=== PATIENT | female | born 1940 | race Caucasian/White ===

== ENCOUNTER 2021-02-09 07:15 | Inpatient (IN) | payer MEDICARE, OTHER, SELFPAY ==
--- NOTE | ~2021-02-09 | CT_ITS ---
EXAMINATION: CT abdomen pelvis w con INDICATION: Intermittent abdominal pain and diarrhea TECHNIQUE: Computed tomographic images of the abdomen and pelvis were obtained after the administrati on of 100 cc of Omnipaque 350 intravenous contrast. The dose-length product (DLP) was 1295.76 mGy-cm. Automated exposure control and iterative reconstruction technique were employed. COMPARISON: None available FINDINGS: Minimal dependent atelectasis is present in the lung bases. The heart size is normal. Calci fied pulmonary nodules and calcified left hilar lymph nodes are consistent with old granulomatous dis ease. Punctate calcifications in otherwise normal appearing liver and spleen likely represent healed granulomatous disease. The pancreas and adrenal glands are normal. There is cholelithiasis and gallbl adder distention. The dilated common bile duct measures up to 8 mm. Hypoattenuating lesions in the ki dneys, measuring up to 7 mm on the left, are too small to characterize but likely represent cysts. Th ere is calcified atherosclerosis of the aorta and many of the other arteries. No pathologically enlar ged abdominal or pelvic lymph nodes are identified. There is no free intraperitoneal gas or evidence of bowel obstruction. Colonic diverticulosis is noted. There is subtle edematous stranding of the per isigmoid fat near the proximal sigmoid colon. There is severe lumbar spondylosis. Fat-containing umbi lical hernia is noted. A neurostimulator device is in the subcutaneous tissues of the flank. Its lead s enter the central spinal canal at the level of T12-L1 and course beyond the superior margin of the CT. IMPRESSION: 1. Cholelithiasis and gallbladder distention without definite pericholecystic fluid or wall thickenin g identified. Findings could reflect acute cholecystitis. Recommend correlation for right upper quadr ant tenderness and consider right upper quadrant ultrasound if present. 2. Mild enlargement of the common bile duct of unclear significance or etiology given the normal live r function tests. 3. Subtle fat stranding near the sigmoid colon which could reflect mild uncomplicated diverticulitis. Reviewed, dictated and finalized at location A. IOLOGY MANAGER IMPRESSION: 1. Cholelithiasis and gallbladder distention without definite pericholecystic f luid or wall thickening identified. Findings could reflect acute cholecystitis. Recommend correlation for right upper quadrant tenderness and consider right u pper quadrant ultrasound if present. 2. Mild enlargement of the common bile duct of unclear significance or etiology given the normal liver function tests. 3. Subtle fat stranding near the sigmoid colon which could reflect mild uncompl icated diverticulitis.
--- NOTE | ~2021-02-09 | US_ITS ---
EXAMINATION: US abdomen limited DATE: 02/09/2021 10:56 INDICATION: Right upper quadrant pain TECHNIQUE: Multiple grayscale and Doppler ultrasound images of the abdomen were obtained. COMPARISON: 10/11/[address] from today FINDINGS: The head, body, and tail of the pancreas are normal. The liver is normal with normal echoge nicity and echotexture. No surface nodularity. Normal hepatopetal flow in the main portal vein. The g allbladder is distended and contains stones. There is no gallbladder wall thickening or pericholecyst ic fluid. The dilated common bile duct measures 11 mm. There was no sonographic Mcgill sign however, pain medication can reduce sensitivity. IMPRESSION: 1. Cholelithiasis and gallbladder distention without gallbladder wall thickening or pericholecystic f luid. Findings are equivocal for acute cholecystitis. 2. Dilated common bile duct of unclear etiology. Reviewed, dictated and finalized at location A. TOWER CLIMBER IMPRESSION: 1. Cholelithiasis and gallbladder distention without gallbladder wall thickenin g or pericholecystic fluid. Findings are equivocal for acute cholecystitis. 2. Dilated common bile duct of unclear etiology.
[2021-02-09 07:19] VITALS: BP 188/98; PULSE 116; RESP 14; TEMP 36.6; O2SAT 98
[2021-02-09 07:36] LABS: Basophils Percent Auto 0.3 % (0.2-1.2); Eosinophils Percent Auto 0.2 % (0-4.4); Hematocrit 39.3 % (37.0-47.0); Hemoglobin 13.2 g/dL (12.0-15.0); Immature Granulocyte Absolute 0.06 K/mm3 (0.00-0.031); Immature Granulocyte Percent A 0.4 % (0-0.5); Lymphocytes Absolute Auto 2.38 K/mm3 (0.9-3.2); Lymphocytes Percent Auto 16.6 % (18.3-44.2); Mean Corpuscular HGB Conc 33.6 g/dl (32-36); Mean Corpuscular Hemoglobin 32.8 pg (26-34); Mean Corpuscular Volume 97.8 fl (80-100); Mean Platelet Volume 10.9 fl (7.4-10.4); Monocytes Absolute Auto 1.3 K/mm3 (0.1-0.6); Monocytes Percent Auto 9.1 % (2.6-8.5); Neutrophils Absolute Auto 10.5 K/mm3 (1.3-6.7); Neutrophils Percent Auto 73.4 % (45.5-73.1); Platelet Count Result 270 k/mm3 (150-375); Red Blood Count 4.02 M/mm3 (4.2-5.4); Red Cell Distribution Width 13.2 % (11.5-14.5); White Blood Count 14.3 K/mm3 (4.5-10.0)
[2021-02-09 07:49] LABS: Alanine Aminotransferase 15 U/L (4-35); Albumin Level 4.4 g/dL (3.5-5.1); Alkaline Phosphatase 54 U/L (38-126); Anion Gap 16 mmol/L (8-16); Aspartate Amino Transferase 30 U/L (14-36); Bilirubin,Total 1.1 mg/dL (0.2-1.3); Blood Urea Nitrogen 44 mg/dL (7-17); Calcium 10.4 mg/dL (8.4-10.2); Carbon Dioxide 21 mmol/L (22-30); Chloride 101 mmol/L (98-107); Estimated CRCL calculation 39 ml/min; Estimated Glomerular Filt Rate 40; Glucose 174 mg/dL (65-110); Lipase 30 U/L (23-300); Potassium 3.9 mmol/L (3.4-5.0); Sodium 138 mmol/L (137-145)
--- NOTE | 2021-02-09 08:04 | PC.NURSE ---
Patient reports she is not currently having pain requiring her to need the ordered pain medication. Will hold admin of this for now.
[2021-02-09] MEDS: SODIUM CHLORIDE 0.9% IV 1,000 ML 999 ML IV CONT (08:36)
[2021-02-09 09:05] LABS: Add Urine Microscopic? YES; Appearance Urine Cloudy (Clear); Bilirubin Urine Negative (Negative); Blood Urine Negative (Negative); Color Urine Amber (Yellow); Glucose Urine UA Negative (Negative); Ketones Urine Trace mg/dL (Negative); Leukocyte Esterase Ur Negative LEU/UL (Negative); Mucus Urine Rare /lpf; Nitrate Urine Negative (Negative); Protein Urine 1+ mg/dL (Negative); Specific Grav Ur 1.021 (1.001-1.035); Squamous Epithelial Cell Urine Moderate /hpf (Few); WBC Urine 0-3 /hpf
[2021-02-09 09:12] LABS: Lactic Acid Reflex 2.3 mmol/L (0.7-2.1)
--- NOTE | 2021-02-09 09:57 | ED.GENADULT ---
HPI - General Adult General Chief complaint: Nausea/Vomiting/Diarrhea Stated complaint: diarrhea, weakness Time Seen by Provider: 02/09/21 07:49 Source: patient Mode of arrival: ambulatory Limitations: no limitations History of Present Illness HPI narrative: Patient presents with diffuse upper abdominal pain, and diarrhea 3-4 times a day for the last 5 days. Patient denies any fever, chills, nausea, vomiting, recent antibiotic intake. History of appendectomy. Related Data Home Medications Medication Instructions Recorded Confirmed hydrocodone 10 mg-acetaminophen 1 tablet PO QID PRN tablet 04/25/19 12/24/20 325 mg tablet cholecalciferol (vitamin D3) 10 10 mcg PO DAILY 09/14/19 12/24/20 mcg (400 unit) capsule omeprazole 20 mg capsule,delayed 20 mg PO DAILY 09/20/20 12/24/20 release Allergies Allergy/AdvReac Type Severity Reaction Status Date / Time glyburide Allergy Unknown pt states Verified 12/24/20 11:11 cannot tolerate d/t blood sugar falling. Review of Systems Review of Systems: CONSTITUTIONAL: Denies fever, chills, or sweats. EYES: Denies visual changes, redness, or discharge. ENT: Denies rhinorrhea, congestion, sore throat, or otalgia. CARDIOVASCULAR: Denies chest pain, palpitations, or edema. RESPIRATORY: Denies cough or dyspnea. GASTROINTESTINAL: abdominal pain, diarrhea. GENITOURINARY: Denies dysuria or hematuria. SKIN: Denies rash or itching. MUSCULOSKELETAL: Denies back pain, joint pain, or myalgia. NEUROLOGIC: Denies headache, numbness, or weakness. PSYCHIATRIC: Denies anxiety or depression. [facility] Past Medical History Medical History Spinal cord stimulator status Surgical History Surgical History H/O thumb surgery (10/2019) Family History Family History Father Diabetes mellitus Family history of glaucoma Hypertension Family history of cardiovascular disease Mother Family history of lupus erythematosus Other Family history of arthritis Family history of congenital heart disease Social History Social History Alcohol intake: never Gender identity (if verbalized by the patient): Female Exam Narrative: General appearance: Well-developed, well-nourished Skin: Normal color Head: Normocephalic, nontraumatic Eyes: Clear conjunctiva ENT: Oropharynx normal, ears normal, nose normal Neck: Supple, nontender Chest and respiratory: Airway patent, no respiratory distress, no accessory muscle use Heart: Regular rate/rhythm Abdomen: Soft, no localized tenderness, large abdomen, no organomegaly, quiet bowel sounds Vascular: Normal peripheral pulses, normal capillary refill. Musculoskeletal: Normal range of motion, nontender back Neurologic: Alert and oriented ?3, SERVICER is normal as tested, no gross motor deficit Course Course Emergency Course: Stable Consultations Consultation #1: Dr. Mckeon Date: 02/09/21 Time: 12:50 Vital Signs Vital signs: Vital Signs Temperature 36.6 C 02/09/21 07:19 Pulse Rate 116 H 02/09/21 07:19 Respiratory Rate 14 02/09/21 07:19 Blood Pressure 188/98 H 02/09/21 07:19 Pulse Oximetry 98 02/09/21 07:19 Temperature 36.6 C 02/09/21 07:19 Pulse Rate 110 H 02/09/21 11:57 Respiratory Rate 18 02/09/21 11:57 Blood Pressure 152/84 H 02/09/21 11:57 Pulse Oximetry 97 02/09/21 11:57 Medical Decision Making Vital Signs Vital Signs: Vital Signs Temperature 36.6 C 02/09/21 07:19 Pulse Rate 116 H 02/09/21
[2021-02-09 11:56] LABS: Reflex Lactic Acid Yes or No Add Lactic
[2021-02-09 11:57] VITALS: BP 152/84; PULSE 110; RESP 18; O2SAT 97
--- NOTE | 2021-02-09 13:45 | PM.IMHP ---
H&P: HPI History of Present Illness Date/Time: 02/09/21 13:45 Chief Complaint: Abdominal pain and diarrhea. Narrative: This is a very pleasant 80-year-old female with history of insulin-dependent diabetes, hypertension, hypothyroidism, and chronic kidney disease who presented to the emergency department from home for evaluation of abdominal pain and diarrhea. On Thursday afternoon she ate canned vegetable beef stew which she thought tasted a bit funny with the 1st couple of bites however she was able to finish the soup as it tasted fine thereafter. The following morning she developed cramping discomfort in her lower abdomen followed by diarrhea and she has had upwards of 10 to 12 loose stools a day since that time. She has not had anything solid to eat since as ?whenever I put in my mouth comes right out? despite taking Imodium. She endorses some mucus in the stool as well however she has not noticed any blood. Due to ongoing symptoms she came in today for evaluation and while in the ER she developed a relatively sharp discomfort in the right upper quadrant that lasted for a couple of minutes before resolving without intervention. She remains tender to palpation in this area. A CT of the abdomen and pelvis today showed cholelithiasis and gallbladder distension as well as mild enlargement of the common bile duct as well as subtle fat stranding near the sigmoid colon which could reflect mild uncomplicated diverticulitis. A subsequent right upper quadrant ultrasound showed findings equivocal for acute cholecystitis. She has no specific complaints at the time my evaluation and she denies sick contacts, recent travel, recent antibiotic use, and history of colitis and C diff. She also denies fever, chills, sweats, chest pain, and vomiting. Review of Systems Review of Systems: Twelve systems were reviewed with pertinent positives and negatives as per HPI. No recent cold or flu symptoms. She denies headache. No chest pain, cough, or shortness of breath. She denies vomiting. No melena or hematochezia. Except as documented, all other systems were reviewed and are negative. [facility] Past Medical History Medical History (Updated 02/09/21 @ 13:50 by Antonia Jerome PA-C) Benign hypertension Chronic kidney disease, stage 3 (moderate) Chronic pain syndrome Gastro-esophageal reflux disease without esophagitis Hypothyroidism (acquired) Mixed hyperlipidemia Obstructive sleep apnea Primary localized osteoarthritis of both knees Spinal stenosis of lumbar region at multiple levels Type 2 diabetes mellitus Hemoglobin A1c was 6.8% in July 2020. Venous stasis dermatitis Surgical History Surgical History (Updated 02/09/21 @ 13:47 by Antonia Jerome PA-C) History of thumb surgery (10/2019) Status post insertion of spinal cord stimulator Family History Family History Father Diabetes mellitus Family history of glaucoma Hypertension Family history of cardiovascular disease Mother Family history of lupus erythematosus Other Family history of arthritis Family history of congenital heart disease Social History Social History (Updated 02/09/21 @ 17:53 by Antonia Jerome PA-C) Social History: Surrogate decision maker: Mónica Cain (niece). Code status: Full code. Smoking packs per day: 1 Smoking cigarettes per day: 20.0 Smoking status: Former smoker Alcohol intake: never Substance use: never Additional living arrangements comments: The patient lives in [place]. Additional occupation/education comments: Retired. Meds Home Medications and Allergies Home Medications Medication Instructions Recorded Confirmed Type hydrocodone 10 mg-acetaminophen 1 tablet PO QID PRN tablet 04/25/19 02/09/21 History 325 mg tablet cholecalciferol (vitamin D3) 10 10 mcg PO DAILY 09/14/19 02/09/21 History mcg (400 unit) capsule omeprazole 20 mg capsule,del
[2021-02-09 14:33] VITALS: BP 149/86; PULSE 84; RESP 18; O2SAT 97
[2021-02-09 14:44] VITALS: BMI 42.5
[2021-02-09 15:53] VITALS: BP 154/65; PULSE 107; RESP 18; TEMP 36.3; O2SAT 100
--- NOTE | 2021-02-09 16:18 | ADMGEN ---
This patient, Payton Burroughs, was admitted to Medical Room 249-01. Patient/family oriented to hospital policies and general routines including ID bracelet, bed and alarms, visiting hours, pain management, procedures, bathroom and other care routines, personal items, smoking policy, room service/diet, and visiting hours. Information on how to activate the Rapid Response Team has been discussed. Patient/Family are encouraged to report perceived risks to care and to ask questions if they do not understand what they are told or what they should do.
[2021-02-09] MEDS: SODIUM CHLORIDE 0.9% IV 1,000 ML 150 ML IV CONT (17:50)
--- NOTE | 2021-02-09 19:13 | PM.CNGS ---
Assessment and Plan Assessment and plan (1) Cholelithiasis: Qualifiers: Biliary obstruction: without biliary obstruction Cholecystitis presence: without cholecystitis Cholelithiasis location: gallbladder Qualified Code(s): K80.20 - Calculus of gallbladder without cholecystitis without obstruction Code(s): K80.20 - Calculus of gallbladder without cholecystitis without obstruction Status: Acute Assessment and Plan: Current CT and ultrasound do not specifically indicate infection of the gallbladder. Also patient does not have any clinical signs of gallbladder problems or history right upper quadrant pain after fatty foods. She does have some mild discomfort with deeper palpation in the right upper quadrant. Antibiotics been started mainly for the possibility diverticulitis and for the diarrhea. This however will probably control any mild infectious that may be associated with the gallstones. (2) Common bile duct dilation: Code(s): K83.8 - Other specified diseases of biliary tract Status: Acute Assessment and Plan: Unknown etiology. May be just somewhat dilated with age as there is no sign of clear obstruction by liver functions. (3) Abdominal pain: Code(s): R10.9 - Unspecified abdominal pain Status: Acute Assessment and Plan: Abdominal pain has resolved but she states she does have sometimes left lower quadrant abdominal pain just before her episodes of loose stools. Will get stool Hemoccult be sure there is not blood microscopically in the stool. (4) Type 2 diabetes mellitus: Code(s): E11.9 - Type 2 diabetes mellitus without complications Status: Acute Assessment and Plan: as per primary service. (5) Obstructive sleep apnea: Code(s): G47.33 - Obstructive sleep apnea (adult) (pediatric) Status: Acute Assessment and Plan: Would recommend patient use CPAP at night on the hospital to maintain good oxygenation while she fights infection. (6) Spinal stenosis of lumbar region at multiple levels: Code(s): M48.061 - Spinal stenosis, lumbar region without neurogenic claudication Status: Acute Assessment and Plan: this is turned off at this point core into the patient. She has some type of a magnetic device that she can turned on off. She has had off for 3 days and is not having much low back pain. There was no sign of irritation erythema or other problem the area of the generator on her right low back I checked it. (7) Gastro-esophageal reflux disease without esophagitis: Code(s): K21.9 - Gastro-esophageal reflux disease without esophagitis Status: Acute Assessment and Plan: Continue on PPI or H2 sara this. ( was on Prilosec at home). (8) Chronic kidney disease, stage 3 (moderate): Qualifiers: Chronic kidney disease stage 3 subtype: stage 3a (GFR 45-59) Qualified Code(s): N18.31 - Chronic kidney disease, stage 3a Code(s): N18.3 - Chronic kidney disease, stage 3 (moderate) Status: Acute Assessment and Plan: renal function may have be at baseline or may reflect some and element of dehydration. Will await further studies as IV hydration takes place. (9) Diarrhea: Qualifiers: Diarrhea type: unspecified type Qualified Code(s): R19.7 - Diarrhea, unspecified Code(s): R19.7 - Diarrhea, unspecified Status: Acute Assessment and Plan: May be secondary to inflammation related to the suspected sigmoid diverticulitis versus some type of food poisoning from the canned soup that she ate on Thursday versus community-acquired C diff without antibiotics exposure. (10) Morbid (severe) obesity due to excess calories: Code(s): E66.01 - Morbid (severe) obesity due to excess calories Status: Acute Assessment and Plan: Present the patient with brochure regarding laparoscopic cholecystectomy in case she needs at some p
[2021-02-09 19:29] LABS: Hemoglobin A1C 6.3 % (<5.7)
[2021-02-09 20:02] VITALS: BP 163/62; PULSE 92; RESP 18; TEMP 36.6; O2SAT 98
[2021-02-09 21:32] VITALS: PULSE 92
[2021-02-09] MEDS: METOPROLOL SUCCINATE EXT REL 50 MG TABCR 150 MG PO (21:32)
[2021-02-09] MEDS: FENOFIBRATE 160 MG TABLET PO (21:32)
[2021-02-09] MEDS: ROSUVASTATIN 5 MG TABLET PO (21:34)
[2021-02-09] MEDS: traZODone HCL 50 MG TABLET PO (21:34)
[2021-02-09 21:47] LABS: Glucose Point of Care 121 mg/dl (65-105)
[2021-02-10] VITALS (7 sets, daily range): BP systolic 101–149; BP diastolic 44–69; PULSE 61–70; RESP 16–17; TEMP 35.9–36.4; O2SAT 97–99
[2021-02-10] MEDS: SODIUM CHLORIDE 0.9% IV 1,000 ML 75 ML IV CONT ×2 (03:50→23:20)
[2021-02-10 06:08] LABS: Basophils Percent Auto 0.3 % (0.2-1.2); Eosinophils Absolute Auto 0.1 K/mm3 (0-0.3); Eosinophils Percent Auto 0.8 % (0-4.4); Hematocrit 34.6 % (37.0-47.0); Hemoglobin 11.3 g/dL (12.0-15.0); Immature Granulocyte Absolute 0.05 K/mm3 (0.00-0.031); Immature Granulocyte Percent A 0.5 % (0-0.5); Lymphocytes Absolute Auto 1.67 K/mm3 (0.9-3.2); Lymphocytes Percent Auto 16.9 % (18.3-44.2); Mean Corpuscular HGB Conc 32.7 g/dl (32-36); Mean Corpuscular Hemoglobin 32.9 pg (26-34); Mean Corpuscular Volume 100.9 fl (80-100); Mean Platelet Volume 11.3 fl (7.4-10.4); Monocytes Absolute Auto 1.4 K/mm3 (0.1-0.6); Neutrophils Absolute Auto 6.7 K/mm3 (1.3-6.7); Neutrophils Percent Auto 67.5 % (45.5-73.1); Platelet Count Result 216 k/mm3 (150-375); Red Blood Count 3.43 M/mm3 (4.2-5.4); Red Cell Distribution Width 13.7 % (11.5-14.5); White Blood Count 9.9 K/mm3 (4.5-10.0)
[2021-02-10 06:20] LABS: Alanine Aminotransferase 12 U/L (4-35); Albumin Level 3.4 g/dL (3.5-5.1); Alkaline Phosphatase 43 U/L (38-126); Anion Gap 7 mmol/L (8-16); Aspartate Amino Transferase 31 U/L (14-36); Bilirubin,Total 0.8 mg/dL (0.2-1.3); Blood Urea Nitrogen 35 mg/dL (7-17); Calcium 9.3 mg/dL (8.4-10.2); Carbon Dioxide 26 mmol/L (22-30); Chloride 105 mmol/L (98-107); Estimated CRCL calculation 38 ml/min; Estimated Glomerular Filt Rate 40; Glucose 136 mg/dL (65-110); Magnesium 1.4 mg/dL (1.6-2.3); Potassium 3.6 mmol/L (3.4-5.0); Sodium 138 mmol/L (137-145)
[2021-02-10] MEDS: LEVOTHYROXINE SODIUM 100 MCG TABLET 200 MCG PO (06:33)
[2021-02-10] MEDS: lisinopriL 20 MG TABLET 40 MG PO (09:05)
[2021-02-10] MEDS: amLODIPine BESYLATE 5 MG TABLET 10 MG PO (09:05)
[2021-02-10] MEDS: CHOLECALCIFEROL 400 UNITS TABLET (VIT D) PO (09:05)
[2021-02-10] MEDS: FUROSEMIDE 20 MG TABLET PO (09:05)
[2021-02-10] MEDS: PANTOPRAZOLE 40 MG TABLET PO (09:06)
[2021-02-10] MEDS: INDAPAMIDE 2.5 MG TABLET PO (09:06)
--- NOTE | 2021-02-10 09:24 | PM.IMPN ---
Progress Note: A&P Assessment and Plan (1) Sigmoid diverticulitis: Code(s): K57.32 - Diverticulitis of large intestine without perforation or abscess without bleeding Status: Acute Assessment and Plan: Improving but she still has diarrhea -abd pain likely due to diverticulitis -advance diet as tolerated -RUQ pain improved, acute palak not suspected at this time. (only hurts mildly with deep palpation). Liver function and bilirubin normal. -Last colonoscopy she think was within the last [address] Guillen but nothing in our EMR for such. She says it was normal. -stool cx pending -continue zosyn (2) Diarrhea: Code(s): R19.7 - Diarrhea, unspecified Status: Acute Assessment and Plan: Improving but not resolved -stool cx pending (3) Cholelithiasis: Qualifiers: Biliary obstruction: without biliary obstruction Cholecystitis presence: without cholecystitis Cholelithiasis location: gallbladder Qualified Code(s): K80.20 - Calculus of gallbladder without cholecystitis without obstruction Code(s): K80.20 - Calculus of gallbladder without cholecystitis without obstruction Status: Acute Assessment and Plan: Noted on imaging but no obvious choledocholithiasis, elevated liver enzymes are elevated bilirubin -unable to do MRCP due to implanted device - surgery has seen the patient and recommended low-fat diet. If she continues to have problems they may need to do an elective cholecystectomy. (4) Common bile duct dilation: Code(s): K83.8 - Other specified diseases of biliary tract Status: Acute Assessment and Plan: LFTs are within normal limits as above (5) Type 2 diabetes mellitus: Code(s): E11.9 - Type 2 diabetes mellitus without complications Status: Acute Assessment and Plan: last glucose 136 - A1c 6.3 - continue sliding scale insulin - on Lantus at home which we will hold since she has an inconsistent diet and is currently NPO (6) Hypothyroidism (acquired): Code(s): E03.9 - Hypothyroidism, unspecified Status: Acute Assessment and Plan: Continue levothyroxine - TSH within normal limits (7) Benign hypertension: Code(s): I10 - Essential (primary) hypertension Status: Acute Assessment and Plan: last blood pressure 101/69 without any lightheadedness or dizziness - continue Lasix, indapamide, lisinopril, amlodipine and metoprolol -will put parameters on these medications (8) Chronic kidney disease, stage 3 (moderate): Qualifiers: Chronic kidney disease stage 3 subtype: stage 3a (GFR 45-59) Qualified Code(s): N18.31 - Chronic kidney disease, stage 3a Code(s): N18.3 - Chronic kidney disease, stage 3 (moderate) Status: Acute Assessment and Plan: Chronic and stable -monitor with daily labs Time Spent With Patient Time with patient: 25 - 35 minutes Subjective Date/time seen: 02/10/21 09:24 Interval history: Pt is a 80-year-old female here for diverticulitis. Patient states she is feeling much better than when she was admitted. She has had 1 episode of significant diarrhea but overall doing better. she has no abdominal pain with this in the lower quadrants or the upper quadrants. She denies blood in the stool. No chest pain, shortness of breath, fevers, chills, nausea or vomiting. She does not feel weak but she feels a little stiff. She says that her legs commonly swell and she has always had a murmur Review of Systems Review of Systems: All systems reviewed & are unremarkable except as noted in HPI and below Exam Narrative: General: Well developed well nourished patient in NAD HEENT: normocephalic Neck: supple Neuro: Alert and oriented x4 CV:RRR with systoic murmur in the 2nd right ICS Resp:CTA Abd: Soft, non distended. No pain to palpation anywhere to the abdomen. Positive bowel sounds
[2021-02-10] MEDS: MAGNESIUM SULF 2 GM/WATER 50ML 2 GM/50 ML BAG IVPB (12:10)
[2021-02-10 12:35] LABS: Glucose Point of Care 135 mg/dl (65-105)
[2021-02-10 19:13] LABS: Glucose Point of Care 147 mg/dl (65-105)
[2021-02-10 19:55] LABS: IFOB Positive Control Positive; Immunochemical Fecal Occult Bl Positive (N)
[2021-02-10] MEDS: traZODone HCL 50 MG TABLET PO (21:06)
[2021-02-10] MEDS: METOPROLOL SUCCINATE EXT REL 50 MG TABCR 150 MG PO (21:06)
[2021-02-10] MEDS: FENOFIBRATE 160 MG TABLET PO (21:06)
[2021-02-10] MEDS: ROSUVASTATIN 5 MG TABLET PO (21:06)
[2021-02-10 21:30] LABS: Glucose Point of Care 119 mg/dl (65-105)
[2021-02-10] MEDS: DICLOFENAC SODIUM 1% 100 GM GEL (*BKC) 1 APPLIC TOPICAL (22:02)
--- NOTE | 2021-02-10 22:53 | PM.PNGS ---
Progress Note: A&P Assessment and Plan (1) Sigmoid diverticulitis: Onset Date: ~01/2021 Code(s): K57.32 - Diverticulitis of large intestine without perforation or abscess without bleeding Status: Acute Assessment and Plan: Review of patient's CT scan today in [facility] reveals that there are stones but not much signs of inflammation around the gallbladder. There is very subtle thickening and some fat stranding around the curve of the sigmoid colon possibly could indicate diverticulitis. Perhaps this is the cause of her loose stools. She is feeling better after 24 hours of antibiotics. She is tolerating clears very well so will move her to full liquids for breakfast. (2) Diarrhea: Onset Date: ~02/04/21 Code(s): R19.7 - Diarrhea, unspecified Status: Acute Assessment and Plan: this may be getting a little bit better as is less frequent. (3) Type 2 diabetes mellitus: Code(s): E11.9 - Type 2 diabetes mellitus without complications Status: Acute (4) Obstructive sleep apnea: Code(s): G47.33 - Obstructive sleep apnea (adult) (pediatric) Status: Acute (5) Spinal stenosis of lumbar region at multiple levels: Code(s): M48.061 - Spinal stenosis, lumbar region without neurogenic claudication Status: Acute (6) Gastro-esophageal reflux disease without esophagitis: Code(s): K21.9 - Gastro-esophageal reflux disease without esophagitis Status: Acute (7) Benign hypertension: Code(s): I10 - Essential (primary) hypertension Status: Acute (8) Cholelithiasis: Onset Date: Unknown Qualifiers: Biliary obstruction: without biliary obstruction Cholecystitis presence: without cholecystitis Cholelithiasis location: gallbladder Qualified Code(s): K80.20 - Calculus of gallbladder without cholecystitis without obstruction Code(s): K80.20 - Calculus of gallbladder without cholecystitis without obstruction Status: Acute Assessment and Plan: patient still does not have any epigastric or right upper quadrant pain so I doubt that these are symptomatic. Time Spent With Patient Time with patient: 15 - 25 minutes Subjective Subjective Date/Time Seen: 02/10/21 19:53 Patient is sitting up in the chair when I entered the room. She states her abdominal pain is gone. She still has had 3 loose stools so far today since 7:00 a.m.. Apparently in other stool sample was sent down. She is tolerating liquids. Review of Systems Review of Systems: All systems reviewed & are unremarkable except as noted in HPI and below Constitutional: Constitutional: Reports as per HPI, Denies chills and Denies fever(s) Cardiovascular: Cardiovascular: Denies chest pain and Denies dyspnea Respiratory: Respiratory: Reports no additional respiratory complaints and Denies dyspnea Gastrointestinal: Gastrointestinal: Reports as per HPI, Denies bloating and Reports diarrhea ( Loose stools x3 no blood) Musculoskeletal: Musculoskeletal: Reports no additional musculoskeletal complaints Neurologic: Denies memory loss Psychiatric: Psychiatric: Denies anxiety and Denies memory loss Exam Const: General: cooperative, comfortable, alert and awake Nutritional Appearance: obese Orientation/consciousness: patient oriented x3 HENMT: Head: normal to inspection Mouth: Yes moist mucous membranes Eyes: Sclera: sclerae normal Pupils: Equal, round and reactive pupils present Neck: Neck: normal visual inspection and no JVD Chest: Chest palpation & inspection: normal inspection of the chest Resp: Effort & Inspection: normal respiratory effort Auscultation: clear to auscultation bilaterally Cardio: Jugular venous distension: no JVD Rate: regular rate GI: Inspection: normal to inspection and obesity GI Palp: Yes Soft to palpation and No Tenderness to palpation present (GI) Auscultation: normal bowel sounds Rectal Exam: deferred
[2021-02-11] VITALS (7 sets, daily range): BP systolic 138–168; BP diastolic 42–50; PULSE 54–70; RESP 16–20; TEMP 36–36.6; O2SAT 95–98
[2021-02-11 06:12] LABS: Basophils Percent Auto 0.4 % (0.2-1.2); Eosinophils Absolute Auto 0.1 K/mm3 (0-0.3); Eosinophils Percent Auto 1.9 % (0-4.4); Hematocrit 32.6 % (37.0-47.0); Hemoglobin 10.8 g/dL (12.0-15.0); Immature Granulocyte Absolute 0.04 K/mm3 (0.00-0.031); Immature Granulocyte Percent A 0.5 % (0-0.5); Lymphocytes Percent Auto 22.8 % (18.3-44.2); Mean Corpuscular HGB Conc 33.1 g/dl (32-36); Mean Corpuscular Hemoglobin 32.3 pg (26-34); Mean Corpuscular Volume 97.6 fl (80-100); Monocytes Absolute Auto 1.3 K/mm3 (0.1-0.6); Neutrophils Absolute Auto 4.3 K/mm3 (1.3-6.7); Neutrophils Percent Auto 57.4 % (45.5-73.1); Platelet Count Result 209 k/mm3 (150-375); Red Blood Count 3.34 M/mm3 (4.2-5.4); Red Cell Distribution Width 13.4 % (11.5-14.5); White Blood Count 7.5 K/mm3 (4.5-10.0)
[2021-02-11 06:23] LABS: Alanine Aminotransferase 15 U/L (4-35); Albumin Level 3.3 g/dL (3.5-5.1); Alkaline Phosphatase 43 U/L (38-126); Anion Gap 9 mmol/L (8-16); Aspartate Amino Transferase 35 U/L (14-36); Bilirubin,Total 0.5 mg/dL (0.2-1.3); Blood Urea Nitrogen 32 mg/dL (7-17); Carbon Dioxide 24 mmol/L (22-30); Chloride 103 mmol/L (98-107); Estimated CRCL calculation 36 ml/min; Estimated Glomerular Filt Rate 36; Glucose 157 mg/dL (65-110); Magnesium 1.7 mg/dL (1.6-2.3); Potassium 3.4 mmol/L (3.4-5.0); Sodium 136 mmol/L (137-145)
[2021-02-11] MEDS: LEVOTHYROXINE SODIUM 100 MCG TABLET 200 MCG PO (06:23)
[2021-02-11 07:42] LABS: Glucose Point of Care 142 mg/dl (65-105)
--- NOTE | 2021-02-11 08:06 | ECG_ITS ---
Measurements Intervals [place] Rate: 62 P: 80 CT: 211 QRS: -11 QRSD: 106 T: 18 QT: 433 QTc: 443 Interpretive Statements SINUS RHYTHM WITH MARKED SINUS ARRHYTHMIA WITH FIRST DEGREE AV BLOCK ATRIAL PREMATURE COMPLEX INCOMPLETE RIGHT BUNDLE BRANCH BLOCK CONSIDER INFERIOR INFARCT, AGE INDETERMINATE ABNORMAL ECG Electronically Signed On 02-11-2021 9:59:46 TALENT DEVELOPMENT SPECIALIST by Nathan Monge D.O.
--- NOTE | 2021-02-11 08:09 | PM.IMPN ---
Progress Note: A&P Assessment and Plan (1) Sigmoid diverticulitis: Onset Date: ~01/2021 Code(s): K57.32 - Diverticulitis of large intestine without perforation or abscess without bleeding Status: Acute Assessment and Plan: Improving -abd pain likely due to diverticulitis -advance diet as tolerated--will go to low fiber for lunch -RUQ pain improved, acute palak not suspected at this time. Liver function and bilirubin normal. -Last colonoscopy she think was within the last [address] Guillen but nothing in our EMR for such. She says it was normal. -stool cx pending -continue zosyn -manager library consult -plan for d/c tomorrow if she improves -ekg to assess for qtc for abx planning (2) Diarrhea: Onset Date: ~02/04/21 Code(s): R19.7 - Diarrhea, unspecified Status: Acute Assessment and Plan: resolved -stool cx pending (3) Cholelithiasis: Onset Date: Unknown Qualifiers: Biliary obstruction: without biliary obstruction Cholecystitis presence: without cholecystitis Cholelithiasis location: gallbladder Qualified Code(s): K80.20 - Calculus of gallbladder without cholecystitis without obstruction Code(s): K80.20 - Calculus of gallbladder without cholecystitis without obstruction Status: Acute Assessment and Plan: Noted on imaging but no obvious choledocholithiasis, elevated liver enzymes are elevated bilirubin -unable to do MRCP due to implanted device - surgery has seen the patient and recommended low-fat diet. If she continues to have problems they may need to do an elective cholecystectomy in the future. (4) Common bile duct dilation: Code(s): K83.8 - Other specified diseases of biliary tract Status: Acute Assessment and Plan: LFTs are within normal limits as above (5) Type 2 diabetes mellitus: Code(s): E11.9 - Type 2 diabetes mellitus without complications Status: Acute Assessment and Plan: last glucose 142 - A1c 6.3 - continue sliding scale insulin - on Lantus at home which we will hold since she has an inconsistent diet (6) Hypothyroidism (acquired): Code(s): E03.9 - Hypothyroidism, unspecified Status: Acute Assessment and Plan: Continue levothyroxine - TSH within normal limits (7) Benign hypertension: Code(s): I10 - Essential (primary) hypertension Status: Acute Assessment and Plan: last blood pressure 145/46 - continue Lasix, indapamide, lisinopril, amlodipine and metoprolol (8) Chronic kidney disease, stage 3 (moderate): Qualifiers: Chronic kidney disease stage 3 subtype: stage 3a (GFR 45-59) Qualified Code(s): N18.31 - Chronic kidney disease, stage 3a Code(s): N18.3 - Chronic kidney disease, stage 3 (moderate) Status: Acute Assessment and Plan: Chronic and stable -monitor with daily labs (9) Positive occult stool blood test: Code(s): R19.5 - Other fecal abnormalities Status: Acute Assessment and Plan: Noted on labs -could be due to diverticulitis -she thinks her last colonoscopy was in the last 10 years but she isn't sure. It was normal then. -f/u with pcp, may consider cologuard test due to patient's age. If positive she will need another colonoscopy. Subjective Date/time seen: 02/11/21 08:09 Interval history: Pt is a 80-year-old female here for diverticulitis. Patient states she is feeling much better than when she was admitted with no diarrhea or abdominal pain. She has tolerated her full liquid diet so far. She denies seeingmblood in the stool. No chest pain, shortness of breath, fevers, chills, nausea or vomiting. She was able to walk in the sy yesterday. She says that her legs commonly swell and she has always had a murmur Exam Narrative: General: Well developed well nourished patient in NAD HEENT: normocephalic N
[2021-02-11] MEDS: amLODIPine BESYLATE 5 MG TABLET 10 MG PO (08:50)
[2021-02-11] MEDS: CHOLECALCIFEROL 400 UNITS TABLET (VIT D) PO (08:51)
[2021-02-11] MEDS: POTASSIUM CHLORIDE 20 MEQ TABLET PO (08:51)
[2021-02-11] MEDS: lisinopriL 20 MG TABLET 40 MG PO (08:51)
[2021-02-11] MEDS: PANTOPRAZOLE 40 MG TABLET PO (08:51)
[2021-02-11] MEDS: INDAPAMIDE 2.5 MG TABLET PO (08:51)
[2021-02-11] MEDS: FUROSEMIDE 20 MG TABLET PO (08:51)
--- NOTE | 2021-02-11 11:38 | PCDIET ---
Dietitian consult for low fiber for 1 week, high fiber/low fat diet education. See Nutritional Teaching intervention. Thank you for the consult.
[2021-02-11 11:54] LABS: Glucose Point of Care 156 mg/dl (65-105)
[2021-02-11] MEDS: DICLOFENAC SODIUM 1% 100 GM GEL (*BKC) 1 APPLIC TOPICAL (14:12)
[2021-02-11 16:51] LABS: Glucose Point of Care 157 mg/dl (65-105)
--- NOTE | 2021-02-11 18:08 | PM.PNGS ---
Progress Note: A&P Assessment and Plan (1) Sigmoid diverticulitis: Onset Date: ~01/2021 Code(s): K57.32 - Diverticulitis of large intestine without perforation or abscess without bleeding Status: Acute Assessment and Plan: I suspect this is the main reason for the patient's pain and diarrhea. She has improved with antibiotic therapy. Will advance her diet today. At the dietitian talked to her about both low-fiber and high-fiber diet on the low-fat side since we know without that she has gallstones. The 1st week after going home she will stay on a low-fiber diet that she could advance to a high-fiber diet low fat. Since she has new nearly due for a 10 year repeat colonoscopy will refer her doctor to doctor Owens for this as he did her last one. (2) Positive occult stool blood test: Onset Date: ~02/11/21 Code(s): R19.5 - Other fecal abnormalities Status: Acute Assessment and Plan: Stool test reveals some microscopic blood. If patient willing and it can be done sometime in about a month will go ahead with colonoscopy as the ideal examination. We should wait until she has cleared the current inflammation /infection. If she is unwilling to proceed with colonoscopy could consider next step doing a colic are tensed home and only if it is positive proceeding to colonoscopy. (3) Cholelithiasis: Onset Date: Unknown Qualifiers: Biliary obstruction: without biliary obstruction Cholecystitis presence: without cholecystitis Cholelithiasis location: gallbladder Qualified Code(s): K80.20 - Calculus of gallbladder without cholecystitis without obstruction Code(s): K80.20 - Calculus of gallbladder without cholecystitis without obstruction Status: Acute Assessment and Plan: This showed up on her CT scan. However there is no significant flow may shunt and the patient has never had epigastric right upper quadrant pain through this episode or previously. Therefore, provider with a low-fat diet suggested that she follow that. She knows that she can call come to our office if she begins having epigastric pain what upper quadrant pain or pain after fatty meals. For now since this appears to be asymptomatic no need to proceed for surgery. (4) Common bile duct dilation: Onset Date: ~02/09/21 Code(s): K83.8 - Other specified diseases of biliary tract Status: Acute Assessment and Plan: unknown etiology. May just be relaxed moves muscle in elderly patient. There is no sign liver function test abnormalities to make this significantly concerning at this time. (5) Type 2 diabetes mellitus: Code(s): E11.9 - Type 2 diabetes mellitus without complications Status: Acute (6) Obstructive sleep apnea: Code(s): G47.33 - Obstructive sleep apnea (adult) (pediatric) Status: Acute (7) Gastro-esophageal reflux disease without esophagitis: Code(s): K21.9 - Gastro-esophageal reflux disease without esophagitis Status: Acute Additional Plan Consider switching patient to oral Augmentin plus Flagyl or Levaquin plus Flagyl for home going with probably about a 7 day completion course of antibiotics. Patient could then be referred by her PCP to Dr. Guillen so that she could have a colonoscopy in about 4-6 weeks. Time Spent With Patient Time with patient: less than 15 minutes Subjective Subjective Date/Time Seen: 02/11/21 08:08 Pt. stays she feels well. She has had a few more BM's and says they are becoming more solid. Denies N & V. Review of Systems Review of Systems: All systems reviewed & are unremarkable except as noted in HPI and below Constitutional: Constitutional: Reports as per HPI, Denies chills and Denies fever(s) Cardiovascular: Cardiovascular: Denies chest pain and Denies dyspnea Respiratory: Respiratory: Reports no additional respiratory complaints and Denies dyspnea Gastrointestinal: Gastrointestinal: R
[2021-02-11] MEDS: traZODone HCL 50 MG TABLET PO (20:19)
[2021-02-11] MEDS: METOPROLOL SUCCINATE EXT REL 50 MG TABCR 150 MG PO (20:19)
[2021-02-11] MEDS: ROSUVASTATIN 5 MG TABLET PO (20:19)
[2021-02-11] MEDS: FENOFIBRATE 160 MG TABLET PO (20:19)
[2021-02-11 20:54] LABS: Glucose Point of Care 172 mg/dl (65-105)
[2021-02-12] VITALS: BP 142/49; PULSE 58; RESP 20; TEMP 36.1; O2SAT 94
[2021-02-12 02:55] VITALS: BP 145/48; PULSE 63; RESP 20; TEMP 36.1; O2SAT 96
[2021-02-12 05:28] LABS: Hematocrit 34.4 % (37.0-47.0); Hemoglobin 11.5 g/dL (12.0-15.0); Mean Corpuscular HGB Conc 33.4 g/dl (32-36); Mean Corpuscular Volume 98.6 fl (80-100); Mean Platelet Volume 10.9 fl (7.4-10.4); Platelet Count Result 208 k/mm3 (150-375); Red Blood Count 3.49 M/mm3 (4.2-5.4); Red Cell Distribution Width 13.2 % (11.5-14.5); White Blood Count 7.9 K/mm3 (4.5-10.0)
[2021-02-12 05:52] LABS: Anion Gap 9 mmol/L (8-16); Blood Urea Nitrogen 27 mg/dL (7-17); Calcium 9.2 mg/dL (8.4-10.2); Carbon Dioxide 25 mmol/L (22-30); Chloride 105 mmol/L (98-107); Estimated CRCL calculation 36 ml/min; Estimated Glomerular Filt Rate 36; Glucose 149 mg/dL (65-110); Potassium 3.7 mmol/L (3.4-5.0); Sodium 139 mmol/L (137-145)
[2021-02-12] MEDS: LEVOTHYROXINE SODIUM 100 MCG TABLET 200 MCG PO (06:28)
[2021-02-12 07:56] LABS: Glucose Point of Care 130 mg/dl (65-105)
[2021-02-12] MEDS: amLODIPine BESYLATE 5 MG TABLET 10 MG PO (09:15)
[2021-02-12] MEDS: PANTOPRAZOLE 40 MG TABLET PO (09:15)
[2021-02-12] MEDS: CHOLECALCIFEROL 400 UNITS TABLET (VIT D) PO (09:16)
[2021-02-12] MEDS: FUROSEMIDE 20 MG TABLET PO (09:16)
[2021-02-12] MEDS: INDAPAMIDE 2.5 MG TABLET PO (09:16)
[2021-02-12] MEDS: TRIAMCINOLONE ACET 0.1% CREAM 15 GM TUBE 1 APPLIC TOPICAL (09:16)
[2021-02-12] MEDS: lisinopriL 20 MG TABLET 40 MG PO (09:16)
--- NOTE | 2021-02-12 10:43 | PM.DS ---
DS: Admitting Diagnosis Discharge Date 02/12/21 Admitting Diagnosis diverticulitis DS: Discharge Diagnosis Discharge Diagnosis (1) Sigmoid diverticulitis: Onset Date: ~01/2021 Code(s): K57.32 - Diverticulitis of large intestine without perforation or abscess without bleeding Status: Acute Assessment and Plan: Improving day of discharge -abd pain likely due to diverticulitis -tolerating a low-fiber diet at discharge -RUQ pain improved, acute palak not suspected at this time. Liver function and bilirubin normal. -Last colonoscopy 2011 -stool cx negative -patient was on Zosyn and transition to Flagyl and Augmentin at discharge -she spoke with the dietitian at discharge and will adhere to a low-fiber diet for the next week and then changed to a high-fiber diet (2) Diarrhea: Onset Date: ~02/04/21 Code(s): R19.7 - Diarrhea, unspecified Status: Acute Assessment and Plan: resolved Stool culture negative (3) Cholelithiasis: Onset Date: Unknown Qualifiers: Biliary obstruction: without biliary obstruction Cholecystitis presence: without cholecystitis Cholelithiasis location: gallbladder Qualified Code(s): K80.20 - Calculus of gallbladder without cholecystitis without obstruction Code(s): K80.20 - Calculus of gallbladder without cholecystitis without obstruction Status: Acute Assessment and Plan: Noted on imaging but no obvious choledocholithiasis, elevated liver enzymes are elevated bilirubin -unable to do MRCP due to implanted device - surgery has seen the patient and recommended low-fat diet. If she continues to have problems they may need to do an elective cholecystectomy in the future. (4) Common bile duct dilation: Onset Date: ~02/09/21 Code(s): K83.8 - Other specified diseases of biliary tract Status: Acute Assessment and Plan: LFTs are within normal limits as above (5) Type 2 diabetes mellitus: Code(s): E11.9 - Type 2 diabetes mellitus without complications Status: Acute Assessment and Plan: last glucose 173 - A1c 6.3 - continue home regimen and monitor for hypoglycemia symptoms (6) Hypothyroidism (acquired): Code(s): E03.9 - Hypothyroidism, unspecified Status: Acute Assessment and Plan: Continue levothyroxine - TSH within normal limits (7) Benign hypertension: Code(s): I10 - Essential (primary) hypertension Status: Acute Assessment and Plan: last blood pressure 145/48 - continue Lasix, indapamide, lisinopril, amlodipine and metoprolol (8) Chronic kidney disease, stage 3 (moderate): Qualifiers: Chronic kidney disease stage 3 subtype: stage 3a (GFR 45-59) Qualified Code(s): N18.31 - Chronic kidney disease, stage 3a Code(s): N18.3 - Chronic kidney disease, stage 3 (moderate) Status: Acute Assessment and Plan: Chronic and stable -monitor with daily labs (9) Positive occult stool blood test: Onset Date: ~02/11/21 Code(s): R19.5 - Other fecal abnormalities Status: Acute Assessment and Plan: Noted on labs -could be due to diverticulitis -she thinks her last colonoscopy was in the last 10 years but she isn't sure. It was normal then. -f/u with pcp, may consider cologuard test due to patient's age. If positive she will need another colonoscopy. DS: Summary Hospital Course Hospital Course: DOS 02/12/21 Patient is a 80-year-old female who presented the emergency room on 02/09/2021 for abdominal pain. Vitals in the ER were temperature 36.6? C, pulse 116, respiratory rate 14, blood pressure 188/98, pulse ox 98 on room air. Initial white blood cell count 14.3, hemoglobin 13.2, hematocrit 39.3, platelets 270. BMP shows chronic kidney disease creatinine 1.3. Abdominal pelvis CT shows: Cholelithiasis and gallbladder distention without
[2021-02-12 11:11] LABS: Glucose Point of Care 173 mg/dl (65-105)
[2021-02-12] MEDS: DICLOFENAC SODIUM 1% 100 GM GEL (*BKC) 1 APPLIC TOPICAL (12:30)
--- NOTE | 2021-02-12 14:14 | PM.PNGS ---
Progress Note: A&P Assessment and Plan (1) Sigmoid diverticulitis: Onset Date: ~01/2021 Code(s): K57.32 - Diverticulitis of large intestine without perforation or abscess without bleeding Status: Acute Assessment and Plan: Suspect this is the reason for her symptoms, which have completely resolved. WBC normal and she is afebrile. Tolerating a low fiber/low fat diet. Okay from a surgical standpoint to discharge the patient today. Would recommend a total of 7-10 days of antibiotics. Could switch her to Augmentin/Flagyl or Levaquin/Flagyl. Continue low fiber diet for 1 more week and then may switch to high fiber, low fat diet. Follow-up only as needed. Recommend to see PCP and referral to GI for possible colonoscopy in 4-6 weeks. (2) Positive occult stool blood test: Onset Date: ~02/11/21 Code(s): R19.5 - Other fecal abnormalities Status: Acute Assessment and Plan: +occult blood stool test. Recommend referral to GI for a colonoscopy possibly in 4-6 weeks or starting with a Cologuard test (if positive would recommend colonoscopy). (3) Cholelithiasis: Onset Date: Unknown Qualifiers: Biliary obstruction: without biliary obstruction Cholecystitis presence: without cholecystitis Cholelithiasis location: gallbladder Qualified Code(s): K80.20 - Calculus of gallbladder without cholecystitis without obstruction Code(s): K80.20 - Calculus of gallbladder without cholecystitis without obstruction Status: Acute Assessment and Plan: Incidentally noted on CT scan and ultrasound. Asymptomatic and no indication for surgery at this time. Recommend following a low fat diet and she was educated on signs of gallbladder disease. Call the office if they arise. (4) Common bile duct dilation: Onset Date: ~02/09/21 Code(s): K83.8 - Other specified diseases of biliary tract Status: Acute Assessment and Plan: Incidentally noted on imaging. Unknown etiology. There is no sign liver function test abnormalities to make this significantly concerning at this time. (5) Type 2 diabetes mellitus: Code(s): E11.9 - Type 2 diabetes mellitus without complications Status: Acute (6) Obstructive sleep apnea: Code(s): G47.33 - Obstructive sleep apnea (adult) (pediatric) Status: Acute (7) Gastro-esophageal reflux disease without esophagitis: Code(s): K21.9 - Gastro-esophageal reflux disease without esophagitis Status: Acute Additional Plan I have discussed the patient's case and plan of care with Dr. Mckeon. Subjective Subjective Date/Time Seen: 02/12/21 14:14 Patient reports: no new complaints, feels better, tolerating a regular diet (Low-fiber, low-fat), flatus, bowel movement and afebrile Interval history: This is a 80-year-old F who presented with abdominal pain and was found to have mild sigmoid diverticulitis on CT. Chart reviewed. Patient is seen and examined this afternoon with her niece at the bedside. She denies any complaints at this time. She denies abdominal pain, nausea, vomiting, or bloating. She has had multiple bowel movements today that are small and formed. She is tolerating her diet. No other complaints at this time. Review of Systems Review of Systems: All systems reviewed & are unremarkable except as noted in HPI and below Exam Const: General: comfortable, no acute distress and awake Orientation/consciousness: patient oriented x3 GI: Inspection: normal to inspection, non-distended and obesity GI Palp: Yes Soft to palpation, No Tenderness to palpation present (GI), No Guarding due to palpation present (GI), No Rigid due to palpation and No Rebound tenderness present Auscultation: normal bowel sounds Skin: General skin exam: normal color Neuro: General: moves all extremities and no focal motor deficits Extrem: General: no pedal edema and no calf tenderness bilaterally Psych: Insight: G
== END 2021-02-12 15:15 | disposition home or self-care (01) | DRG 392 ==
LOC: ANHED 12:50 → ANH3MEDSUR 13:14 → ANH2MED 15:18
PROVIDERS: Physician Assistant; Surgery; Admitting Provider Family Medicine; Emergency Provider Emergency Medicine; PCP Family Medicine; Visit Provider Physician Assistant
DX: K57.32 Diverticulitis of large intestine without perforation or abscess without bleeding (principal); Z68.41 Body mass index [BMI] 40.0-44.9, adult; Z23 Encounter for immunization; K80.20 Calculus of gallbladder without cholecystitis without obstruction; E66.01 Morbid (severe) obesity due to excess calories; R19.5 Other fecal abnormalities; K83.8 Other specified diseases of biliary tract; E03.9 Hypothyroidism, unspecified; E11.22 Type 2 diabetes mellitus with diabetic chronic kidney disease; I12.9 Hypertensive chronic kidney disease with stage 1 through stage 4 chronic kidney disease, or unspecified chronic kidney disease; N18.31 Chronic kidney disease, stage 3a; K21.9 Gastro-esophageal reflux disease without esophagitis; G89.4 Chronic pain syndrome; E78.2 Mixed hyperlipidemia; G47.33 Obstructive sleep apnea (adult) (pediatric); M17.0 Bilateral primary osteoarthritis of knee; M48.061 Spinal stenosis, lumbar region without neurogenic claudication; I87.2 Venous insufficiency (chronic) (peripheral); Z90.49 Acquired absence of other specified parts of digestive tract; Z87.891 Personal history of nicotine dependence
CPT/HCPCS: 36415; 74177; 76705; 80048; 80053; 80076; 81001; 82274; 82948; 83036; 83605; 83690; 83735; 84443; 85025; 85027; 87015; 87045; 87269; 87272; 87324; 87427; 90471; 90653; 93005; 96360; 96361; 97110; 97162; 97165; 99285; A9270; G0008; J2543; J3475; J7030; Q9967

== ENCOUNTER 2021-05-13 12:59 | Outpatient (CLI) | payer MEDICARE, OTHER, SELFPAY ==
--- NOTE | ~2021-05-13 | US_ITS ---
EXAMINATION: US venous doppler [facility] DATE: 05/13/2021 14:44 INDICATION: Lower limb pain and swelling. Other specified soft tissue disorders. TECHNIQUE: Grayscale ultrasound images without and with compression and Doppler ultrasound images of the bilateral lower extremity veins were obtained. COMPARISON: Ultrasound 04/29/2005 FINDINGS: The visualized portions of right common femoral vein, profunda (deep) femoral vein, femoral vein, pop liteal vein, peroneal veins, posterior tibial veins, and greater saphenous vein outflow are patent. The visualized portions of left common femoral vein, profunda femoral vein, femoral vein, popliteal v ein, peroneal veins, posterior tibial veins, and greater saphenous vein outflow are patent. IMPRESSION: 1. No deep venous thrombosis. Reviewed, dictated and finalized at location A.
== END 2021-05-13 13:00 | disposition home or self-care (01) ==
LOC: ANHIMG 13:26
PROVIDERS: PCP Family Medicine; Visit Provider Physician Assistant
DX: M79.89 Other specified soft tissue disorders (principal); I10 Essential (primary) hypertension; R06.01 Orthopnea
CPT/HCPCS: 93970

== ENCOUNTER 2021-05-22 12:44 | Outpatient (CLI) | payer MEDICARE, OTHER, SELFPAY ==
--- NOTE | 2021-05-22 13:00 | ECHO_ITS ---
Patient Info Name: Payton Burroughs Age: 80 years : 1940 Gender: Female Ht: 64 in Wt: 245 lbs BSA: 2.30 m2 HR: 66 bpm BP: 187 / 96 mmHg Technical Quality: Fair Exam Date: 05/22/2021 1:18 PM Exam Location: [facility]monary Patient Status: Outpatient Admit Date: 05/22/2021 Staff Ordering Physician: Tom Gordon PA-C [employer]: Marcus Mcgill RDCS, RT Attending Provider: Tom Gordon PA-C Referring Physician: Heidi JOHNSON; Exam Type: CA echo doppler color flow Study Info Indications R06.02 - Shortness of breath Complete two-dimensional, color flow and Doppler transthoracic echocardiogram is performed. Strain analysis performed. Summary 1. Complete two-dimensional, color flow and Doppler transthoracic echocardiogram is performed. 2. Left ventricular chamber dimension is normal. 3. Left ventricular systolic function is normal, estimated at 60-65%. 4. There is mildly increased left ventricular wall thickness. 5. The left ventricular diastolic function is abnormal. 6. E/e' 29 is elevated. 7. Global longitudinal strain is mildly abnormal at -16.5%. 8. Left atrial chamber dimension is mildly enlarged. 9. The mitral valve has not well visualized and severe calcified annulus. 10. There is mild mitral valve stenosis based on mean gradient 6 mmHg. 11. There is mild mitral valve regurgitation. 12. There is trace tricuspid valve regurgitation. 13. Moderate pulmonary hypertension, estimated pulmonary arterial systolic pressure is 54 mmHg. Left Ventricle E/e' 29 is elevated. Global longitudinal strain is mildly abnormal at -16.5%. Left ventricular chamber dimension is normal. Left ventricular systolic function is normal, estimated at 60-65%. There is mildly increased left ventricular wall thickness. The left ventricular diastolic function is abnormal. Right Ventricle Right ventricular systolic function is normal and with normal TAPSE 2.5 cm.. Right ventricular chamber dimension is normal. Left Atria Left atrial chamber dimension is mildly enlarged. Right Atria Right atrial chamber dimension is normal. Aortic Valve The aortic valve is not well visualized. Cannot determine number of aortic valve leaflets. There is no aortic valve stenosis. There is no aortic valve regurgitation. Pulmonic Valve There is no pulmonic regurgitation. Mitral Valve The mitral valve has not well visualized and severe calcified annulus. There is mild mitral valve stenosis based on mean gradient 6 mmHg. There is mild mitral valve regurgitation. Tricuspid Valve There is trace tricuspid valve regurgitation. Moderate pulmonary hypertension, estimated pulmonary arterial systolic pressure is 54 mmHg. Pericardium/Pleural There is no pericardial effusion. Inferior Vena Cava Normal inferior vena cava with >50% collapse upon inspiration consistent with normal right atrial pressure, 5 mmHg. Aorta The aortic root size at the sinus of Valsalva is not well visualized. Left Ventricular Outflow Tract Name Value Normal LVOT 2D LVOT Diameter 1.9 cm LVOT Doppler LVOT Peak Gradient 9 mmHg
== END 2021-05-22 12:45 | disposition home or self-care (01) ==
LOC: ANHCARD 12:49
PROVIDERS: PCP Family Medicine; Visit Provider Physician Assistant
DX: R06.02 Shortness of breath (principal); I34.0 Nonrheumatic mitral (valve) insufficiency; I36.1 Nonrheumatic tricuspid (valve) insufficiency; I27.20 Pulmonary hypertension, unspecified
CPT/HCPCS: 93306

== ENCOUNTER → 2022-01-27 13:57 | Outpatient (CLI) | payer MEDICARE, OTHER, SELFPAY ==
--- NOTE | ~2022-01-27 | XR_ITS ---
XR chest 2V DATE: 01/27/2022 14:12 INDICATION: Mass of right clavicle near neck TECHNIQUE: PA and lateral views COMPARISON: 01/29/2019 CT chest 09/24/2005 PA and lateral chest FINDINGS: Posterior thoracic spinal canal electrodes are new since 09/24/2005. Heart size is borderline. Aortic arch calcification. No hilar or mediastinal enlargement. No pulmonary infiltrate or consolidation, pleural effusion or pulmonary vascular congestion or pneumo thorax is detected. There is mild dextroscoliosis of prominent degenerative spurring of the thoracic spine. Otherwise the re is osteopenia. IMPRESSION: No active pulmonary disease Aortic atherosclerosis Osteopenia Dextro scoliosis and degenerative spurring of thoracic spine Thoracic spinal canal electrodes Reviewed, dictated and finalized at location B. [employer]
== END ==
PROVIDERS: PCP Emergency Medicine; Visit Provider Emergency Medicine
DX: R22.1 Localized swelling, mass and lump, neck (principal); I70.0 Atherosclerosis of aorta; M85.80 Other specified disorders of bone density and structure, unspecified site; M41.9 Scoliosis, unspecified
CPT/HCPCS: 36415; 71046

== ENCOUNTER 2022-01-27 14:26 | Outpatient (CLI) | payer MEDICARE, OTHER, SELFPAY ==
[2022-01-28 05:11] LABS: Kit Draw Collected
== END 2022-01-27 14:27 | disposition home or self-care (01) ==
LOC: ANHGOSHLAB 14:29
PROVIDERS: PCP Emergency Medicine; Visit Provider Emergency Medicine
DX: N18.9 Chronic kidney disease, unspecified (principal)
CPT/HCPCS: 36415

== ENCOUNTER 2022-04-04 08:49 | Outpatient (CLI) | payer MEDICARE, OTHER, SELFPAY ==
[2022-04-04 19:21] LABS: Basophils Absolute Auto 0.1 K/mm3 (0.0-0.1); Basophils Percent Auto 0.6 % (0.2-1.2); Eosinophils Absolute Auto 0.1 K/mm3 (0-0.3); Eosinophils Percent Auto 0.8 % (0-4.4); Hematocrit 38.9 % (37.0-47.0); Hemoglobin 12.5 g/dL (12.0-15.0); Immature Granulocyte Absolute 0.03 K/mm3 (0.00-0.031); Immature Granulocyte Percent A 0.3 % (0-0.5); Lymphocytes Absolute Auto 1.93 K/mm3 (0.9-3.2); Lymphocytes Percent Auto 22.2 % (18.3-44.2); Mean Corpuscular HGB Conc 32.1 g/dl (32-36); Mean Corpuscular Hemoglobin 31.9 pg (26-34); Mean Corpuscular Volume 99.2 fl (80-100); Mean Platelet Volume 12.3 fl (7.4-10.4); Monocytes Percent Auto 11.3 % (2.6-8.5); Neutrophils Absolute Auto 5.6 K/mm3 (1.3-6.7); Neutrophils Percent Auto 64.8 % (45.5-73.1); Platelet Count Result 195 k/mm3 (150-375); Red Blood Count 3.92 M/mm3 (4.2-5.4); Red Cell Distribution Width 12.1 % (11.5-14.5); White Blood Count 8.7 K/mm3 (4.5-10.0)
[2022-04-04 19:51] LABS: Hemoglobin A1C 6.4 % (<5.7)
[2022-04-04 20:02] LABS: Albumin Level 4.1 g/dL (3.5-5.1); Anion Gap 8 mmol/L (8-16); Blood Urea Nitrogen 79 mg/dL (7-17); Calcium 9.1 mg/dL (8.4-10.2); Carbon Dioxide 34 mmol/L (22-30); Chloride 96 mmol/L (98-107); Estimated Glomerular Filt Rate 31; Glucose 87 mg/dL (65-110); Potassium 3.9 mmol/L (3.4-5.0); Sodium 138 mmol/L (137-145)
[2022-04-04 20:15] LABS: Free T4 Free Thyroxine 1.96 ng/mL (0.78-2.19)
== END 2022-04-04 08:50 | disposition home or self-care (01) ==
LOC: ANHGOSHLAB 08:51
PROVIDERS: PCP Emergency Medicine; Visit Provider Emergency Medicine
DX: Z79.4 Long term (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 insulin (principal); E11.22 Type 2 diabetes mellitus with diabetic chronic kidney disease; N18.32 Chronic kidney disease, stage 3b; E03.9 Hypothyroidism, unspecified; N95.1 Menopausal and female climacteric states; I10 Essential (primary) hypertension
CPT/HCPCS: 36415; 80069; 83036; 84439; 84443; 85025

== ENCOUNTER 2022-07-10 00:11 | Day surgery (SDC) | payer MEDICARE, OTHER, SELFPAY ==
[2022-07-01 10:52] VITALS: BMI 31.8
[2022-07-10 08:53] VITALS: BP 142/52; PULSE 65; RESP 18; TEMP 36.3; O2SAT 99; BMI 40.1
[2022-07-10 09:22] LABS: Glucose Point of Care 122 mg/dl (65-105)
--- NOTE | 2022-07-10 09:28 | WPDANESEPPF ---
Anes - Initial Pre Proc Eval Procedure: Operation Date: 07/10/22 10:15 Proposed Procedures p Esophagogastroduodenoscopy - Hernesto Guillen MD Date/Time: 07/10/22 09:28 Surgeon: Hernesto Guillen MD Pre Op Diagnosis: dysphagia Patient Data Age: 81 Gender: F Height: 1.63 m Weight: 106 kg Last Vital Signs Temp 97.3 F L 07/10/22 08:53 Pulse 65 07/10/22 08:53 Resp 18 07/10/22 08:53 BP 142/52 H 07/10/22 08:53 Pulse Ox 99 07/10/22 08:53 O2 Del Method Room Air 07/10/22 08:53 Allergies Allergy/AdvReac Type Severity Reaction Status Date / Time bumetanide [From Bumex] Allergy Vomiting Verified 07/01/22 10:53 terbinafine Allergy skin Verified 07/01/22 10:53 blistering duloxetine [From Cymbalta] AdvReac Severe seratonin Verified 07/01/22 10:53 syndrome 2-19 sertraline AdvReac Severe Dizziness Verified 07/01/22 10:53 Home Medications Medication Instructions Recorded Confirmed Type cholecalciferol (vitamin D3) 10 2,000 unit PO DAILY 09/14/19 07/02/22 History mcg (400 unit) capsule insulin needles (disposable) 30 X 04/22/21 07/02/22 History 3/4 diclofenac sodium 1 % topical gel See Rx Instructions .Route 05/01/21 07/02/22 Rx .COMPLEX #100 grams lisinopril 40 mg tablet See Rx Instructions .Route 07/08/21 07/02/22 Rx .COMPLEX #90 tabs fenofibrate 160 mg tablet See Rx Instructions .Route 08/05/21 07/02/22 Rx .COMPLEX #90 tabs rosuvastatin 5 mg tablet 5 mg PO HS #90 tabs 11/05/21 07/02/22 Rx triamcinolone acetonide 0.025 % 1 applic topical BID #15 grams 12/17/21 07/02/22 Rx topical cream levothyroxine 200 mcg tablet 200 mcg PO DAILY #90 tabs 05/02/22 07/02/22 Rx omeprazole 40 mg capsule,delayed 40 mg PO DAILY #90 caps 05/23/22 07/02/22 Rx release metoprolol succinate 100 mg 150 mg PO HS #135 tabs 06/16/22 07/02/22 Rx tablet,extended release 24 hr furosemide 40 mg tablet 80 mg PO QAM #90 tabs 06/25/22 07/02/22 Rx insulin glargine 100 unit/mL (3 30 unit subcut QAM 07/01/22 07/02/22 History mL) subcutaneous pen (Lantus Solostar U-100 Insulin) trazodone 50 mg tablet See Rx Instructions .Route 07/02/22 07/10/22 Rx .COMPLEX #90 tabs blood sugar diagnostic (OneTouch #100 strips 07/03/22 Rx Ultra Test strips) Laboratory Tests 07/10/22 09:19 POC Capillary Glucose 122 H mg/dl (65-105) Patient hx anesthesia problems: none Family hx anesthesia problems: none Results Review: All pre-operative results and documents have been reviewed as part of the pre-operative evaluation. [facility] Past Medical History Medical History Chronic kidney disease, stage 3 (moderate) Chronic pain syndrome Gastro-esophageal reflux disease without esophagitis Hypothyroidism (acquired) Mixed hyperlipidemia Obstructive sleep apnea Primary localized osteoarthritis of both knees Spinal stenosis of lumbar region at multiple levels Type 2 diabetes mellitus Hemoglobin A1c was 6.8% in July 2020. Venous stasis dermatitis Surgical History Surgical History History of thumb surgery (10/2019) Status post insertion of spinal cord stimulator Family History Family History Father Diabetes mellitus Family history of glaucoma Hypertension Family history of cardiovascular disease Mother Family history of lupus erythematosus Other Family history of arthritis Family history of congenital heart disease Social History Social History Social History: Surrogate decision maker: Mónica Cain (niece). Code status: Full code. Smoking packs per day: 1 Smoking cigarettes per day: 20.0 Years smoked: 15 Smoking pack-years: 15.00 Smoking status: Former smoker Tobacco type: cigarettes Additional smoking assessment comm
--- NOTE | 2022-07-10 09:35 | PM.HPGS ---
History of Present Illness History of Present Illness Consent: Risks, benefits, and alternatives have been discussed and questions answered. Patient agrees to proceed with procedure. Chief complaint: dysphagia Narrative: Payton Burroughs is a 81 year old female Presents for EGD. Patient reports difficulty swallowing. Over recent weeks she has had difficulty with food catching in the throat. 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 Additionally patient recently has had hoarseness and a cough. Patient denies any heartburn. She has had no weight loss. No bleeding. Patient presents for EGD to assess swallowing difficulties. Review of Systems Review of Systems: Review of systems noncontributory. [facility] Past Medical History Medical History Chronic kidney disease, stage 3 (moderate) Chronic pain syndrome Gastro-esophageal reflux disease without esophagitis Hypothyroidism (acquired) Mixed hyperlipidemia Obstructive sleep apnea Primary localized osteoarthritis of both knees Spinal stenosis of lumbar region at multiple levels Type 2 diabetes mellitus Hemoglobin A1c was 6.8% in July 2020. Venous stasis dermatitis Surgical History Surgical History History of thumb surgery (10/2019) Status post insertion of spinal cord stimulator Family History Family History Father Diabetes mellitus Family history of glaucoma Hypertension Family history of cardiovascular disease Mother Family history of lupus erythematosus Other Family history of arthritis Family history of congenital heart disease Social History Social History Social History: Surrogate decision maker: Mónica Cain (niece). Code status: Full code. Smoking packs per day: 1 Smoking cigarettes per day: 20.0 Years smoked: 15 Smoking pack-years: 15.00 Smoking status: Former smoker Tobacco type: cigarettes Additional smoking assessment comments: quit 50 years ago Alcohol intake: current Alcohol use details: rare Substance use: never Substance use type: does not use Current Housing: Decline to Answer Concerned About Future Housing: Decline to Answer Difficulty Paying Gas/Electric Bills: Decline to Answer Difficulty Paying for Meds: Decline to Answer Currently Unemployed: Decline to Answer Education: Decline to Answer Difficulty w/ Childcare or Family Care: Decline to Answer Living arrangements: with family Additional living arrangements comments: The patient lives in [place]. Additional occupation/education comments: Retired. Gender identity (if verbalized by the patient): Female Spiritual care concerns: No Meds Home Medications and Allergies Home Medications Medication Instructions Recorded Confirmed Type cholecalciferol (vitamin D3) 10 2,000 unit PO DAILY 09/14/19 07/02/22 History mcg (400 unit) capsule insulin needles (disposable) 30 X 04/22/21 07/02/22 History 3/4 diclofenac sodium 1 % topical gel See Rx Instructions .Route 05/01/21 07/02/22 Rx .COMPLEX #100 grams lisinopril 40 mg tablet See Rx Instructions .Route 07/08/21 07/02/22 Rx .COMPLEX #90 tabs fenofibrate 160 mg tablet See Rx Instructions .Route 08/05/21 07/02/22 Rx .COMPLEX #90 tabs rosuvastatin 5 mg tablet 5 mg PO HS #90 tabs 11/05/21 07/02/22 Rx triamcinolone acetonide 0.025 % 1 applic topical BID #15 grams 12/17/21 07/02/22 Rx topical cream levothyroxine 200 mcg tablet 200 mcg PO DAILY #90 tabs 05/02/22 07/02/22 Rx omeprazole 40 mg capsule,delayed 40 mg PO DAILY #90 caps 05/23/22 07/02/22 Rx release metoprolol succinate 100 mg 150 mg PO HS #135 tabs 06/16/22 07/02/22 Rx tablet,extended release 24 hr furosemi
[2022-07-10] MEDS: LACTATED RINGERS 1,000 ML 150 ML IV CONT (09:36)
[2022-07-10 10:45] VITALS: BP 124/77; PULSE 57; RESP 20; O2SAT 99
[2022-07-10 10:55] VITALS: BP 104/46; PULSE 59; RESP 19; O2SAT 99
[2022-07-10 11:05] VITALS: BP 106/54; PULSE 66; RESP 19; O2SAT 99
[2022-07-10 11:08] LABS: Glucose Point of Care 118 mg/dl (65-105)
== END 2022-07-10 11:15 | disposition home or self-care (01) ==
PROVIDERS: PCP Emergency Medicine; Visit Provider Internal Medicine Gastroenterology
PROC: 0DJ08ZZ Inspection of Upper Intestinal Tract, Via Natural or Artificial Opening Endoscopic (ICD-10-PCS; CPT 43235; principal; 2022-07-10 10:15)
DX: R13.10 Dysphagia, unspecified (principal); K31.7 Polyp of stomach and duodenum; E11.22 Type 2 diabetes mellitus with diabetic chronic kidney disease; N18.30 Chronic kidney disease, stage 3 unspecified; K21.9 Gastro-esophageal reflux disease without esophagitis; E03.9 Hypothyroidism, unspecified; E78.2 Mixed hyperlipidemia; G47.33 Obstructive sleep apnea (adult) (pediatric); I87.8 Other specified disorders of veins; Z87.891 Personal history of nicotine dependence; E66.01 Morbid (severe) obesity due to excess calories; Z68.41 Body mass index [BMI] 40.0-44.9, adult; Z79.4 Long term (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 insulin
CPT/HCPCS: 45385; 43450; 82948; 88305; J2704; J7120

== ENCOUNTER 2022-07-15 08:12 | Outpatient (CLI) | payer MEDICARE, OTHER, SELFPAY ==
[2022-07-15 18:59] LABS: Alanine Aminotransferase 20 U/L (6-35); Albumin Level 3.5 g/dL (3.5-5.1); Alkaline Phosphatase 48 U/L (38-126); Anion Gap 6 mmol/L (8-16); Aspartate Amino Transferase 36 U/L (14-36); Bilirubin,Total 0.6 mg/dL (0.2-1.3); Blood Urea Nitrogen 86 mg/dL (7-17); Calcium 8.5 mg/dL (8.4-10.2); Carbon Dioxide 34 mmol/L (22-30); Chloride 104 mmol/L (98-107); Cholesterol 140 mg/dL (0-200); Estimated Glomerular Filt Rate 31; Glucose 127 mg/dL (65-110); HDL Direct 27 mg/dL; Potassium 3.7 mmol/L (3.4-5.0); Sodium 144 mmol/L (137-145); Triglycerides 228 mg/dL (<150)
[2022-07-15 19:10] LABS: Complement C3 165 mg/dL (88-165)
[2022-07-15 19:11] LABS: LDL Cholesterol Direct 68 mg/dL
[2022-07-15 19:21] LABS: Free T4 Free Thyroxine 2.31 ng/mL (0.78-2.19)
[2022-07-15 19:30] LABS: Thyroid Stimulating Hormone 0.215 uIU/mL (0.465-4.680)
[2022-07-15 19:33] LABS: Basophils Percent Auto 0.3 % (0.2-1.2); Eosinophils Absolute Auto 0.1 K/mm3 (0-0.3); Eosinophils Percent Auto 1.2 % (0-4.4); Hemoglobin 11.5 g/dL (12.0-15.0); Immature Granulocyte Absolute 0.07 K/mm3 (0.00-0.031); Immature Granulocyte Percent A 0.8 % (0-0.5); Lymphocytes Absolute Auto 1.84 K/mm3 (0.9-3.2); Lymphocytes Percent Auto 20.3 % (18.3-44.2); Mean Corpuscular HGB Conc 31.9 g/dl (32-36); Mean Corpuscular Hemoglobin 32.8 pg (26-34); Mean Corpuscular Volume 102.6 fl (80-100); Mean Platelet Volume 12.1 fl (7.4-10.4); Monocytes Absolute Auto 1.1 K/mm3 (0.1-0.6); Monocytes Percent Auto 11.6 % (2.6-8.5); Neutrophils Percent Auto 65.8 % (45.5-73.1); Platelet Count Result 243 k/mm3 (150-375); Red Blood Count 3.51 M/mm3 (4.2-5.4); Red Cell Distribution Width 13.2 % (11.5-14.5); White Blood Count 9.1 K/mm3 (4.5-10.0)
[2022-07-21 01:57] LABS: Creatinine, Random Urine 74 mg/dL (20-275); Total Protein/Creatinine Ratio 95 mg/g creat (24-184)
[2022-07-22 20:53] LABS: ANCA Screen Negative (Negative)
== END 2022-07-15 08:13 | disposition home or self-care (01) ==
LOC: ANHGOSHLAB 08:17
PROVIDERS: Internal Medicine Nephrology; Physician Assistant; PCP Emergency Medicine; Visit Provider Emergency Medicine
DX: I12.9 Hypertensive chronic kidney disease with stage 1 through stage 4 chronic kidney disease, or unspecified chronic kidney disease (principal); N18.32 Chronic kidney disease, stage 3b; E11.22 Type 2 diabetes mellitus with diabetic chronic kidney disease; E03.9 Hypothyroidism, unspecified; E78.2 Mixed hyperlipidemia; N18.31 Chronic kidney disease, stage 3a; Z79.4 Long term (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 insulin
CPT/HCPCS: 36415; 80053; 80061; 82570; 84156; 84166; 84439; 84443; 85025; 86036; 86038; 86039; 86160; 86225

== ENCOUNTER 2022-07-30 08:25 | Outpatient (CLI) | payer MEDICARE, OTHER, SELFPAY ==
[2022-07-30 15:08] LABS: Basophils Percent Auto 0.5 % (0.2-1.2); Eosinophils Absolute Auto 0.1 K/mm3 (0-0.3); Hematocrit 37.9 % (37.0-47.0); Hemoglobin 12.2 g/dL (12.0-15.0); Immature Granulocyte Absolute 0.05 K/mm3 (0.00-0.031); Immature Granulocyte Percent A 0.8 % (0-0.5); Lymphocytes Absolute Auto 1.88 K/mm3 (0.9-3.2); Lymphocytes Percent Auto 28.6 % (18.3-44.2); Mean Corpuscular HGB Conc 32.2 g/dl (32-36); Mean Corpuscular Hemoglobin 33.1 pg (26-34); Mean Corpuscular Volume 102.7 fl (80-100); Mean Platelet Volume 12.1 fl (7.4-10.4); Monocytes Absolute Auto 0.9 K/mm3 (0.1-0.6); Monocytes Percent Auto 14.3 % (2.6-8.5); Neutrophils Absolute Auto 3.6 K/mm3 (1.3-6.7); Neutrophils Percent Auto 53.8 % (45.5-73.1); Platelet Count Result 252 k/mm3 (150-375); Red Blood Count 3.69 M/mm3 (4.2-5.4); Red Cell Distribution Width 12.9 % (11.5-14.5); White Blood Count 6.6 K/mm3 (4.5-10.0)
[2022-07-30 15:27] LABS: Creatinine Urine 97.7 mg/dL
[2022-07-30 15:46] LABS: Hemoglobin A1C 6.2 % (<5.7)
[2022-07-30 15:58] LABS: Total Protein Urine Random < 5 mg/dL; Ur Ttl Prot Creatinine Ratio < 0.05 mg/mg (0-0.20)
[2022-07-30 16:20] LABS: Albumin Level 3.6 g/dL (3.5-5.1); Anion Gap 6 mmol/L (8-16); Blood Urea Nitrogen 88 mg/dL (7-17); Calcium 8.8 mg/dL (8.4-10.2); Carbon Dioxide 36 mmol/L (22-30); Chloride 98 mmol/L (98-107); Estimated Glomerular Filt Rate 24; Glucose 88 mg/dL (65-110); Phosphorus 4.4 mg/dL (2.5-4.5); Potassium 4.8 mmol/L (3.4-5.0); Sodium 140 mmol/L (137-145)
[2022-07-30 16:53] LABS: Free T4 Free Thyroxine 3.56 ng/mL (0.78-2.19)
[2022-07-30 17:22] LABS: Alanine Aminotransferase 19 U/L (6-35); Albumin Level 3.7 g/dL (3.5-5.1); Alkaline Phosphatase 53 U/L (38-126); Anion Gap 7 mmol/L (8-16); Aspartate Amino Transferase 36 U/L (14-36); Bilirubin,Total 0.4 mg/dL (0.2-1.3); Blood Urea Nitrogen 86 mg/dL (7-17); Carbon Dioxide 35 mmol/L (22-30); Chloride 98 mmol/L (98-107); Estimated Glomerular Filt Rate 24; Glucose 86 mg/dL (65-110); Potassium 4.9 mmol/L (3.4-5.0); Sodium 140 mmol/L (137-145)
[2022-08-02 16:17] LABS: Albumin 3.1 g/dL (3.8-4.8); Alpha 1 Globulin 0.4 g/dL (0.2-0.3); Alpha 2 Globulin 1.1 g/dL (0.5-0.9); Beta 1 Globulin 0.5 g/dL (0.4-0.6); Gamma Globulin 0.7 g/dL (0.8-1.7); Protein, Total 6.2 g/dL (6.1-8.1)
[2022-08-04 09:54] LABS: Anti Glomerular Basement Memb <1.0 AI (<1.0)
== END 2022-07-30 08:26 | disposition home or self-care (01) ==
LOC: ANHGOSHLAB 08:29
PROVIDERS: Internal Medicine Nephrology; Physician Assistant; PCP Emergency Medicine; Visit Provider Emergency Medicine
DX: E11.22 Type 2 diabetes mellitus with diabetic chronic kidney disease (principal); I12.9 Hypertensive chronic kidney disease with stage 1 through stage 4 chronic kidney disease, or unspecified chronic kidney disease; E03.9 Hypothyroidism, unspecified; I10 Essential (primary) hypertension; I87.8 Other specified disorders of veins; N18.31 Chronic kidney disease, stage 3a; Z79.4 Long term (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 insulin; N18.32 Chronic kidney disease, stage 3b
CPT/HCPCS: 36415; 80053; 80069; 82570; 83036; 83520; 84155; 84156; 84165; 84439; 84443; 85025

== ENCOUNTER 2022-08-06 07:21 | Outpatient (RCR) | payer MEDICARE, OTHER, SELFPAY ==
[2022-07-23 14:00] VITALS: BMI 40.1
== END 2022-10-07 09:56 | disposition home or self-care (01) ==
LOC: ANHWOC 07:21
PROVIDERS: PCP Emergency Medicine; Visit Provider Family Medicine
DX: M79.604 Pain in right leg (principal); M79.605 Pain in left leg; I87.8 Other specified disorders of veins
CPT/HCPCS: 29581; 99213; A9270; G0463

== ENCOUNTER 2022-08-07 08:09 | Outpatient (CLI) | payer MEDICARE, OTHER, SELFPAY ==
[2022-08-07 12:55] LABS: Anion Gap 6 mmol/L (8-16); Blood Urea Nitrogen 94 mg/dL (7-17); Calcium 9.4 mg/dL (8.4-10.2); Carbon Dioxide 36 mmol/L (22-30); Chloride 100 mmol/L (98-107); Estimated Glomerular Filt Rate 20; Glucose 68 mg/dL (65-110); Potassium 4.6 mmol/L (3.4-5.0); Sodium 142 mmol/L (137-145)
[2022-08-07 13:16] LABS: Thyroid Stimulating Hormone 0.363 uIU/mL (0.465-4.680)
== END 2022-08-07 08:10 | disposition home or self-care (01) ==
LOC: ANHGOSHLAB 08:10
PROVIDERS: PCP Emergency Medicine; Visit Provider Physician Assistant
DX: I12.9 Hypertensive chronic kidney disease with stage 1 through stage 4 chronic kidney disease, or unspecified chronic kidney disease (principal); N18.9 Chronic kidney disease, unspecified; E03.9 Hypothyroidism, unspecified; I87.8 Other specified disorders of veins
CPT/HCPCS: 36415; 80048; 84439; 84443

== ENCOUNTER 2022-08-13 15:50 | Outpatient (CLI) | payer MEDICARE, OTHER, SELFPAY ==
--- NOTE | ~2022-08-13 | US_ITS ---
US renal BI 08/13/2022 Procedure: Realtime transabdominal ultrasound of the kidneys and bladder. Indication: Chronic kidney disease stage III B Comparison: No prior studies for comparison. Findings: Renal echotexture is normal bilaterally without hydronephrosis, contour deforming mass or r enal calculus. There is a right renal cyst measuring 11 mm. The right kidney measures 9 cm and left k idney measures 9.3 cm. Bladder is not adequately distended for evaluation. Impression: 1: Right renal cyst measuring 11 mm. Reviewed, dictated and finalized at location L. Impression: 1: Right renal cyst measuring 11 mm.
== END 2022-08-13 15:51 | disposition home or self-care (01) ==
LOC: ANHIMG 15:52
PROVIDERS: PCP Emergency Medicine; Visit Provider Internal Medicine Nephrology
DX: N28.1 Cyst of kidney, acquired (principal); I12.9 Hypertensive chronic kidney disease with stage 1 through stage 4 chronic kidney disease, or unspecified chronic kidney disease; N18.32 Chronic kidney disease, stage 3b; E11.22 Type 2 diabetes mellitus with diabetic chronic kidney disease
CPT/HCPCS: 76775

== ENCOUNTER 2022-08-15 08:11 | Outpatient (CLI) | payer MEDICARE, OTHER, SELFPAY ==
[2022-08-15 16:52] LABS: Anion Gap 7 mmol/L (8-16); Blood Urea Nitrogen 73 mg/dL (7-17); Calcium 8.9 mg/dL (8.4-10.2); Carbon Dioxide 32 mmol/L (22-30); Chloride 102 mmol/L (98-107); Estimated Glomerular Filt Rate 29; Glucose 85 mg/dL (65-110); Potassium 4.3 mmol/L (3.4-5.0); Sodium 141 mmol/L (137-145)
== END 2022-08-15 08:12 | disposition home or self-care (01) ==
LOC: ANHGOSHLAB 08:13
PROVIDERS: PCP Emergency Medicine; Visit Provider Physician Assistant
DX: I12.9 Hypertensive chronic kidney disease with stage 1 through stage 4 chronic kidney disease, or unspecified chronic kidney disease (principal); N18.9 Chronic kidney disease, unspecified
CPT/HCPCS: 36415; 80048

== ENCOUNTER 2022-09-26 08:17 | Outpatient (CLI) | payer MEDICARE, OTHER, SELFPAY ==
[2022-09-26 18:19] LABS: Albumin Level 3.8 g/dL (3.5-5.1); Anion Gap 4 mmol/L (8-16); Blood Urea Nitrogen 61 mg/dL (7-17); Carbon Dioxide 36 mmol/L (22-30); Chloride 101 mmol/L (98-107); Estimated Glomerular Filt Rate 48; Glucose 117 mg/dL (65-110); Phosphorus 4.3 mg/dL (2.5-4.5); Potassium 3.8 mmol/L (3.4-5.0); Sodium 141 mmol/L (137-145)
[2022-09-26 18:25] LABS: Parathyroid Intact 135.1 pg/mL (7.5-53.5)
[2022-09-26 18:42] LABS: Vitamin D 25 Hydroxy 53.9 ng/mL
== END 2022-09-26 08:18 | disposition home or self-care (01) ==
LOC: ANHGOSHLAB 08:19
PROVIDERS: PCP Emergency Medicine; Visit Provider Internal Medicine Nephrology
DX: M79.89 Other specified soft tissue disorders (principal); N18.4 Chronic kidney disease, stage 4 (severe); E11.22 Type 2 diabetes mellitus with diabetic chronic kidney disease; I12.9 Hypertensive chronic kidney disease with stage 1 through stage 4 chronic kidney disease, or unspecified chronic kidney disease; N18.32 Chronic kidney disease, stage 3b
CPT/HCPCS: 36415; 80069; 82306; 83970

== ENCOUNTER 2022-10-03 14:36 | Outpatient (CLI) | payer MEDICARE, OTHER, SELFPAY ==
--- NOTE | ~2022-10-03 | US_ITS ---
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 COMPARISON: 10/25/2014 FINDINGS: Right and left brachial artery pressures of 158 mm Hg and 151 mm Hg, respectively, are concordant (no rmal difference <= 30 mmHg). The right ankle-brachial index (JAIR) is 0.88 (normal >= 0.9-1.0). The right great toe-brachial index (TBI) is 0.37 (normal >= 0.65). Arterial Doppler waveforms are biphasic with brisk systolic upstrokes at both right posterior tibial and dorsalis pedis arteries. The left JAIR is 0.92. The left TBI is 0.34. Arterial Doppler waveforms are biphasic with brisk systol ic upstrokes at both left posterior tibial and dorsalis pedis arteries. IMPRESSION: 1. Slight progression in arterial occlusive disease to bilateral lower limbs with unchanged mildly de creased bilateral ABIs and previously mildly decreased and now moderately decreased bilateral TBIs. Reviewed, dictated and finalized at location A. IMPRESSION: 1. Slight progression in arterial occlusive disease to bilateral lower limbs wi th unchanged mildly decreased bilateral ABIs and previously mildly decreased an d now moderately decreased bilateral TBIs.
== END 2022-10-03 14:37 | disposition home or self-care (01) ==
LOC: ANHIMG 14:37
PROVIDERS: PCP Emergency Medicine; Visit Provider Emergency Medicine
DX: M79.89 Other specified soft tissue disorders (principal); I73.9 Peripheral vascular disease, unspecified
CPT/HCPCS: 93922

== ENCOUNTER 2022-11-24 10:01 | Outpatient (RCR) | payer MEDICARE, OTHER, SELFPAY ==
[2022-11-24 10:10] VITALS: BMI 42.5
[2022-11-24 10:43] VITALS: BMI 42.5
== END 2023-02-09 10:05 | disposition home or self-care (01) ==
LOC: ANHWOC 10:01
PROVIDERS: PCP Emergency Medicine; Visit Provider Emergency Medicine
DX: M79.89 Other specified soft tissue disorders (principal); I87.2 Venous insufficiency (chronic) (peripheral); I83.009 Varicose veins of unspecified lower extremity with ulcer of unspecified site; L97.909 Non-pressure chronic ulcer of unspecified part of unspecified lower leg with unspecified severity
CPT/HCPCS: 99212; G0463

== ENCOUNTER 2022-12-26 08:24 | Outpatient (CLI) | payer MEDICARE, OTHER, SELFPAY ==
[2022-12-26 12:02] LABS: Anion Gap 7 mmol/L (8-16); Blood Urea Nitrogen 56 mg/dL (7-17); Calcium 9.5 mg/dL (8.4-10.2); Carbon Dioxide 31 mmol/L (22-30); Chloride 102 mmol/L (98-107); Estimated Glomerular Filt Rate 39; Glucose 125 mg/dL (65-110); Phosphorus 4.5 mg/dL (2.5-4.5); Sodium 140 mmol/L (137-145)
[2022-12-26 12:17] LABS: Creatinine Urine 115.7 mg/dL
[2022-12-26 12:20] LABS: Total Protein Urine Random < 5 mg/dL; Ur Ttl Prot Creatinine Ratio < 0.04 mg/mg (0-0.20)
[2022-12-26 12:32] LABS: Free T4 Free Thyroxine 1.89 ng/mL (0.78-2.19)
== END 2022-12-26 08:25 | disposition home or self-care (01) ==
PROVIDERS: PCP Emergency Medicine; Visit Provider Internal Medicine Nephrology
DX: F32.A Depression, unspecified (principal); E03.9 Hypothyroidism, unspecified; E11.22 Type 2 diabetes mellitus with diabetic chronic kidney disease; I12.9 Hypertensive chronic kidney disease with stage 1 through stage 4 chronic kidney disease, or unspecified chronic kidney disease; N18.32 Chronic kidney disease, stage 3b; N18.4 Chronic kidney disease, stage 4 (severe); Z79.4 Long term (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 insulin
CPT/HCPCS: 36415; 80069; 82570; 84156; 84439; 84443; 84480

== ENCOUNTER → 2023-01-14 12:20 | Outpatient (CLI) | payer MEDICARE, OTHER, SELFPAY ==
--- NOTE | ~2023-01-14 | XR_ITS ---
XR foot RT min 3V DATE: 01/14/2023 12:35 INDICATION: Right foot pain TECHNIQUE: 4 views COMPARISON: None FINDINGS: There is soft tissue swelling of the ankle and foot. There are extensive arterial calcifications including particularly the posterior tibial artery and mu ltiple metatarsal and digital arteries, suggesting diabetes. Diffuse osteopenia. No recent fracture or dislocation, periosteal reaction or bone destruction is detected. There is mild plantar calcaneal enthesopathy. There are degenerative changes at some tarsal and tarsometatarsal joints and mild osteoarthritic arth ritis at the first metatarsophalangeal joint. Osteoarthritic change is also noted at some of the inte rphalangeal joints. IMPRESSION: Extensive arterial calcifications including metatarsal and digital arteries, suggesting d iabetes Soft tissue swelling of the ankle and foot Mild plantar calcaneal enthesopathy Polyarticular mild to moderate osteoarthritis Osteopenia Reviewed, dictated and finalized at location B. THCARE TECHNICIAN IMPRESSION: Extensive arterial calcifications including metatarsal and digital arteries, suggesting diabetes Soft tissue swelling of the ankle and foot Mild plantar calcaneal enthesopathy Polyarticular mild to moderate osteoarthritis Osteopenia
== END ==
PROVIDERS: PCP Emergency Medicine; Visit Provider Emergency Medicine
DX: M85.80 Other specified disorders of bone density and structure, unspecified site (principal); M77.51 Other enthesopathy of right foot and ankle; M19.071 Primary osteoarthritis, right ankle and foot; M70.971 Unspecified soft tissue disorder related to use, overuse and pressure, right ankle and foot; I70.201 Unspecified atherosclerosis of native arteries of extremities, right leg
CPT/HCPCS: 73630

== ENCOUNTER 2023-05-19 08:48 | Outpatient (CLI) | payer MEDICARE, SELFPAY ==
[2023-05-19 13:34] LABS: Basophils Percent Auto 0.3 % (0.2-1.2); Eosinophils Absolute Auto 0.2 K/mm3 (0-0.3); Eosinophils Percent Auto 1.5 % (0-4.4); Hematocrit 43.6 % (37.0-47.0); Hemoglobin 13.4 g/dL (12.0-15.0); Immature Granulocyte Absolute 0.04 K/mm3 (0.00-0.031); Immature Granulocyte Percent A 0.4 % (0-0.5); Lymphocytes Absolute Auto 1.86 K/mm3 (0.9-3.2); Lymphocytes Percent Auto 18.8 % (18.3-44.2); Mean Corpuscular HGB Conc 30.7 g/dl (32-36); Mean Corpuscular Hemoglobin 31.8 pg (26-34); Mean Corpuscular Volume 103.3 fl (80-100); Mean Platelet Volume 12.1 fl (7.4-10.4); Monocytes Absolute Auto 1.1 K/mm3 (0.1-0.6); Monocytes Percent Auto 10.7 % (2.6-8.5); Neutrophils Absolute Auto 6.8 K/mm3 (1.3-6.7); Neutrophils Percent Auto 68.3 % (45.5-73.1); Platelet Count Result 163 k/mm3 (150-375); Red Blood Count 4.22 M/mm3 (4.2-5.4); Red Cell Distribution Width 12.6 % (11.5-14.5); White Blood Count 9.9 K/mm3 (4.5-10.0)
[2023-05-19 13:44] LABS: CRP < 0.5 mg/dL (<1.0); Uric Acid 9.9 mg/dL (2.5-7.5)
[2023-05-19 13:44] LABS: Creatinine Urine 110.2 mg/dL
[2023-05-19 13:46] LABS: Parathyroid Intact 154.3 pg/mL (7.5-53.5)
[2023-05-19 13:47] LABS: Anion Gap 7 mmol/L (8-16); Calcium 9.7 mg/dL (8.4-10.2); Carbon Dioxide 30 mmol/L (22-30); Chloride 103 mmol/L (98-107); Estimated Glomerular Filt Rate 23; Glucose 107 mg/dL (65-110); Phosphorus 5.1 mg/dL (2.5-4.5); Potassium 5.2 mmol/L (3.4-5.0); Sodium 140 mmol/L (137-145)
[2023-05-19 13:47] LABS: Total Protein Urine Random < 5 mg/dL; Ur Ttl Prot Creatinine Ratio < 0.05 mg/mg (0-0.20)
[2023-05-19 14:06] LABS: Blood Urea Nitrogen 128 mg/dL (7-17)
[2023-05-19 14:07] LABS: Vitamin D 25 Hydroxy 96.4 ng/mL
[2023-05-19 14:47] LABS: Erythrocyte Sedimentation Rate 47 mm/hr (0-20)
[2023-05-19 16:19] LABS: Hemoglobin A1C 7.9 % (<5.7)
== END 2023-05-19 08:49 | disposition home or self-care (01) ==
LOC: ANHGOSHLAB 08:50
PROVIDERS: Emergency Medicine; Visit Provider Internal Medicine Nephrology
DX: M79.671 Pain in right foot (principal); R60.0 Localized edema; E11.22 Type 2 diabetes mellitus with diabetic chronic kidney disease; I12.9 Hypertensive chronic kidney disease with stage 1 through stage 4 chronic kidney disease, or unspecified chronic kidney disease; N18.4 Chronic kidney disease, stage 4 (severe); E55.9 Vitamin D deficiency, unspecified; N25.81 Secondary hyperparathyroidism of renal origin; E79.0 Hyperuricemia without signs of inflammatory arthritis and tophaceous disease; Z79.4 Long term (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 insulin
CPT/HCPCS: 36415; 80069; 82306; 82570; 83036; 83970; 84156; 84550; 85025; 85652; 86140

== ENCOUNTER 2023-07-07 12:13 | Outpatient (CLI) | payer MEDICARE, SELFPAY ==
--- NOTE | ~2023-07-07 | XR_ITS ---
EXAMINATION: XR knee RT min 4V, XR knee LT min 4V DATE: 07/07/2023 14:20 INDICATION: Primary osteoarthritis of the bilateral knees TECHNIQUE: 1. Weight bearing anteroposterior and Holloway, sunrise, and flexed lateral views of the left knee w ere obtained. 2. Weight bearing anteroposterior and Holloway, sunrise, and flexed lateral views of the left knee w ere obtained. COMPARISON: None. FINDINGS: Mild right genu valgus. Normal alignment at the left kidney. No fracture. Tricompartmental osteoarthr itis at both knees, severe at the medial compartment of the left knee and lateral compartments right knee, moderate severity at the bilateral patellofemoral compartments and mild at the medial compartme nt of the right knee and lateral compartment of the left kidney. No erosions to suggest inflammatory arthritis. No joint effusion at either knee. IMPRESSION: 1. Tricompartmental osteoarthritis at the bilateral knees, severe at the medial compartment of the le ft knee and lateral compartment of the right knee. Reviewed, dictated and finalized at location A. IMPRESSION: 1. Tricompartmental osteoarthritis at the bilateral knees, severe at the medial compartment of the left knee and lateral compartment of the right knee.
== END 2023-07-07 12:14 | disposition home or self-care (01) ==
PROVIDERS: Visit Provider Physician Assistant Surgical
DX: M17.0 Bilateral primary osteoarthritis of knee (principal)
CPT/HCPCS: 73564

== ENCOUNTER 2023-12-23 08:47 | Outpatient (CLI) | payer MEDICARE, SELFPAY ==
[2023-12-23 13:04] LABS: Basophils Percent Auto 0.5 % (0.2-1.2); Eosinophils Absolute Auto 0.1 K/mm3 (0-0.3); Eosinophils Percent Auto 1.7 % (0-4.4); Hemoglobin 12.3 g/dL (12.0-15.0); Immature Granulocyte Absolute 0.04 K/mm3 (0.00-0.031); Immature Granulocyte Percent A 0.5 % (0-0.5); Lymphocytes Absolute Auto 1.87 K/mm3 (0.9-3.2); Lymphocytes Percent Auto 22.7 % (18.3-44.2); Mean Corpuscular HGB Conc 31.5 g/dl (32-36); Mean Corpuscular Hemoglobin 32.6 pg (26-34); Mean Corpuscular Volume 103.4 fl (80-100); Monocytes Percent Auto 12.5 % (2.6-8.5); Neutrophils Absolute Auto 5.1 K/mm3 (1.3-6.7); Neutrophils Percent Auto 62.1 % (45.5-73.1); Platelet Count Result 195 k/mm3 (150-375); Red Blood Count 3.77 M/mm3 (4.2-5.4); Red Cell Distribution Width 12.3 % (11.5-14.5); White Blood Count 8.3 K/mm3 (4.5-10.0)
[2023-12-23 13:22] LABS: Alanine Aminotransferase 12 U/L (6-35); Albumin Level 4.1 g/dL (3.5-5.1); Alkaline Phosphatase 66 U/L (38-126); Anion Gap 7 mmol/L (4-12); Aspartate Amino Transferase 84 U/L (14-36); Bilirubin,Total 0.5 mg/dL (0.2-1.3); Blood Urea Nitrogen 98 mg/dL (7-17); Calcium 9.4 mg/dL (8.4-10.2); Carbon Dioxide 29 mmol/L (22-30); Chloride 104 mmol/L (98-107); Estimated Glomerular Filt Rate 36; Glucose 80 mg/dL (65-110); Potassium 4.2 mmol/L (3.4-5.0); Sodium 140 mmol/L (137-145)
[2023-12-23 13:27] LABS: Parathyroid Intact 67.9 pg/mL (14.5-75.2)
[2023-12-23 13:59] LABS: Free T4 Free Thyroxine 2.08 ng/mL (0.78-2.19)
[2023-12-23 14:08] LABS: Total Triiodothyronine (T3) 0.86 NG/ML (0.97-1.69)
[2023-12-23 14:51] LABS: Hemoglobin A1C 6.8 % (<5.7)
[2023-12-25 04:18] LABS: Triiodothyronine T3 Free 2.7 pg/mL (2.3-4.2)
== END 2023-12-23 08:48 | disposition home or self-care (01) ==
PROVIDERS: Emergency Medicine; PCP Family Medicine; Visit Provider Nurse Practitioner Family
DX: K21.9 Gastro-esophageal reflux disease without esophagitis (principal); I12.9 Hypertensive chronic kidney disease with stage 1 through stage 4 chronic kidney disease, or unspecified chronic kidney disease; E11.22 Type 2 diabetes mellitus with diabetic chronic kidney disease; N18.4 Chronic kidney disease, stage 4 (severe); Z79.4 Long term (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 insulin; E03.9 Hypothyroidism, unspecified
CPT/HCPCS: 36415; 80053; 83036; 83970; 84439; 84443; 84480; 84481; 85025

== ENCOUNTER 2024-06-24 10:00 | Outpatient (CLI) | payer MEDICARE, SELFPAY ==
--- OUTSIDE RECORDS SUMMARY | 2024-06-24 10:17 | XMS_ITS | Continuity of Care Document ---
Author Organization [facility] Address [address] [place] [address] [place] [address] Phone Care Team Providers Care Supervisor Industrial Garment Name Role Phone Daron Smith Unavailable Unavailable [...] Diagnoses Date Provider Providers Copied on [facility]counter [facility] [address], [place], [place], [id number], tel:[phone] [place] [address] No Information 2 5-201 0 Krishnasmargo Daron. [address], [place], [facility], [place]. tel:[phone] Referring Provider: Daron Smith, [address], [place], [place], [facility]. tel:[phone] [facility], [address] [place] [address] [address], [place], [place], [id number], [place] tel:[phone] [place] [address] No Information 6-201 0 Krishnasmargo Daron. [facility] [address], [place], [facility], [place]. tel:[phone] Referring Provider: Daron Smith, [facility] [address] [facility] [address], [place], [facility]. tel:[phone] [facility], [address] [place] [address] [address], [place], [place], [id number], [place] tel:[phone] [facility] No Information 1-200 9 Krishnasmargo Daron. On license of [facility] [address] [facility] [address], [place], [facility], [place]. tel:[phone] Referring Provider: Daron Smith, [facility] [address], [place], [facility]. tel:[phone] [facility], [address] [place] [address] [address], [place], [place], [id number], [place] tel:[phone] [place] [address] No Information 0 4-200 9 Krishnasamrgo Daron. On license of [facility] [address] [facility] [address], [place], [facility], [place]. tel:[phone] Referring Provider: Daron Smith, [address], [place], [facility]. tel:[phone] [facility], [address] [place] [address] [address], [place], [place], [id number], [place] tel:[phone] [facility] No Information Apr-0 3-200 9 Krishnasamy Daron. [address], [address], [place]. tel:[phone] Referring Provider: Daron Smith, [address] [place] [address], [facility]. tel:[phone] [facility], [address] [place] [address] [address], [place], [place], [id number], [place] tel:[phone] [facility] No Information 8-200 8 [facility]. [address] [facility], [address], [place], [place], [id number], [place]. tel:[phone] Consulting Provider: Dee Shaffer, [address] [place], [place], [facility]. tel:[phone] [facility], [address] [place] [address] [address], [place], [place], [address], [place] tel:[phone] [facility] No Information 8-200 8 Krishnasamy Daron. On license of [facility] [address], [address], [place]. tel:[phone] Office/outpa tient Visit, [facility], [address] [place] [address] [address], [place], [place], [id number], [place] tel:[phone] [facility] No Information 2-200 8 Krishnasamy Daron. On license of [facility] [address], [address], [place]. tel:[phone] [facility], [address] [place] [address] [address], [place], [place], [id number], [place] tel:[phone] [facility] No Information Apr-2 7-200 8 Krishnasamy Daron. [address], [place], [address], [place]. tel:[phone] [facility], [address], [place], [place], [id number], [place] tel:[phone] [facility] No Information Feb-2 7-200 8 [employer]. [address] [facility], [facility] [address], [place], [place], [id number], [place]. tel:[phone] Consulting Provider: Dee Shaffer, [address] [place] [address], [address]. tel:[phone] [facility], [address], [place], [place], [id number], [place] tel:[phone] [facility] No Information Jan-1 4-200 7 [employer]. [address] [facility], [address], [place], [place], [id number], [place]. tel:[phone] Consulting Provider: Dee Shaffer, [address] [place] [address], [address]. tel:[phone] [facility], [address] [facility] [address], [place], [place], [id number], [place] tel:[phone] [facility] No Information Adin-2 0-200 7 [employer]. [address] [facility], [address], [place], [place], [id number], [place]. tel:[phone] Referring Provider: Genna Thomason, [address], [place], [address]. tel:[phone] g Provider: Dee Shaffer, [address] [place] [address], [address]. tel:[phone] [facility], [address] [facility] [address], [place], [place], [id number], [place] tel:[phone] [facility] No Information 200 7 Arcelia [place]. [address], [place], [address], [place]. tel:[phone] Family History Family Member Type Diagnosis Age At Onset No Information Payers Payer name Insurance type Covered libertarian ID Authoriza tion(s) [place] [id number] [facility] Custom Care [id number] Social History Type Description Quantity Date Captured [...]
--- OUTSIDE RECORDS SUMMARY | 2024-06-24 10:17 | XMS_ITS | Referral Summary ---
[facility] Address [address] [place] [address] Care Team Providers Care Senior Android Software Engineer Name Role Phone Alivia Esposito MD Unavailable [phone] Kamaljit Stiles MD Primary Care Provider [phone] Allergies Active Allergy Reactions Criticality Noted Date Comments Duloxetine Palpitations,Nausea only Low 05/06/2018 Medications levothyroxine (SYNTHROID) 150 mcg tablet Take 175 mcg by mouth hot dog vendor before breakfast Active metoprolol XL (TOPROL-XL) 100 mg 24 hr tablet Take 1.5 tablets (150 mg total) by mouth nightly Active traZODone (DESYREL) 50 mg tablet Take 1 tablet (50 mg total) by mouth nightly Active rosuvastatin (CRESTOR) 5 mg tablet Take 1 tablet (5 mg total) by mouth daily Active indapamide (LOZOL) 2.5 mg tablet Take 2.5 mg by mouth every morning . Active amLODIPine (NORVASC) 10 mg tablet Take 10 mg by mouth daily . Active lisinopril (PRINIVIL,ZESTR IL) 40 mg tablet Take 1 tablet (40 mg total) by mouth daily Active cholecalciferol , vitamin D3, (VITAMIN D3 ORAL) Take by mouth daily . Active insulin glargine (LANTUS) 100 unit/mL injection Inject 31 Units under the skin daily Active ONETOUCH ULTRA BLUE TEST STRIP strip USE 1 STRIP TO CHECK GLUCOSE TWICE DAILY 3 9 Active famotidine (PEPCID) 20 mg tablet Take 20 mg by mouth daily Active HYDROcodone-uma taminophen (NORCO) 5-325 mg per tabletIndicatio ns:Pain Take 1 tablet by mouth every 6 (six) hours as needed Active HYDROcodone-uma taminophen (NORCO) 5-325 mg per tabletIndicatio ns:Pain Take 1 tablet by mouth every 4 (four) hours as needed for pain 20 tablet 0 Active Additional Information Patient not taking.Reported on 11/13/2022 furosemide (LASIX) 40 mg tablet Take 1 tablet (40 mg total) by mouth 2 (two) times a day Active omeprazole (PriLOSEC) 40 mg capsule Take 1 capsule (40 mg total) by mouth daily Active Active Problems Problem Noted Date Diagnosed Date 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 Follow up PRN. Assessment & Plan (11/13/2022 2:21 PM CDT): Impression: Patient has significant chronic edema, hyperpigmentation, and swelling from the toes to the groin, has been utilizing compression therapy 20-30 mm of mercury for greater than 4 weeks, leg elevation, and exercise without improvement of symptoms. She has been utilizing Juxta light wraps to both her legs without improvement. Measurements of bilateral lower extremities were taken in the office. Left foot measuring 26.5 cm left calf measuring 46 cm; right foot measuring 25 cm right calf measuring 44 cm. Plan: Recommend patient to continue utilizing Juxta lite wraps and leg elevation for edema control. -recommend further evaluation by bio tab for compression pumps. 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 No concern for infection. Plan: Recommend daily dressing changes with Xeroform to open ulceration. 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 No concern for infection. Plan: Recommend daily dressing changes with Xeroform. PVD (peripheral vascular disease) 11/13/2022 Assessment & Plan (12/15/2022 2:30 PM CDT): Arterial studies are normal. Patient has no clinically significant arterial occlusive disease. No further workup needed follow up PRN. Assessment & Plan (11/13/2022 2:20 PM CDT): Impression: Patient is minimally ambulatory and wheelchair dependent. She denies any ischemic rest pain. Patient has 2+ pitting edema to bilateral lower extremities with superficial ulceration to medial calves bilaterally. Bilateral lower extremities are warm with diminished distal pulses. Plan: We will have patient follow up in 4 weeks for re-evaluation with lower extremity arterial Doppler. Primary osteoarthritis of left hand 02/10/2019 Lumbar radiculopathy 11/30/2018 Overview (11/30/2018): Added automatically from request for surgery [id number] Hip pain 05/06/2018 Assessment & Plan (05/06/2018 5:11 PM GRANITE FABRICATOR): Ms. Burroughs has bilateral hip issues left greater than right with weakness in her iliopsoas muscle and markedly positive SATINDER signs. I think that this is her primary problem. She will follow-up with Dr. Browning who she has seen before for her knee. She reports that she had a very good rapport with him. Lumbar stenosis 05/06/2018 Assessment & Plan (05/06/2018 5:12 PM GRANITE FABRICATOR): Ms. Burroughs also has lumbar stenosis at the L4-5 and L5-S1 levels. These were read as L3-4 and L4-5 by Radiology. This is an lateral recess as noted above. I do not think that this is her primary problem. I think that she should get her hips taking care of. If she has persistent symptoms afterwards, then we will re-evaluate her lumbar spine. She is aware that with her advanced age, BMI and diabetes she is at high risk for complications with this or any surgical procedure. Immunizations Immunization Administration Dates Next Due Influenza, Quadrivalent, Rec ombinant, Egg Free, Preservative Free, Intramuscular 11/24/2018,12/30/2017 Influenza, Trivalent, IM (MDV) 04/03/2017 Social History Tobacco Use Types Packs/Day Years Used Date Smoking Tobacco: Former Smokeless Tobacco: Former Alcohol Use Standard Drinks/Week Comments Yes 0 (1 standard drink = 0.6 oz pur e alcohol) very occasionally PHQ-2 Answer Date Recorded PHQ-2 Score 4 10/22/2018 Comments Unknown Sex and Gender Information Value Date Recorded Sex Assigned at Not on file Legal Sex Female 5:18 PM GRANITE FABRICATOR Gender Identity Not on file Sexual Orientation Not on file Occupation Industry Job Start Date Job End Date Retired Not on file Not on file Not on file Last Filed Vital Signs Vital Sign Reading Time Taken Comments Blood Pressure 134/68 11/26/2022 2:08 PM CDT Pulse 84 11/26/2022 2:08 PM CDT Temperature 36.1 C (97 F) 10/20/2019 11:16 AM CDT Respiratory Rate 16 04/01/2019 12:59 PM GRANITE FABRICATOR Oxygen Saturation 97% 10/12/2019 10:02 AM CDT Inhaled Oxygen Concentration - - Weight 119.7 kg (264 lb) 11/26/2022 2:08 PM CDT Height 162.6 cm (5' 4 ) 11/26/2022 2:08 PM CDT Body Mass Index 45.32 11/26/2022 2:08 PM CDT Plan of Treatment Not on file Medical Devices Implanted Type Area Hammerer Helper Device Identifier Shelf Expiration Date Model / Serial / Lot [employer] [id number] Octrode 60cm 8 Electrode Lead Percutaneous Kit Neurostimulator - [id number] - [id number] Implanted:Qty: 1 on 04/01/2019 by Alivia Esposito MD at [facility] N/A: Spine Thoracic [employer] 12/02/2020 [id number] / [id number] / [employer] [id number] Octrode 60cm 8 Electrode Lead Percutaneous Kit Neurostimulator - [id number] - [id number] Implanted:Qty: 1 on 04/01/2019 by Alivia Esposito MD at [facility] N/A: Spine Thoracic [employer] 11/04/2020 [id number] / [id number] / [employer] [address] [place] Lead - [id number] Implanted:Qty: 1 on 04/01/2019 by Alivia Esposito MD at [facility] N/A: Spine Thoracic [employer] 10/07/2020 1192 / / [id number] [employer] [address] [place] Lead - [id number] Implanted:Qty: 1 on 04/01/2019 by Alivia Esposito MD at [facility] N/A: Spine Thoracic [employer] 03/25/2020 1192 / / [id number] [employer] 3660 Contrlsys Proclaim Elite 4.95cmx5.55cm 5 Implantable Pulse Tonic - [id number] - [id number] Implanted:Qty: 1 on 04/01/2019 by Alivia Esposito MD at [facility] N/A: Spine Thoracic [employer] 12/02/2020 3660 CONTRLSYS / [id number] / [place] [address] MEDICARE [facility] MEDICARE [facility] Care Teams Senior Android Software Engineer Relationship Specialty Start Date End Date Kamaljit Stiles MD [address] [place] [address] PCP - General Family Medicine 09/08/22 Alivia Esposito MD [address] [place] [address] Surgeon Anesthesiology 04/01/19
--- OUTSIDE RECORDS SUMMARY | 2024-06-24 10:17 | XMS_ITS | Clinical Summary ---
Author Organization [facility] C Address [address] [place] [address] Care Team Providers Care Canine Enforcement Officer Name Role Phone Alivia Esposito MD Unavailable [phone] Kamaljit Stiles MD Primary Care Provider [phone] Allergies Active Allergy Reactions Criticality Noted Date Comments Duloxetine Palpitations,Nausea only Low 05/06/2018 Medications levothyroxine (SYNTHROID) 150 mcg tablet Take 175 mcg by mouth integration software developer before breakfast Active metoprolol XL (TOPROL-XL) 100 [...] (11/30/2018): Added automatically from request for surgery [id number] Hip pain 05/06/2018 Assessment & Plan (05/06/2018 5:11 PM PROTOTYPE SEWER): Ms. Burroughs has bilateral hip issues left greater than right with weakness in her iliopsoas muscle and markedly positive SATINDER signs. I think that this is her primary problem. She will follow-up with Dr. Browning who she has seen before for her knee. She reports that she had a very good rapport with him. Lumbar stenosis 05/06/2018 Assessment & Plan (05/06/2018 5:12 PM PROTOTYPE SEWER): Ms. Burroughs also has lumbar stenosis at [...] Intramuscular 11/24/2018,12/30/2017 Influenza, Trivalent, IM (MDV) 04/03/2017 Surgical History Surgery Date Site/Laterality Comments TONSILLECTOMY as child APPENDECTOMY as child LIPOMA RESECTION HAND SURGERY Medical History Medical History Date Comments Diabetes (HCC) Hypothyroidism High cholesterol Hypertension Arthritis Acid reflux Anemia PONV (postoperative nausea and vomiting) Type 2 diabetes mellitus (HCC) Sleep apnea No machine, I t ried the machine and didn't like it . Family History Medical History Relation Name Comments Diabetes Father Heart disease Father Hypertension Father Relation Name Status Comments Father Social History Tobacco Use Types Packs/Day Years Used Date Smoking Tobacco: Former Smokeless Tobacco: Former Alcohol Use Standard Drinks/Week Comments Yes 0 (1 standard drink = 0.6 oz pur e alcohol) very occasionally PHQ-2 Answer Date Recorded PHQ-2 Score 4 10/22/2018 Comments Unknown Sex and Gender Information Value Date Recorded Sex Assigned at Not on file Legal Sex Female 5:18 PM PROTOTYPE SEWER Gender Identity Not on file Sexual Orientation Not on file Occupation Industry Job Start Date Job End Date Retired Not on file Not on file Not on file Obstetrics History Last Filed Vital Signs Vital Sign Reading Time Taken Comments Blood Pressure 134/68 11/26/2022 2:08 PM CDT Pulse 84 11/26/2022 2:08 PM CDT Temperature 36.1 C (97 F) 10/20/2019 11:16 AM CDT Respiratory Rate 16 04/01/2019 12:59 PM PROTOTYPE SEWER Oxygen Saturation 97% 10/12/2019 10:02 AM CDT Inhaled Oxygen Concentration - - Weight 119.7 kg (264 lb) 11/26/2022 2:08 PM CDT Height 162.6 cm (5' 4 ) 11/26/2022 2:08 PM CDT Body Mass Index 45.32 11/26/2022 2:08 PM CDT Plan of Treatment Health Maintenance Due Date Last Done Comments Fall Risk Assessment 1941 Osteoporosis Screening-Bone Density Scan 1940 DTaP/Tdap/Td Vaccine (1 - Tdap) 1952 Hepatitis B Screening 10/01/1959 Pneumococcal vaccine 65+ (1 of 1 - PCV) 10/01/1991 Zoster Vaccine (1 of 2) 10/01/1991 Well Visit 65+ 2006 Depression Screening 05/07/2019 05/06/2018, 05/07/19 19 Influenza Vaccine (#1) 2023 9, 12/30/2017, 04/03/2017 Medical Devices Implanted Type Area Customer Operations Specialist Device Identifier Shelf Expiration Date Model / Serial / Lot [employer] 3186ans Octrode 60cm 8 Electrode Lead Percutaneous Kit Neurostimulator - [id number] - [id number] Implanted:Qty: 1 on 04/01/2019 by Alivia Esposito MD at [facility] N/A: Spine Thoracic [employer] 12/02/2020 [id number] / [id number] / [employer] 3186ans Octrode 60cm 8 Electrode Lead Percutaneous Kit Neurostimulator - [id number] - [id number] Implanted:Qty: 1 on 04/01/2019 by Alivia Esposito MD at [facility] N/A: Spine Thoracic [employer] 11/04/2020 [id number] / [id number] / [employer] [address] [place] Lead - [id number] Implanted:Qty: 1 on 04/01/2019 by Alivia Esposito MD at [facility] N/A: Spine Thoracic [employer] 10/07/2020 1192 / / [id number] [employer] [address] [place] Lead - [id number] Implanted:Qty: 1 on 04/01/2019 by Alivia Esposito MD at [facility] N/A: Spine Thoracic [employer] 03/25/2020 1192 / / [id number] [employer] 3660 Contrlsys Proclaim Elite 4.95cmx5.55cm 5 Implantable Pulse Tonic - [id number] - [id number] Implanted:Qty: 1 on 04/01/2019 by Alivia Esposito MD at [facility] N/A: Spine Thoracic [facility] 12/02/2020 3660 CONTRLSYS / [id number] / Insurance MEDICARE [facility]ICARE [facility] Care Teams Canine Enforcement Officer Relationship Specialty Start Date End Date Kamaljit Stiles MD [address] [place] [address] PCP - General Family Medicine 09/08/22 Alivia Esposito MD [address] [place] [address] Surgeon Anesthesiology 04/01/19
[2024-06-24 18:47] LABS: Alanine Aminotransferase 13 U/L (6-35); Alkaline Phosphatase 100 U/L (38-126); Anion Gap 10 mmol/L (4-12); Aspartate Amino Transferase 41 U/L (14-36); Bilirubin,Total 0.6 mg/dL (0.2-1.3); Blood Urea Nitrogen 50 mg/dL (7-17); Calcium 9.5 mg/dL (8.4-10.2); Carbon Dioxide 26 mmol/L (22-30); Chloride 106 mmol/L (98-107); Cholesterol 152 mg/dL (0-200); Estimated Glomerular Filt Rate 43; Glucose 104 mg/dL (65-110); HDL Direct 33 mg/dL; Potassium 4.7 mmol/L (3.4-5.0); Sodium 142 mmol/L (137-145); Triglycerides 199 mg/dL (<150)
[2024-06-24 18:57] LABS: LDL Cholesterol Direct 58 mg/dL
[2024-06-24 19:04] LABS: Hemoglobin A1C 6.6 % (<5.7)
== END 2024-06-24 10:01 | disposition home or self-care (01) ==
LOC: ANHGOSHLAB 10:01
PROVIDERS: PCP Family Medicine; Visit Provider Family Medicine
DX: E11.9 Type 2 diabetes mellitus without complications (principal)
CPT/HCPCS: 36415; 80053; 80061; 83036

== ENCOUNTER 2024-07-21 08:39 | Inpatient (IN) | payer MEDICARE, SELFPAY ==
[2024-07-21] VITALS (8 sets, daily range): BP systolic 152–191; BP diastolic 88–96; PULSE 69–107; RESP 16–20; TEMP 36.4–36.9; O2SAT 96–100; BMI 44.8
--- NOTE | ~2024-07-21 | CT_ITS ---
CT pelvis wo con Ordering provider: Areli Escoto PA-C History: . fall, pain, R hip . Comparison: None. Technique: CT pelvis without oral and IV contrast. . Automated exposure control and iterative recons truction technique were employed. The dose-length product was 849.63 mGy-cm. Findings: BONES: No pelvic fracture or hip dislocation. Age appropriate degenerative changes of the visualized lower lumbar spine. The hip and sacroiliac joint spaces are well maintained. SUPERFICIAL SOFT TISSUES: A fat-containing umbilical hernia. Edema in the subcutaneous tissues. Device is seen in the right buttock area. PELVIC ORGANS: The bladder is normal. VISUALIZED BOWEL AND MESENTERY: Normal. No free air or free fluid. No lymphadenopathy. RETROPERITONEUM: Mild atheromatous disease. IMPRESSION: No fracture or dislocation. Reviewed, dictated and finalized at location A. IMPRESSION: No fracture or dislocation.
--- NOTE | ~2024-07-21 | CT_ITS ---
CT head without contrast Indication: Head injury Technique: Serial scans were obtained through the brain without the administration of contrast. Dose reduction technique was used on this scan by utilizing automated exposure control and iterative recon struction technique. The dose-length product (DLP) was 605.33 mGy-cm. Findings: There is no evidence of intracranial hemorrhage, mass lesion, or acute infarct. The ventri cles and subarachnoid spaces are dilated, consistent with mild atrophy. Low attenuation regions are seen within the periventricular white matter bilaterally, likely representing changes from chronic mi crovascular ischemic disease. There is no evidence of edema, mass effect or midline shift. The visu alized paranasal sinuses and mastoid air cells are clear. Impression: No intracranial hemorrhage, mass, or acute infarct. Atrophy and chronic white matter changes, as above. Reviewed, dictated and finalized at location . Impression: No intracranial hemorrhage, mass, or acute infarct. Atrophy and chronic white matter changes, as above.
--- NOTE | ~2024-07-21 | XR_ITS ---
XR chest 1V portable Ordering provider: Areli Escoto PA-C History: 83 years Female with . chf w/u . Comparison: January 27, 2022 FINDINGS: MEDIASTINUM: The cardiac silhouette is moderately enlarged. LUNGS: No infiltrates, effusions or pneumothorax. OTHER: No free air under the diaphragm. Degenerative spine. Spinal stimulator is noted. IMPRESSION: No acute cardiopulmonary pathology. Reviewed, dictated and finalized at location A.
--- NOTE | ~2024-07-21 | CT_ITS ---
Noncontrast CT scan of the lumbar spine CLINICAL HISTORY: Back pain, status post fall TECHNIQUE: Axial noncontrast imaging of the lumbar spine was performed. Sagittal and coronal reformat armand images were constructed. Dose reduction technique was used on this scan by utilizing automated ex posure control and iterative reconstruction technique. The dose-length product (DLP) was 1177.81 mGy- cm. FINDINGS: No acute fracture seen. There is 3 mm anterolisthesis of L3 over L4. At L1-L2, there is minimal disc bulge with minimal facet arthropathy. No central canal stenosis or de finite neural foraminal narrowing. At L2-L3, there are Schmorl's nodes about this disc space with moderate degenerative disc narrowing. Disc bulge and facet arthropathy result in moderate to severe spinal canal stenosis/thecal sac compre ssion. Suspected mild to moderate left neural foraminal narrowing. Right neural foramen probably pres erved. At L3-L4, there is advanced degenerative disc narrowing. Disc bulge and facet arthropathy result in s evere spinal canal stenosis/thecal sac compression. There is probable moderate to advanced left neura l foraminal narrowing and minimal right neural foraminal narrowing. At L4-L5, there is severe degenerative disc narrowing. Disc bulge is present with facet arthropathy. No emiliana central canal stenosis. There is probable moderate to severe right neural foraminal narrowin g, and moderate left neural foraminal narrowing. At L5-S1, no definite disc bulge or herniation seen. No spinal canal stenosis or definite neural fora dilip narrowing. Paravertebral soft tissues are unremarkable. Impression: No acute fracture. 3 mm anterolisthesis of L3 over L4. Severe degenerative spondylosis at L2-L3, L3-L4, and L4-L5. Reviewed, dictated and finalized at location . Impression: No acute fracture. 3 mm anterolisthesis of L3 over L4. Severe degenerative spondylosis at L2-L3, L3-L4, and L4-L5.
--- NOTE | ~2024-07-21 | XR_ITS ---
3 VIEWS LUMBAR SPINE Ordering provider: Ger Christianson MD History: . r/o Spinal cord stimulator dislodgement FALL W/PAIN OBESE . Comparison: None. FINDINGS: VERTEBRAL BODIES:Minimal anterolisthesis at the level of L5-S1. No visible fracture or subluxation. Spinal stimulator is noted. Degenerative changes of the spine with mild dextroscoliosis. Severe bilateral hip osteoarthritic changes. Right sacroiliitis. DISK SPACES: Narrowing of the disc L3-L4, L4-L5 and L5-S1. Multilevel facet joint disease. Facet join t disease at the level of L4-L5 and L5-S1 is seen. SOFT TISSUES: Atherosclerotic changes of the aorta. IMPRESSION: No acute osseous abnormality lumbar spine. Multilevel degenerative disc disease. Reviewed, dictated and finalized at location A.
--- NOTE | ~2024-07-21 | CT_ITS ---
Noncontrast CT scan of the cervical spine Technique: Multiple contiguous axial [address] images of the cervical spine were obtained and rec onstructed in 2D sagittal and coronal planes on the acquisition scanner. Dose reduction technique was used on this scan by utilizing automated exposure control, adjustment of the mA and/or kV according to patient size. The dose-length product (DLP) was 443.22 mGy-cm. Clinical History: Pain Findings: No fractures or dislocations. There is multilevel mild to moderate degenerative disc narro wing, worst at C5-C6 and C6-C7. Scattered facet joint degenerative changes are present in the cervica l spine. No definite canal stenosis or neural foraminal narrowing. No prevertebral soft tissue swell ing. Impression: No fracture or subluxation of the cervical spine. Mild degenerative change overall, as detailed above. Reviewed, dictated and finalized at [facility]. Impression: No fracture or subluxation of the cervical spine. Mild degenerative change overall, as detailed above.
--- NOTE | ~2024-07-21 | US_ITS ---
BILATERAL LOWER EXTREMITY VENOUS ULTRASOUND Ordering provider: Areli Escoto PA-C History: . pain/swelling in legs . Comparison: None. FINDINGS: RIGHT LOWER EXTREMITY VEINS: --COMMON FEMORAL: Patent and free of thrombus. Normal compressibility, phasic flow and augmentation. --PROXIMAL SUPERFICIAL FEMORAL: Patent and free of thrombus. Normal compressibility, phasic flow and augmentation. --DISTAL SUPERFICIAL FEMORAL: Patent and free of thrombus. Normal compressibility, phasic flow and au gmentation. --POPLITEAL: Patent and free of thrombus. Normal compressibility, phasic flow and augmentation. --POSTERIOR TIBIAL: Patent and free of thrombus. Normal compressibility, phasic flow and augmentation . LEFT LOWER EXTREMITY VEINS: --COMMON FEMORAL: Patent and free of thrombus. Normal compressibility, phasic flow and augmentation. --PROXIMAL SUPERFICIAL FEMORAL: Patent and free of thrombus. Normal compressibility, phasic flow and augmentation. --DISTAL SUPERFICIAL FEMORAL: Patent and free of thrombus. Normal compressibility, phasic flow and au gmentation. --POPLITEAL: Patent and free of thrombus. Normal compressibility, phasic flow and augmentation. --POSTERIOR TIBIAL: Patent and free of thrombus. Normal compressibility, phasic flow and augmentation . IMPRESSION: Negative bilateral lower extremity venous US. No deep vein thrombosis. Reviewed, dictated and finalized at location A.
--- OUTSIDE RECORDS SUMMARY | 2024-07-21 09:15 | XMS_ITS | Clinical Summary ---
Author Organization [facility] C Address [address] [place] [address] Care Team Providers Care Oracle Manufacturing Consultant Name Role Phone Alivia Esposito MD Unavailable [phone] Kamaljit Stiles MD Primary Care Provider [phone] Allergies Active Allergy Reactions Criticality Noted Date Comments Duloxetine Palpitations,Nausea only Low 05/06/2018 Medications levothyroxine (SYNTHROID) 150 mcg tablet Take 175 mcg by mouth freelance digital project manager before breakfast Active metoprolol XL (TOPROL-XL) 100 [...] (11/30/2018): Added automatically from request for surgery [id number] Hip pain 05/06/2018 Assessment & Plan (05/06/2018 5:11 PM PLASTICS ENGINEER): Ms. Burroughs has bilateral hip issues left greater than right with weakness in her iliopsoas muscle and markedly positive SATINDER signs. I think that this is her primary problem. She will follow-up with Dr. Browning who she has seen before for her knee. She reports that she had a very good rapport with him. Lumbar stenosis 05/06/2018 Assessment & Plan (05/06/2018 5:12 PM PLASTICS ENGINEER): Ms. Burroughs also has lumbar stenosis at [...] t ried the machine and didn't like it. Family History Medical History Relation Name Comments [...] on file Legal Sex Female 5:18 PM PLASTICS ENGINEER Gender Identity Not on file Sexual Orientation [...] CDT Respiratory Rate 16 04/01/2019 12:59 PM PLASTICS ENGINEER Oxygen Saturation 97% 10/12/2019 10:02 AM CDT Inhaled Oxygen Concentration - - Weight 119.7 kg (264 lb) 11/26/2022 2:08 PM CDT Height 162.6 cm (5' 4) 11/26/2022 2:08 PM CDT Body Mass Index [...] Screening 05/07/2019 05/06/2018, 05/07/19 19 Influenza Vaccine (Season Ended) 2024 11/24/2018, 12/30/2017, 04/03/2017 Medical Devices Implanted Type Area Brown Stock Washer Device Identifier Shelf Expiration Date Model / Serial / Lot [employer] 3186ans Octrode 60cm 8 Electrode Lead Percutaneous Kit Neurostimulator - [id number] - [id number] Implanted:Qty: 1 on 04/01/2019 by Alivia Esposito MD at [facility] N/A: Spine Thoracic [employer] 12/02/2020 [id number] / [id number] / [employer] 3186ans Octrode 60cm 8 Electrode Lead Percutaneous Kit Neurostimulator - [id number] - [id number] Implanted:Qty: 1 on 04/01/2019 by Alivia Esposito MD at [facility] N/A: Spine Thoracic [employer] 11/04/2020 [id number] / [id number] / [employer] [address] [place] Lead - [id number] Implanted:Qty: 1 on 04/01/2019 by Alivia Esposito MD at [facility] N/A: Spine Thoracic [employer] 10/07/2020 1192 / / [id number] [employer] [address] [place] [place] Lead - [id number] Implanted:Qty: 1 on 04/01/2019 by Alivia Esposito MD at [facility] N/A: Spine Thoracic [employer] 03/25/2020 1192 / / [id number] [employer] 3660 Contrlsys Proclaim Elite 4.95cmx5.55cm 5 Implantable Pulse Tonic - Htvz440.1 - [id number] Implanted:Qty: 1 on 04/01/2019 by Alivia Esposito MD at [facility] N/A: Spine Thoracic [facility] 12/02/2020 3660 [facility] [id number] / Insurance MEDICARE [facility]ICARE [facility] Care Teams Oracle Manufacturing Consultant Relationship Specialty Start Date End Date Kamaljit Stiles MD [address] [place] [address] PCP - General Family Medicine 09/08/22 Alivia Esposito MD [address] [place] [address] Surgeon Anesthesiology 04/01/19
--- OUTSIDE RECORDS SUMMARY | 2024-07-21 09:15 | XMS_ITS | Referral Summary ---
Author Organization [facility] C Address [address] [place] [address] Care Team Providers Care Teletypewriter Operator Name Role Phone Alivia Esposito MD Unavailable [phone] Kamaljit Stiles MD Primary Care Provider [phone] Allergies Active Allergy Reactions Criticality Noted Date Comments Duloxetine Palpitations,Nausea only Low 05/06/2018 Medications levothyroxine (SYNTHROID) 150 mcg tablet Take 175 mcg by mouth automation consultant before breakfast Active metoprolol XL (TOPROL-XL) 100 [...] (11/30/2018): Added automatically from request for surgery [id number] Hip pain 05/06/2018 Assessment & Plan (05/06/2018 5:11 PM HVAC SPECIALIST): Ms. Burroughs has bilateral hip issues left greater than right with weakness in her iliopsoas muscle and markedly positive SATINDER signs. I think that this is her primary problem. She will follow-up with Dr. Browning who she has seen before for her knee. She reports that she had a very good rapport with him. Lumbar stenosis 05/06/2018 Assessment & Plan (05/06/2018 5:12 PM HVAC SPECIALIST): Ms. Burroughs also has lumbar stenosis at [...] on file Legal Sex Female 5:18 PM HVAC SPECIALIST Gender Identity Not on file Sexual Orientation [...] CDT Respiratory Rate 16 04/01/2019 12:59 PM HVAC SPECIALIST Oxygen Saturation 97% 10/12/2019 10:02 AM CDT Inhaled Oxygen Concentration - - Weight 119.7 kg (264 lb) 11/26/2022 2:08 PM CDT Height 162.6 cm (5' 4) 11/26/2022 2:08 PM CDT Body Mass Index 45.32 11/26/2022 2:08 PM CDT Plan of Treatment Not on file Medical Devices Implanted Type Area Cube Cutter Device Identifier Shelf Expiration Date Model / Serial / Lot [employer] 3186ans Octrode 60cm 8 Electrode Lead Percutaneous Kit Neurostimulator - [id number] - [id number] Implanted:Qty: 1 on 04/01/2019 by Alivia Esposito MD at [facility] N/A: Spine Thoracic [employer] 12/02/2020 [id number] / [id number] / [employer] 3186ans Octrode 60cm 8 Electrode Lead Percutaneous Kit Neurostimulator - [id number] - [id number] Implanted:Qty: 1 on 04/01/2019 by Alivia Esposito MD at [facility] N/A: Spine Thoracic [employer] 11/04/2020 [id number] / [id number] / [employer] [address] [place] Lead - [id number] Implanted:Qty: 1 on 04/01/2019 by Alivia Esposito MD at [facility] N/A: Spine Thoracic [employer] 10/07/2020 1192 / / [id number] [employer] [address] [place] Lead - [id number] Implanted:Qty: 1 on 04/01/2019 by Alivia Esposito MD at [facility] N/A: Spine Thoracic [employer] 03/25/2020 1192 / / [id number] [employer] 3660 Contrlsys Proclaim Elite 4.95cmx5.55cm 5 Implantable Pulse Tonic - Zngz402.1 - [id number] Implanted:Qty: 1 on 04/01/2019 by Alivia Esposito MD at [facility] N/A: Spine Thoracic [employer] 12/02/2020 3660 CONTRLSYS / [id number] / [place] [address] [facility] MEDICARE [facility] Care Teams Teletypewriter Operator Relationship Specialty Start Date End Date Kamaljit Stiles MD [address] [place] [address] PCP - General Family Medicine 09/08/22 Alivia Esposito MD [address] [place] [address] Surgeon Anesthesiology 04/01/19
--- OUTSIDE RECORDS SUMMARY | 2024-07-21 09:15 | XMS_ITS | Continuity of Care Document ---
Author Organization [facility] Address [address] [place] [address] [place] [address] Phone Care Team Providers Care Radio Station Operator Name Role Phone Daron Smith Unavailable Unavailable [...] Diagnoses Date Provider Providers Copied on Encounter [employer] [facility], located [facility], [address], [place], [place], [id number], tel:[phone] [place] [address] No Information 2 5-201 0 Krishnasmargo Daron. [address], [place], [facility], [place]. tel:[phone] Referring Provider: Daron Smith, [address], [place], [place], [facility]. tel:[phone] [facility], [address] [place] [address] [address], [place], [place], [id number], [place] tel:[phone] [place] [address] No Information 6-201 0 Krishnasmargo Daron. [facility] [address], [place], [facility], [place]. tel:[phone] Referring Provider: Daron Smith, [facility] [address] [facility] [address], [place], [facility]. tel:[phone] [facility], [address] [place] [address] [address], [place], [place], [address], [place] tel:[phone] [facility] No Information 1-200 9 Krishnasmargo Daron. [facility] [facility] [address], [place], [facility], [place]. tel:[phone] Referring Provider: Daron Smith, [facility] [address], [place], [facility]. tel:[phone] [facility], [address] [place] [address] [address], [place], [place], [address], [place] tel:[phone] [place] [address] No Information 0 4-200 9 Krishnasmargo Daron. [facility] [address] [facility] [address], [place], [facility], [place]. tel:[phone] Referring Provider: Daron Smith, [address], [place], [facility]. tel:[phone] [facility], [address] [place] [address] [address], [place], [place], [address], [place] tel:[phone] [facility] No Information Apr-0 3-200 9 Krishnasamy Daron. [address], [address], [place]. tel:[phone] Referring Provider: Daron Smith, [address] [place] [address], [facility]. tel:[phone] [facility], [address] [place] [address] [address], [place], [place], [address], [place] tel:[phone] [facility] No Information 8-200 8 [facility]. [address] [facility], [address], [place], [place], [address], [place]. tel:[phone] Consulting Provider: Dee Shaffer, [address] [place], [place], [place]. tel:[phone] [facility], [address] [place] [address] [address], [place], [place], [id number], [place] tel:[phone] [facility] No Information 8-200 8 Krishnasamy Daron. [facility] [address], [address], [place]. tel:[phone] Office/outpa tient Visit, [facility], [address] [place] [address] [address], [place], [place], [address], [place] tel:[phone] [facility] No Information 2-200 8 Krishnasamy Daron. [facility] [address], [address], [place]. tel:[phone] [facility], [address] [place] [address] [address], [place], [place], [address], [place] tel:[phone] [facility] No Information Apr-2 7-200 8 Krishnasamy Daron. [address], [place], [address], [place]. tel:[phone] [facility], [address], [place], [place], [address], [place] tel:[phone] [facility] No Information Feb-2 7-200 8 [employer]. [address] [facility], [facility] [address], [place], [place], [address], [place]. tel:[phone] Consulting Provider: Dee Shaffer, [address] [place] [address], [address]. tel:[phone] [facility], [address], [place], [place], [address], [place] tel:[phone] [facility] No Information Jan-1 4-200 7 [employer]. [address] [facility], [address], [place], [place], [address], [place]. tel:[phone] Consulting Provider: Dee Shaffer, [address] [place] [address], [address]. tel:[phone] [facility], [address] [facility] [address], [place], [place], [address], [place] tel:[phone] [facility] No Information Adin-2 0-200 7 [employer]. [address] [facility], [address], [place], [place], [address], [place]. tel:[phone] Referring Provider: Genna Thomason, [address], [place], [address]. tel:[phone] g Provider: Dee Shaffer, [address] [place] [address], [address]. tel:[phone] [facility], [address] [facility] [address], [place], [place], [address], [place] tel:[phone] [facility] No Information 200 7 Ar[place]ia [place]. [address], [place], [address], [place]. tel:[phone] Family History Family Member Type Diagnosis Age At Onset No Information Payers Payer name Insurance type Covered democrat ID Authoriza tion(s) [place] [id number] [facility] Custom Care [id number] Social History Type Description Quantity Date Captured [...]
--- NOTE | 2024-07-21 09:29 | ECG_ITS ---
Test Date: 2024-07-21 10:24:12 Measurements Intervals Clubb Rate: 88 P: 0 [place]: 0 QRS: -2 QRSD: 94 T: 26 QT: 349 QTc: 422 Interpretive Statements ATRIAL FIBRILLATION POSSIBLE RIGHT VENTRICULAR CONDUCTION DELAY [RSR (QR) IN V1/V2] ANTEROSEPTAL MYOCARDIAL INFARCTION , OF INDETERMINATE AGE [40+ ms Q WAVE IN V1-V4] No previous ECG available for comparison Electronically Signed On 07-21-2024 14:10:49 CDT by Niko Schmidt M.D.
--- NOTE | 2024-07-21 09:51 | ED_ITS ---
HPI - Fall General Chief Complaint: Fall Stated Complaint: fall Time Seen by Provider: 07/21/24 08:55 Source: patient Mode of arrival: EMS Limitations: no limitations History of Present Illness HPI Narrative: Patient is an 83-year-old female who presents the ED via EMS with report of a fall. Patient reports she has had issues with increasing water weight in her legs, increasing up to her abdomen over the past couple of weeks. She states she has difficulty ambulating due to the amount of water weight/retention. She does have history of diastolic dysfunction per ECHO 2021, pulmonary hypertension. Patient denies known hx of CHF. She is supposed to be on 80 mg of furosemide daily, but states she often does not take this. She will often only take 40 mg per day, but will skip days as well due to frequent urination. She states she was attempting to ambulate with her walker this morning when she turned and fell. She did hit her head against a table. Denied LOC. She hit her right lower back against a chair and complains of significant pain to her right lower back. She has history of spinal stenosis with spinal cord stimulator and states the chair hit directly over this area. Pain radiates down her legs. Denies numbness in her legs, saddle anesthesia. Denies dizziness, lightheadedness. Patient does admit to feeling somewhat short of breath over the past couple of days. Denies chest pain. Related Data Home Medications ?Medication ?Instructions ?Recorded ?Confirmed ?Last Taken ?Type cholecalciferol (vitamin D3) 10 2,000 unit PO DAILY 09/14/19 07/21/24 02/07/21 History mcg (400 unit) capsule acetaminophen 325 mg capsule 650 mg PO Q12H PRN pain 03/23/24 07/21/24 Unknown History (Tylenol) pen needle, diabetic 32 gauge x #1,200 ea 07/01/24 Unknown History hydrocortisone 1 % topical cream 1 applic topical HS PRN itching 07/21/24 07/21/24 Unknown History (Cortizone-10) Allergies Allergy/AdvReac Type Severity Reaction Status Date / Time bumetanide (From Bumex) Allergy Vomiting Verified 07/21/24 13:43 terbinafine Allergy skin Verified 07/21/24 13:43 blistering duloxetine (From Cymbalta) AdvReac Severe seratonin Verified 07/21/24 13:43 syndrome 2-19 sertraline AdvReac Severe Dizziness Verified 07/21/24 13:43 celecoxib AdvReac Unknown Dizziness Verified 07/21/24 13:43 cimbalta AdvReac Unknown Dizziness Uncoded 07/21/24 08:48 Review of Systems 2 Review of Systems: All systems reviewed & are unremarkable except as noted in HPI. All systems reviewed & are unremarkable except as noted in HPI and below PMFSH Past Medical History Medical History (Updated 07/21/24 @ 12:45 by Shruthi Randhawa APRN) Diastolic congestive heart failure Heart murmur Anxiety Diabetes mellitus with chronic kidney disease Essential (primary) hypertension Obstructive sleep apnea Not on CPAP Venous stasis dermatitis Primary localized osteoarthritis of both knees Chronic kidney disease, stage 3 (moderate) Chronic pain syndrome Gastro-esophageal reflux disease without esophagitis Hypothyroidism (acquired) Mixed hyperlipidemia Spinal stenosis of lumbar region at multiple levels Surgical History Surgical History History of hysterectomy History of tonsillectomy History of bilateral cataract extraction History of appendectomy Status post insertion of spinal cord stimulator History of thumb surgery (10/2019) Family History Family History Father Diabetes mellitus Family history of glaucoma Hypertension Family history of cardiovascular disease Mother Family history of lupus erythematosus Other Family history of arthritis Family history of congenital heart disease Social History Social History Social History: Surrogate decision maker: Mónica Cain (niece). Code status: Full code. Caffeine- coffee Smoking packs per day: 1 Smoking cigarettes per day: 20.0 Years smoked: 15 Smoking pack-years: 15.00 Smoking status: Former smoker Tobacco type: cigarettes Second hand tobacco smoke exposure: No Additional smoking assessment comments: quit 50 years ago Alcohol intake: never Substance use: never Substance use type: does not use Do You Feel Safe in your Home?: Yes Lack of Transportation: No Lack of Food: Never True Current Housing: I Have Housing Concerned About Future Housing: No Difficulty Paying Gas/Electric Bills: No Difficulty Paying for Meds: No Currently Unemployed: No Education: High School Diploma/GED Difficulty w/ Childcare or Family Care: No Living arrangements: with family Additional living arrangements comments: The patient lives in [place]. Additional occupation/education comments: Retired. Gender identity (if verbalized by the patient): Female Spiritual care concerns: No Exam 2 Narrative: GENERAL: Elderly, morbidly obese with BMI of 45.1, non-toxic, in no acute distress. HEAD: Normocephalic, atraumatic. RESPIRATORY: Airway patent, respirations nonlabored. Clear to auscultation bilaterally, no rales, rhonchi, wheezing. No appreciable focal lung sounds. Lungs are diminished bilaterally. CARDIOVASCULAR: Regular rate and rhythm without murmurs, rubs, or gallops. Pedal pulses are intact and easily palpable. MUSCULOSKELETAL: No gross deformities. Limited range of motion due to discomfort in right lower back. Tenderness to palpation over right posterior hip/lumbosacral region. No appreciable midline spinal tenderness. Difficult to examine due to body habitus. Sensation is intact. Diffuse pitting edema in bilateral lower extremities and feet, up to thighs. Scattered areas of tenderness throughout legs. SKIN: Warm, dry, normal color. NEURO: A&O X3. Speech clear. No ataxic movements. No focal deficits. PSYCHIATRIC: Appropriate mood and affect. Normal interaction. Course Vital Signs Vital signs: Vital Signs Temperature 97.6 F 07/21/24 08:42 Pulse Rate 69 07/21/24 08:42 Respiratory Rate 20 07/21/24 08:42 Blood Pressure 156/96 H 07/21/24 08:42 Pulse Oximetry 96 07/21/24 08:42 Oxygen Delivery Room Air 07/21/24 08:42 Temperature 97.8 F 07/21/24 14:46 Pulse Rate 107 H 07/21/24 16:00 Respiratory Rate 18 07/21/24 14:46 Blood Pressure 152/88 H 07/21/24 14:46 Pulse Oximetry 98 07/21/24 14:46 Oxygen Delivery Room Air 07/21/24 15:00 MDM - Fall MDM Narrative Medical decision making narrative: Patient presented to ED status post mechanical fall this morning with head injury, pain to her right lower back. History of spinal stenosis with spinal cord stimulator. Reports the reason she fell was related to the water retention that she has been experiencing over the past few weeks. She was scheduled to see her primary care doctor today but ultimately it did make it there d/t the fall. Supposed to be on Lasix, but does not typically take full dose d/t issues with urination. Vital signs are stable upon arrival. Patient neurovascularly intact. No evidence of cord compression or cauda equina at this time. CT brain and cervical spine negative for traumatic finding CT lumbar spine also w/o acute findings. Shows known degenerative changes, no acute fracture. CT pelvis also without acute fracture. Venous Doppler ultrasound negative for DVT. Laboratory studies notable for BNP of almost 4000. EKG showing atrial fibrillation. No concerning ST changes. Patient denies history of this. Troponin is undetectable. Denying chest pain. Basic laboratory studies otherwise unremarkable. Patient is unable to ambulate due to pain and swelling. She does report some improvement of pain with [place] given in the ED. She will require admission for further evaluation, pain control, diuresis, likely rehab versus penitentiary placement. Discussed case with Shruthi Randhawa NP hospitalist, accepted patient for admission. Patient family in agreement plan. Care coordination consult placed. Patient given 40 mg of IV Lasix in the ED. Currently with pure wick on. ECHO order placed. Medical Records Attestation: I reviewed the patient's medical records. Lab Data Attestation: I reviewed the patient's lab results. 07/21/24 10:34 07/21/24 10:34 Labs: Lab Results 07/21/24 Range/Units 10:34 WBC 11.5 H (4.5-10.0) K/mm3 RBC 3.93 L (4.2-5.4) M/mm3 Hgb 12.3 (12.0-15.0) g/dL Hct 38.3 (37.0-47.0) % MCV 97.5 (80-100) fl MCH 31.3 (26-34) pg MCHC 32.1 (32-36) g/dl RDW 13.9 (11.5-14.5) % Plt Count 169 (150-375) k/mm3 MPV 10.1 (7.4-10.4) fl Immature Gran % (Auto) 0.4 (0-0.5) % Neut % (Auto) 76.5 H (45.5-73.1) % Lymph % (Auto) 12.0 L (18.3-44.2) % [place] % (Auto) 9.8 H (2.6-8.5) % Eos % (Auto) 1.0 (0-4.4) % Baso % (Auto) 0.3 (0.2-1.2) % Lymph # (Auto) 1.38 (0.9-3.2) K/mm3 [place] # (Auto) 1.1 H (0.1-0.6) K/mm3 Eos # (Auto) 0.1 (0-0.3) K/mm3 Baso # (Auto) 0.0 (0.0-0.1) K/mm3 Abs Immat Gran (auto) 0.05 H (0.00-0.031) K/mm3 Absolute Neuts (auto) 8.8 H (1.3-6.7) K/mm3 Absolute Nucleated RBC 0.000 (0.0-0.012) K/mm3 Nucleated RBC % 0.0 (0.0-0.2) % PT 15.3 H (11.1-14.7) Seconds INR 1.2 APTT 25.3 (22.3-36.8) Seconds Sodium 145 (137-145) mmol/L Potassium 4.6 (3.4-5.0) mmol/L Chloride 113 H (98-107) mmol/L Carbon Dioxide 21 L (22-30) mmol/L Anion Gap 11 (4-12) mmol/L BUN 51 H (7-17) mg/dL Creatinine 1.23 H (0.7-1.0) mg/dL Estim Creat Clear Calc 40 ml/min Estimated GFR 42 L (59 - ) Glucose 107 (65-110) mg/dL Calcium 9.3 (8.4-10.2) mg/dL Total Bilirubin 0.7 (0.2-1.3) mg/dL AST 24 (14-36) U/L ALT 19 (6-35) U/L Alkaline Phosphatase 98 (38-126) U/L Troponin I < 0.012 (0.000-0.034) ng/mL NT-Pro-B Natriuret Pep 3770 H (19.9-100) pg/mL Total Protein 7.0 (6.3-8.2) g/dL Albumin 3.9 (3.5-5.1) g/dL Imaging Data Attestation: I personally reviewed and interpreted this imaging study as follows: Radiologist's impression: ITS Impressions Head CT 07/21/24 09:59 Impression: No intracranial hemorrhage, mass, or acute infarct. Atrophy and chronic white matter changes, as above. Cervical Spine CT 07/21/24 10:00 Impression: No fracture or subluxation of the cervical spine. Mild degenerative change overall, as detailed above. Lumbar Spine CT 07/21/24 10:01 Impression: No acute fracture. 3 mm anterolisthesis of L3 over L4. Severe degenerative spondylosis at L2-L3, L3-L4, and L4-L5. Venous Doppler Study 07/21/24 10:20 IMPRESSION: Negative bilateral lower extremity venous US. No deep vein thrombosis. Pelvis CT 07/21/24 10:27 IMPRESSION: No fracture or dislocation. ECG Data EKG #1: Attestation: I personally reviewed and interpreted this ECG as follows: ECG completion date: 07/21/24 ECG completion time: 10:24 EKG Interpretation: normal rate (88), atrial fibrillation and non-specific ST changes Discharge Plan Discharge Clinical Impression: Localized swelling of both lower legs, Strain of lumbar region, Fall from ground level, New onset a-fib, Elevated brain natriuretic peptide (BNP) level, Unable to ambulate Patient Disposition: Still a Patient Condition: Stable
[2024-07-21] MEDS: HYDROcodone/acetaminophen (*CRX) 5-325 MG TABLET 1 TAB PO (10:32)
[2024-07-21 10:40] LABS: Basophils Percent Auto 0.3 % (0.2-1.2); Eosinophils Absolute Auto 0.1 K/mm3 (0-0.3); Hematocrit 38.3 % (37.0-47.0); Hemoglobin 12.3 g/dL (12.0-15.0); Immature Granulocyte Absolute 0.05 K/mm3 (0.00-0.031); Immature Granulocyte Percent A 0.4 % (0-0.5); Lymphocytes Absolute Auto 1.38 K/mm3 (0.9-3.2); Mean Corpuscular HGB Conc 32.1 g/dl (32-36); Mean Corpuscular Hemoglobin 31.3 pg (26-34); Mean Corpuscular Volume 97.5 fl (80-100); Mean Platelet Volume 10.1 fl (7.4-10.4); Monocytes Absolute Auto 1.1 K/mm3 (0.1-0.6); Monocytes Percent Auto 9.8 % (2.6-8.5); Neutrophils Absolute Auto 8.8 K/mm3 (1.3-6.7); Neutrophils Percent Auto 76.5 % (45.5-73.1); Platelet Count Result 169 k/mm3 (150-375); Red Blood Count 3.93 M/mm3 (4.2-5.4); Red Cell Distribution Width 13.9 % (11.5-14.5); White Blood Count 11.5 K/mm3 (4.5-10.0)
[2024-07-21 10:56] LABS: Alanine Aminotransferase 19 U/L (6-35); Albumin Level 3.9 g/dL (3.5-5.1); Alkaline Phosphatase 98 U/L (38-126); Anion Gap 11 mmol/L (4-12); Aspartate Amino Transferase 24 U/L (14-36); Bilirubin,Total 0.7 mg/dL (0.2-1.3); Blood Urea Nitrogen 51 mg/dL (7-17); Calcium 9.3 mg/dL (8.4-10.2); Carbon Dioxide 21 mmol/L (22-30); Chloride 113 mmol/L (98-107); Estimated CRCL calculation 40 ml/min; Estimated Glomerular Filt Rate 42; Glucose 107 mg/dL (65-110); Potassium 4.6 mmol/L (3.4-5.0); Sodium 145 mmol/L (137-145)
[2024-07-21 11:07] LABS: INR 1.2; Partial Thromboplastin Time 25.3 Seconds (22.3-36.8); Prothrombin Time 15.3 Seconds (11.1-14.7)
[2024-07-21 11:08] LABS: NT Pro B Type Natriuretic Pept 3770 pg/mL (19.9-100); Troponin I < 0.012 ng/mL (0.000-0.034)
[2024-07-21] MEDS: FUROSEMIDE INJ 40 MG/4 ML VIAL IV PUSH ×2 (11:34→20:05)
--- NOTE | 2024-07-21 12:24 | PM.IMHP ---
H&P: HPI History of Present Illness Date/Time: 07/21/24 12:24 Chief Complaint: Fall, Leg Swelling Narrative: 83 y/o F with PMH of chronic pain syndrome, hypothyroidism, diastolic heart failure with preserved EF, hyperlipidemia, spinal stenosis of the lumbar region, CKD, venous stasis dermatitis, and JAQUELINE presents here with fall and lower extremity swelling. The patient presents here from home via EMS on 07/21 for further evaluation post ground level fall and for lower extremity swelling. She reports this morning she was turning around while using her walker when she lost her balance. She fell into the arm of a chair striking her right lower back. She reports positive head strike to the left side of her head without loss of consciousness. She has chronic back pain and currently has an implanted stimulator. She reports increased pain to her right lower back with pain. She denies neck pain. She is not currently on anticoagulation. She is also reporting some difficulty with mobility secondary to lower extremity swelling and subsequent pain in her BLE. She denies history of CHF, however her echo in 2021 showed grade 1 diastolic dysfunction with preserved EF and pulmonary hypertension. She is prescribed a mg of Lasix daily, however she frequently takes a half dose (40 mg) or skips the medication altogether, more so in the last month. She reports her lower extremity edema has been worsening over the last few weeks and is now affecting her abdomen. Reports 9 lbs of weight gain in the last few weeks, prior to the worsening edema in her LE. 6 lbs of weight gain this month. Also reporting mild shortness of breath over the last few days but has only been when she gets out of her chair and believes it is more so due to the exertion of getting up as her legs have been more difficult, very brief. She denies accompanying chest pain, dizziness, lightheadedness, numbness in her lower extremities, saddle anesthesia, nausea, vomiting, or diarrhea. History of AFib or dysrhythmia. Denies palpitations. Reports only 1 fall in the last 3 months, prior to today the last fall was in Sep. Initial VS at presentation: 97.6? F, HR 69, R 20, 156/96, and 96% on RA. ED workup showed: WBC 11.5, no anemia, INR 1.2, creatinine 1.23 and GFR 42 (at baseline), initial troponin negative, BNP 3770. Head CT, C-spine CT, lumbar CT, and pelvic CT showed no acute traumatic injuries. US of the BLE negative for DVT. EKG shows AFib, rate 88, possible right ventricular conduction delay, anteroseptal AK of indeterminate age. Review of Systems Review of Systems: All systems reviewed & are unremarkable except as noted in HPI and below PMFSH Past Medical History Medical History (Updated 07/21/24 @ 12:45 by Shruthi Randhawa APRN) Diastolic congestive heart failure Heart murmur Anxiety Diabetes mellitus with chronic kidney disease Essential (primary) hypertension Obstructive sleep apnea Not on CPAP Venous stasis dermatitis Primary localized osteoarthritis of both knees Chronic kidney disease, stage 3 (moderate) Chronic pain syndrome Gastro-esophageal reflux disease without esophagitis Hypothyroidism (acquired) Mixed hyperlipidemia Spinal stenosis of lumbar region at multiple levels Surgical History Surgical History History of hysterectomy History of tonsillectomy History of bilateral cataract extraction History of appendectomy Status post insertion of spinal cord stimulator History of thumb surgery (10/2019) Family History Family History Father Diabetes mellitus Family history of glaucoma Hypertension Family history of cardiovascular disease Mother Family history of lupus erythematosus Other Family history of arthritis Family history of congenital heart disease Social History Social History Social History: Surrogate decision maker: Mónica Cain (niece). Code status: Full code. Caffeine- coffee Smoking packs per day: 1 Smoking cigarettes per day: 20.0 Years smoked: 15 Smoking pack-years: 15.00 Smoking status: Former smoker Tobacco type: cigarettes Second hand tobacco smoke exposure: No Additional smoking assessment comments: quit 50 years ago Alcohol intake: never Substance use: never Substance use type: does not use Do You Feel Safe in your Home?: Yes Lack of Transportation: No Lack of Food: Never True Current Housing: I Have Housing Concerned About Future Housing: No Difficulty Paying Gas/Electric Bills: No Difficulty Paying for Meds: No Currently Unemployed: No Education: High School Diploma/GED Difficulty w/ Childcare or Family Care: No Living arrangements: with family Additional living arrangements comments: The patient lives in [place]. Additional occupation/education comments: Retired. Gender identity (if verbalized by the patient): Female Spiritual care concerns: No Meds Home Medications and Allergies Home Medications ?Medication ?Instructions ?Recorded ?Confirmed ?Type cholecalciferol (vitamin D3) 10 2,000 unit PO DAILY 09/14/19 07/21/24 History mcg (400 unit) capsule diclofenac sodium 1 % topical gel See Rx Instructions .Route 05/01/21 07/21/24 Rx .COMPLEX #100 grams lancets 33 gauge (OneTouch Delica #100 ea 07/14/22 03/23/24 Rx Lancets) pen needle, diabetic 31 gauge x #100 ea 07/31/23 03/23/24 Rx 3/16 (BD Ultra-Fine Mini Pen Needle) furosemide 40 mg tablet 80 mg (2 x 40 mg) PO QAM #180 tabs 11/03/23 07/21/24 Rx tramadol 50 mg tablet 50 mg PO Q6H PRN pain #60 tabs 12/21/23 07/21/24 Rx acetaminophen 325 mg capsule 650 mg PO Q12H PRN pain 03/23/24 07/21/24 History (Tylenol) blood sugar diagnostic (Blood #50 ea 04/04/24 Rx Glucose Test strips) lisinopril 40 mg tablet See Rx Instructions .Route 04/22/24 07/21/24 Rx .COMPLEX #90 tabs metoprolol succinate 100 mg 150 mg (1.5 x 100 mg) PO HS #135 04/22/24 07/21/24 Rx tablet,extended release 24 hr tabs omeprazole 40 mg capsule,delayed 40 mg PO DAILY #90 caps 04/22/24 07/21/24 Rx release rosuvastatin 5 mg tablet 5 mg PO HS #90 tabs 04/22/24 07/21/24 Rx insulin glargine 100 unit/mL (3 36 unit (0.36 mL) subcut QAM #30 mL 06/03/24 07/21/24 Rx mL) subcutaneous pen (Lantus Solostar U-100 Insulin) levothyroxine 150 mcg tablet 150 mcg PO DAILY #90 tabs 06/13/24 07/21/24 Rx (Synthroid) pen needle, diabetic 32 gauge x #1,200 ea 07/01/24 History hydrocortisone 1 % topical cream 1 applic topical HS PRN itching 07/21/24 07/21/24 History (Cortizone-10) Allergies Allergy/AdvReac Type Severity Reaction Status Date / Time bumetanide (From Bumex) Allergy Vomiting Verified 07/21/24 13:43 terbinafine Allergy skin Verified 07/21/24 13:43 blistering duloxetine (From Cymbalta) AdvReac Severe seratonin Verified 07/21/24 13:43 syndrome 2-19 sertraline AdvReac Severe Dizziness Verified 07/21/24 13:43 celecoxib AdvReac Unknown Dizziness Verified 07/21/24 13:43 cimbalta AdvReac Unknown Dizziness Uncoded 07/21/24 08:48 Vital Signs Vital Signs - 24 hr 07/21/24 08:42 07/21/24 11:17 Temperature 97.6 F 98.0 F Pulse Rate 69 84 Respiratory Rate 20 19 Blood Pressure 156/96 H 191/93 H Pulse Oximetry 96 99 Oxygen Delivery Room Air Exam Const: General: comfortable and no acute distress Other: , female, nontoxic appearance HENMT: Face/Nose/Sinus: Normal nares present Mouth: Yes moist mucous membranes Eyes: General: appearance normal, both eyes and all related structures Sclera: sclerae normal Pupils: Equal, round and reactive pupils present EOM: EOMs intact bilaterally Resp: Effort & Inspection: normal respiratory effort Auscultation: clear to auscultation bilaterally Cardio: Rate: regular rate Rhythm: regular rhythm Other: S1-S2 present without murmur, rub, ectopy GI: Other: Abdomen soft, nondistended, nontender. Normoactive bowel sounds in all quadrants. Urinary Catheter: Urinary Catheter: patent and draining Skin: General skin exam: normal color Wounds: no wounds Other: Rash to her bilateral lower extremities. No signs of infection. Small open wound to right garcía, no signs of infection, less than 1 cm. Neuro: Speech: normal speech Motor exam (neuro): 5/5 motor strength present throughout Sensory Exam: normal sensation Other: A&O x4 Extrem: Other: 2+ pitting edema to bilateral lower extremities, symmetric extending to the proximal knees. Edema continues up the thighs to the lower abdomen, nonpitting. Psych: Mental Status: mental status grossly normal Affect: normal affect Other: Good insight and judgment, pleasant H&P: Results Labs Labs: Short CBC 07/21/24 Range/Units 10:34 WBC 11.5 H (4.5-10.0) K/mm3 Hgb 12.3 (12.0-15.0) g/dL Hct 38.3 (37.0-47.0) % Plt Count 169 (150-375) k/mm3 BMP 07/21/24 10:34 Sodium 145 Potassium 4.6 Chloride 113 H Carbon Dioxide 21 L BUN 51 H Creatinine 1.23 H Glucose 107 Calcium 9.3 Cardiac Enzymes 07/21/24 Range/Units 10:34 Troponin I < 0.012 (0.000-0.034) ng/mL Liver Function 07/21/24 Range/Units 10:34 Total Bilirubin 0.7 (0.2-1.3) mg/dL AST 24 (14-36) U/L ALT 19 (6-35) U/L Alkaline Phosphatase 98 (38-126) U/L Albumin 3.9 (3.5-5.1) g/dL Assessment and Plan Assessment and plan (1) Ground-level fall: Code(s): W18.30XA - Fall on same level, unspecified, initial encounter Status: Acute Assessment and Plan: - trauma workup negative. Imaging included a head CT, C-spine CT, lumbar CT, pelvic CT - fall precautions - analgesics p.r.n. - PT/OT evaluation and treatment and care coordination consulted for acute rehab services (2) Diastolic congestive heart failure: Qualifiers: Heart failure chronicity: acute on chronic Qualified Code(s): I50.33 - Acute on chronic diastolic (congestive) heart failure Code(s): I50.30 - Unspecified diastolic (congestive) heart failure Status: Acute Assessment and Plan: - BNP 3770 - most recent echo (2021): For sirs systolic function, estimated EF 60 65%. Abnormal diastolic dysfunction. Moderate pulmonary hypertension. Mild valvular disease, see report for details. Update echo - currently on: Lasix 80 mg daily, however has poor compliance. Continue as 40 of Lasix IV b.i.d. while inpatient. - wrap lower extremities - monitor I&Os and daily weights - trend renal function (3) Atrial fibrillation: Qualifiers: Atrial fibrillation type: unspecified Qualified Code(s): I48.91 - Unspecified atrial fibrillation Code(s): I48.91 - Unspecified atrial fibrillation Status: Acute Assessment and Plan: - no previous hx - EKG showing rate controlled AFib, on metoprolol ER 150 mg daily -continue. - [id number]: 6 -> initiate Eliquis 5 mg b.i.d. for prophylaxis - will hold on Cardiology consultation at this time as the patient does not need rate control medication. If echo grossly abnormal, consider placing consult. 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 Code(s): E11.22 - Type 2 diabetes mellitus with diabetic chronic kidney disease Status: Chronic Assessment and Plan: - hypoglycemia protocol - POC blood glucose ACHS - home medication: lantus 36 units as Q - correct regimen ordered - high dose TIDWM, based off BMI - A1C 6.6% on 06/24/2024 (5) Chronic kidney disease, stage 3 (moderate): Qualifiers: Chronic kidney disease stage 3 subtype: stage 3b (GFR 30-44) Qualified Code(s): N18.32 - Chronic kidney disease, stage 3b Code(s): N18.3 - Chronic kidney disease, stage 3 (moderate) Status: Acute Assessment and Plan: - creatinine 1.23 and GFR 42, previously 1.21 and GFR 43 on 06/24/2024 - trend renal function - trend electrolytes, correct as needed (6) Essential (primary) hypertension: Code(s): I10 - Essential (primary) hypertension Status: Chronic Assessment and Plan: - chronic, currently 191/93 (did not take an meds, given in ED) - continue home medications: Lisinopril, metoprolol ER 150 mg daily - monitor Plan Diet: Diabetic GI Prophylaxis: Not currently indicated DVT Prophylaxis: IV fluids: None Lines/Tubes: Peripheral IV Code Status: Full code Quality VTE Prophylaxis VTE prophylaxis: pharmacologic ordered Hospitalist MIPS Advance Care Plan I have confirmed that the patient's Advanced Care Plan is present, code status is documented, or surrogate decision maker is listed in patient medical record.: Yes Medication Reconciliation I have utilized all available resources to obtain, update and review the patients current medications (includes all prescriptions, OTC, herbals, cannabis, and nutritional supplements).: Yes
[2024-07-21] MEDS: lisinopriL 20 MG TABLET 40 MG PO (12:35)
--- NOTE | 2024-07-21 13:30 | ADMGEN ---
This patient, Payton Burroughs, was admitted to 2 Medical Room 256-01. Patient/family oriented to hospital policies and general routines including ID bracelet, bed and alarms, visiting hours, pain management, procedures, bathroom and other care routines, personal items, smoking policy, room service/diet, and visiting hours. Information on how to activate the Rapid Response Team has been discussed. Patient/Family are encouraged to report perceived risks to care and to ask questions if they do not understand what they are told or what they should do.
[2024-07-21 16:59] LABS: Glucose Point of Care 158 mg/dl (65-105)
[2024-07-21] MEDS: HYDROcodone/acetaminophen (*CRX) 10-325 MG TABLET 1 TAB PO ×2 (17:38→23:35)
[2024-07-21] MEDS: ROSUVASTATIN 5 MG TABLET PO (20:04)
[2024-07-21] MEDS: METOPROLOL SUCCINATE EXT REL 50 MG TABCR 150 MG PO (20:04)
[2024-07-21] MEDS: APIXABAN 5 MG TABLET PO (20:04)
[2024-07-21] MEDS: ACETAMINOPHEN 325 MG TABLET 650 MG PO (20:10)
[2024-07-21 21:06] LABS: Glucose Point of Care 189 mg/dl (65-105)
[2024-07-22] VITALS (11 sets, daily range): BP systolic 149–160; BP diastolic 56–80; PULSE 70–104; RESP 18–20; TEMP 36.4–36.7; O2SAT 96–99
[2024-07-22 05:13] LABS: Basophils Percent Auto 0.3 % (0.2-1.2); Eosinophils Absolute Auto 0.1 K/mm3 (0-0.3); Eosinophils Percent Auto 1.2 % (0-4.4); Hematocrit 35.8 % (37.0-47.0); Hemoglobin 11.4 g/dL (12.0-15.0); Immature Granulocyte Absolute 0.05 K/mm3 (0.00-0.031); Immature Granulocyte Percent A 0.6 % (0-0.5); Lymphocytes Percent Auto 20.1 % (18.3-44.2); Mean Corpuscular HGB Conc 31.8 g/dl (32-36); Mean Corpuscular Hemoglobin 31.1 pg (26-34); Mean Corpuscular Volume 97.8 fl (80-100); Mean Platelet Volume 10.4 fl (7.4-10.4); Monocytes Absolute Auto 1.2 K/mm3 (0.1-0.6); Monocytes Percent Auto 13.9 % (2.6-8.5); Neutrophils Absolute Auto 5.7 K/mm3 (1.3-6.7); Neutrophils Percent Auto 63.9 % (45.5-73.1); Platelet Count Result 164 k/mm3 (150-375); Red Blood Count 3.66 M/mm3 (4.2-5.4); Red Cell Distribution Width 13.8 % (11.5-14.5)
[2024-07-22 05:30] LABS: Alanine Aminotransferase 17 U/L (6-35); Albumin Level 3.5 g/dL (3.5-5.1); Alkaline Phosphatase 86 U/L (38-126); Anion Gap 8 mmol/L (4-12); Aspartate Amino Transferase 22 U/L (14-36); Bilirubin,Total 0.6 mg/dL (0.2-1.3); Blood Urea Nitrogen 51 mg/dL (7-17); Calcium 8.8 mg/dL (8.4-10.2); Carbon Dioxide 26 mmol/L (22-30); Chloride 110 mmol/L (98-107); Estimated CRCL calculation 34 ml/min; Estimated Glomerular Filt Rate 35; Glucose 169 mg/dL (65-110); Magnesium 1.3 mg/dL (1.6-2.3); Potassium 4.4 mmol/L (3.4-5.0); Sodium 144 mmol/L (137-145)
[2024-07-22] MEDS: LEVOTHYROXINE SODIUM 150 MCG TABLET PO (05:59)
[2024-07-22] MEDS: HYDROcodone/acetaminophen (*CRX) 10-325 MG TABLET 1 TAB PO ×3 (06:00→20:26)
--- NOTE | 2024-07-22 06:00 | ECHO_ITS ---
Patient Info Name: Payton Burroughs Age: 83 years : 1940 Gender: Female Ht: 64 in Wt: 264 lbs BSA: 2.39 m2 HR: 85 bpm BP: 160 / 56 mmHg Heart Rhythm: Atrial Fibrillation Technical Quality: Fair Exam Date: 07/22/2024 10:14 AM Patient Status: I Admit Date: 07/21/2024 Exam Type: CA echo doppler color flow Complete two-dimensional, color flow and Doppler transthoracic echocardiogram is performed. Staff Referring Physician: Areli Escoto Stunt Performer: Ana Pina Attending Provider: Ger Christianson Summary 1. Complete two-dimensional, color flow and Doppler transthoracic echocardiogram is performed. 2. Left ventricular chamber dimension is normal. 3. Left ventricular systolic function is normal, estimated at 65-70. 4. The left ventricular diastolic function is indeterminate as tissue doppler E/e' was not performed. 5. Atrial fibrillation. 6. Left atrial chamber dimension is moderately enlarged. 7. Right atrial chamber dimension is mildly enlarged. 8. There is trace aortic valve regurgitation. 9. The mitral valve has a severe calcified posterior annulus. 10. There is mild mitral valve regurgitation. 11. There is mild tricuspid valve regurgitation. 12. Mild pulmonary hypertension, estimated pulmonary arterial systolic pressure is 40 mmHg. Left Ventricle Atrial fibrillation. Left ventricular chamber dimension is normal. Left ventricular systolic function is normal, estimated at 65-70. The left ventricular diastolic function is indeterminate as tissue doppler E/e' was not performed. Right Ventricle Right ventricular chamber dimension is normal. Right ventricular systolic function is normal. Left Atria Left atrial chamber dimension is moderately enlarged. Right Atria Right atrial chamber dimension is mildly enlarged. Aortic Valve The aortic valve is trileaflet. There is no aortic valve stenosis. There is trace aortic valve regurgitation. Pulmonic Valve There is no pulmonic regurgitation. Mitral Valve The mitral valve has a severe calcified posterior annulus. There is no mitral valve stenosis. There is mild mitral valve regurgitation. Tricuspid Valve There is mild tricuspid valve regurgitation. Mild pulmonary hypertension, estimated pulmonary arterial systolic pressure is 40 mmHg. Pericardium/Pleural There is no pericardial effusion. Inferior Vena Cava Normal inferior vena cava with >50% collapse upon inspiration consistent with normal right atrial pressure, 5 mmHg. Aorta The aortic root size at the sinus of Valsalva is normal. Left Ventricular Outflow Tract Name Value Normal LVOT 2D LVOT Diameter 1.7 cm LVOT Doppler LVOT Peak Velocity 83 cm/s LVOT Peak Gradient 3 mmHg LVOT Mean Gradient 2 mmHg LVOT VTI 21 cm LVOT VTI/AV VTI Ratio 0.6 LVOT Stroke Volume 48 ml LVOT CO 8.7 l/min LVOT CI 3.6 l/min/m2 Pulmonic Valve Name Value Normal PV Doppler PV Peak Velocity 101 cm/s PV Peak Gradient 4 mmHg Mitral Valve Name Value Normal MV Doppler MV Peak Gradient 17 mmHg MV Mean Gradient 5 mmHg MV Area (Cont Eq VTI) 1.0 cm2 Tricuspid Valve Name Value Normal TV Regurgitation Doppler TR Peak Velocity 296 cm/s TR Peak Gradient 35 mmHg Estimated PAP/RSVP RA Pressure 5 mmHg <=5 PA Systolic Pressure 40 mmHg <36 RV Systolic Pressure 40 mmHg <36 TV Annular TDI TV Lateral Cassie s' Velocity 11.6 cm/s >=9.5 Aorta Name Value Normal Ascending Aorta Ao Root Diameter (MM) 2.9 cm Ao Root Diam Index (MM) 1.2 cm/m2 Aortic Valve Name Value Normal AV Doppler AV Peak Velocity 151 cm/s AV Peak Gradient 9 mmHg AV Mean Gradient 6 mmHg AV VTI 35 cm AV Area (Cont Eq VTI) 1.4 cm2 >=3.0 AV Area (Cont Eq Jake) 1.2 cm2 AV DI (Jake) 0.55 AV Regurgitation 2D LVOT Area 2.3 cm2 Ventricles Name Value Normal LV Dimensions 2D/MM IVS Diastolic Thickness (2D) 1.7 cm 0.6-1.0 LVID Diastole (2D) 3.1 cm 3.8-5.2 LVIW Diastolic Thickness (2D) 1.4 cm 0.6-0.9 LVID Systole (2D) 2.2 cm 2.2-3.5 LVOT Diameter 1.7 cm LV Mass (2D Cubed) 175.09 g 67.00-162.00 LV Mass Index (2D Cubed) 73 g/m2 43-95 Relative Wall Thickness (2D) 0.90 <=0.42 LV Fractional Shortening/Ejection Fraction 2D/MM LV Fractional Shortening (2D) 29 % 27-45 LV EF (2D Teichholz) 56 % LV Diastolic Volume (4C MOD) 61 ml LV EF (4C MOD) 79 % LV Diastolic Volume (2C MOD) 65 ml LV EF (2C MOD) 72 % LV Diastolic Volume (BP MOD) 65 ml 46-106 LV Diastolic Volume Index (BP MOD) 27 ml/m2 29-61 LV Systolic Volume (BP MOD) 16 ml 14-42 LV Systolic Volume Index (BP MOD) 7 ml/m2 8-24 LV EF (BP MOD) 76 % 54-74 LV Diastolic Length (4C) 6.5 cm LV Systolic Length (4C) 5.4 cm LV Stroke Volume (4C MOD) 48 ml RV Dimensions 2D/MM RVID Diastole (2D) 4.6 cm 2.1-3.5 Atria Name Value Normal LA Dimensions LA Dimension (MM) 4.6 cm 2.7-3.8 LA Volume (4C A-L) 86 ml LA Volume (BP A-L) 75 ml RA Dimensions RA Systolic Major Calvin Length (4C) 4.9 cm 2.2-2.8 RA Area (4C) 19.1 cm2 <=18.0 Report Signatures
[2024-07-22 08:07] LABS: Glucose Point of Care 159 mg/dl (65-105)
[2024-07-22] MEDS: PANTOPRAZOLE 40 MG TABLET PO ×2 (09:04→20:25)
[2024-07-22] MEDS: APIXABAN 5 MG TABLET PO ×2 (09:04→20:25)
[2024-07-22] MEDS: FUROSEMIDE INJ 40 MG/4 ML VIAL IV PUSH ×2 (09:05→20:26)
[2024-07-22] MEDS: lisinopriL 20 MG TABLET 40 MG PO (09:05)
[2024-07-22] MEDS: CHOLECALCIFEROL 1,000 UNITS TABLET 2000 UNITS PO (09:05)
[2024-07-22] MEDS: INSULIN GLARGINE (*BKC) 100 UNITS/ML 36 UNITS SUB-Q (09:05)
--- NOTE | 2024-07-22 10:06 | PM.IMPN ---
Progress Note: A&P Assessment and Plan (1) Ground-level fall: Code(s): W18.30XA - Fall on same level, unspecified, initial encounter Status: Acute Assessment and Plan: - trauma workup negative. Imaging included a head CT, C-spine CT, lumbar CT, pelvic CT - fall precautions - analgesics p.r.n. - PT/OT evaluation and treatment and care coordination consulted for acute rehab services (2) Diastolic congestive heart failure: Qualifiers: Heart failure chronicity: acute on chronic Qualified Code(s): I50.33 - Acute on chronic diastolic (congestive) heart failure Code(s): I50.30 - Unspecified diastolic (congestive) heart failure Status: Acute Assessment and Plan: - BNP 3770 - most recent echo (2021): For sirs systolic function, estimated EF 60 65%. Abnormal diastolic dysfunction. Moderate pulmonary hypertension. Mild valvular disease, see report for details. Update echo - currently on: Lasix 80 mg daily, however has poor compliance. Continue as 40 of Lasix IV b.i.d. while inpatient. - wrap lower extremities - monitor I&Os and daily weights - trend renal function (3) Atrial fibrillation: Qualifiers: Atrial fibrillation type: unspecified Qualified Code(s): I48.91 - Unspecified atrial fibrillation Code(s): I48.91 - Unspecified atrial fibrillation Status: Acute Assessment and Plan: - no previous hx - EKG showing rate controlled AFib, on metoprolol ER 150 mg daily -continue. - [id number]: 6 -> initiate Eliquis 5 mg b.i.d. for prophylaxis - will hold on Cardiology consultation at this time as the patient does not need rate control medication. If echo grossly abnormal, consider placing consult. 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 Code(s): E11.22 - Type 2 diabetes mellitus with diabetic chronic kidney disease Status: Chronic Assessment and Plan: - hypoglycemia protocol - POC blood glucose ACHS - home medication: lantus 36 units as Q - correct regimen ordered - high dose TIDWM, based off BMI - A1C 6.6% on 06/24/2024 (5) Chronic kidney disease, stage 3 (moderate): Qualifiers: Chronic kidney disease stage 3 subtype: stage 3b (GFR 30-44) Qualified Code(s): N18.32 - Chronic kidney disease, stage 3b Code(s): N18.3 - Chronic kidney disease, stage 3 (moderate) Status: Acute Assessment and Plan: - creatinine 1.23 and GFR 42, previously 1.21 and GFR 43 on 06/24/2024 - trend renal function - trend electrolytes, correct as needed (6) Essential (primary) hypertension: Code(s): I10 - Essential (primary) hypertension Status: Chronic Assessment and Plan: - chronic, currently 191/93 (did not take an meds, given in ED) - continue home medications: Lisinopril, metoprolol ER 150 mg daily - monitor Plan Diet: Diabetic GI Prophylaxis: Not currently indicated DVT Prophylaxis: IV fluids: None Lines/Tubes: Peripheral IV Code Status: Full code Subjective Date/time seen: 07/22/24 10:06 Interval history: Patient complains of pain. Able to sit in chair. Review of Systems Review of Systems: All systems reviewed & are unremarkable except as noted in HPI and below Exam Narrative: 2+ pitting edema. Erythematous rash, chornic with small open wound with no sings of infection to the LLE. edema extends to her distal abdomen but is non-pitting Const: General: comfortable and no acute distress Other: , female, nontoxic appearance HENMT: Face/Nose/Sinus: Normal nares present Mouth: Yes moist mucous membranes Eyes: General: appearance normal, both eyes and all related structures Sclera: sclerae normal Pupils: Equal, round and reactive pupils present EOM: EOMs intact bilaterally Resp: Effort & Inspection: normal respiratory effort Auscultation: clear to auscultation bilaterally Cardio: Rate: regular rate Rhythm: regular rhythm Other: S1-S2 present without murmur, rub, ectopy GI: Other: Abdomen soft, nondistended, nontender. Normoactive bowel sounds in all quadrants. Urinary Catheter: Urinary Catheter: patent and draining Skin: General skin exam: normal color Wounds: no wounds Other: Rash to her bilateral lower extremities. No signs of infection. Small open wound to right garcía, no signs of infection, less than 1 cm. Neuro: Cranial nerves: Yes Equal, round and reactive pupils present Speech: normal speech Motor exam (neuro): 5/5 motor strength present throughout Sensory Exam: normal sensation Other: A&O x4 Extrem: Other: 2+ pitting edema to bilateral lower extremities, symmetric extending to the proximal knees. Edema continues up the thighs to the lower abdomen, nonpitting. Psych: Mental Status: mental status grossly normal Affect: normal affect Other: Good insight and judgment, pleasant Objective Data Vital Signs Vital Signs: Vital Signs - 24 hr 07/21/24 11:17 07/21/24 13:02 07/21/24 14:46 Temperature 98.0 F 97.8 F Pulse Rate 84 88 82 Respiratory Rate 19 16 18 Blood Pressure 191/93 H 191/93 H 152/88 H Pulse Oximetry 99 100 98 Oxygen Delivery 07/21/24 15:00 07/21/24 16:00 07/21/24 20:00 Temperature Pulse Rate 107 H Respiratory Rate Blood Pressure Pulse Oximetry Oxygen Delivery Room Air Room Air 07/21/24 20:00 07/21/24 20:04 07/21/24 22:00 Temperature 98.4 F Pulse Rate 85 90 86 Respiratory Rate 18 Blood Pressure 163/92 H Pulse Oximetry 100 Oxygen Delivery 07/22/24 00:00 07/22/24 04:00 07/22/24 06:00 Temperature 98.0 F Pulse Rate 104 H 83 77 Respiratory Rate 18 Blood Pressure 160/56 H Pulse Oximetry 96 Oxygen Delivery 07/22/24 09:01 Temperature Pulse Rate 70 Respiratory Rate Blood Pressure 151/69 H Pulse Oximetry 98 Oxygen Delivery Intake/Output Intake/Output: Intake & Output 07/19/24 07/20/24 07/21/24 07/22/24 23:59 23:59 23:59 23:59 Intake Total 480 240 Output Total 2500 600 Balance -2019 -360 Meds/Results Medications: Active Medications Generic Name Dose Route Start Last Admin Trade Name Freq PRN Reason Stop Dose Admin Acetaminophen 650 mg 07/21/24 12:23 07/21/24 20:10 Acetaminophen 325 Mg Tablet PO 650 mg Q4H PRN Administration Mild Pain (1-3) or Fever Hydrocodone Bitart/Acetaminophen 1 tab 07/21/24 14:31 07/22/24 06:00 Hydrocodone/Acetaminophen (*Crx) 10-325 Mg Tablet PO 1 tab Q6H PRN Administration Pain Rated 4-6 Apixaban 5 mg 07/21/24 21:00 07/22/24 09:04 Apixaban 5 Mg Tablet PO 5 mg Q12HR MARIELLA Administration Dextrose 12.5 gm 07/21/24 12:23 Dextrose 50% 25 Gm/50 Ml Syringe IV PUSH PRN PRN Hypoglycemia Protocol Diclofenac Sodium 1 applic 07/21/24 17:00 07/22/24 09:00 Diclofenac Sodium 1% 100 Gm Gel (*Bkc) TOPICAL Not Given QID MARIELLA Furosemide 40 mg 07/21/24 21:00 07/22/24 09:05 Furosemide Inj 40 Mg/4 Ml Vial IV PUSH 40 mg Q12HR MARIELLA Administration Glucagon 1 mg 07/21/24 12:23 Glucagon For Inj 1 Mg Vial IM PRN PRN Hypoglycemia Protocol Glucose 15 gm 07/21/24 12:23 Glucose Oral Gel 15 Gm Of Glucse In 37.5 Gm Tube PO PRN PRN Hypoglycemia Protocol Hydrocortisone 1 applic 07/21/24 15:59 Hydrocortisone 1% 30 Gm Cream TOPICAL HS PRN itching Dextrose 1,000 mls @ 100 mls/hr 07/21/24 12:23 Dextrose 5% 1,000 Ml IVPB PRN PRN Hypoglycemia Protocol Insulin Aspart 4 - 8 units 07/21/24 17:00 07/22/24 08:55 Insulin Aspart (*Bkc) 100 Units/Ml SUB-Q Not Given TIDWM [facility] Protocol Insulin Glargine 36 units 07/22/24 09:00 07/22/24 09:05 Insulin Glargine (*Bkc) 100 Units/Ml SUB-Q 36 units QAM MARIELLA Administration Levothyroxine Sodium 150 mcg 07/22/24 06:30 07/22/24 05:59 Levothyroxine Sodium 150 Mcg Tablet PO 150 mcg DAILY@0630 MARIELLA Administration Lisinopril 40 mg 07/22/24 09:00 07/22/24 09:05 Lisinopril 20 Mg Tablet PO 40 mg DAILY MARIELLA Administration Metoprolol Succinate 150 mg 07/21/24 21:00 07/21/24 20:04 Metoprolol Succinate Ext Rel 50 Mg Tabcr PO 150 mg HS MARIELLA Administration Morphine Sulfate 4 mg 07/21/24 12:23 Morphine Sulfate (*Crx) 4 Mg/Ml Inj IV PUSH Q2H PRN Pain Rated 7-10 Pantoprazole Sodium 40 mg 07/22/24 09:00 07/22/24 09:04 Pantoprazole 40 Mg Tablet PO 40 mg Q12HR MARIELLA Administration Perflutren Lipid Microsphere 0 ml 07/21/24 12:23 Perflutren Lipid Microspheres 1.5 Ml Vial Diluted To 10 Ml Total Volume IV PUSH 07/24/24 12:23 ONCE PRN adequate visualization Protocol Rosuvastatin Calcium 5 mg 07/21/24 21:00 07/21/24 20:04 Rosuvastatin 5 Mg Tablet PO 5 mg HS MARIELLA Administration Vitamin D 2,000 units 07/22/24 09:00 07/22/24 09:05 Cholecalciferol 1,000 Units Tablet PO 2,000 units DAILY MARIELLA Administration Radiology Results: ITS Impressions Head CT 07/21/24 09:59 Impression: No intracranial hemorrhage, mass, or acute infarct. Atrophy and chronic white matter changes, as above. Cervical Spine CT 07/21/24 10:00 Impression: No fracture or subluxation of the cervical spine. Mild degenerative change overall, as detailed above. Lumbar Spine CT 07/21/24 10:01 Impression: No acute fracture. 3 mm anterolisthesis of L3 over L4. Severe degenerative spondylosis at L2-L3, L3-L4, and L4-L5. Venous Doppler Study 07/21/24 10:20 IMPRESSION: Negative bilateral lower extremity venous US. No deep vein thrombosis. Pelvis CT 07/21/24 10:27 IMPRESSION: No fracture or dislocation. Chest X-Ray 07/21/24 13:07 IMPRESSION: No acute cardiopulmonary pathology. Labs Labs: Laboratory Results - last 24 hr 07/21/24 07/21/24 07/21/24 10:34 16:56 21:03 WBC 11.5 H RBC 3.93 L Hgb 12.3 Hct 38.3 MCV 97.5 MCH 31.3 MCHC 32.1 RDW 13.9 Plt Count 169 MPV 10.1 Immature Gran % (Auto) 0.4 Neut % (Auto) 76.5 H Lymph % (Auto) 12.0 L [place] % (Auto) 9.8 H Eos % (Auto) 1.0 Baso % (Auto) 0.3 Lymph # (Auto) 1.38 [place] # (Auto) 1.1 H Eos # (Auto) 0.1 Baso # (Auto) 0.0 Abs Immat Gran (auto) 0.05 H Absolute Neuts (auto) 8.8 H Absolute Nucleated RBC 0.000 Nucleated RBC % 0.0 PT 15.3 H INR 1.2 APTT 25.3 Sodium 145 Potassium 4.6 Chloride 113 H Carbon Dioxide 21 L Anion Gap 11 BUN 51 H Creatinine 1.23 H Estim Creat Clear Calc 40 Estimated GFR 42 L Glucose 107 POC Capillary Glucose 158 H 189 H Calcium 9.3 Magnesium Total Bilirubin 0.7 AST 24 ALT 19 Alkaline Phosphatase 98 Troponin I < 0.012 NT-Pro-B Natriuret Pep 3770 H Total Protein 7.0 Albumin 3.9 TSH (Reflex) 07/22/24 07/22/24 04:54 08:00 WBC 9.0 RBC 3.66 L Hgb 11.4 L Hct 35.8 L MCV 97.8 MCH 31.1 MCHC 31.8 L RDW 13.8 Plt Count 164 MPV 10.4 Immature Gran % (Auto) 0.6 H Neut % (Auto) 63.9 Lymph % (Auto) 20.1 [place] % (Auto) 13.9 H Eos % (Auto) 1.2 Baso % (Auto) 0.3 Lymph # (Auto) 1.80 [place] # (Auto) 1.2 H Eos # (Auto) 0.1 Baso # (Auto) 0.0 Abs Immat Gran (auto) 0.05 H Absolute Neuts (auto) 5.7 Absolute Nucleated RBC 0.000 Nucleated RBC % 0.0 PT INR APTT Sodium 144 Potassium 4.4 Chloride 110 H Carbon Dioxide 26 Anion Gap 8 BUN 51 H Creatinine 1.44 H Estim Creat Clear Calc 34 Estimated GFR 35 L Glucose 169 H POC Capillary Glucose 159 H Calcium 8.8 Magnesium 1.3 L Total Bilirubin 0.6 AST 22 ALT 17 Alkaline Phosphatase 86 Troponin I NT-Pro-B Natriuret Pep Total Protein 6.0 L Albumin 3.5 TSH (Reflex) 1.420 Quality VTE Prophylaxis VTE prophylaxis: pharmacologic ordered Hospitalist MIPS Advance Care Plan I have confirmed that the patient's Advanced Care Plan is present, code status is documented, or surrogate decision maker is listed in patient medical record.: Yes Medication Reconciliation I have utilized all available resources to obtain, update and review the patients current medications (includes all prescriptions, OTC, herbals, cannabis, and nutritional supplements).: Yes
[2024-07-22 12:37] LABS: Glucose Point of Care 141 mg/dl (65-105)
[2024-07-22 17:11] LABS: Glucose Point of Care 172 mg/dl (65-105)
[2024-07-22] MEDS: METOPROLOL SUCCINATE EXT REL 50 MG TABCR 150 MG PO (20:25)
[2024-07-22] MEDS: ROSUVASTATIN 5 MG TABLET PO (20:26)
[2024-07-22 20:55] LABS: Glucose Point of Care 194 mg/dl (65-105)
[2024-07-23] VITALS (10 sets, daily range): BP systolic 148–176; BP diastolic 73–98; PULSE 81–105; RESP 12–20; TEMP 36.3–36.4; O2SAT 97–98
[2024-07-23 04:59] LABS: Hematocrit 36.1 % (37.0-47.0); Hemoglobin 11.5 g/dL (12.0-15.0); Mean Corpuscular HGB Conc 31.9 g/dl (32-36); Mean Corpuscular Hemoglobin 31.3 pg (26-34); Mean Corpuscular Volume 98.4 fl (80-100); Mean Platelet Volume 10.5 fl (7.4-10.4); Platelet Count Result 162 k/mm3 (150-375); Red Blood Count 3.67 M/mm3 (4.2-5.4); Red Cell Distribution Width 13.7 % (11.5-14.5); White Blood Count 11.4 K/mm3 (4.5-10.0)
[2024-07-23] MEDS: HYDROcodone/acetaminophen (*CRX) 10-325 MG TABLET 1 TAB PO ×3 (05:18→22:14)
[2024-07-23] MEDS: LEVOTHYROXINE SODIUM 150 MCG TABLET PO (05:18)
[2024-07-23 05:21] LABS: Alanine Aminotransferase 17 U/L (6-35); Albumin Level 3.5 g/dL (3.5-5.1); Alkaline Phosphatase 81 U/L (38-126); Anion Gap 8 mmol/L (4-12); Aspartate Amino Transferase 24 U/L (14-36); Bilirubin,Total 0.7 mg/dL (0.2-1.3); Blood Urea Nitrogen 49 mg/dL (7-17); Calcium 8.8 mg/dL (8.4-10.2); Carbon Dioxide 28 mmol/L (22-30); Chloride 106 mmol/L (98-107); Estimated CRCL calculation 42 ml/min; Estimated Glomerular Filt Rate 46; Glucose 155 mg/dL (65-110); Potassium 3.9 mmol/L (3.4-5.0); Sodium 142 mmol/L (137-145)
--- NOTE | 2024-07-23 07:43 | PM.IMPN ---
Progress Note: A&P Assessment and Plan (1) Ground-level fall: Code(s): W18.30XA - Fall on same level, unspecified, initial encounter Status: Acute Assessment and Plan: - trauma workup negative. Imaging included a head CT, C-spine CT, lumbar CT, pelvic CT - fall precautions - analgesics p.r.n. - PT/OT evaluation and treatment and care coordination consulted for acute rehab services (2) Diastolic congestive heart failure: Qualifiers: Heart failure chronicity: acute on chronic Qualified Code(s): I50.33 - Acute on chronic diastolic (congestive) heart failure Code(s): I50.30 - Unspecified diastolic (congestive) heart failure Status: Acute Assessment and Plan: - BNP 3770 - most recent echo (2021): For sirs systolic function, estimated EF 60 65%. Abnormal diastolic dysfunction. Moderate pulmonary hypertension. Mild valvular disease, see report for details. Update echo - currently on: Lasix 80 mg daily, however has poor compliance. Continue as 40 of Lasix IV b.i.d. while inpatient. - wrap lower extremities - monitor I&Os and daily weights - trend renal function (3) Atrial fibrillation: Qualifiers: Atrial fibrillation type: unspecified Qualified Code(s): I48.91 - Unspecified atrial fibrillation Code(s): I48.91 - Unspecified atrial fibrillation Status: Acute Assessment and Plan: - no previous hx - EKG showing rate controlled AFib, on metoprolol ER 150 mg daily -continue. - [id number]: 6 -> initiate Eliquis 5 mg b.i.d. for prophylaxis - will hold on Cardiology consultation at this time as the patient does not need rate control medication. If echo grossly abnormal, consider placing consult. 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 Code(s): E11.22 - Type 2 diabetes mellitus with diabetic chronic kidney disease Status: Chronic Assessment and Plan: - hypoglycemia protocol - POC blood glucose ACHS - home medication: lantus 36 units as Q - correct regimen ordered - high dose TIDWM, based off BMI - A1C 6.6% on 06/24/2024 (5) Chronic kidney disease, stage 3 (moderate): Qualifiers: Chronic kidney disease stage 3 subtype: stage 3b (GFR 30-44) Qualified Code(s): N18.32 - Chronic kidney disease, stage 3b Code(s): N18.3 - Chronic kidney disease, stage 3 (moderate) Status: Acute Assessment and Plan: - creatinine 1.23 and GFR 42, previously 1.21 and GFR 43 on 06/24/2024 - trend renal function - trend electrolytes, correct as needed (6) Essential (primary) hypertension: Code(s): I10 - Essential (primary) hypertension Status: Chronic Assessment and Plan: - chronic, currently 191/93 (did not take an meds, given in ED) - continue home medications: Lisinopril, metoprolol ER 150 mg daily - monitor Plan Diet: Diabetic GI Prophylaxis: Not currently indicated DVT Prophylaxis: IV fluids: None Lines/Tubes: Peripheral IV Code Status: Full code Subjective Date/time seen: 07/23/24 07:43 Interval history: Pending placement. Patient reports her pain is little better than yesterday. Review of Systems Review of Systems: All systems reviewed & are unremarkable except as noted in HPI and below Exam Narrative: 2+ pitting edema. Erythematous rash, chornic with small open wound with no sings of infection to the LLE. edema extends to her distal abdomen but is non-pitting Const: General: comfortable and no acute distress Other: , female, nontoxic appearance HENMT: Face/Nose/Sinus: Normal nares present Mouth: Yes moist mucous membranes Eyes: General: appearance normal, both eyes and all related structures Sclera: sclerae normal Pupils: Equal, round and reactive pupils present EOM: EOMs intact bilaterally Resp: Effort & Inspection: normal respiratory effort Auscultation: clear to auscultation bilaterally Cardio: Rate: regular rate Rhythm: regular rhythm Other: S1-S2 present without murmur, rub, ectopy GI: Other: Abdomen soft, nondistended, nontender. Normoactive bowel sounds in all quadrants. Urinary Catheter: Urinary Catheter: patent and draining Skin: General skin exam: normal color Wounds: no wounds Other: Rash to her bilateral lower extremities. No signs of infection. Small open wound to right garcía, no signs of infection, less than 1 cm. Neuro: Cranial nerves: Yes Equal, round and reactive pupils present Speech: normal speech Motor exam (neuro): 5/5 motor strength present throughout Sensory Exam: normal sensation Other: A&O x4 Extrem: Other: 2+ pitting edema to bilateral lower extremities, symmetric extending to the proximal knees. Edema continues up the thighs to the lower abdomen, nonpitting. Psych: Mental Status: mental status grossly normal Affect: normal affect Other: Good insight and judgment, pleasant Objective Data Vital Signs Vital Signs: Vital Signs - 24 hr 07/22/24 08:00 07/22/24 08:00 07/22/24 09:01 Temperature Pulse Rate 81 70 Respiratory Rate Blood Pressure 151/69 H Pulse Oximetry 98 Oxygen Delivery Room Air 07/22/24 12:00 07/22/24 13:49 07/22/24 14:00 Temperature 97.7 F Pulse Rate 89 72 Respiratory Rate 18 Blood Pressure 158/58 H Pulse Oximetry 96 Oxygen Delivery Room Air 07/22/24 16:00 07/22/24 20:00 07/22/24 20:00 Temperature Pulse Rate 88 94 Respiratory Rate Blood Pressure Pulse Oximetry Oxygen Delivery Room Air 07/22/24 20:15 07/22/24 20:25 07/23/24 00:00 Temperature 97.6 F Pulse Rate 99 90 102 H Respiratory Rate 20 Blood Pressure 149/80 H Pulse Oximetry 99 Oxygen Delivery 07/23/24 04:00 07/23/24 05:01 Temperature 97.3 F L Pulse Rate 89 81 Respiratory Rate 20 Blood Pressure 148/73 H Pulse Oximetry 97 Oxygen Delivery Intake/Output Intake/Output: Intake & Output 07/20/24 07/21/24 07/22/24 07/23/24 23:59 23:59 23:59 23:59 Intake Total 480 600 300 Output Total 2500 2800 900 Balance -2019 -600 Meds/Results Medications: Active Medications Generic Name Dose Route Start Last Admin Trade Name Freq PRN Reason Stop Dose Admin Acetaminophen 650 mg 07/21/24 12:23 07/21/24 20:10 Acetaminophen 325 Mg Tablet PO 650 mg Q4H PRN Administration Mild Pain (1-3) or Fever Hydrocodone Bitart/Acetaminophen 1 tab 07/21/24 14:31 07/23/24 05:18 Hydrocodone/Acetaminophen (*Crx) 10-325 Mg Tablet PO 1 tab Q6H PRN Administration Pain Rated 4-6 Apixaban 5 mg 07/21/24 21:00 07/22/24 20:25 Apixaban 5 Mg Tablet PO 5 mg Q12HR MARIELLA Administration Dextrose 12.5 gm 07/21/24 12:23 Dextrose 50% 25 Gm/50 Ml Syringe IV PUSH PRN PRN Hypoglycemia Protocol Diclofenac Sodium 1 applic 07/21/24 17:00 07/22/24 20:26 Diclofenac Sodium 1% 100 Gm Gel (*Bkc) TOPICAL Not Given QID MARIELLA Furosemide 40 mg 07/21/24 21:00 07/22/24 20:26 Furosemide Inj 40 Mg/4 Ml Vial IV PUSH 40 mg Q12HR MARIELLA Administration Glucagon 1 mg 07/21/24 12:23 Glucagon For Inj 1 Mg Vial IM PRN PRN Hypoglycemia Protocol Glucose 15 gm 07/21/24 12:23 Glucose Oral Gel 15 Gm Of Glucse In 37.5 Gm Tube PO PRN PRN Hypoglycemia Protocol Hydrocortisone 1 applic 07/21/24 15:59 Hydrocortisone 1% 30 Gm Cream TOPICAL HS PRN itching Dextrose 1,000 mls @ 100 mls/hr 07/21/24 12:23 Dextrose 5% 1,000 Ml IVPB PRN PRN Hypoglycemia Protocol Insulin Aspart 4 - 8 units 07/21/24 17:00 07/22/24 17:23 Insulin Aspart (*Bkc) 100 Units/Ml SUB-Q Not Given TIDWM [facility] Protocol Insulin Glargine 36 units 07/22/24 09:00 07/22/24 09:05 Insulin Glargine (*Bkc) 100 Units/Ml SUB-Q 36 units QAM MARIELLA Administration Levothyroxine Sodium 150 mcg 07/22/24 06:30 07/23/24 05:18 Levothyroxine Sodium 150 Mcg Tablet PO 150 mcg DAILY@0630 MARIELLA Administration Lisinopril 40 mg 07/22/24 09:00 07/22/24 09:05 Lisinopril 20 Mg Tablet PO 40 mg DAILY MARIELLA Administration Metoprolol Succinate 150 mg 07/21/24 21:00 07/22/24 20:25 Metoprolol Succinate Ext Rel 50 Mg Tabcr PO 150 mg HS MARIELLA Administration Morphine Sulfate 4 mg 07/21/24 12:23 Morphine Sulfate (*Crx) 4 Mg/Ml Inj IV PUSH Q2H PRN Pain Rated 7-10 Pantoprazole Sodium 40 mg 07/22/24 09:00 07/22/24 20:25 Pantoprazole 40 Mg Tablet PO 40 mg Q12HR MARIELLA Administration Perflutren Lipid Microsphere 0 ml 07/21/24 12:23 Perflutren Lipid Microspheres 1.5 Ml Vial Diluted To 10 Ml Total Volume IV PUSH 07/24/24 12:23 ONCE PRN adequate visualization Protocol Rosuvastatin Calcium 5 mg 07/21/24 21:00 07/22/24 20:26 Rosuvastatin 5 Mg Tablet PO 5 mg HS MARIELLA Administration Vitamin D 2,000 units 07/22/24 09:00 07/22/24 09:05 Cholecalciferol 1,000 Units Tablet PO 2,000 units DAILY MARIELLA Administration Radiology Results: ITS Impressions Head CT 07/21/24 09:59 Impression: No intracranial hemorrhage, mass, or acute infarct. Atrophy and chronic white matter changes, as above. Cervical Spine CT 07/21/24 10:00 Impression: No fracture or subluxation of the cervical spine. Mild degenerative change overall, as detailed above. Lumbar Spine CT 07/21/24 10:01 Impression: No acute fracture. 3 mm anterolisthesis of L3 over L4. Severe degenerative spondylosis at L2-L3, L3-L4, and L4-L5. Venous Doppler Study 07/21/24 10:20 IMPRESSION: Negative bilateral lower extremity venous US. No deep vein thrombosis. Pelvis CT 07/21/24 10:27 IMPRESSION: No fracture or dislocation. Chest X-Ray 07/21/24 13:07 IMPRESSION: No acute cardiopulmonary pathology. Labs Labs: Laboratory Results - last 24 hr 07/22/24 07/22/24 07/22/24 08:00 12:15 17:06 WBC RBC Hgb Hct MCV MCH MCHC RDW Plt Count MPV Sodium Potassium Chloride Carbon Dioxide Anion Gap BUN Creatinine Estim Creat Clear Calc Estimated GFR Glucose POC Capillary Glucose 159 H 141 H 172 H Calcium Total Bilirubin AST ALT Alkaline Phosphatase Total Protein Albumin 07/22/24 07/23/24 20:14 04:26 WBC 11.4 H RBC 3.67 L Hgb 11.5 L Hct 36.1 L MCV 98.4 MCH 31.3 MCHC 31.9 L RDW 13.7 Plt Count 162 MPV 10.5 H Sodium 142 Potassium 3.9 Chloride 106 Carbon Dioxide 28 Anion Gap 8 BUN 49 H Creatinine 1.14 H Estim Creat Clear Calc 42 Estimated GFR 46 L Glucose 155 H POC Capillary Glucose 194 H Calcium 8.8 Total Bilirubin 0.7 AST 24 ALT 17 Alkaline Phosphatase 81 Total Protein 7.0 Albumin 3.5 Quality VTE Prophylaxis VTE prophylaxis: pharmacologic ordered Hospitalist MIPS Advance Care Plan I have confirmed that the patient's Advanced Care Plan is present, code status is documented, or surrogate decision maker is listed in patient medical record.: Yes Medication Reconciliation I have utilized all available resources to obtain, update and review the patients current medications (includes all prescriptions, OTC, herbals, cannabis, and nutritional supplements).: Yes
[2024-07-23 08:27] LABS: Glucose Point of Care 140 mg/dl (65-105)
[2024-07-23] MEDS: INSULIN GLARGINE (*BKC) 100 UNITS/ML 36 UNITS SUB-Q (09:40)
[2024-07-23] MEDS: lisinopriL 20 MG TABLET 40 MG PO (09:43)
[2024-07-23] MEDS: CHOLECALCIFEROL 1,000 UNITS TABLET 2000 UNITS PO (09:43)
[2024-07-23] MEDS: APIXABAN 5 MG TABLET PO ×2 (09:43→20:03)
[2024-07-23] MEDS: PANTOPRAZOLE 40 MG TABLET PO ×2 (09:43→20:03)
[2024-07-23] MEDS: FUROSEMIDE INJ 40 MG/4 ML VIAL IV PUSH ×2 (09:44→20:03)
[2024-07-23] MEDS: DICLOFENAC SODIUM 1% 100 GM GEL (*BKC) 1 APPLIC TOPICAL (09:44)
[2024-07-23 12:05] LABS: Glucose Point of Care 169 mg/dl (65-105)
[2024-07-23 17:02] LABS: Glucose Point of Care 171 mg/dl (65-105)
[2024-07-23] MEDS: ROSUVASTATIN 5 MG TABLET PO (20:03)
[2024-07-23] MEDS: METOPROLOL SUCCINATE EXT REL 50 MG TABCR 150 MG PO (20:03)
[2024-07-23 21:36] LABS: Glucose Point of Care 166 mg/dl (65-105)
[2024-07-24] VITALS (10 sets, daily range): BP systolic 137–171; BP diastolic 73–88; PULSE 83–125; RESP 12–20; TEMP 36.4–36.6; O2SAT 94–98
[2024-07-24] MEDS: ACETAMINOPHEN 325 MG TABLET 650 MG PO ×2 (01:15→15:09)
[2024-07-24] MEDS: HYDROcodone/acetaminophen (*CRX) 10-325 MG TABLET 1 TAB PO ×3 (04:39→16:55)
[2024-07-24] MEDS: LEVOTHYROXINE SODIUM 150 MCG TABLET PO (04:39)
[2024-07-24 05:28] LABS: Hematocrit 38.9 % (37.0-47.0); Hemoglobin 12.2 g/dL (12.0-15.0); Mean Corpuscular HGB Conc 31.4 g/dl (32-36); Mean Corpuscular Hemoglobin 31.3 pg (26-34); Mean Corpuscular Volume 99.7 fl (80-100); Mean Platelet Volume 10.7 fl (7.4-10.4); Platelet Count Result 151 k/mm3 (150-375); Red Cell Distribution Width 13.4 % (11.5-14.5); White Blood Count 12.2 K/mm3 (4.5-10.0)
[2024-07-24 05:40] LABS: Alanine Aminotransferase 16 U/L (6-35); Albumin Level 3.5 g/dL (3.5-5.1); Alkaline Phosphatase 77 U/L (38-126); Anion Gap 9 mmol/L (4-12); Aspartate Amino Transferase 23 U/L (14-36); Bilirubin,Total 0.9 mg/dL (0.2-1.3); Blood Urea Nitrogen 48 mg/dL (7-17); Calcium 8.6 mg/dL (8.4-10.2); Carbon Dioxide 29 mmol/L (22-30); Chloride 104 mmol/L (98-107); Estimated CRCL calculation 38 ml/min; Estimated Glomerular Filt Rate 41; Glucose 164 mg/dL (65-110); Potassium 3.7 mmol/L (3.4-5.0); Sodium 142 mmol/L (137-145)
[2024-07-24 08:04] LABS: Glucose Point of Care 134 mg/dl (65-105)
--- NOTE | 2024-07-24 08:39 | PM.IMPN ---
Progress Note: A&P Assessment and Plan (1) Ground-level fall: Code(s): W18.30XA - Fall on same level, unspecified, initial encounter Status: Acute Assessment and Plan: - trauma workup negative. Imaging included a head CT, C-spine CT, lumbar CT, pelvic CT - fall precautions - analgesics p.r.n. - PT/OT evaluation and treatment and care coordination consulted for acute rehab services (2) Diastolic congestive heart failure: Qualifiers: Heart failure chronicity: acute on chronic Qualified Code(s): I50.33 - Acute on chronic diastolic (congestive) heart failure Code(s): I50.30 - Unspecified diastolic (congestive) heart failure Status: Acute Assessment and Plan: - BNP 3770 - most recent echo (2021): For sirs systolic function, estimated EF 60 65%. Abnormal diastolic dysfunction. Moderate pulmonary hypertension. Mild valvular disease, see report for details. Update echo - currently on: Lasix 80 mg daily, however has poor compliance. Continue as 40 of Lasix IV b.i.d. while inpatient. - wrap lower extremities - monitor I&Os and daily weights - trend renal function (3) Atrial fibrillation: Qualifiers: Atrial fibrillation type: unspecified Qualified Code(s): I48.91 - Unspecified atrial fibrillation Code(s): I48.91 - Unspecified atrial fibrillation Status: Acute Assessment and Plan: - no previous hx - EKG showing rate controlled AFib, on metoprolol ER 150 mg daily -continue. - [id number]: 6 -> initiate Eliquis 5 mg b.i.d. for prophylaxis - will hold on Cardiology consultation at this time as the patient does not need rate control medication. If echo grossly abnormal, consider placing consult. 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 Code(s): E11.22 - Type 2 diabetes mellitus with diabetic chronic kidney disease Status: Chronic Assessment and Plan: - hypoglycemia protocol - POC blood glucose ACHS - home medication: lantus 36 units as Q - correct regimen ordered - high dose TIDWM, based off BMI - A1C 6.6% on 06/24/2024 (5) Chronic kidney disease, stage 3 (moderate): Qualifiers: Chronic kidney disease stage 3 subtype: stage 3b (GFR 30-44) Qualified Code(s): N18.32 - Chronic kidney disease, stage 3b Code(s): N18.3 - Chronic kidney disease, stage 3 (moderate) Status: Acute Assessment and Plan: - creatinine 1.23 and GFR 42, previously 1.21 and GFR 43 on 06/24/2024 - trend renal function - trend electrolytes, correct as needed (6) Essential (primary) hypertension: Code(s): I10 - Essential (primary) hypertension Status: Chronic Assessment and Plan: - chronic, currently 191/93 (did not take an meds, given in ED) - continue home medications: Lisinopril, metoprolol ER 150 mg daily - monitor Plan Diet: Diabetic GI Prophylaxis: Not currently indicated DVT Prophylaxis: IV fluids: None Lines/Tubes: Peripheral IV Code Status: Full code Subjective Date/time seen: 07/24/24 08:39 Interval history: Added amlodipine for high BP and will treated as needed. Evaluated the patient at bedside along with her POA. POA was concerned about spinal cord lead dislodgement due to recent fall. Advised to follow up as an outpatient with pain management to make sure the spinal cord stimulator is working properly. Order lumbar x-ray to rule out spinal cord dislodgement Review of Systems Review of Systems: All systems reviewed & are unremarkable except as noted in HPI and below Exam Narrative: 2+ pitting edema. Erythematous rash, chornic with small open wound with no sings of infection to the LLE. edema extends to her distal abdomen but is non-pitting Const: General: comfortable and no acute distress Other: , female, nontoxic appearance HENMT: Face/Nose/Sinus: Normal nares present Mouth: Yes moist mucous membranes Eyes: General: appearance normal, both eyes and all related structures Sclera: sclerae normal Pupils: Equal, round and reactive pupils present EOM: EOMs intact bilaterally Resp: Effort & Inspection: normal respiratory effort Auscultation: clear to auscultation bilaterally Cardio: Rate: regular rate Rhythm: regular rhythm Other: S1-S2 present without murmur, rub, ectopy GI: Other: Abdomen soft, nondistended, nontender. Normoactive bowel sounds in all quadrants. Urinary Catheter: Urinary Catheter: patent and draining Skin: General skin exam: normal color Wounds: no wounds Other: Rash to her bilateral lower extremities. No signs of infection. Small open wound to right garcía, no signs of infection, less than 1 cm. Neuro: Cranial nerves: Yes Equal, round and reactive pupils present Speech: normal speech Motor exam (neuro): 5/5 motor strength present throughout Sensory Exam: normal sensation Other: A&O x4 Extrem: Other: 2+ pitting edema to bilateral lower extremities, symmetric extending to the proximal knees. Edema continues up the thighs to the lower abdomen, nonpitting. Psych: Mental Status: mental status grossly normal Affect: normal affect Other: Good insight and judgment, pleasant Objective Data Vital Signs Vital Signs: Vital Signs - 24 hr 07/23/24 09:44 07/23/24 09:44 07/23/24 12:00 Temperature Pulse Rate 82 88 Respiratory Rate Blood Pressure Pulse Oximetry Oxygen Delivery Room Air 07/23/24 14:00 07/23/24 16:00 07/23/24 16:00 Temperature Pulse Rate 95 105 H Respiratory Rate 18 Blood Pressure 176/84 H 158/98 H Pulse Oximetry 98 Oxygen Delivery 07/23/24 19:51 07/23/24 20:00 07/23/24 20:00 Temperature 97.6 F Pulse Rate 100 91 Respiratory Rate 12 Blood Pressure 169/87 H Pulse Oximetry 97 Oxygen Delivery Room Air 07/23/24 20:03 07/24/24 00:00 07/24/24 04:00 Temperature Pulse Rate 85 108 H 84 Respiratory Rate Blood Pressure Pulse Oximetry Oxygen Delivery 07/24/24 04:23 Temperature 97.9 F Pulse Rate 84 Respiratory Rate 12 Blood Pressure 171/86 H Pulse Oximetry 98 Oxygen Delivery Intake/Output Intake/Output: Intake & Output 07/21/24 07/22/24 07/23/24 07/24/24 23:59 23:59 23:59 23:59 Intake Total 805 029 1599 610 Output Total 2500 2800 2850 500 Balance -2019 -5 -2870 110 Meds/Results Medications: Active Medications Generic Name Dose Route Start Last Admin Trade Name Freq PRN Reason Stop Dose Admin Acetaminophen 650 mg 07/21/24 12:23 07/24/24 01:15 Acetaminophen 325 Mg Tablet PO 650 mg Q4H PRN Administration Mild Pain (1-3) or Fever Hydrocodone Bitart/Acetaminophen 1 tab 07/21/24 14:31 07/24/24 04:39 Hydrocodone/Acetaminophen (*Crx) 10-325 Mg Tablet PO 1 tab Q6H PRN Administration Pain Rated 4-6 Apixaban 5 mg 07/21/24 21:00 07/23/24 20:03 Apixaban 5 Mg Tablet PO 5 mg Q12HR MARIELLA Administration Dextrose 12.5 gm 07/21/24 12:23 Dextrose 50% 25 Gm/50 Ml Syringe IV PUSH PRN PRN Hypoglycemia Protocol Diclofenac Sodium 1 applic 07/21/24 17:00 07/23/24 20:03 Diclofenac Sodium 1% 100 Gm Gel (*Bkc) TOPICAL Not Given QID MARIELLA Furosemide 40 mg 07/21/24 21:00 07/23/24 20:03 Furosemide Inj 40 Mg/4 Ml Vial IV PUSH 40 mg Q12HR MARIELLA Administration Glucagon 1 mg 07/21/24 12:23 Glucagon For Inj 1 Mg Vial IM PRN PRN Hypoglycemia Protocol Glucose 15 gm 07/21/24 12:23 Glucose Oral Gel 15 Gm Of Glucse In 37.5 Gm Tube PO PRN PRN Hypoglycemia Protocol Hydrocortisone 1 applic 07/21/24 15:59 Hydrocortisone 1% 30 Gm Cream TOPICAL HS PRN itching Dextrose 1,000 mls @ 100 mls/hr 07/21/24 12:23 Dextrose 5% 1,000 Ml IVPB PRN PRN Hypoglycemia Protocol Insulin Aspart 4 - 8 units 07/21/24 17:00 07/24/24 08:24 Insulin Aspart (*Bkc) 100 Units/Ml SUB-Q Not Given TIDWM [facility] Protocol Insulin Glargine 36 units 07/22/24 09:00 07/23/24 09:40 Insulin Glargine (*Bkc) 100 Units/Ml SUB-Q 36 units QAM [facility] Administration Levothyroxine Sodium 150 mcg 07/22/24 06:30 07/24/24 04:39 Levothyroxine Sodium 150 Mcg Tablet PO 150 mcg DAILY@0630 [facility] Administration Lisinopril 40 mg 07/22/24 09:00 07/23/24 09:43 Lisinopril 20 Mg Tablet PO 40 mg DAILY MARIELLA Administration Metoprolol Succinate 150 mg 07/21/24 21:00 07/23/24 20:03 Metoprolol Succinate Ext Rel 50 Mg Tabcr PO 150 mg HS MARIELLA Administration Morphine Sulfate 4 mg 07/21/24 12:23 Morphine Sulfate (*Crx) 4 Mg/Ml Inj IV PUSH Q2H PRN Pain Rated 7-10 Pantoprazole Sodium 40 mg 07/22/24 09:00 07/23/24 20:03 Pantoprazole 40 Mg Tablet PO 40 mg Q12HR MARIELLA Administration Perflutren Lipid Microsphere 0 ml 07/21/24 12:23 Perflutren Lipid Microspheres 1.5 Ml Vial Diluted To 10 Ml Total Volume IV PUSH 07/24/24 12:23 ONCE PRN adequate visualization Protocol Rosuvastatin Calcium 5 mg 07/21/24 21:00 07/23/24 20:03 Rosuvastatin 5 Mg Tablet PO 5 mg HS MARIELLA Administration Vitamin D 2,000 units 07/22/24 09:00 07/23/24 09:43 Cholecalciferol 1,000 Units Tablet PO 2,000 units DAILY MARIELLA Administration Radiology Results: ITS Impressions Head CT 07/21/24 09:59 Impression: No intracranial hemorrhage, mass, or acute infarct. Atrophy and chronic white matter changes, as above. Cervical Spine CT 07/21/24 10:00 Impression: No fracture or subluxation of the cervical spine. Mild degenerative change overall, as detailed above. Lumbar Spine CT 07/21/24 10:01 Impression: No acute fracture. 3 mm anterolisthesis of L3 over L4. Severe degenerative spondylosis at L2-L3, L3-L4, and L4-L5. Venous Doppler Study 07/21/24 10:20 IMPRESSION: Negative bilateral lower extremity venous US. No deep vein thrombosis. Pelvis CT 07/21/24 10:27 IMPRESSION: No fracture or dislocation. Chest X-Ray 07/21/24 13:07 IMPRESSION: No acute cardiopulmonary pathology. Labs Labs: Laboratory Results - last 24 hr 07/23/24 07/23/24 07/23/24 11:56 16:48 19:45 WBC RBC Hgb Hct MCV MCH MCHC RDW Plt Count MPV Sodium Potassium Chloride Carbon Dioxide Anion Gap BUN Creatinine Estim Creat Clear Calc Estimated GFR Glucose POC Capillary Glucose 169 H 171 H 166 H Calcium Total Bilirubin AST ALT Alkaline Phosphatase Total Protein Albumin 07/24/24 07/24/24 04:47 07:55 WBC 12.2 H RBC 3.90 L Hgb 12.2 Hct 38.9 MCV 99.7 MCH 31.3 MCHC 31.4 L RDW 13.4 Plt Count 151 MPV 10.7 H Sodium 142 Potassium 3.7 Chloride 104 Carbon Dioxide 29 Anion Gap 9 BUN 48 H Creatinine 1.24 H Estim Creat Clear Calc 38 Estimated GFR 41 L Glucose 164 H POC Capillary Glucose 134 H Calcium 8.6 Total Bilirubin 0.9 AST 23 ALT 16 Alkaline Phosphatase 77 Total Protein 7.0 Albumin 3.5 Quality VTE Prophylaxis VTE prophylaxis: pharmacologic ordered Hospitalist [facility] Advance Care Plan I have confirmed that the patient's Advanced Care Plan is present, code status is documented, or surrogate decision maker is listed in patient medical record.: Yes Medication Reconciliation I have utilized all available resources to obtain, update and review the patients current medications (includes all prescriptions, OTC, herbals, cannabis, and nutritional supplements).: Yes
[2024-07-24] MEDS: CHOLECALCIFEROL 1,000 UNITS TABLET 2000 UNITS PO (09:14)
[2024-07-24] MEDS: APIXABAN 5 MG TABLET PO ×2 (09:14→20:39)
[2024-07-24] MEDS: amLODIPine BESYLATE 5 MG TABLET PO (09:15)
[2024-07-24] MEDS: PANTOPRAZOLE 40 MG TABLET PO ×2 (09:15→20:39)
[2024-07-24] MEDS: FUROSEMIDE INJ 40 MG/4 ML VIAL IV PUSH ×2 (09:15→20:39)
[2024-07-24] MEDS: lisinopriL 20 MG TABLET 40 MG PO (09:15)
[2024-07-24] MEDS: INSULIN GLARGINE (*BKC) 100 UNITS/ML 36 UNITS SUB-Q (09:20)
[2024-07-24 11:57] LABS: Glucose Point of Care 169 mg/dl (65-105)
[2024-07-24 16:45] LABS: Glucose Point of Care 146 mg/dl (65-105)
[2024-07-24] MEDS: MORPHINE SULFATE (*CRX) 4 MG/ML INJ IV PUSH (20:37)
[2024-07-24] MEDS: METOPROLOL SUCCINATE EXT REL 50 MG TABCR 150 MG PO (20:38)
[2024-07-24] MEDS: ROSUVASTATIN 5 MG TABLET PO (20:38)
[2024-07-24 21:10] LABS: Glucose Point of Care 183 mg/dl (65-105)
[2024-07-25] VITALS (11 sets, daily range): BP systolic 137–151; BP diastolic 62–86; PULSE 50–112; RESP 20; TEMP 36.4–36.5; O2SAT 96–98
[2024-07-25] MEDS: HYDROcodone/acetaminophen (*CRX) 10-325 MG TABLET 1 TAB PO ×3 (00:04→15:53)
[2024-07-25 05:07] LABS: Hematocrit 34.9 % (37.0-47.0); Hemoglobin 11.3 g/dL (12.0-15.0); Mean Corpuscular HGB Conc 32.4 g/dl (32-36); Mean Corpuscular Volume 95.9 fl (80-100); Mean Platelet Volume 10.1 fl (7.4-10.4); Platelet Count Result 152 k/mm3 (150-375); Red Blood Count 3.64 M/mm3 (4.2-5.4); Red Cell Distribution Width 13.3 % (11.5-14.5); White Blood Count 12.1 K/mm3 (4.5-10.0)
[2024-07-25 05:20] LABS: Alanine Aminotransferase 13 U/L (6-35); Albumin Level 3.2 g/dL (3.5-5.1); Alkaline Phosphatase 69 U/L (38-126); Anion Gap 7 mmol/L (4-12); Aspartate Amino Transferase 23 U/L (14-36); Bilirubin,Total 0.7 mg/dL (0.2-1.3); Blood Urea Nitrogen 54 mg/dL (7-17); Calcium 7.7 mg/dL (8.4-10.2); Carbon Dioxide 30 mmol/L (22-30); Chloride 104 mmol/L (98-107); Estimated CRCL calculation 34 ml/min; Estimated Glomerular Filt Rate 37; Glucose 160 mg/dL (65-110); Potassium 3.5 mmol/L (3.4-5.0); Sodium 141 mmol/L (137-145)
[2024-07-25] MEDS: LEVOTHYROXINE SODIUM 150 MCG TABLET PO (06:27)
[2024-07-25 07:51] LABS: Glucose Point of Care 134 mg/dl (65-105)
[2024-07-25] MEDS: amLODIPine BESYLATE 5 MG TABLET PO (08:43)
[2024-07-25] MEDS: lisinopriL 20 MG TABLET 40 MG PO (08:43)
[2024-07-25] MEDS: APIXABAN 5 MG TABLET PO ×2 (08:44→20:10)
[2024-07-25] MEDS: PANTOPRAZOLE 40 MG TABLET PO ×2 (08:44→20:10)
[2024-07-25] MEDS: FUROSEMIDE INJ 40 MG/4 ML VIAL IV PUSH (08:44)
[2024-07-25] MEDS: CHOLECALCIFEROL 1,000 UNITS TABLET 2000 UNITS PO (08:44)
[2024-07-25] MEDS: INSULIN GLARGINE (*BKC) 100 UNITS/ML 36 UNITS SUB-Q (08:47)
[2024-07-25 11:46] LABS: Glucose Point of Care 175 mg/dl (65-105)
--- NOTE | 2024-07-25 15:16 | P.PNIM_ITS ---
Progress Note: A&P Assessment and Plan (1) Ground-level fall: Code(s): W18.30XA - Fall on same level, unspecified, initial encounter Status: Acute Assessment and Plan: - trauma workup negative. Imaging included a head CT, C-spine CT, lumbar CT, pelvic CT - fall precautions - analgesics p.r.n. - PT/OT evaluation and treatment and care coordination consulted for acute rehab services (2) Diastolic congestive heart failure: Qualifiers: Heart failure chronicity: acute on chronic Qualified Code(s): I50.33 - Acute on chronic diastolic (congestive) heart failure Code(s): I50.30 - Unspecified diastolic (congestive) heart failure Status: Acute Assessment and Plan: - BNP 3770 - most recent echo (2021): For sirs systolic function, estimated EF 60 65%. Abnormal diastolic dysfunction. Moderate pulmonary hypertension. Mild valvular disease, see report for details. Update echo - currently on: Lasix 80 mg daily, however has poor compliance. Continue as 40 of Lasix IV b.i.d. while inpatient. - wrap lower extremities - monitor I&Os and daily weights - trend renal function (3) Atrial fibrillation: Qualifiers: Atrial fibrillation type: unspecified Qualified Code(s): I48.91 - Unspecified atrial fibrillation Code(s): I48.91 - Unspecified atrial fibrillation Status: Acute Assessment and Plan: - no previous hx - EKG showing rate controlled AFib, on metoprolol ER 150 mg daily -continue. - [id number]: 6 -> initiate Eliquis 5 mg b.i.d. for prophylaxis - will hold on Cardiology consultation at this time as the patient does not need rate control medication. If echo grossly abnormal, consider placing consult. 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 Code(s): E11.22 - Type 2 diabetes mellitus with diabetic chronic kidney disease Status: Chronic Assessment and Plan: - hypoglycemia protocol - POC blood glucose ACHS - home medication: lantus 36 units as Q - correct regimen ordered - high dose TIDWM, based off BMI - A1C 6.6% on 06/24/2024 (5) Chronic kidney disease, stage 3 (moderate): Qualifiers: Chronic kidney disease stage 3 subtype: stage 3b (GFR 30-44) Qualified Code(s): N18.32 - Chronic kidney disease, stage 3b Code(s): N18.3 - Chronic kidney disease, stage 3 (moderate) Status: Acute Assessment and Plan: - creatinine 1.23 and GFR 42, previously 1.21 and GFR 43 on 06/24/2024 - trend renal function - trend electrolytes, correct as needed (6) Essential (primary) hypertension: Code(s): I10 - Essential (primary) hypertension Status: Chronic Assessment and Plan: - chronic, currently 191/93 (did not take an meds, given in ED) - continue home medications: Lisinopril, metoprolol ER 150 mg daily - monitor Plan Diet: Diabetic GI Prophylaxis: Not currently indicated DVT Prophylaxis: IV fluids: None Lines/Tubes: Peripheral IV Code Status: Full code Subjective Date/time seen: 07/25/24 15:16 Interval history: As mentioned previously patient needs to follow-up with pain management in regards to spinal cord stimulator revision. Possible discharge tomorrow. Review of Systems Review of Systems: All systems reviewed & are unremarkable except as noted in HPI and below Exam Narrative: 2+ pitting edema. Erythematous rash, cho rnic with small open wound with no sings of infection to the LLE. edema extends to her distal abdomen but is non-pitting Const: General: comfortable and no acute distress Other: , female, nontoxic appearance HENMT: Face/Nose/Sinus: Normal nares present Mouth: Yes moist mucous membranes Eyes: General: appearance normal, both eyes and all related structures Sclera: sclerae normal Pupils: Equal, round and reactive pupils present EOM: EOMs intact bilaterally Resp: Effort & Inspection: normal respiratory effort Auscultation: clear to auscultation bilaterally Cardio: Rate: regular rate Rhythm: regular rhythm Other: S1-S2 present without murmur, rub, ectopy GI: Other: Abdomen soft, nondistended, nontender. Normoactive bowel sounds in all quadrants. Urinary Catheter: Urinary Catheter: patent and draining Skin: General skin exam: normal color Wounds: no wounds Other: Rash to her bilateral lower extremities. No signs of infection. Small open wound to right garcía, no signs of infection, less than 1 cm. Neuro: Cranial nerves: Yes Equal, round and reactive pupils present Speech: normal speech Motor exam (neuro): 5/5 motor strength present throughout Sensory Exam: normal sensation Other: A&O x4 Extrem: Other: 2+ pitting edema to bilateral lower extr emities, symmetric extending to the proximal knees. Edema continues up the thighs to the lower abdomen, nonpitting. Psych: Mental Status: mental status grossly normal Affect: normal affect Other: Good insight and judgment, pleasant Objective Data Vital Signs Vital Signs: Vital Signs - 24 hr 07/24/24 16:00 07/24/24 20:00 07/24/24 20:00 Temperature Pulse Rate 125 H 106 H Respiratory Rate Blood Pressure Pulse Oximetry Oxygen Delivery Room Air 07/24/24 20:11 07/24/24 20:38 07/25/24 00:00 Temperature 97.6 F Pulse Rate 102 H 87 89 Respiratory Rate 20 Blood Pressure 161/73 H Pulse Oximetry 94 Oxygen Delivery 07/25/24 04:00 07/25/24 04:09 07/25/24 08:00 Temperature 97.7 F Pulse Rate 78 86 89 Respiratory Rate 20 Blood Pressure 149/86 H Pulse Oximetry 96 Oxygen Delivery 07/25/24 08:44 07/25/24 12:00 07/25/24 14:00 Temperature 97.6 F Pulse Rate 112 H 90 Respiratory Rate 20 Blood Pressure 150/77 H Pulse Oximetry 98 Oxygen Delivery Room Air Intake/Output Intake/Output: Intake & Output 07/22/24 07/23/24 07/24/24 07/25/24 23:59 23:59 23:59 23:59 Intake Total 600 1320 1590 840 Output Total 2800 2850 975 400 Balance -2200 -1530 615 440 Meds/Results Medications: Active Medications Generic Name Dose Route Start Last Admin Trade Name Freq PRN Reason Stop Dose Admin Acetaminophen 650 mg 07/21/24 12:23 07/24/24 15:09 Acetaminophen 325 Mg Tablet PO 650 mg Q4H PRN Administration Mild Pain (1-3) or Fever Hydrocodone Bitart/Acetaminophen 1 tab 07/21/24 14:31 07/25/24 08:43 Hydrocodone/Acetaminophen (*Crx) 10-325 Mg Tablet PO 1 tab Q6H PRN Administration Pain Rated 4-6 Amlodipine Besylate 5 mg 07/24/24 09:00 07/25/24 08:43 Amlodipine Besylate 5 Mg Tablet PO 5 mg DAILY MARIELLA Administration Apixaban 5 mg 07/21/24 21:00 07/25/24 08:44 Apixaban 5 Mg Tablet PO 5 mg Q12HR MARIELLA Administration Dextrose 12.5 gm 07/21/24 12:23 Dextrose 50% 25 Gm/50 Ml Syringe IV PUSH PRN PRN Hypoglycemia Protocol Diclofenac Sodium 1 applic 07/21/24 17:00 07/25/24 11:53 Diclofenac Sodium 1% 100 Gm Gel (*Bkc) TOPICAL Not Given QID MARIELLA Furosemide 40 mg 07/21/24 21:00 07/25/24 08:44 Furosemide Inj 40 Mg/4 Ml Vial IV PUSH 40 mg Q12HR MARIELLA Administration Glucagon 1 mg 07/21/24 12:23 Glucagon For Inj 1 Mg Vial IM PRN PRN Hypoglycemia Protocol Glucose 15 gm 07/21/24 12:23 Glucose Oral Gel 15 Gm Of Glucse In 37.5 Gm Tube PO PRN PRN Hypoglycemia Protocol Hydrocortisone 1 applic 07/21/24 15:59 Hydrocortisone 1% 30 Gm Cream TOPICAL HS PRN itching Dextrose 1,000 mls @ 100 mls/hr 07/21/24 12:23 Dextrose 5% 1,000 Ml IVPB PRN PRN Hypoglycemia Protocol Insulin Aspart 4 - 8 units 07/21/24 17:00 07/25/24 11:53 Insulin Aspart (*Bkc) 100 Units/Ml SUB-Q Not Given TIDWM [facility] Protocol Insulin Glargine 36 units 07/22/24 09:00 07/25/24 08:47 Insulin Glargine (*Bkc) 100 Units/Ml SUB-Q 36 units QAM [facility] Administration Levothyroxine Sodium 150 mcg 07/22/24 06:30 07/25/24 06:27 Levothyroxine Sodium 150 Mcg Tablet PO 150 mcg DAILY@0630 MARIELLA Administration Lisinopril 40 mg 07/22/24 09:00 07/25/24 08:43 Lisinopril 20 Mg Tablet PO 40 mg DAILY MARIELLA Administration Metoprolol Succinate 150 mg 07/21/24 21:00 07/24/24 20:38 Metoprolol Succinate Ext Rel 50 Mg Tabcr PO 150 mg HS MARIELLA Administration Morphine Sulfate 4 mg 07/21/24 12:23 07/24/24 20:37 Morphine Sulfate (*Crx) 4 Mg/Ml Inj IV PUSH 4 mg Q2H PRN Administration Pain Rated 7-10 Pantoprazole Sodium 40 mg 07/22/24 09:00 07/25/24 08:44 Pantoprazole 40 Mg Tablet PO 40 mg Q12HR MARIELLA Administration Rosuvastatin Calcium 5 mg 07/21/24 21:00 07/24/24 20:38 Rosuvastatin 5 Mg Tablet PO 5 mg HS MARIELLA Administration Vitamin D 2,000 units 07/22/24 09:00 07/25/24 08:44 Cholecalciferol 1,000 Units Tablet PO 2,000 units DAILY MARIELLA Administration Radiology Results: ITS Impressions Head CT 07/21/24 09:59 Impression: No intracranial hemorrhage, mass, or acute infarct. Atrophy and chronic white matter changes, as above. Cervical Spine CT 07/21/24 10:00 Impression: No fracture or subluxation of the cervical spine. Mild degenerative change overall, as detailed above. Lumbar Spine CT 07/21/24 10:01 Impression: No acute fracture. 3 mm anterolisthesis of L3 over L4. Severe degenerative spondylosis at L2-L3, L3-L4, and L4-L5. Venous Doppler Study 07/21/24 10:20 IMPRESSION: Negative bilateral lower extremity venous US. No deep vein thrombosis. Pelvis CT 07/21/24 10:27 IMPRESSION: No fracture or dislocation. Chest X-Ray 07/21/24 13:07 IMPRESSION: No acute cardiopulmonary pathology. Lumbar Spine X-Ray 07/24/24 19:10 IMPRESSION: No acute osseous abnormality lumbar spine. Multilevel degenerative disc disease. Labs Labs: Laboratory Results - last 24 hr 07/24/24 07/24/24 07/25/24 16:40 20:16 05:02 WBC 12.1 H RBC 3.64 L Hgb 11.3 L Hct 34.9 L MCV 95.9 MCH 31.0 MCHC 32.4 RDW 13.3 Plt Count 152 MPV 10.1 Sodium 141 Potassium 3.5 Chloride 104 Carbon Dioxide 30 Anion Gap 7 BUN 54 H Creatinine 1.38 H Estim Creat Clear Calc 34 Estimated GFR 37 L Glucose 160 H POC Capillary Glucose 146 H 183 H Calcium 7.7 L Total Bilirubin 0.7 AST 23 ALT 13 Alkaline Phosphatase 69 Total Protein 6.0 L Albumin 3.2 L 07/25/24 07/25/24 07:44 11:39 WBC RBC Hgb Hct MCV MCH MCHC RDW Plt Count MPV Sodium Potassium Chloride Carbon Dioxide Anion Gap BUN Creatinine Estim Creat Clear Calc Estimated GFR Glucose POC Capillary Glucose 134 H 175 H Calcium Total Bilirubin AST ALT Alkaline Phosphatase Total Protein Albumin Quality VTE Prophylaxis VTE prophylaxis: pharmacologic ordered Hospitalist [facility] Advance Care Plan I have confirmed that the patient's Advanced Care Plan is present, code status is documented, or surrogate decision maker is listed in patient medical record.: Yes Medication Reconciliation I have utilized all available resources to obtain, update and review the patients current medications (includes all prescriptions, OTC, herbals, cannabis, and nutritional supplements).: Yes
[2024-07-25 16:50] LABS: Glucose Point of Care 146 mg/dl (65-105)
[2024-07-25] MEDS: FUROSEMIDE 40 MG TABLET PO (17:13)
[2024-07-25] MEDS: ROSUVASTATIN 5 MG TABLET PO (20:10)
[2024-07-25] MEDS: METOPROLOL SUCCINATE EXT REL 50 MG TABCR 150 MG PO (20:10)
[2024-07-25 20:34] LABS: Glucose Point of Care 157 mg/dl (65-105)
[2024-07-26] VITALS (11 sets, daily range): BP systolic 112–144; BP diastolic 72–91; PULSE 73–98; RESP 18–20; TEMP 36.5–36.7; O2SAT 95–98
[2024-07-26] MEDS: HYDROcodone/acetaminophen (*CRX) 10-325 MG TABLET 1 TAB PO ×3 (00:07→20:44)
[2024-07-26 05:37] LABS: Hemoglobin 11.1 g/dL (12.0-15.0); Mean Corpuscular HGB Conc 31.7 g/dl (32-36); Mean Corpuscular Hemoglobin 31.2 pg (26-34); Mean Corpuscular Volume 98.3 fl (80-100); Mean Platelet Volume 10.5 fl (7.4-10.4); Platelet Count Result 164 k/mm3 (150-375); Red Blood Count 3.56 M/mm3 (4.2-5.4); Red Cell Distribution Width 13.4 % (11.5-14.5); White Blood Count 11.5 K/mm3 (4.5-10.0)
[2024-07-26] MEDS: LEVOTHYROXINE SODIUM 150 MCG TABLET PO (06:07)
[2024-07-26 06:42] LABS: Alanine Aminotransferase 15 U/L (6-35); Albumin Level 3.2 g/dL (3.5-5.1); Alkaline Phosphatase 72 U/L (38-126); Anion Gap 9 mmol/L (4-12); Aspartate Amino Transferase 27 U/L (14-36); Bilirubin,Total 0.6 mg/dL (0.2-1.3); Blood Urea Nitrogen 67 mg/dL (7-17); Calcium 7.9 mg/dL (8.4-10.2); Carbon Dioxide 27 mmol/L (22-30); Chloride 103 mmol/L (98-107); Estimated CRCL calculation 31 ml/min; Estimated Glomerular Filt Rate 32; Glucose 143 mg/dL (65-110); Potassium 3.6 mmol/L (3.4-5.0); Sodium 139 mmol/L (137-145)
[2024-07-26 07:49] LABS: Glucose Point of Care 152 mg/dl (65-105)
--- NOTE | 2024-07-26 07:55 | P.CDI_ITS ---
CDI Query Clarification Request Patient with a BMI of 42.4 please provide a diagnosis to accompany this finding: * Overweight * Obesity * Morbid Obesity * Other/Unknown <Hermelinda Rodriguez RN - Last Filed: 07/26/24 07:55> Clarified Diagnosis Clarified Diagnosis: * Morbid Obesity <Andrew Wilkerson MD - Last Filed: 07/26/24 09:02>
--- NOTE | 2024-07-26 07:55 | WPDCDIQUERY2 ---
CDI Query Clarification Request Patient with a BMI of 42.4 please provide a diagnosis to accompany this finding: Overweight Obesity Morbid Obesity Other/Unknown <Hermelinda Rodriguez RN - Last Filed: 07/26/24 07:55> Clarified Diagnosis Clarified Diagnosis: Morbid Obesity <Andrew Wilkerson MD - Last Filed: 07/26/24 09:02>
[2024-07-26] MEDS: PANTOPRAZOLE 40 MG TABLET PO ×2 (08:56→20:45)
[2024-07-26] MEDS: lisinopriL 20 MG TABLET 40 MG PO (08:56)
[2024-07-26] MEDS: APIXABAN 5 MG TABLET PO ×2 (08:56→20:46)
[2024-07-26] MEDS: amLODIPine BESYLATE 5 MG TABLET PO (08:56)
[2024-07-26] MEDS: CHOLECALCIFEROL 1,000 UNITS TABLET 2000 UNITS PO (08:56)
[2024-07-26] MEDS: FUROSEMIDE 40 MG TABLET PO ×2 (08:56→16:26)
[2024-07-26] MEDS: INSULIN GLARGINE (*BKC) 100 UNITS/ML 36 UNITS SUB-Q (08:58)
[2024-07-26] MEDS: DICLOFENAC SODIUM 1% 100 GM GEL (*BKC) 1 APPLIC TOPICAL (08:59)
[2024-07-26 11:44] LABS: Glucose Point of Care 200 mg/dl (65-105)
--- NOTE | 2024-07-26 13:18 | PM.IMPN ---
Progress Note: A&P Assessment and Plan (1) Ground-level fall: Code(s): W18.30XA - Fall on same level, unspecified, initial encounter Status: Acute Assessment and Plan: - trauma workup negative. Imaging included a head CT, C-spine CT, lumbar CT, pelvic CT - fall precautions - analgesics p.r.n. - PT/OT evaluation and treatment and care coordination consulted for acute rehab services (2) Diastolic congestive heart failure: Qualifiers: Heart failure chronicity: acute on chronic Qualified Code(s): I50.33 - Acute on chronic diastolic (congestive) heart failure Code(s): I50.30 - Unspecified diastolic (congestive) heart failure Status: Acute Assessment and Plan: - BNP 3770 - most recent echo (2021): For sirs systolic function, estimated EF 60 65%. Abnormal diastolic dysfunction. Moderate pulmonary hypertension. Mild valvular disease, see report for details. Update echo - currently on: Lasix 80 mg daily, however has poor compliance. Continue as 40 of Lasix IV b.i.d. while inpatient. - wrap lower extremities - monitor I&Os and daily weights - trend renal function (3) Atrial fibrillation: Qualifiers: Atrial fibrillation type: unspecified Qualified Code(s): I48.91 - Unspecified atrial fibrillation Code(s): I48.91 - Unspecified atrial fibrillation Status: Acute Assessment and Plan: - no previous hx - EKG showing rate controlled AFib, on metoprolol ER 150 mg daily -continue. - [id number]: 6 -> initiate Eliquis 5 mg b.i.d. for prophylaxis - will hold on Cardiology consultation at this time as the patient does not need rate control medication. If echo grossly abnormal, consider placing consult. 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 Code(s): E11.22 - Type 2 diabetes mellitus with diabetic chronic kidney disease Status: Chronic Assessment and Plan: - hypoglycemia protocol - POC blood glucose ACHS - home medication: lantus 36 units as Q - correct regimen ordered - high dose TIDWM, based off BMI - A1C 6.6% on 06/24/2024 (5) Chronic kidney disease, stage 3 (moderate): Qualifiers: Chronic kidney disease stage 3 subtype: stage 3b (GFR 30-44) Qualified Code(s): N18.32 - Chronic kidney disease, stage 3b Code(s): N18.3 - Chronic kidney disease, stage 3 (moderate) Status: Acute Assessment and Plan: - creatinine 1.23 and GFR 42, previously 1.21 and GFR 43 on 06/24/2024 - trend renal function - trend electrolytes, correct as needed (6) Essential (primary) hypertension: Code(s): I10 - Essential (primary) hypertension Status: Chronic Assessment and Plan: - chronic, currently 191/ (did not take an meds, given in ED) - continue home medications: Lisinopril, metoprolol ER 150 mg daily - monitor Plan Back pain from fall CT Pelvis, and Lumbar no acute changes PRN pain control , dialy Tizanidine 1mg PT/OT Diet: Diabetic GI Prophylaxis: Not currently indicated DVT Prophylaxis: IV fluids: None Lines/Tubes: Peripheral IV Code Status: Full code Possible discharge tomorrow Subjective Date/time seen: 07/26/24 13:18 Interval history: still complaining of low back pain Started on Tizanidine Review of Systems Review of Systems: All systems reviewed & are unremarkable except as noted in HPI and below Exam Narrative: 2+ pitting edema. Erythematous rash, chornic with small open wound with no sings of infection to the LLE. edema extends to her distal abdomen but is non-pitting Const: General: comfortable and no acute distress Other: , female, nontoxic appearance HENMT: Face/Nose/Sinus: Normal nares present Mouth: Yes moist mucous membranes Eyes: General: appearance normal, both eyes and all related structures Sclera: sclerae normal Pupils: Equal, round and reactive pupils present EOM: EOMs intact bilaterally Resp: Effort & Inspection: normal respiratory effort Auscultation: clear to auscultation bilaterally Cardio: Rate: regular rate Rhythm: regular rhythm Other: S1-S2 present without murmur, rub, ectopy GI: Other: Abdomen soft, nondistended, nontender. Normoactive bowel sounds in all quadrants. Urinary Catheter: Urinary Catheter: patent and draining Skin: General skin exam: normal color Wounds: no wounds Other: Rash to her bilateral lower extremities. No signs of infection. Small open wound to right garcía, no signs of infection, less than 1 cm. Neuro: Cranial nerves: Yes Equal, round and reactive pupils present Speech: normal speech Motor exam (neuro): 5/5 motor strength present throughout Sensory Exam: normal sensation Other: A&O x4 Extrem: Other: 2+ pitting edema to bilateral lower extremities, symmetric extending to the proximal knees. Edema continues up the thighs to the lower abdomen, nonpitting. Psych: Mental Status: mental status grossly normal Affect: normal affect Other: Good insight and judgment, pleasant Objective Data Vital Signs Vital Signs: Vital Signs - 24 hr 07/25/24 14:00 07/25/24 16:00 07/25/24 17:12 Temperature 97.6 F Pulse Rate 90 85 103 H Respiratory Rate 20 Blood Pressure 150/77 H 151/78 H Pulse Oximetry 98 Oxygen Delivery 07/25/24 19:43 07/25/24 20:00 07/25/24 20:10 Temperature 97.6 F Pulse Rate 50 L 96 68 Respiratory Rate 20 Blood Pressure 137/62 Pulse Oximetry 98 Oxygen Delivery 07/25/24 20:10 07/26/24 00:00 07/26/24 04:00 Temperature Pulse Rate 98 87 Respiratory Rate Blood Pressure Pulse Oximetry Oxygen Delivery Room Air 07/26/24 04:11 07/26/24 08:02 07/26/24 08:59 Temperature 97.7 F Pulse Rate 97 81 Respiratory Rate 20 20 Blood Pressure 144/87 H Pulse Oximetry 95 95 Oxygen Delivery Room Air 07/26/24 12:00 Temperature Pulse Rate 82 Respiratory Rate Blood Pressure Pulse Oximetry Oxygen Delivery Intake/Output Intake/Output: Intake & Output 07/23/24 07/24/24 07/25/24 07/26/24 23:59 23:59 23:59 23:59 Intake Total 1320 1590 1380 360 Output Total 2850 975 1100 200 Balance -1530 615 280 160 Meds/Results Medications: Active Medications Generic Name Dose Route Start Last Admin Trade Name Freq PRN Reason Stop Dose Admin Acetaminophen 650 mg 07/21/24 12:23 07/24/24 15:09 Acetaminophen 325 Mg Tablet PO 650 mg Q4H PRN Administration Mild Pain (1-3) or Fever Hydrocodone Bitart/Acetaminophen 1 tab 07/21/24 14:31 07/26/24 06:07 Hydrocodone/Acetaminophen (*Crx) 10-325 Mg Tablet PO 1 tab Q6H PRN Administration Pain Rated 4-6 Amlodipine Besylate 5 mg 07/24/24 09:00 07/26/24 08:56 Amlodipine Besylate 5 Mg Tablet PO 5 mg DAILY MARIELLA Administration Apixaban 5 mg 07/21/24 21:00 07/26/24 08:56 Apixaban 5 Mg Tablet PO 5 mg Q12HR MARIELLA Administration Dextrose 12.5 gm 07/21/24 12:23 Dextrose 50% 25 Gm/50 Ml Syringe IV PUSH PRN PRN Hypoglycemia Protocol Diclofenac Sodium 1 applic 07/21/24 17:00 07/26/24 12:25 Diclofenac Sodium 1% 100 Gm Gel (*Bkc) TOPICAL Not Given QID MARIELLA Furosemide 40 mg 07/25/24 17:00 07/26/24 08:56 Furosemide 40 Mg Tablet PO 40 mg BID MARIELLA Administration Glucagon 1 mg 07/21/24 12:23 Glucagon For Inj 1 Mg Vial IM PRN PRN Hypoglycemia Protocol Glucose 15 gm 07/21/24 12:23 Glucose Oral Gel 15 Gm Of Glucse In 37.5 Gm Tube PO PRN PRN Hypoglycemia Protocol Hydrocortisone 1 applic 07/21/24 15:59 Hydrocortisone 1% 30 Gm Cream TOPICAL HS PRN itching Dextrose 1,000 mls @ 100 mls/hr 07/21/24 12:23 Dextrose 5% 1,000 Ml IVPB PRN PRN Hypoglycemia Protocol Insulin Aspart 4 - 8 units 07/21/24 17:00 07/26/24 11:56 Insulin Aspart (*Bkc) 100 Units/Ml SUB-Q Not Given TIDWM [facility] Protocol Insulin Glargine 36 units 07/22/24 09:00 07/26/24 08:58 Insulin Glargine (*Bkc) 100 Units/Ml SUB-Q 36 units QAM MARIELLA Administration Levothyroxine Sodium 150 mcg 07/22/24 06:30 07/26/24 06:07 Levothyroxine Sodium 150 Mcg Tablet PO 150 mcg DAILY@0630 [facility] Administration Lisinopril 40 mg 07/22/24 09:00 07/26/24 08:56 Lisinopril 20 Mg Tablet PO 40 mg DAILY MARIELLA Administration Metoprolol Succinate 150 mg 07/21/24 21:00 07/25/24 20:10 Metoprolol Succinate Ext Rel 50 Mg Tabcr PO 150 mg HS MARIELLA Administration Morphine Sulfate 4 mg 07/21/24 12:23 07/24/24 20:37 Morphine Sulfate (*Crx) 4 Mg/Ml Inj IV PUSH 4 mg Q2H PRN Administration Pain Rated 7-10 Pantoprazole Sodium 40 mg 07/22/24 09:00 07/26/24 08:56 Pantoprazole 40 Mg Tablet PO 40 mg Q12HR MARIELLA Administration Rosuvastatin Calcium 5 mg 07/21/24 21:00 07/25/24 20:10 Rosuvastatin 5 Mg Tablet PO 5 mg HS MARIELLA Administration Vitamin D 2,000 units 07/22/24 09:00 07/26/24 08:56 Cholecalciferol 1,000 Units Tablet PO 2,000 units DAILY MARIELLA Administration Radiology Results: ITS Impressions Head CT 07/21/24 09:59 Impression: No intracranial hemorrhage, mass, or acute infarct. Atrophy and chronic white matter changes, as above. Cervical Spine CT 07/21/24 10:00 Impression: No fracture or subluxation of the cervical spine. Mild degenerative change overall, as detailed above. Lumbar Spine CT 07/21/24 10:01 Impression: No acute fracture. 3 mm anterolisthesis of L3 over L4. Severe degenerative spondylosis at L2-L3, L3-L4, and L4-L5. Venous Doppler Study 07/21/24 10:20 IMPRESSION: Negative bilateral lower extremity venous US. No deep vein thrombosis. Pelvis CT 07/21/24 10:27 IMPRESSION: No fracture or dislocation. Chest X-Ray 07/21/24 13:07 IMPRESSION: No acute cardiopulmonary pathology. Lumbar Spine X-Ray 07/24/24 19:10 IMPRESSION: No acute osseous abnormality lumbar spine. Multilevel degenerative disc disease. Labs Labs: Laboratory Results - last 24 hr 07/25/24 07/25/24 07/26/24 16:40 19:50 05:05 WBC 11.5 H RBC 3.56 L Hgb 11.1 L Hct 35.0 L MCV 98.3 MCH 31.2 MCHC 31.7 L RDW 13.4 Plt Count 164 MPV 10.5 H Sodium 139 Potassium 3.6 Chloride 103 Carbon Dioxide 27 Anion Gap 9 BUN 67 H D Creatinine 1.57 H Estim Creat Clear Calc 31 Estimated GFR 32 L Glucose 143 H POC Capillary Glucose 146 H 157 H Calcium 7.9 L Total Bilirubin 0.6 AST 27 ALT 15 Alkaline Phosphatase 72 Total Protein 7.0 Albumin 3.2 L 07/26/24 07/26/24 07:40 11:36 WBC RBC Hgb Hct MCV MCH MCHC RDW Plt Count MPV Sodium Potassium Chloride Carbon Dioxide Anion Gap BUN Creatinine Estim Creat Clear Calc Estimated GFR Glucose POC Capillary Glucose 152 H 200 H Calcium Total Bilirubin AST ALT Alkaline Phosphatase Total Protein Albumin Quality VTE Prophylaxis VTE prophylaxis: pharmacologic ordered
[2024-07-26] MEDS: TIZANIDINE HCL 1 MG TABLET PO (13:48)
[2024-07-26 16:47] LABS: Glucose Point of Care 119 mg/dl (65-105)
[2024-07-26] MEDS: EUCERIN CREAM 120 GM JAR 1 APPLIC TOPICAL (17:22)
[2024-07-26] MEDS: METOPROLOL SUCCINATE EXT REL 50 MG TABCR 150 MG PO (20:45)
[2024-07-26] MEDS: ROSUVASTATIN 5 MG TABLET PO (20:45)
--- NOTE | 2024-07-26 21:00 | PC.NURSE ---
Pt requesting to sleep in chair as it is more comfortable. Pt also reports mild tenderness to coccyx area and reports hx of pressure ulcer r/t immobility and requesting cream on buttocks. Educated pt that we want her to get up and get into bed so that pt remains active and moving and is able to be repositioned off buttocks easier. Pt request a pain pill prior to moving into bed since her pain is mostly only when moving. Instructed pt to call when she was ready to be moved into bed. 2335- Pt remains in chair, asleep at this time with no s/sx of distress noted.
[2024-07-26 22:29] LABS: Glucose Point of Care 131 mg/dl (65-105)
[2024-07-27] VITALS: PULSE 84
[2024-07-27] MEDS: HYDROcodone/acetaminophen (*CRX) 10-325 MG TABLET 1 TAB PO ×3 (02:25→16:34)
[2024-07-27 04:00] VITALS: PULSE 76
[2024-07-27] MEDS: LEVOTHYROXINE SODIUM 150 MCG TABLET PO (05:42)
[2024-07-27 06:00] VITALS: BP 158/89; PULSE 88; RESP 18; TEMP 37.3; O2SAT 100
[2024-07-27 08:00] VITALS: PULSE 81
[2024-07-27 08:22] LABS: Glucose Point of Care 98 mg/dl (65-105)
[2024-07-27] MEDS: APIXABAN 5 MG TABLET PO (08:53)
[2024-07-27] MEDS: amLODIPine BESYLATE 5 MG TABLET PO (08:53)
[2024-07-27] MEDS: CHOLECALCIFEROL 1,000 UNITS TABLET 2000 UNITS PO (08:53)
[2024-07-27] MEDS: TIZANIDINE HCL 1 MG TABLET PO (08:54)
[2024-07-27] MEDS: lisinopriL 20 MG TABLET 40 MG PO (08:54)
[2024-07-27] MEDS: FUROSEMIDE 40 MG TABLET PO (08:54)
[2024-07-27] MEDS: PANTOPRAZOLE 40 MG TABLET PO (08:54)
[2024-07-27] MEDS: INSULIN GLARGINE (*BKC) 100 UNITS/ML 36 UNITS SUB-Q (08:54)
[2024-07-27] MEDS: EUCERIN CREAM 120 GM JAR 1 APPLIC TOPICAL (08:54)
[2024-07-27] MEDS: BISACODYL 10 MG SUPPOSITORY RECTAL (09:40)
--- NOTE | 2024-07-27 11:31 | PM.DS ---
DS: Admitting Diagnosis Discharge Date 07/27/24 Admitting Diagnosis Fall, Leg Swelling DS: Discharge Diagnosis Discharge Diagnosis (1) Back pain: Code(s): M54.9 - Dorsalgia, unspecified Status: Acute DS: Summary Hospital Course Hospital Course: 83 y/o F with PMH of chronic pain syndrome, hypothyroidism, diastolic heart failure with preserved EF, hyperlipidemia, spinal stenosis of the lumbar region, CKD, venous stasis dermatitis, and JAQUELINE presents here with fall and lower extremity swelling. Initial VS at presentation: 97.6? F, HR 69, R 20, 156/96, and 96% on RA. ED workup showed: WBC 11.5, no anemia, INR 1.2, creatinine 1.23 and GFR 42 (at baseline), initial troponin negative, BNP 3770. Head CT, C-spine CT, lumbar CT, and pelvic CT showed no acute traumatic injuries. US of the BLE negative for DVT. EKG shows AFib, rate 88, possible right ventricular conduction delay, anteroseptal PA of indeterminate age. Patient was placed on PRN pain control and PT/OT eval. Also started on IV lasix 40mg bid however it is suspected that patient is non compliant with her home meds, thus she is discharged back on her home Lasix dosing with encouragement to adhere. Also discharged on PRN pain control with Nroco 10/325. F/u wtih PCP in 3-5 days Patient discharged to SNF continue other home meds. Time Spent with Patient Time attestation: Total time spent providing and/or coordinating discharge services: DS: Data Data Completed and Pending Labs on day of discharge: Labs from last 24 hours 07/27/24 07/26/24 07/26/24 08:03 22:26 16:34 POC Capillary Glucose 98 131 H 119 H 07/26/24 11:36 POC Capillary Glucose 200 H Discharge Plan Discharge Attending physician on discharge: Andrew Wilkerson Discharging Clinician: Andrew Wilkerson Anticipated Discharge Date/Time: 07/27/24 11:22 Patient Disposition: SNF Activity: as tolerated Diet: as tolerated and heart healthy Patient Instructions: Apixaban (By mouth) Patient Language: [place] Islander Stand Alone Forms: General Discharge Information Follow-up/Referrals: Cornell Beal MD [Primary Care Provider] - (F/u with PCP in 3-5 days ) Discharge Medications: New hydrocodone-acetaminophen 10-325 mg tablet 1 tablet PO Q6H PRN (Reason: pain) 10 Days Qty: 12 0RF Eliquis 5 mg Tablet 5 mg PO Q12HR 30 Days Qty: 60 1RF amlodipine [Norvasc] 5 mg Tablet 5 mg PO DAILY 30 Days Qty: 30 1RF Continued tramadol 50 mg tablet 50 mg PO Q6H PRN (Reason: pain) Qty: 60 0RF Rx Instructions: may take 1-2 tablets as needed acetaminophen [Tylenol] 325 mg capsule 650 mg PO Q12H PRN (Reason: pain) cholecalciferol (vitamin D3) 10 mcg (400 unit) capsule 2,000 unit PO DAILY (DME) lancets [OneTouch Delica Lancets] 33 gauge misc See Rx Instructions .Route Qty: 100 0RF Rx Instructions: As directed (DME) pen needle, diabetic 32 gauge x 5/32 needle See Rx Instructions .ROUTE .MEDSUPPLY Qty: 1200 Rx Instructions: As directed hydrocortisone [Cortizone-10] 1 % cream 1 applic topical HS PRN (Reason: itching) Rx Instructions: puts in ear for itching diclofenac sodium 1 % gel See Rx Instructions .ROUTE .COMPLEX Qty: 100 12RF Dose Instruction: APPLY 2 GRAMS TOPICALLY FOUR TIMES A DAY TO SINGLE ELBOW, WRIST OR HAND, FOR HAND INCLUDES PALM / FINGERS / BACK OF HAND Rx Instructions: APPLY 2 GRAMS TOPICALLY FOUR TIMES A DAY TO SINGLE ELBOW, WRIST OR HAND, FOR HAND INCLUDES PALM / FINGERS / BACK OF HAND (DME) pen needle, diabetic [BD Ultra-Fine Mini Pen Needle] 31 gauge x 3/16 needle See Rx Instructions .Route Qty: 100 2RF Rx Instructions: Use with Lantus furosemide 40 mg tablet 80 mg PO QAM Qty: 180 1RF Rx Instructions: pt. is to take two tablets daily of the 40mg tablets (80mg daily ) (DME) Blood Glucose Test Strip See Rx Instructions .Route Qty: 50 4RF Rx Instructions: Use to check BS BID lisinopril 40 mg tablet See Rx Instructions .ROUTE .COMPLEX Qty: 90 1RF Dose Instruction: TAKE 1 TABLET DAILY Rx Instructions: TAKE 1 TABLET DAILY metoprolol succinate 100 mg tablet extended release 24 hr 150 mg PO HS Qty: 135 1RF Rx Instructions: TAKE ONE AND ONE-HALF TABLETS DAILY rosuvastatin 5 mg tablet 5 mg PO HS Qty: 90 1RF omeprazole 40 mg capsule,delayed release(DR/EC) 40 mg PO DAILY Qty: 90 1RF insulin glargine [Lantus Solostar U-100 Insulin] 100 unit/mL (3 mL) insulin pen 36 unit subcut QAM Qty: 30 3RF levothyroxine [Synthroid] 150 mcg tablet 150 mcg PO DAILY Qty: 90 1RF Date of admission: 07/22/24 15:33 Primary Care Provider: Cornell Beal Admitting Provider: Ger Christianson Attending physician on admission: Andrew Wilkerson Condition: Stable
[2024-07-27 11:54] LABS: Glucose Point of Care 184 mg/dl (65-105)
[2024-07-27 12:00] VITALS: PULSE 97
[2024-07-27 14:00] VITALS: BP 118/60; PULSE 109; RESP 18; TEMP 36.9; O2SAT 100
== END 2024-07-27 16:57 | DRG 291 ==
LOC: ANHED 12:35 → ANH2MED 12:57
PROVIDERS: Student in an Organized Health Care Education/Training Program; Admitting Provider General Practice; Emergency Provider Physician Assistant; PCP Family Medicine; Visit Provider Internal Medicine
DX: I13.0 Hypertensive heart and chronic kidney disease with heart failure and stage 1 through stage 4 chronic kidney disease, or unspecified chronic kidney disease (principal); I50.33 Acute on chronic diastolic (congestive) heart failure; N18.4 Chronic kidney disease, stage 4 (severe); Z68.41 Body mass index [BMI] 40.0-44.9, adult; W19.XXXA Unspecified fall, initial encounter; E11.22 Type 2 diabetes mellitus with diabetic chronic kidney disease; E03.9 Hypothyroidism, unspecified; E78.5 Hyperlipidemia, unspecified; E78.2 Mixed hyperlipidemia; E66.01 Morbid (severe) obesity due to excess calories; F41.9 Anxiety disorder, unspecified; G89.4 Chronic pain syndrome; G47.33 Obstructive sleep apnea (adult) (pediatric); I48.91 Unspecified atrial fibrillation; I27.20 Pulmonary hypertension, unspecified; I87.2 Venous insufficiency (chronic) (peripheral); K21.9 Gastro-esophageal reflux disease without esophagitis; M48.061 Spinal stenosis, lumbar region without neurogenic claudication; M17.0 Bilateral primary osteoarthritis of knee; Z98.41 Cataract extraction status, right eye; Z98.42 Cataract extraction status, left eye; Z90.49 Acquired absence of other specified parts of digestive tract; Z79.01 Long term (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 anticoagulants; Z79.4 Long term (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 insulin; Z91.148 Patient's other noncompliance with medication regimen for other reason
CPT/HCPCS: 36415; 70450; 71045; 72100; 72125; 72131; 72192; 80053; 82948; 83735; 83880; 84443; 84484; 85025; 85027; 85610; 85730; 93005; 93306; 93970; 96374; 96375; 97110; 97162; 97166; 97530; 97535; 99285; A9270; G0378; J1815; J1938; J2270

== ENCOUNTER 2024-09-30 22:01 | Inpatient (IN) | payer MEDICARE, SELFPAY ==
--- NOTE | ~2024-09-30 | US_ITS ---
EXAMINATION: US venous doppler [facility] DATE: 10/01/2024 17:20 INDICATION: swelling . TECHNIQUE: Grayscale images without and with compression and Doppler images of the bilateral lower ex tremity veins were obtained. COMPARISON: 07/21/2024 FINDINGS: The right common femoral vein, profunda (deep) femoral vein, femoral vein, popliteal vein, peroneal v ein, posterior tibial veins, and greater saphenous vein are patent. The left common femoral vein, profunda (deep) femoral vein, femoral vein, popliteal vein, peroneal v ein, posterior tibial veins, and greater saphenous vein are patent. IMPRESSION: Patent bilateral lower extremity veins. No evidence of deep venous thrombosis. Reviewed, dictated and finalized at location K.
--- NOTE | ~2024-09-30 | XR_ITS ---
CHEST RADIOGRAPH CLINICAL HISTORY: BLEE . Bilateral lower extremity edema. COMPARISON: 07/21/2024 TECHNIQUE: Single portable view of the chest. FINDINGS The cardiomediastinal silhouette is markedly enlarged, unchanged. Dorsal column stimulator device is noted. Blunting of the bilateral costophrenic sulci suggesting small bilateral pleural effusions. Increased interstitial markings are identified bilaterally, findings suggesting mild pulmonary vascul ar congestion. The remainder of the lungs are otherwise clear. IMPRESSION: Mild pulmonary vascular congestion with small bilateral pleural effusions. Reviewed, dictated and finalized at location A.
[2024-09-30 22:03] VITALS: BP 182/77; PULSE 96; RESP 20; TEMP 36.7; O2SAT 100
[2024-09-30 22:32] VITALS: BP 182/77; PULSE 104; RESP 20; O2SAT 100
--- OUTSIDE RECORDS SUMMARY | 2024-09-30 23:15 | XMS_ITS | Clinical Summary ---
Author Organization [facility] C Address [address] [place] [address] Care Team Providers Care Radiologist Name Role Phone Alivia Esposito MD Unavailable [phone] Kamaljit Stiles MD Primary Care Provider [phone] Allergies Active Allergy Reactions Criticality Noted Date Comments Duloxetine Palpitations,Nausea only Low 05/06/2018 Medications levothyroxine (SYNTHROID) 150 mcg tablet Take 175 mcg by mouth wafer substrate tester before breakfast Active metoprolol XL (TOPROL-XL) 100 [...] mg by mouth every morning . Active lisinopril (PRINIVIL,ZEST RIL) 40 mg tablet Take 1 tablet (40 mg total) by mouth daily Active cholecalcifero l, vitamin D3, (VITAMIN D3 ORAL) Take by mouth daily . Active insulin glargine (LANTUS) 100 unit/mL injection Inject 31 Units under the skin daily Active ONETOUCH ULTRA BLUE TEST STRIP strip USE 1 STRIP TO CHECK GLUCOSE TWICE DAILY 3 9 Active famotidine (PEPCID) 20 mg tablet Take 20 mg by mouth daily Active HYDROcodone-ac etaminophen (NORCO) 5-325 mg per tabletIndicati ons:Pain Take 1 tablet by mouth every 6 (six) hours as needed Active HYDROcodone-ac etaminophen (NORCO) 5-325 mg per tabletIndicati ons:Pain Take 1 tablet by mouth every 4 (four) hours as needed for pain 20 tablet 0 Active Additional Information Patient not taking.Reported on 11/13/2022 furosemide (LASIX) 40 mg tablet Take 1 tablet (40 mg total) by mouth 2 (two) times a day Active omeprazole (PriLOSEC) 40 mg capsule Take 1 capsule (40 mg total) by mouth daily Active spironolactone (ALDACTONE) 25 mg tablet Take 0.5 tablets (12.5 mg total) by mouth 2 (two) times a day Active apixaban (ELIQUIS) 2.5 mg tablet Take 1 tablet (2.5 mg total) by mouth 2 (two) times a day 180 tablet 3 5 Active amLODIPine (NORVASC) 10 mg tablet Take 10 mg by mouth daily . 10/01/19 25 Discontin ued(Patie nt Reported) apixaban (ELIQUIS) 5 mg tablet Take 1 tablet (5 mg total) by mouth 2 (two) times a day 10/01/19 25 Discontin ued(Alter ravinder therapy) Active Problems Problem Noted Date Diagnosed Date [...] (11/30/2018): Added automatically from request for surgery [id number] Hip pain 05/06/2018 Assessment & Plan (05/06/2018 5:11 PM DIRECTOR OF SOCIAL WORK): Ms. Burroughs has bilateral hip issues left greater than right with weakness in her iliopsoas muscle and markedly positive SATINDER signs. I think that this is her primary problem. She will follow-up with Dr. Browning who she has seen before for her knee. She reports that she had a very good rapport with him. Lumbar stenosis 05/06/2018 Assessment & Plan (05/06/2018 5:12 PM DIRECTOR OF SOCIAL WORK): Ms. Burroughs also has lumbar stenosis at [...] complications with this or any surgical procedure. Encounters Date Type Department Care Team Description 2024 11:00 AM CDT Office Visit [facility] Cardiology [address] [place] [id number] Jovany Carney MD Atrial fibrillation with controlled ventricular rate (HCC) (Primary Dx); Falls frequently; Hypertension associated with type 2 diabetes mellitus (HCC); Morbid obesity (HCC); Gait instability; CKD (chronic kidney disease) stage 4, GFR 15-29 ml/min (HCC); JAQUELINE (obstructive sleep apnea); Lymphedema from Last 3 Months Immunizations Immunization Administration Dates Next Due Influenza, Quadrivalent, Rec ombinant, Egg Free, Preservative Free, Intramuscular 11/24/2018,12/30/2017 Influenza, Trivalent, IM (MDV) 04/03/2017 Surgical History Surgery Date Site/Laterality Comments TONSILLECTOMY as child APPENDECTOMY as child LIPOMA RESECTION HAND SURGERY Medical History Medical History Date Comments Diabetes (HCC) Hypothyroidism High cholesterol Hypertension Arthritis Acid reflux Anemia PONV (postoperative nausea and vomiting) Type 2 diabetes mellitus Sleep apnea No machine, I t ried [...] on file Legal Sex Female 5:18 PM DIRECTOR OF SOCIAL WORK Gender Identity Not on file Sexual Orientation Not on file Occupation Industry Job Start Date Job End Date Retired Not on file Not on file Not on file Obstetrics History Last Filed Vital Signs Vital Sign Reading Time Taken Comments Blood Pressure 148/56 2024 10:59 AM CDT Pulse 68 2024 10:59 AM CDT Temperature 36.1 C (97 F) 10/20/2019 11:16 AM CDT Respiratory Rate 16 2024 10:59 AM CDT Oxygen Saturation 98% 2024 10:59 AM CDT Inhaled Oxygen Concentration - - Weight 119.7 kg (264 lb) 11/26/2022 2:08 PM CDT Height 162.6 cm (5' 4) 2024 10:59 AM CDT Body Mass Index 45.32 11/26/2022 2:08 PM CDT Plan of Treatment Health Maintenance Due Date Last Done Comments Albumin Creatinine Ratio, Urine 1941 Fall Risk Assessment 1941 Hemoglobin A1C 1941 Osteoporosis Screening-Bone Density Scan 1941 eGFR 1941 Dilated Eye Exam 1941 Foot Exam 1941 DTaP/Tdap/Td Vaccine (1 - Tdap) 1952 Hepatitis B Screening 10/01/1959 Pneumococcal vaccine 65+ (1 of 2 - PCV) 1960 Zoster Vaccine (1 of 2) 10/01/1991 Well Visit 65+ 2006 Depression Screening 05/07/2019 05/06/2018, 05/07/19 19 Influenza Vaccine (#1) 2024 9, 12/30/2017, 04/03/2017 Lipid Panel 2025 2024 Medical Devices Implanted Type Area Economic Development Specialist Device Identifier Shelf Expiration Date Model / Serial / Lot [employer] 3186ans Octrode 60cm 8 Electrode Lead Percutaneous Kit Neurostimulator - [id number] - [id number] Implanted:Qty: 1 on 04/01/2019 by Alivia Esposito MD at [facility] N/A: Spine Thoracic [employer] 12/02/2020 [id number] / [id number] / [employer] 3186ans Octrode 60cm 8 Electrode Lead Percutaneous Kit Neurostimulator - [id number] - [id number] Implanted:Qty: 1 on 04/01/2019 by Alivia Esposito MD at [facility] N/A: Spine Thoracic [employer] 11/04/2020 [id number] / [id number] / [employer] [address] [place] Lead - [id number] Implanted:Qty: 1 on 04/01/2019 by Alivia Esposito MD at [facility] N/A: Spine Thoracic [employer] 10/07/2020 1192 / / [id number] [employer] [address] [place] [place] Lead - [id number] Implanted:Qty: 1 on 04/01/2019 by Alivia Esposito MD at [facility] N/A: Spine Thoracic [employer] 03/25/2020 1192 / / [id number] [employer] 3660 Contrlsys [employer] Elite 4.95cmx5.55cm 5 Implantable Pulse Tonic - [id number] - [id number] Implanted:Qty: 1 on 04/01/2019 by Alivia Esposito MD at [facility] N/A: Spine Thoracic [employer] 12/02/2020 3660 CONTRLSYS / [id number] / Procedures Procedure Name Priority Date/Time Associated Diagnosis Comments POCT LIPID PANEL Routine 2024 10:5 8 AM CDT Morbid obesity (HCC) ELECTROCARDIOGRAM REPORT Routine 2024 Atrial fibrillation with controlled ventricular rate (HCC) from Last 3 Months Results * (ABNORMAL) POCT lipid panel (2024 10:58 AM CDT) Cholesterol, POC 112 <200 MG/DL HDL, POC 32(A) >=40 mg/dL Triglycerides, POC 115 <=149 mg/dL LDL Cholesterol POC 56 <=129 mg/dL Chol/HDL Ratio, POC 3.5 NONE Non-HDL Cholesterol, POC 79 NONE mg/dL Cholesterol Total, POC 112 30 - 199 mg/dL Capillary blood 2024 1 0:58 AM CDT us Jovany Carney MD POINT OF CARE TEST ORDERABLES Ed ited Result - Final * Electrocardiogram Report (2024) 2024 us Jovany Carney MD ECG ORDERABLES Edited Result - Final from Last 3 [place] [id number] MEDICARE [facility] MEDICARE SUPPLEMENT Care Teams Radiologist Relationship Specialty Start Date End Date Kamaljit Stiles MD [address] [place] [address] PCP - General Family Medicine 09/08/22 Alivia Esposito MD [address] [place] [address] Surgeon Anesthesiology 04/01/19
--- OUTSIDE RECORDS SUMMARY | 2024-09-30 23:15 | XMS_ITS | Referral Summary ---
Author Organization [facility] Address [address] [place] [address] Care Team Providers Care Lap Polisher Name Role Phone Alivia Esposito MD Unavailable [phone] Kamaljit Stiles MD Primary Care Provider Encounters Date Type Department Care Team Description 2024 11:00 AM CDT Office Visit [facility] Cardiology [address] [place] [id number] Jovany Carney MD Atrial fibrillation with controlled ventricular rate (HCC) (Primary Dx); Falls frequently; Hypertension associated with type 2 diabetes mellitus (HCC); Morbid obesity (HCC); Gait instability; CKD (chronic kidney disease) stage 4, GFR 15-29 ml/min (HCC); JAQUELINE (obstructive sleep apnea); Lymphedema from Last 3 Months Allergies Active Allergy Reactions Criticality Noted Date Comments Duloxetine Palpitations,Nausea only Low 05/06/2018 Medications levothyroxine (SYNTHROID) 150 mcg tablet Take 175 mcg by mouth environmental services manager before breakfast Active metoprolol XL (TOPROL-XL) [...] (11/30/2018): Added automatically from request for surgery [id number] Hip pain 05/06/2018 Assessment & Plan (05/06/2018 5:11 PM BORDER POLICE): Ms. Burroughs has bilateral hip issues left greater than right with weakness in her iliopsoas muscle and markedly positive SATINDER signs. I think that this is her primary problem. She will follow-up with Dr. Browning who she has seen before for her knee. She reports that she had a very good rapport with him. Lumbar stenosis 05/06/2018 Assessment & Plan (05/06/2018 5:12 PM BORDER POLICE): Ms. Burroughs also has lumbar stenosis at [...] on file Legal Sex Female 5:18 PM BORDER POLICE Gender Identity Not on file Sexual Orientation [...] on file Medical Devices Implanted Type Area Tongue And Groove Machine Operator Device Identifier Shelf Expiration Date Model / Serial / Lot [employer] [id number] Octrode 60cm 8 Electrode Lead Percutaneous Kit Neurostimulator - [id number] - [id number] Implanted:Qty: 1 on 04/01/2019 by Alivia Esposito MD at [facility] N/A: Spine Thoracic [employer] 12/02/2020 [id number] / [id number] / [employer] [id number] Octrode 60cm 8 Electrode Lead Percutaneous Kit Neurostimulator - [id number] - [id number] Implanted:Qty: 1 on 04/01/2019 by Alivia Esposito MD at [facility] N/A: Spine Thoracic [employer] 11/04/2020 [id number] / [id number] / [employer] [address] [place] Lead - [id number] Implanted:Qty: 1 on 04/01/2019 by Alivia Esposito MD at [facility] N/A: Spine Thoracic [employer] 10/07/2020 1192 / / [id number] [employer] [address] [place] Lead - [id number] Implanted:Qty: 1 on 04/01/2019 by Alivia Esposito MD at [facility] N/A: Spine Thoracic [employer] 03/25/2020 1192 / / [id number] [employer] 3660 Contrlsys Proclaim Elite 4.95cmx5.55cm 5 Implantable Pulse Tonic - [id number] - [id number] Implanted:Qty: 1 on 04/01/2019 by Alivia Esposito MD at [facility] N/A: Spine Thoracic [employer] 12/02/2020 3660 CONTRLSYS / [id number] / Procedures Procedure Name Priority Date/Time Associated [...] Capillary blood 2024 1 0:58 AM CDT Jovany Carney MD POINT OF CARE TEST ORDERABLES Ed ited Result - Final * Electrocardiogram Report (2024) 2024 us Jovany Carney MD ECG ORDERABLES Edited Result - Final from Last 3 Months Insurance MEDICARE [facility] [place] [address] [place] [id number] Care Teams Lap Polisher Relationship Specialty Start Date End Date Kamaljit Stiles MD [address] [place] [address] PCP - General Family Medicine 09/08/22 Alivia Esposito MD [address] [place] [address] Surgeon Anesthesiology 04/01/19
--- OUTSIDE RECORDS SUMMARY | 2024-09-30 23:16 | XMS_ITS | Encounter Summary ---
Author Organization [facility] Address [address] [place] [address] Care Team Providers Care Hot Dog Vendor Name Role Phone Alivia Esposito MD Unavailable [phone] Kamaljit Stiles MD Primary Care Provider [phone] Reason for Referral * Cardiology (Routine) - Authorized Specialty Diagnoses / Procedures Referred By Contac t Referred To Contact Diagnoses Atrial fibrillation with controlled ventricular rate (HCC) Hypertension associated with type 2 diabetes mellitus (HCC) Procedures Transthoracic Echo (TTE) Complete W Doppler/CF Jovany Carney MD [address] [facility] [address] [place] [address] Phone: tel: fax: [facility] Cardiology [address] [facility] [address] [place] [address] Phone: tel: fax: Referral ID Status Reason Start Date Expiration Date V isits Requested Visits Authorized [id number] Authorized 2024 10/30/2025 1 1 Reason for Visit * Reason Comments New Patient * Consultation (Routine) - Closed Specialty Diagnoses / Procedures Referred By Contac t Referred To Contact Cardiology Diagnoses Hypertensive heart and chronic kidney disease with heart failure and stage 1 through stage 4 chronic kidney disease, or chronic kidney disease (HCC) Acute on chronic diastolic (congestive) heart failure Atrial fibrillation, unspecified type (HCC) Mixed hyperlipidemia Tran Puga, BRAKE ADJUSTER [address] [place] [address] Phone: tel: fax: [facility] Cardiology [address] [place] [address] Phone: tel: fax: Referral ID Status Reason Start Date Expiration Date V isits Requested Visits Authorized [id number] Closed Specialty Services Required 09/27/2024 10/27/2025 1 1 Encounter Details Date Type Department Care Team (Late st Contact Info) Description 2024 11:00 AM CDT Office Visit [facility] Cardiology [address] [facility] [address] [place] [phone] [place] [address] [place] [address] [facility] [address] [place] [address], [place] [address] [place] [address] Atrial fibrillation with controlled ventricular rate (HCC) (Primary Dx); Falls frequently; Hypertension associated with type 2 diabetes mellitus (HCC); Morbid obesity (HCC); Gait instability; CKD (chronic kidney disease) stage 4, GFR 15-29 ml/min (HCC); JAQUELINE (obstructive sleep apnea); Lymphedema Social History Tobacco Use Types Packs/Day Years Used Date Smoking Tobacco: Former Smokeless Tobacco: Former Alcohol Use Standard Drinks/Week Comments Yes 0 (1 standard drink = 0.6 oz pur e alcohol) very occasionally PHQ-2 Answer Date Recorded PHQ-2 Score 4 10/22/2018 Comments Unknown Sex and Gender Information Value Date Recorded Sex Assigned at Not on file 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 Gender Identity Not on file Sexual Orientation Not on file Occupation Industry Job Start Date Job End Date Retired Not on file Not on file Not on file documented as of this encounter Last Filed Vital Signs Vital Sign Reading Time Taken Comments Blood Pressure 148/56 2024 10:59 AM CDT Pulse 68 2024 10:59 AM CDT Temperature - - Respiratory Rate 16 2024 10:59 AM CDT Oxygen Saturation 98% 2024 10:59 AM CDT Inhaled Oxygen Concentration - - Weight - - Height 162.6 cm (5' 4) 2024 10:59 AM CDT Body Mass Index - - documented in this encounter Ordered Prescriptions Prescription Sig Dispense Quantity Refills Last Filled Start Date End Date apixaban (ELIQUIS) 2.5 mg tablet Take 1 tablet (2.5 mg total) by mouth 2 (two) times a day 180 tablet 3 2024 documented in this encounter Progress Notes * Jovany Carney MD - 2024 11:00 AM CDT [facility] CARDIOLOGY 2024 CHIEF COMPLAINT Chief Complaint Patient presents with New Patient HPI Payton Burroughs is a 84 y.o. female with atrial fibrillation, hypertension, diabetes mellitus on insulin, hypothyroidism on thyroxine replacement, morbid obesity, untreated JAQUELINE, lymphedema. 2024 initial evaluation-patient has been referred for cardiovascular evaluation and management. Patient is accompanied by her niece who is also her power of attorney recruiter. Patient had a fall in June 2024 and was [facility]. As per patient's niece, she was later transferred to rehab facility where she spent about 8 weeks. Patient is back to her home now. As per patient, she was found to be in atrial fibrillation during hospitalization at [facility] and was initiated on anticoagulation with apixaban. Rate control with metoprolol succinate. She denies any known prior history including any known arrhythmias prior to the recent diagnosis of atrial fibrillation. No history of clinical NV, angina, heart failure or any known arrhythmias. Patient has limited mobility due to morbid obesity, and has been using walker for ambulation. She has at least 3 falls in last several months. Her recent fall led to bruising. She denied any fractures. Patient has lymphedema and history of lower extremity ulcers. She has history of untreated JAQUELINE. She reports intolerance to CPAP. MEDICAL HISTORY she has a past medical history of Acid reflux, Anemia, Arthritis, Diabetes (HCC), High cholesterol,Hypertension, Hypothyroidism, PONV (postoperative nausea and vomiting), Sleep apnea, and Type 2 diabetes mellitus (HCC). She has no past medical history of Malignant hyperthermia. she has a past surgical history that includes Tonsillectomy; Appendectomy; Lipoma resection; and Hand surgery. she Allergies Allergen Reactions Cymbalta [Duloxetine] Palpitations and Nausea only Current Outpatient Medications Medication Sig Dispense Refill cholecalciferol, vitamin D3, (VITAMIN D3 ORAL) Take by mouth daily . furosemide (LASIX) 40 mg tablet Take 1 tablet (40 mg total) by mouth 2 (two) times a day (Patient taking differently: Take 2 tablets (80 mg total) by mouth daily) HYDROcodone-acetaminophen (NORCO) 5-325 mg per tablet Take 1 tablet by mouth every 6 (six) hours asneeded insulin glargine (LANTUS) 100 unit/mL injection Inject 31 Units under the skin daily levothyroxine (SYNTHROID) 150 mcg tablet Take 175 mcg by mouth mixer and scaler before breakfast lisinopril (PRINIVIL,ZESTRIL) 40 mg tablet Take 1 tablet (40 mg total) by mouth daily metoprolol XL (TOPROL-XL) 100 mg 24 hr tablet Take 1.5 tablets (150 mg total) by mouth nightly omeprazole (PriLOSEC) 40 mg capsule Take 1 capsule (40 mg total) by mouth daily ONETOUCH ULTRA BLUE TEST STRIP strip USE 1 STRIP TO CHECK GLUCOSE TWICE DAILY 3 rosuvastatin (CRESTOR) 5 mg tablet Take 1 tablet (5 mg total) by mouth daily spironolactone (ALDACTONE) 25 mg tablet Take 0.5 tablets (12.5 mg total) by mouth 2 (two) times a day apixaban (ELIQUIS) 2.5 mg tablet Take 1 tablet (2.5 mg total) by mouth 2 (two) times a day 180 tablet 3 famotidine (PEPCID) 20 mg tablet Take 20 mg by mouth daily (Patient not taking: Reported on 2024) HYDROcodone-acetaminophen (NORCO) 5-325 mg per tablet Take 1 tablet by mouth every 4 (four) hours as needed for pain (Patient not taking: Reported on 11/13/2022) 20 tablet 0 indapamide (LOZOL) 2.5 mg tablet Take 2.5 mg by mouth every morning . (Patient not taking: Reportedon 2024) traZODone (DESYREL) 50 mg tablet Take 1 tablet (50 mg total) by mouth nightly (Patient not taking: Reported on 2024) No current facility-administered medications for this visit. she family history includes Diabetes in her father; Heart disease in her father; Hypertension in her father. she reports that she has quit smoking. She has quit using smokeless tobacco. She reports that she does not use drugs. No alcohol history on file. Ex-smoker, no excessive alcohol or illicit drug use. Currently lives at home. Her niece helps her with her activities of daily living. REVIEW OF SYSTEMS General ROS: Positive for fatigue Psychological ROS: Positive for anxiety Ophthalmic ROS: negative for - loss of vision ENT ROS: negative for - sore throat Allergy and Immunology ROS: negative for - hives, postnasal drip Hematological and Lymphatic ROS: negative for - overt bleeding problems Respiratory ROS: negative for - cough, hemoptysis, wheezing Cardiovascular ROS: negative for - chest pain, positive for lower extremity swelling Gastrointestinal ROS: negative for - abdominal pain Endocrine ROS: negative for - hot flashes, polydipsia/polyuria Musculoskeletal ROS: Positive for lower extremity swelling Neurological ROS: Positive for unstable gait Dermatological ROS: Positive for skin changes due to lower extremity swelling LABS AND OTHER DIAGNOSTIC TESTS REVIEWED No results found for: WBC, HGB, HCT, MCV, PLT No lab exists for component: LABALBU No results found for: WBC, HGB, HCT, MCV, PLT No results found for: CHOL No results found for: HDL No results found for: LDL] No results found for: TRIG Lab Results Component Value Date POCCHOL 112 2024 POCHDL 32 (A) 2024 POCTRIG 115 2024 POCLDL 56 2024 POCNONHDL 79 2024 POCCHLPL 112 2024 Labs-hemoglobin 12.3. 07/29/2024 Labs-TSH 5.31 for. 09/12/2024 Labs-potassium 4, creatinine 1.74, GFR 29, AST 23, ALT 7. 09/22/2024 Lipids-total cholesterol 112, HDL 32, triglycerides 115, LDL 56. 2024 EKG-atrial fibrillation with controlled ventricular response, ventricular rate 91 beats per minute,low voltage. 2024 PHYSICAL EXAM Vitals BP 148/56 (BP Location: Left arm, Patient Position: Sitting) Pulse 68 Resp 16 Ht 162.6 cm (5' 4) SpO2 98% BMI 45.32 kg/m?? General appearance -morbidly obese, alert, no distress, oriented to time, place, person Mental status - anxious Eyes - extraocular eye movements intact, no pallor Ears - external ears appear normal, hearing grossly normal Nose - normal and patent, no discharge Mouth - mucous membranes moist, tongue normal Neck - supple, JVP not appreciable Chest - clear to auscultation Heart - normal rate, irregularly irregular rhythm Abdomen - soft, nontender Neurological - alert, oriented, normal speech, no gross motor deficits Musculoskeletal - no major deformity, no amputations Extremities -nonpitting edema bilaterally, compression stockings in place Skin - no rashes (on the exposed areas), no cyanosis ASSESSMENT Diagnoses and all orders for this visit: Atrial fibrillation with controlled ventricular rate (HCC) (Primary) - Ambulatory referral to Cardiology - Transthoracic Echo (TTE) Complete W Doppler/CF; Future - Electrocardiogram Report Falls frequently Hypertension associated with type 2 diabetes mellitus (HCC) - Ambulatory referral to Cardiology - Transthoracic Echo (TTE) Complete W Doppler/CF; Future Morbid obesity ([facility]) - Ambulatory referral to Cardiology - POCT lipid panel Gait instability CKD (chronic kidney disease) stage 4, GFR 15-29 ml/min ([facility]) JAQUELINE (obstructive sleep apnea) Lymphedema Other orders - apixaban (ELIQUIS) 2.5 mg tablet; Take 1 tablet (2.5 mg total) by mouth 2 (two) times a day PLAN/RECOMMENDATIONS 84 y.o. female with atrial fibrillation, hypertension, diabetes mellitus on insulin, hypothyroidismon thyroxine replacement, morbid obesity, untreated JAQUELINE, lymphedema. -Patient with atrial fibrillation, recently diagnosed, paroxysmal versus persistent. Currently ratecontrolled with metoprolol succinate. In light of patient's age more than 81 and renal insufficiency, decrease apixaban dose to 2.5 mg p.o. b.i.d.. Patient has had recurrent falls and has unsteady gait. She is at risk for bleeding complications from chronic anticoagulation. Spoke with the patient and her niece who is her power of attorney recruiter about option of percutaneous left atrial appendage closure. Educational material was provided to the patient and her POA. They would like to think about that option. -Patient has CHF with unknown LV systolic function. Check echo with Doppler to assess LV/RV function and rule out any major structural heart disease. -Patient has chronic lymphedema in the setting of morbid obesity and untreated JAQUELINE. She has intolerance to CPAP. Continue gentle diuresis, ease wraps. Patient is awaiting PTOT evaluation and management at lymphedema clinic. -Follow up with Nephrology for management of CKD. -Management of other medical problems as per primary care physician. -Personally reviewed patient's extensive records including outside labs and discuss at length with the patient and her power of attorney recruiter. -Follow up in about 3 months or sooner if necessary. My total encounter time on 09/30/24 was 61 minutes which was spent in the activities documented in the note. This includes time spent prior to the visit and after the visit in direct care of the patient. This time does not include time spent in any other separately reportable services. Jovany Carney MD 09/30/24 Voice recognition software was used to complete this document, therefore, local intermodal truck driver variances may occur. documented in this encounter Plan of Treatment Scheduled Orders Name Type Priority Associated Diagnoses Orde r Schedule Transthoracic Echo (TTE) Complete W Doppler/CF Echocardiography Routine Atrial fibrillation with controlled ventricular rate (HCC) Hypertension associated with type 2 diabetes mellitus (HCC) Expected: 10/18/2024, Expires: 2025 documented as of this encounter Procedures Procedure Name Priority Date/Time Associated Diagnosis Comments POCT LIPID PANEL Routine 2024 10:5 8 AM CDT Morbid obesity (HCC) ELECTROCARDIOGRAM REPORT Routine 2024 Atrial fibrillation with controlled ventricular rate (HCC) documented in this encounter Results * (ABNORMAL) POCT lipid panel (2024 [...] MD ECG ORDERABLES Edited Result - Final documented in this encounter Visit Diagnoses Diagnosis Atrial fibrillation with controlled ventricular rate (HCC)- Primary Falls frequently Personal history of fall Hypertension associated with type 2 diabetes mellitus (HCC) Morbid obesity (HCC) Morbid obesity Gait instability Abnormality of gait CKD (chronic kidney disease) stage 4, GFR 15-29 ml/min (HCC) Chronic kidney disease, Stage IV (severe) JAQUELINE (obstructive sleep apnea) Obstructive sleep apnea (adult) (pediatric) Lymphedema Other noninfectious lymphedema documented in this encounter Discontinued Medications Medication Sig Discontinue Reason Start Date End Da te amLODIPine (NORVASC) 10 mg tablet Take 10 mg by mouth daily . Patient Reported 2024 apixaban (ELIQUIS) 5 mg tablet Take 1 tablet (5 mg total) by mouth 2 (two) times a day Alternate therapy 2024 documented as of this encounter Historical Medications * This list may reflect changes made after this encounter. spironolactone (ALDACTONE) 25 mg tablet Take 0.5 tablets (12.5 mg total) by mouth 2 (two) times a day apixaban (ELIQUIS) 5 mg tablet Take 1 tablet (5 mg total) by mouth 2 (two) times a day 2024 added in this encounter Orders Outpatient Referral Count Last Ordered Date Fir st Ordered Date AMB REFERRAL TO CARDIOLOGY 1 2024 documented in this encounter Care Teams Hot Dog Vendor Relationship Specialty Start Date End Date Kamaljit Stiles MD [address] [place] [address] PCP - General Family Medicine 09/08/22 Alivia Esposito MD [address] [place] [address] Surgeon Anesthesiology 04/01/19 documented as of this encounter
--- OUTSIDE RECORDS SUMMARY | 2024-09-30 23:16 | XMS_ITS | Continuity of Care Document ---
Author Organization [facility] Address [address] [place] [address] [place] [address] Phone Care Team Providers Care Drafter Landscape Name Role Phone Daron Smith Unavailable Unavailable [...] Diagnoses Date Provider Providers Copied on [facility]counter [facility] [address], [place], [place], [id number], tel:[phone] [place] [address] No Information 2 5-201 0 Krishnasmargo Daron. [address], [place], [facility] [place], [place]. tel:[phone] Referring Provider: Daron Smith, [address], [place], [place], [facility] [place]. tel:[phone] [facility], [address] [place] [address] [address], [place], [place], [id number], [place] tel:[phone] [place] [address] No Information 6-201 0 Krishnasmargo Daron. [facility] [address], [place], [facility] [place], [place]. tel:[phone] Referring Provider: Daron Smith, [facility] [address] [facility] [address], [place], [facility] [place]. tel:[phone] formerly [facility], [address] [place] [address] [address], [place], [place], [id number], [place] tel:[phone] [facility] No Information 1-200 9 Krishnasmargo Daron. [facility] [address] [facility] [address], [place], [facility] [place], [place]. tel:[phone] Referring Provider: Daron Smith, [facility] [address], [place], [facility] [place]. tel:[phone] [facility], [address] [place] [address] [address], [place], [place], [id number], [place] tel:[phone] [place] [address] No Information 0 4-200 9 Krishnasmargo Daron. [facility] [address] [facility] [address], [place], [facility] [place], [place]. tel:[phone] Referring Provider: Daron Smith, [address], [place], [facility] [place] [place]. tel:[phone] [facility], [address] [place] [address] [address], [place], [place], [id number], [place] tel:[phone] [facility] No Information Apr-0 3-200 9 Krishnasamy Daron. [address], [address], [place]. tel:[phone] Referring Provider: Daron Smith, [address] [place] [address], [facility] [place] [place]. tel:[phone] [facility], [id number] [place] [address] [address], [place], [place], [id number], [place] tel:[phone] [facility] No Information 8-200 8 [facility]. [address] [facility], [address], [place], [place], [id number], [place]. tel:[phone] Consulting Provider: Dee Shaffer, [address] [place], [place], [facility]. tel:[phone] [facility], [id number] [place] [address] [address], [place], [place], [id number], [place] tel:[phone] [facility] No Information 8-200 8 Krishnasamy Daron. [facility] [address], [address], [place]. tel:[phone] Office/outpa tient Visit, [facility], [id number] [place] [address] [address], [place], [place], [id number], [place] tel:[phone] [facility] No Information 2-200 8 Krishnasamy Daron. [facility] [address], [address], [place]. tel:[phone] [facility], [address] [place] [address] [address], [place], [place], [id number], [place] tel:[phone] [facility] No Information Apr-2 7-200 8 Krishnasamy Daron. [address], [place], [address], [place]. tel:[phone] [facility], [address], [place], [place], [id number], [place] tel:[phone] [facility] No Information Feb-2 7-200 8 [facility] [employer]. [address] [facility], [facility] [address], [place], [place], [id number], [place]. tel:[phone] Consulting Provider: Dee Shaffer, [address] [place] [address], [address]. tel:[phone] [facility], [address], [place], [place], [id number], [place] tel:[phone] [facility] No Information Jan-1 4-200 7 [facility] [employer]. [address] [facility], [address], [place], [place], [id number], [place]. tel:[phone] Consulting Provider: Dee Shaffer, [address] [place] [address], [address]. tel:[phone] [facility], [address] [facility] [address], [place], [place], [id number], [place] tel:[phone] [facility] No Information Adin-2 0-200 7 [facility] [employer]. [address] [facility], [address], [place], [place], [id number], [place]. tel:[phone] Referring Provider: Genna Thomason, [address], [place], [address]. tel:[phone] g Provider: Dee Shaffer, [address] [place] [address], [address]. tel:[phone] [facility], [address] [facility] [address], [place], [place], [id number], [place] tel:[phone] [facility] No Information 200 7 Arcelia Vail. [address], [place], [address], [place]. tel:[phone] Family History Family Member Type Diagnosis Age At Onset No Information Payers Payer name Insurance type Covered green party ID Authoriza tion(s) [place] [id number] [facility] Custom Care [id number] Social History Type Description Quantity Date Captured [...]
[2024-10-01] VITALS (12 sets, daily range): BP systolic 139–147; BP diastolic 43–92; PULSE 72–105; RESP 17–20; TEMP 36.1–37.2; O2SAT 98–100; BMI 44.7
--- NOTE | 2024-10-01 | ECHO_ITS ---
Patient Info Name: Payton Burroughs Age: 84 years : 1940 Gender: Female Ht: 64 in Wt: 262 lbs BSA: 2.38 m2 HR: 111 bpm BP: 142 / 43 mmHg Heart Rhythm: Atrial Fibrillation Technical Quality: Good Exam Date: 10/01/2024 12:46 PM Patient Status: I Admit Date: 10/01/2024 Exam Type: CA echo doppler color flow Complete two-dimensional, color flow and Doppler transthoracic echocardiogram is performed. Staff Referring Physician: Nik Campbell Specimen Boss: Divina Bar Attending Provider: Qing Rodriguez Summary 1. Complete two-dimensional, color flow and Doppler transthoracic echocardiogram is performed. 2. Left ventricular chamber dimension is normal. 3. Left ventricular systolic function is normal, estimated at 65-70. 4. There is mildly increased left ventricular wall thickness. 5. Right ventricular chamber dimension is normal. 6. Right ventricular systolic function is normal. 7. Moderate pulmonary hypertension, estimated pulmonary arterial systolic pressure is 52 mmHg. 8. Mild mitral annular calcification. 9. There is mild mitral valve regurgitation. Recommendations * Patient noted to have A fib during TTE. Left Ventricle Left ventricular chamber dimension is normal. Left ventricular systolic function is normal, estimated at 65-70. There is mildly increased left ventricular wall thickness. Left ventricular septal wall motion is normal. Right Ventricle Right ventricular chamber dimension is normal. Right ventricular systolic function is normal. Left Atria Left atrial chamber dimension is mildly enlarged. Right Atria Right atrial chamber dimension is normal. Aortic Valve The aortic valve is trileaflet. There is no aortic valve sclerosis. There is no aortic valve stenosis. There is no aortic valve regurgitation. Pulmonic Valve The pulmonic valve is not well visualized. There is no pulmonic valve stenosis. There is no pulmonic regurgitation. Mitral Valve There is no mitral valve stenosis. There is mild mitral valve regurgitation. Mild mitral annular calcification. Tricuspid Valve The tricuspid valve leaflets are normal. There is no significant tricuspid valve stenosis. There is trace tricuspid valve regurgitation. Moderate pulmonary hypertension, estimated pulmonary arterial systolic pressure is 52 mmHg. Pericardium/Pleural The pericardium appears normal. There is no pericardial effusion. Inferior Vena Cava Dilated inferior vena cava with <50% collapse upon inspiration consistent with elevated right atrial pressure, 15 mmHg. Aorta The aortic root size at the sinus of Valsalva is normal. The prox ascending aorta size is normal. Left Ventricular Outflow Tract Name Value Normal LVOT 2D LVOT Diameter 2.0 cm LVOT Doppler LVOT Peak Velocity 207 cm/s LVOT Peak Gradient 13 mmHg LVOT Mean Gradient 7 mmHg LVOT VTI 41 cm LVOT VTI/AV VTI Ratio 0.9 LVOT Stroke Volume 128 ml LVOT CO 11.8 l/min LVOT CI 5.0 l/min/m2 Pulmonic Valve Name Value Normal RVOT Doppler RVOT Peak Velocity 91 cm/s RVOT Peak Gradient 3 mmHg PV Doppler PV Peak Velocity 150 cm/s PV Peak Gradient 9 mmHg Mitral Valve Name Value Normal MV Diastolic Function MV E Peak Velocity 184 cm/s MV A Peak Velocity 94 cm/s MV E/A 1.9 MV Decel Time (PW) 192 ms MV Annular TDI MV E/e' (Septal) 28.8 MV E/e' (Lateral) 18.3 MV E/e' (Average) 23.6 Tricuspid Valve Name Value Normal TV Regurgitation Doppler TR Peak Velocity 305 cm/s TR Peak Gradient 37 mmHg Estimated PAP/RSVP RA Pressure 15 mmHg <=5 PA Systolic Pressure 52 mmHg <36 RV Systolic Pressure 52 mmHg <36 Aortic Valve Name Value Normal AV Doppler AV Peak Velocity 208 cm/s AV Peak Gradient 15 mmHg AV Mean Gradient 9 mmHg AV VTI 44 cm AV Area (Cont Eq VTI) 2.9 cm2 >=3.0 AV Area (Cont Eq Jake) 3.1 cm2 AV DI (Jake) 0.99 AV Regurgitation 2D LVOT Area 3.1 cm2 Ventricles Name Value Normal LV Dimensions 2D/MM IVS Diastolic Thickness (2D) 1.5 cm 0.6-1.0 LVID Diastole (2D) 3.4 cm 3.8-5.2 LVIW Diastolic Thickness (2D) 1.4 cm 0.6-0.9 LVID Systole (2D) 2.0 cm 2.2-3.5 LVOT Diameter 2.0 cm LV Mass (2D Cubed) 175.15 g 67.00-162.00 LV Mass Index (2D Cubed) 73 g/m2 43-95 Relative Wall Thickness (2D) 0.81 <=0.42 LV Fractional Shortening/Ejection Fraction 2D/MM LV Fractional Shortening (2D) 40 % 27-45 LV EF (2D Teichholz) 72 % LV Diastolic Volume (4C MOD) 72 ml LV EF (4C MOD) 67 % LV Diastolic Volume (2C MOD) 91 ml LV EF (2C MOD) 74 % LV Diastolic Volume (BP MOD) 86 ml 46-106 LV Diastolic Volume Index (BP MOD) 36 ml/m2 29-61 LV Systolic Volume (BP MOD) 24 ml 14-42 LV Systolic Volume Index (BP MOD) 10 ml/m2 8-24 LV EF (BP MOD) 72 % 54-74 LV Diastolic Length (4C) 6.7 cm LV Systolic Length (4C) 5.5 cm LV Stroke Volume (4C MOD) 48 ml Atria Name Value Normal LA Dimensions LA Volume (4C A-L) 82 ml LA Volume (BP A-L) 76 ml RA Dimensions RA Systolic Major Melville Length (4C) 5.8 cm 2.2-2.8 RA Area (4C) 17.9 cm2 <=18.0 Report Signatures
--- NOTE | 2024-10-01 00:33 | PC.NURSE ---
RN was unsuccessful with IV attempt. THis RN asked another RN to attempt at this time.
[2024-10-01] MEDS: FUROSEMIDE INJ 40 MG/4 ML VIAL IV PUSH ×3 (00:53→17:40)
[2024-10-01 00:54] LABS: Hematocrit 34.9 % (37.0-47.0); Hemoglobin 10.9 g/dL (12.0-15.0); Immature Granulocyte Percent A 0.2 % (0-0.5); Lymphocytes Absolute Auto 2.48 K/mm3 (0.9-3.2); Mean Corpuscular HGB Conc 31.2 g/dl (32-36); Mean Corpuscular Hemoglobin 30.6 pg (26-34); Mean Corpuscular Volume 98.0 fl (80-100); Nucleated Red Blood Cells Absolute Auto 0.000 K/mm3 (0.0-0.012); Nucleated Red Blood Cells Perc 0.0 % (0.0-0.2); Platelet Count Result 209 k/mm3 (150-375); Red Blood Count 3.56 M/mm3 (4.2-5.4); White Blood Count 8.7 K/mm3 (4.5-10.0)
[2024-10-01 01:08] LABS: Alanine Aminotransferase 12 U/L (6-35); Albumin Level 3.7 g/dL (3.5-5.1); Alkaline Phosphatase 78 U/L (38-126); Anion Gap 6 mmol/L (4-12); Aspartate Amino Transferase 30 U/L (14-36); Bilirubin,Total 0.6 mg/dL (0.2-1.3); Blood Urea Nitrogen 65 mg/dL (7-17); Calcium 9.5 mg/dL (8.4-10.2); Carbon Dioxide 29 mmol/L (22-30); Chloride 99 mmol/L (98-107); Estimated Glomerular Filt Rate 28; Glucose 113 mg/dL (65-110); Potassium 4.5 mmol/L (3.4-5.0); Sodium 134 mmol/L (137-145); Total Protein 7.3 g/dL (6.3-8.2)
[2024-10-01 01:15] LABS: NT Pro B Type Natriuretic Pept 6830 pg/mL (19.9-100)
--- NOTE | 2024-10-01 01:53 | ED_ITS ---
HPI - Extremity Problem General Chief complaint: Extremity Problem,Nontraumatic Stated complaint: LEG PAIN, WHEEPING AND SWELLING Time Seen by Provider: 09/30/24 22:52 History of Present Illness HPI Narrative: Patient presents here after noticing increased swelling to her legs for last few days, had just been discharged a week ago from rehab. After noticing some weeping primarily from her right leg, she came into the ER. Has no chest pain or shortness of breath. Has been taking all her medications Lasix and anticoagulation Related Data Home Medications ?Medication ?Instructions ?Recorded ?Confirmed ?Last Taken ?Type cholecalciferol (vitamin D3) 10 2,000 unit PO DAILY 09/14/19 09/26/24 02/07/21 History mcg (400 unit) capsule acetaminophen 325 mg capsule 650 mg PO Q12H PRN pain 03/23/24 09/26/24 Unknown History (Tylenol) pen needle, diabetic 32 gauge x #1,200 ea 07/01/24 09/26/24 Unknown History hydrocortisone 1 % topical cream 1 applic topical HS PRN itching 07/21/24 09/26/24 Unknown History (Cortizone-10) Allergies Allergy/AdvReac Type Severity Reaction Status Date / Time bumetanide (From Bumex) Allergy Vomiting Verified 09/26/24 12:52 terbinafine Allergy skin Verified 09/26/24 12:52 blistering duloxetine (From Cymbalta) AdvReac Severe seratonin Verified 09/26/24 12:52 syndrome 2-19 sertraline AdvReac Severe Dizziness Verified 09/26/24 12:52 celecoxib AdvReac Unknown Dizziness Verified 09/26/24 12:52 Review of Systems 2 Review of Systems: All systems reviewed & are unremarkable except as noted in HPI and below PMFSH Past Medical History Medical History Diastolic congestive heart failure Heart murmur Anxiety Diabetes mellitus with chronic kidney disease Essential (primary) hypertension Obstructive sleep apnea Not on CPAP Venous stasis dermatitis Primary localized osteoarthritis of both knees Chronic kidney disease, stage 3 (moderate) Chronic pain syndrome Gastro-esophageal reflux disease without esophagitis Hypothyroidism (acquired) Mixed hyperlipidemia Spinal stenosis of lumbar region at multiple levels Surgical History Surgical History History of hysterectomy History of tonsillectomy History of bilateral cataract extraction History of appendectomy Status post insertion of spinal cord stimulator History of thumb surgery (10/2019) Family History Family History Father Diabetes mellitus Family history of glaucoma Hypertension Family history of cardiovascular disease Mother Family history of lupus erythematosus Other Family history of arthritis Family history of congenital heart disease Social History Social History Social History: Surrogate decision maker: Mónica Cain (niece). Code status: Full code. Caffeine- coffee Smoking packs per day: 1 Smoking cigarettes per day: 20.0 Years smoked: 15 Smoking pack-years: 15.00 Smoking status: Former smoker Tobacco type: cigarettes Second hand tobacco smoke exposure: No Smoking end date: 03/02/1968 Additional smoking assessment comments: quit 50 years ago Alcohol intake: current Drinks per week: 1 Substance use: never Substance use type: does not use Do You Feel Safe in your Home?: Yes Lack of Transportation: No Lack of Food: Never True Current Housing: I Have Housing Concerned About Future Housing: No Difficulty Paying Gas/Electric Bills: No Difficulty Paying for Meds: No Currently Unemployed: No Education: High School Diploma/GED Difficulty w/ Childcare or Family Care: No Living arrangements: with family Additional living arrangements comments: The patient lives in [place]. Additional occupation/education comments: Retired. Gender identity (if verbalized by the patient): Female Spiritual care concerns: No Exam 2 Narrative: EXAMINATION OF ORGAN SYSTEMS/BODY AREAS: Constitutional: Vital signs per nursing GENERAL:[No acute distress, non-toxic appearing.] HEAD: Normal with no signs of head trauma. EYES: EOMI, conjunctiva normal ENT: Hearing grossly intact LUNGS: Nonlabored breathing. HEART: [Regular rate and rhythm] ABD: [Soft], [nontender to palpation] EXT: Lower extremity edema bilaterally SKIN: Chronic venous stasis changes bilateral lower extremities NEURO: [Alert and oriented x 3. No gross focal sensory or strength deficits.] PSYCH: Normal affect Course Vital Signs Vital signs: Vital Signs Temperature 98.0 F 09/30/24 22:03 Pulse Rate 96 09/30/24 22:03 Respiratory Rate 20 09/30/24 22:03 Blood Pressure 182/77 H 09/30/24 22:03 Pulse Oximetry 100 09/30/24 22:03 Temperature 98.0 F 09/30/24 22:03 Pulse Rate 94 10/01/24 04:27 Respiratory Rate 18 10/01/24 04:27 Blood Pressure 147/92 H 10/01/24 01:12 Pulse Oximetry 100 10/01/24 04:27 Oxygen Delivery Room Air 10/01/24 04:27 MDM - Extremity (Nontraumatic) MDM Narrative Medical decision making narrative: 84-year-old female presents here due to bilateral lower extremity edema, she has had this in the past requiring admission for diuresis. She has been taking Lasix and apixaban. BNP 6830 up from last time; CXR with some fluid overload. Given dose of Lasix here, discussed with hospitalist for admission. Patient happy about the plan Lab Data 10/01/24 00:43 10/01/24 00:43 Labs: Lab Results 10/01/24 Range/Units 00:43 WBC 8.7 (4.5-10.0) K/mm3 RBC 3.56 L (4.2-5.4) M/mm3 Hgb 10.9 L (12.0-15.0) g/dL Hct 34.9 L (37.0-47.0) % MCV 98.0 (80-100) fl MCH 30.6 (26-34) pg MCHC 31.2 L (32-36) g/dl RDW 14.3 (11.5-14.5) % Plt Count 209 (150-375) k/mm3 MPV 10.7 H (7.4-10.4) fl Immature Gran % (Auto) 0.2 (0-0.5) % Neut % (Auto) 56.1 (45.5-73.1) % Lymph % (Auto) 28.7 (18.3-44.2) % Pender % (Auto) 13.5 H (2.6-8.5) % Eos % (Auto) 1.0 (0-4.4) % Baso % (Auto) 0.5 (0.2-1.2) % Lymph # (Auto) 2.48 (0.9-3.2) K/mm3 Pender # (Auto) 1.2 H (0.1-0.6) K/mm3 Eos # (Auto) 0.1 (0-0.3) K/mm3 Baso # (Auto) 0.0 (0.0-0.1) K/mm3 Abs Immat Gran (auto) 0.02 (0.00-0.031) K/mm3 Absolute Neuts (auto) 4.9 (1.3-6.7) K/mm3 Absolute Nucleated RBC 0.000 (0.0-0.012) K/mm3 Nucleated RBC % 0.0 (0.0-0.2) % Sodium 134 L (137-145) mmol/L Potassium 4.5 (3.4-5.0) mmol/L Chloride 99 (98-107) mmol/L Carbon Dioxide 29 (22-30) mmol/L Anion Gap 6 (4-12) mmol/L BUN 65 H (7-17) mg/dL Creatinine 1.74 H (0.7-1.0) mg/dL Estim Creat Clear Calc Not Reportable Estimated GFR 28 L (59 - ) Glucose 113 H (65-110) mg/dL Calcium 9.5 (8.4-10.2) mg/dL Total Bilirubin 0.6 (0.2-1.3) mg/dL AST 30 (14-36) U/L ALT 12 (6-35) U/L Alkaline Phosphatase 78 (38-126) U/L NT-Pro-B Natriuret Pep 6830 H (19.9-100) pg/mL Total Protein 7.3 (6.3-8.2) g/dL Albumin 3.7 (3.5-5.1) g/dL Discharge Plan Discharge Clinical Impression: Acute exacerbation of CHF (congestive heart failure) Patient Disposition: Still a Patient Condition: Stable
--- NOTE | 2024-10-01 01:57 | PM.IMHP ---
H&P: HPI History of Present Illness Date/Time: 10/01/24 01:57 Chief Complaint: Weeping legs Narrative: History is taken from the niece at bedside. This is an 84-year-old female with history of chronic pain syndrome, spinal stenosis of lumbar region, hypothyroidism, hyperlipidemia, CKD, venous stasis, JAQUELINE noncompliant with CPAP, diastolic heart failure, paroxysmal atrial fibrillation on Eliquis, insulin-dependent diabetes mellitus, GERD, anxiety who presents to [facility] ER on 09/30/2024 with the complaint of swelling and weeping legs more than her usual for the past few days. The patient was discharged from [facility] on 07/27/2024 to rehab for 8 weeks. She was discharged home about a week ago. She has had more leg swelling than usual. Her upper thighs have been weeping fluid. She was last 269 lb on discharge from rehab but has not been weighed yet. She has been told to drink as much water as possible so that is what she has done. The patient has had fast food and restaurant take out since being home. She does not add additional salt to her food. She has had no shortness of breath, chest pain, fever, cough, nausea or vomiting. In the ER she is slightly tachycardic, blood pressure 182/77, afebrile. Saturating well on room air. Chest x-ray with pulmonary vascular congestion and small bilateral pleural effusions. White count 8.7, sodium 134, BUN 65, serum creatinine 1.74, glucose 113, BNP 6800. She was given Lasix 40 mg IV x1. Review of Systems Review of Systems: All systems reviewed & are unremarkable except as noted in HPI and below (HPI/subjective) [facility] Past Medical History Medical History Diastolic congestive heart failure Heart murmur Anxiety Diabetes mellitus with chronic kidney disease Essential (primary) hypertension Obstructive sleep apnea Not on CPAP Venous stasis dermatitis Primary localized osteoarthritis of both knees Chronic kidney disease, stage 3 (moderate) Chronic pain syndrome Gastro-esophageal reflux disease without esophagitis Hypothyroidism (acquired) Mixed hyperlipidemia Spinal stenosis of lumbar region at multiple levels Surgical History Surgical History History of hysterectomy History of tonsillectomy History of bilateral cataract extraction History of appendectomy Status post insertion of spinal cord stimulator History of thumb surgery (10/2019) Family History Family History Father Diabetes mellitus Family history of glaucoma Hypertension Family history of cardiovascular disease Mother Family history of lupus erythematosus Other Family history of arthritis Family history of congenital heart disease Social History Social History Social History: Surrogate decision maker: Mónica Cain (niece). Code status: Full code. Caffeine- coffee Smoking packs per day: 1 Smoking cigarettes per day: 20.0 Years smoked: 15 Smoking pack-years: 15.00 Smoking status: Former smoker Tobacco type: cigarettes Second hand tobacco smoke exposure: No Additional smoking assessment comments: quit 50 years ago Alcohol intake: never Substance use: never Substance use type: does not use Do You Feel Safe in your Home?: Yes Lack of Transportation: No Lack of Food: Never True Current Housing: I Have Housing Concerned About Future Housing: No Difficulty Paying Gas/Electric Bills: No Difficulty Paying for Meds: No Currently Unemployed: No Education: High School Diploma/GED Difficulty w/ Childcare or Family Care: No Living arrangements: with family Additional living arrangements comments: The patient lives in [place]. Additional occupation/education comments: Retired. Gender identity (if verbalized by the patient): Female Spiritual care concerns: No Meds Home Medications and Allergies Home Medications ?Medication ?Instructions ?Recorded ?Confirmed ?Type cholecalciferol (vitamin D3) 10 2,000 unit PO DAILY 09/14/19 09/26/24 History mcg (400 unit) capsule diclofenac sodium 1 % topical gel See Rx Instructions .Route 05/01/21 09/26/24 Rx .COMPLEX #100 grams lancets 33 gauge (OneTouch Delica #100 ea 07/14/22 09/26/24 Rx Lancets) pen needle, diabetic 31 gauge x #100 ea 07/31/23 09/26/24 Rx 3/16 (BD Ultra-Fine Mini Pen Needle) furosemide 40 mg tablet 80 mg (2 x 40 mg) PO QAM #180 tabs 11/03/23 09/26/24 Rx tramadol 50 mg tablet 50 mg PO Q6H PRN pain #60 tabs 12/21/23 09/26/24 Rx acetaminophen 325 mg capsule 650 mg PO Q12H PRN pain 03/23/24 09/26/24 History (Tylenol) blood sugar diagnostic (Blood #50 ea 04/04/24 09/26/24 Rx Glucose Test strips) lisinopril 40 mg tablet See Rx Instructions .Route 04/22/24 09/26/24 Rx .COMPLEX #90 tabs metoprolol succinate 100 mg 150 mg (1.5 x 100 mg) PO HS #135 04/22/24 09/26/24 Rx tablet,extended release 24 hr tabs omeprazole 40 mg capsule,delayed 40 mg PO DAILY #90 caps 04/22/24 09/26/24 Rx release rosuvastatin 5 mg tablet 5 mg PO HS #90 tabs 04/22/24 09/26/24 Rx insulin glargine 100 unit/mL (3 36 unit (0.36 mL) subcut QAM #30 mL 06/03/24 09/26/24 Rx mL) subcutaneous pen (Lantus Solostar U-100 Insulin) pen needle, diabetic 32 gauge x #1,200 ea 07/01/24 09/26/24 History hydrocortisone 1 % topical cream 1 applic topical HS PRN itching 07/21/24 09/26/24 History (Cortizone-10) apixaban 5 mg tablet (Eliquis) 5 mg PO Q12HR 30 days #60 tabs 07/27/24 09/26/24 Rx hydrocodone 10 mg-acetaminophen 1 tablet PO Q6H PRN pain 10 days 07/27/24 09/26/24 Rx 325 mg tablet #12 tabs Hospital Bed [place] #1 ea 09/26/24 09/26/24 Rx levothyroxine 175 mcg tablet 175 mcg PO DAILY #90 tabs 09/26/24 09/26/24 Rx (Synthroid) Allergies Allergy/AdvReac Type Severity Reaction Status Date / Time bumetanide (From Bumex) Allergy Vomiting Verified 09/26/24 12:52 terbinafine Allergy skin Verified 09/26/24 12:52 blistering duloxetine (From Cymbalta) AdvReac Severe seratonin Verified 09/26/24 12:52 syndrome 2-19 sertraline AdvReac Severe Dizziness Verified 09/26/24 12:52 celecoxib AdvReac Unknown Dizziness Verified 09/26/24 12:52 Vital Signs Vital Signs - 24 hr 09/30/24 22:03 09/30/24 22:32 10/01/24 01:12 Temperature 98.0 F Pulse Rate 96 104 H 90 Respiratory Rate 20 20 18 Blood Pressure 182/77 H 182/77 H 147/92 H Pulse Oximetry 100 100 100 Exam Const: General: comfortable and no acute distress Other: A&O x3 HENMT: Mouth: Yes moist mucous membranes Other: No jugular venous distention Eyes: Pupils: Equal, round and reactive pupils present Neck: Neck: supple Resp: Effort & Inspection: normal respiratory effort Other: Bibasilar crackles Cardio: Rate: regular rate Rhythm: regular rhythm Heart sounds: no gallops GI: Inspection: non-distended GI Palp: Yes Soft to palpation and No Tenderness to palpation present (GI) Other: No abdominal wall edema : General: Yes bladder normal to palpation Neuro: Motor exam (neuro): 5/5 motor strength present throughout Extrem: Other: 3+ pitting edema from the toes up to the knees and posterior and lateral thighs H&P: Results Labs Labs: Short CBC 10/01/24 Range/Units 00:43 WBC 8.7 (4.5-10.0) K/mm3 Hgb 10.9 L (12.0-15.0) g/dL Hct 34.9 L (37.0-47.0) % Plt Count 209 (150-375) k/mm3 BMP 10/01/24 00:43 Sodium 134 L Potassium 4.5 Chloride 99 Carbon Dioxide 29 BUN 65 H Creatinine 1.74 H Glucose 113 H Calcium 9.5 Liver Function 10/01/24 Range/Units 00:43 Total Bilirubin 0.6 (0.2-1.3) mg/dL AST 30 (14-36) U/L ALT 12 (6-35) U/L Alkaline Phosphatase 78 (38-126) U/L Albumin 3.7 (3.5-5.1) g/dL Assessment and Plan Assessment and plan (1) Diastolic congestive heart failure: Qualifiers: Heart failure chronicity: acute on chronic Qualified Code(s): I50.33 - Acute on chronic diastolic (congestive) heart failure Code(s): I50.30 - Unspecified diastolic (congestive) heart failure Status: Acute (2) Venous stasis dermatitis: Code(s): I87.2 - Venous insufficiency (chronic) (peripheral) Status: Acute (3) Diabetes mellitus with chronic kidney disease: Qualifiers: Diabetes mellitus type: type 2 Diabetes mellitus 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 This is an 84-year-old female with history of chronic pain syndrome, spinal stenosis of lumbar region, hypothyroidism, hyperlipidemia, CKD, venous stasis, JAQUELINE noncompliant with CPAP, diastolic heart failure, paroxysmal atrial fibrillation on Eliquis, insulin-dependent diabetes mellitus, GERD, anxiety who presents to [facility] ER on 09/30/2024 with the complaint of swelling and weeping legs more than her usual for the past few days. The patient was discharged from [facility] on 07/27/2024 to rehab for 8 weeks. She was discharged home about a week ago. She has had more leg swelling than usual. Her upper thighs have been weeping fluid. She was last 269 lb on discharge from rehab but has not been weighed yet. She has been told to drink as much water as possible so that is what she has done. The patient has had fast food and restaurant take out since being home. She does not add additional salt to her food. She has had no shortness of breath, chest pain, fever, cough, nausea or vomiting. In the ER she is slightly tachycardic, blood pressure 182/77, afebrile. Saturating well on room air. Chest x-ray with pulmonary vascular congestion and small bilateral pleural effusions. White count 8.7, sodium 134, BUN 65, serum creatinine 1.74, glucose 113, BNP 6800. She was given Lasix 40 mg IV x1. ----- She takes Lasix 80 mg q.day at home. Receive 40 in the ER, give additional 40 now to begin an 80 mg b.i.d. schedule. Daily weights, strict intake/output, heart healthy diet, fluid restriction 1500 cc per 24 hours, CHF teaching. Patient wishes to be DNR, resume QUESTIONED DOCUMENTS EXAMINER Eliquis, fall precautions, Accu-Cheks a.c. HS with moderate dose insulin sliding scale, patient lives at home alone, her niece, Mónica, reports she is her power of claims attorney. Patient uses walker at baseline. Hospitalist MIPS Advance Care Plan I have confirmed that the patient's Advanced Care Plan is present, code status is documented, or surrogate decision maker is listed in patient medical record.: Yes Medication Reconciliation I have utilized all available resources to obtain, update and review the patients current medications (includes all prescriptions, OTC, herbals, cannabis, and nutritional supplements).: Yes
[2024-10-01] MEDS: HYDROcodone/acetaminophen (*CRX) 10-325 MG TABLET 1 TAB PO ×3 (03:52→20:41)
[2024-10-01 06:15] LABS: Hematocrit 32.7 % (37.0-47.0); Hemoglobin 10.2 g/dL (12.0-15.0); Immature Granulocyte Percent A 0.3 % (0-0.5); Lymphocytes Absolute Auto 1.74 K/mm3 (0.9-3.2); Mean Corpuscular HGB Conc 31.2 g/dl (32-36); Mean Corpuscular Hemoglobin 30.9 pg (26-34); Mean Corpuscular Volume 99.1 fl (80-100); Nucleated Red Blood Cells Absolute Auto 0.000 K/mm3 (0.0-0.012); Nucleated Red Blood Cells Perc 0.0 % (0.0-0.2); Platelet Count Result 212 k/mm3 (150-375); Red Blood Count 3.30 M/mm3 (4.2-5.4); White Blood Count 8.9 K/mm3 (4.5-10.0)
[2024-10-01 06:59] LABS: Anion Gap 9 mmol/L (4-12); Blood Urea Nitrogen 62 mg/dL (7-17); Calcium 9.6 mg/dL (8.4-10.2); Carbon Dioxide 28 mmol/L (22-30); Chloride 103 mmol/L (98-107); Estimated CRCL calculation 29 ml/min; Estimated Glomerular Filt Rate 29; Glucose 93 mg/dL (65-110); Magnesium 1.6 mg/dL (1.6-2.3); Potassium 4.3 mmol/L (3.4-5.0); Sodium 140 mmol/L (137-145)
[2024-10-01] MEDS: APIXABAN 2.5 MG TABLET PO ×2 (08:47→20:41)
--- NOTE | 2024-10-01 11:09 | P.PNIM_ITS ---
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 This is an 84-year-old female with history of chronic pain syndrome, spinal stenosis of lumbar region, hypothyroidism, hyperlipidemia, CKD, venous stasis, JAQUELINE noncompliant with CPAP, diastolic heart failure, paroxysmal atrial fibrillation on Eliquis, insulin- dependent diabetes mellitus, GERD, anxiety who presents to [facility] ER on 09/30/2024 with the complaint of swelling and weeping legs more than her usual for the past few days. The patient was discharged from [facility] on 07/27/2024 to rehab for 8 weeks. She was discharged home about a week ago. She has had more leg swelling than usual. Her upper thighs have been weeping fluid. She was last 269 lb on discharge from rehab but has not been weighed yet. She has been told to drink as much water as possible so that is what she has done. The patient has had fast food and restaurant take out since being home. She does not add additional salt to her food. She has had no shortness of breath, chest pain, fever, cough, nausea or vomiting. In the ER she is slightly tachycardic, blood pressure 182/77, afebrile. Saturating well on room air. Chest x-ray with pulmonary vascular congestion and small bilateral pleural effusions. White count 8.7, sodium 134, BUN 65, serum creatinine 1.74, glucose 113, BNP 6800. She was given Lasix 40 mg IV x1. She takes Lasix 80 mg q.day at home. Receive 40 in the ER, give additional 40 now to begin an 80 mg b.i.d. schedule. Daily weights, strict intake/output, heart healthy diet, fluid restriction 1500 cc per 24 hours, CHF teaching. acute on chronic diastolic heart failure iv lasix and . echo 07/24: ef 65-70%, mild tr, mild mr mild Pulm htn, indeterminate diastolic function. bnp 6830. fluid restriction paroxysmal atrial fibrillation on eliquis insulin dependent diabetes mellitus gerd anxiety chronic pain syndrome spinal sstenosis of lumbar region hypothyroidism hyperlipidemia ckd stage 3b venous stasis mild chronic anemia. JAQUELINE non compliant with CPAP DVT proph: on eliquis code status: DNR Subjective Date/time seen: 10/01/24 11:09 Interval history: no overnight events, weakness, leg swelling and weeping. no sob or chest pain. Review of Systems Review of Systems: All systems reviewed & are unremarkable except as noted in HPI and below (HPI/subjective) Exam Narrative: GENERAL:[No acute distress, non-toxic appearing.] HEAD: Normal with no signs of head trauma. EYES: EOMI, conjunctiva normal ENT: Hearing grossly intact LUNGS: Nonlabored breathing. HEART: [Regular rate and rhythm] ABD: [Soft], [nontender to palpation] EXT: Lower extremity edema bilaterally pitting pitting SKIN: Chronic venous stasis changes bilateral lower extremities NEURO: [Alert and oriented x 3. No gross focal sensory or strength deficits.] PSYCH: Normal affect Objective Data Vital Signs Vital Signs: Vital Signs - 24 hr 09/30/24 22:03 09/30/24 22:32 10/01/24 01:12 Temperature 98.0 F Pulse Rate 96 104 H 90 Respiratory Rate 20 20 18 Blood Pressure 182/77 H 182/77 H 147/92 H Pulse Oximetry 100 100 100 Oxygen Delivery 10/01/24 04:00 10/01/24 04:27 10/01/24 05:47 Temperature 97.0 F L Pulse Rate 94 94 95 Respiratory Rate 18 17 Blood Pressure 142/43 H Pulse Oximetry 100 98 Oxygen Delivery Room Air Intake/Output Intake/Output: Intake & Output 09/28/24 09/29/24 09/30/24 10/01/24 23:59 23:59 23:59 23:59 Intake Total 100 Output Total 800 Balance -700 Meds/Results Medications: Active Medications Generic Name Dose Route Start Last Admin Trade Name Freq PRN Reason Stop Dose Admin Hydrocodone Bitart/Acetaminophen 1 tab 10/01/24 03:47 10/01/24 10:18 Hydrocodone/Acetaminophen (*Crx) 10-325 Mg Tablet PO 1 tab Q6H PRN Administration Pain Rated 7-10 Apixaban 2.5 mg 10/01/24 09:00 10/01/24 08:47 Apixaban 2.5 Mg Tablet PO 2.5 mg Q12HR MARIELLA Administration Dextrose 12.5 gm 10/01/24 01:56 Dextrose 50% 25 Gm/50 Ml Syringe IV PUSH PRN PRN Hypoglycemia Protocol Glucose 15 gm 10/01/24 01:56 Glucose Oral Gel 15 Gm Of Glucse In 37.5 Gm Tube PO PRN PRN Hypoglycemia Protocol Dextrose 1,000 mls @ 100 mls/hr 10/01/24 01:56 Dextrose 5% 1,000 Ml IVPB PRN PRN Hypoglycemia Protocol Insulin Aspart 3 - 6 units 10/01/24 08:00 10/01/24 08:43 Insulin Aspart (*Bkc) 100 Units/Ml SUB-Q Not Given [facility] Protocol Insulin Aspart 1 - 3 units 10/01/24 21:00 Insulin Aspart (*Bkc) 100 Units/Ml SUB-Q HS [facility] Protocol Radiology Results: ITS Impressions Chest X-Ray 09/30/24 23:29 IMPRESSION: Mild pulmonary vascular congestion with small bilateral pleural effusions. Labs Labs: Laboratory Results - last 24 hr 10/01/24 10/01/24 10/01/24 00:43 06:05 07:48 WBC 8.7 8.9 RBC 3.56 L 3.30 L Hgb 10.9 L 10.2 L Hct 34.9 L 32.7 L MCV 98.0 99.1 MCH 30.6 30.9 MCHC 31.2 L 31.2 L RDW 14.3 14.2 Plt Count 209 212 MPV 10.7 H 9.5 Immature Gran % (Auto) 0.2 0.3 Neut % (Auto) 56.1 64.4 Lymph % (Auto) 28.7 19.5 [place] % (Auto) 13.5 H 14.1 H Eos % (Auto) 1.0 1.1 Baso % (Auto) 0.5 0.6 Lymph # (Auto) 2.48 1.74 [place] # (Auto) 1.2 H 1.3 H Eos # (Auto) 0.1 0.1 Baso # (Auto) 0.0 0.1 Abs Immat Gran (auto) 0.02 0.03 Absolute Neuts (auto) 4.9 5.7 Absolute Nucleated RBC 0.000 0.000 Nucleated RBC % 0.0 0.0 Sodium 134 L 140 Potassium 4.5 4.3 Chloride 99 103 Carbon Dioxide 29 28 Anion Gap 6 9 BUN 65 H 62 H Creatinine 1.74 H 1.70 H Estim Creat Clear Calc Not Reportable 29 Estimated GFR 28 L 29 L Glucose 113 H 93 POC Capillary Glucose 98 Calcium 9.5 9.6 Magnesium 1.6 Total Bilirubin 0.6 AST 30 ALT 12 Alkaline Phosphatase 78 NT-Pro-B Natriuret Pep 6830 H Total Protein 7.3 Albumin 3.7
[2024-10-01] MEDS: LEVOTHYROXINE SODIUM 100 MCG TABLET PO (13:21)
[2024-10-01] MEDS: PANTOPRAZOLE 40 MG TABLET PO ×2 (13:21→20:41)
[2024-10-01] MEDS: LEVOTHYROXINE SODIUM 75 MCG TABLET PO (13:22)
[2024-10-01] MEDS: INSULIN GLARGINE (*BKC) 100 UNITS/ML 36 UNITS SUB-Q (13:22)
[2024-10-01] MEDS: CHOLECALCIFEROL (VITAMIN D3) 25 MCG (1,000 UNITS) TABLET 2000 MCG PO (13:23)
[2024-10-01] MEDS: ROSUVASTATIN 5 MG TABLET PO (20:41)
[2024-10-01] MEDS: METOPROLOL SUCCINATE EXT REL 50 MG TABCR 150 MG PO (20:42)
[2024-10-02] VITALS (10 sets, daily range): BP systolic 115–135; BP diastolic 49–67; PULSE 71–83; RESP 12–20; TEMP 36.1–36.5; O2SAT 97–98
[2024-10-02] MEDS: LEVOTHYROXINE SODIUM 75 MCG TABLET PO (05:19)
[2024-10-02] MEDS: LEVOTHYROXINE SODIUM 100 MCG TABLET PO (05:19)
[2024-10-02 06:04] LABS: Hematocrit 35.4 % (37.0-47.0); Hemoglobin 11.1 g/dL (12.0-15.0); Immature Granulocyte Percent A 0.3 % (0-0.5); Lymphocytes Absolute Auto 2.36 K/mm3 (0.9-3.2); Mean Corpuscular HGB Conc 31.4 g/dl (32-36); Mean Corpuscular Hemoglobin 31.0 pg (26-34); Mean Corpuscular Volume 98.9 fl (80-100); Nucleated Red Blood Cells Absolute Auto 0.000 K/mm3 (0.0-0.012); Nucleated Red Blood Cells Perc 0.0 % (0.0-0.2); Platelet Count Result 217 k/mm3 (150-375); Red Blood Count 3.58 M/mm3 (4.2-5.4); White Blood Count 7.5 K/mm3 (4.5-10.0)
[2024-10-02 06:22] LABS: Alanine Aminotransferase 11 U/L (6-35); Albumin Level 3.4 g/dL (3.5-5.1); Alkaline Phosphatase 70 U/L (38-126); Anion Gap 5 mmol/L (4-12); Aspartate Amino Transferase 27 U/L (14-36); Bilirubin,Total 0.7 mg/dL (0.2-1.3); Blood Urea Nitrogen 53 mg/dL (7-17); Calcium 9.4 mg/dL (8.4-10.2); Carbon Dioxide 32 mmol/L (22-30); Chloride 96 mmol/L (98-107); Estimated CRCL calculation 31 ml/min; Estimated Glomerular Filt Rate 32; Glucose 71 mg/dL (65-110); Magnesium 1.7 mg/dL (1.6-2.3); Potassium 4.5 mmol/L (3.4-5.0); Sodium 133 mmol/L (137-145); Total Protein 6.8 g/dL (6.3-8.2)
[2024-10-02 06:51] LABS: Thyroid Stimulating Hormone Reflex 9.230 uIU/mL (0.465-4.68)
[2024-10-02] MEDS: APIXABAN 2.5 MG TABLET PO ×2 (09:25→21:02)
[2024-10-02] MEDS: FUROSEMIDE INJ 40 MG/4 ML VIAL IV PUSH ×2 (09:25→17:26)
[2024-10-02] MEDS: HYDROcodone/acetaminophen (*CRX) 10-325 MG TABLET 1 TAB PO ×2 (09:26→21:01)
[2024-10-02] MEDS: PANTOPRAZOLE 40 MG TABLET PO ×2 (09:26→21:02)
[2024-10-02] MEDS: INSULIN GLARGINE (*BKC) 100 UNITS/ML 36 UNITS SUB-Q (09:27)
[2024-10-02 10:02] LABS: Free T4 Free Thyroxine Reflex 1.71 ng/dL (0.78-2.19)
[2024-10-02 10:51] LABS: Total Triiodothyronine (T3) 0.72 NG/ML (0.82-1.58)
--- NOTE | 2024-10-02 11:02 | PM.IMPN ---
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 This is an 84-year-old female with history of chronic pain syndrome, spinal stenosis of lumbar region, hypothyroidism, hyperlipidemia, CKD, venous stasis, JAQUELINE noncompliant with CPAP, diastolic heart failure, paroxysmal atrial fibrillation on Eliquis, insulin-dependent diabetes mellitus, GERD, anxiety who presents to [facility] ER on 09/30/2024 with the complaint of swelling and weeping legs more than her usual for the past few days. The patient was discharged from [facility] on 07/27/2024 to rehab for 8 weeks. She was discharged home about a week ago. She has had more leg swelling than usual. Her upper thighs have been weeping fluid. She was last 269 lb on discharge from rehab but has not been weighed yet. She has been told to drink as much water as possible so that is what she has done. The patient has had fast food and restaurant take out since being home. She does not add additional salt to her food. She has had no shortness of breath, chest pain, fever, cough, nausea or vomiting. In the ER she is slightly tachycardic, blood pressure 182/77, afebrile. Saturating well on room air. Chest x-ray with pulmonary vascular congestion and small bilateral pleural effusions. White count 8.7, sodium 134, BUN 65, serum creatinine 1.74, glucose 113, BNP 6800. She was given Lasix 40 mg IV x1. She takes Lasix 80 mg q.day at home. Receive 40 in the ER, give additional 40 now to begin an 80 mg b.i.d. schedule. Daily weights, strict intake/output, heart healthy diet, fluid restriction 1500 cc per 24 hours, CHF teaching. acute on chronic diastolic heart failure iv lasix and . echo 07/24: ef 65-70%, mild tr, mild mr mild Pulm htn, indeterminate diastolic function. bnp 6830. fluid restriction. Repeat echo with normal EF moderate pulmonary hypertension. Continue IV Lasix. Renal function stable paroxysmal atrial fibrillation on eliquis insulin dependent diabetes mellitus gerd anxiety chronic pain syndrome spinal sstenosis of lumbar region hypothyroidism hyperlipidemia ckd stage 3b venous stasis mild chronic anemia. JAQUELINE non compliant with CPAP DVT proph: on eliquis code status: DNR Disposition: PT OT to see. Recently was discharged from rehab. Subjective Date/time seen: 10/02/24 11:02 Interval history: No overnight events. Leg swelling has improved. Legs are still sore. Denies any shortness of breath or chest pain. Echo and venous duplex reviewed with the patient. Review of Systems Review of Systems: All systems reviewed & are unremarkable except as noted in HPI and below (HPI/subjective) Exam Narrative: GENERAL:[No acute distress, non-toxic appearing.] HEAD: Normal with no signs of head trauma. EYES: EOMI, conjunctiva normal ENT: Hearing grossly intact LUNGS: Nonlabored breathing. HEART: [Regular rate and rhythm] ABD: [Soft], [nontender to palpation] EXT: Lower extremity edema bilaterally pitting pitting SKIN: Chronic venous stasis changes bilateral lower extremities NEURO: [Alert and oriented x 3. No gross focal sensory or strength deficits.] PSYCH: Normal affect Objective Data Vital Signs Vital Signs: Vital Signs - 24 hr 10/01/24 12:00 10/01/24 13:59 10/01/24 16:00 Temperature 97.7 F Pulse Rate 105 H 93 78 Respiratory Rate 18 Blood Pressure 142/48 H Pulse Oximetry 98 Oxygen Delivery 10/01/24 20:00 10/01/24 20:42 10/01/24 20:45 Temperature Pulse Rate 84 72 96 Respiratory Rate 20 Blood Pressure Pulse Oximetry 99 Oxygen Delivery Room Air 10/01/24 21:09 10/02/24 00:00 10/02/24 04:00 Temperature 99.0 F Pulse Rate 96 76 73 Respiratory Rate 20 Blood Pressure 139/50 L Pulse Oximetry 99 Oxygen Delivery 10/02/24 06:00 Temperature 97.0 F L Pulse Rate 79 Respiratory Rate 12 Blood Pressure 128/63 Pulse Oximetry 97 Oxygen Delivery Intake/Output Intake/Output: Intake & Output 09/29/24 09/30/24 10/01/24 10/02/24 23:59 23:59 23:59 23:59 Intake Total 585 240 Output Total 3250 1800 Balance -9795 -4752 Meds/Results Medications: Active Medications Generic Name Dose Route Start Last Admin Trade Name Freq PRN Reason Stop Dose Admin Acetaminophen 650 mg 10/01/24 11:15 Acetaminophen 325 Mg Tablet PO Q12H PRN pain 1-3 Hydrocodone Bitart/Acetaminophen 1 tab 10/01/24 11:15 10/02/24 09:26 Hydrocodone/Acetaminophen (*Crx) 10-325 Mg Tablet PO 1 tab Q6H PRN Administration pain 7-10 Apixaban 2.5 mg 10/01/24 09:00 10/02/24 09:25 Apixaban 2.5 Mg Tablet PO 2.5 mg Q12HR MARIELLA Administration Dextrose 12.5 gm 10/01/24 01:56 Dextrose 50% 25 Gm/50 Ml Syringe IV PUSH PRN PRN Hypoglycemia Protocol Furosemide 40 mg 10/01/24 17:00 10/02/24 09:25 Furosemide Inj 40 Mg/4 Ml Vial IV PUSH 40 mg BID MARIELLA Administration Glucose 15 gm 10/01/24 01:56 Glucose Oral Gel 15 Gm Of Glucse In 37.5 Gm Tube PO PRN PRN Hypoglycemia Protocol Dextrose 1,000 mls @ 100 mls/hr 10/01/24 01:56 Dextrose 5% 1,000 Ml IVPB PRN PRN Hypoglycemia Protocol Insulin Aspart 3 - 6 units 10/01/24 08:00 10/02/24 08:05 Insulin Aspart (*Bkc) 100 Units/Ml SUB-Q Not Given TIDWM MARIELLA Protocol Insulin Aspart 1 - 3 units 10/01/24 21:00 10/01/24 21:00 Insulin Aspart (*Bkc) 100 Units/Ml SUB-Q Not Given HS [facility] Protocol Insulin Glargine 36 units 10/01/24 11:35 10/02/24 09:27 Insulin Glargine (*Bkc) 100 Units/Ml SUB-Q 36 units QAM [facility] Administration Levothyroxine Sodium 100 mcg 10/01/24 11:35 10/02/24 05:19 Levothyroxine Sodium 100 Mcg Tablet PO 100 mcg DAILY@0630 MARIELLA Administration Levothyroxine Sodium 75 mcg 10/01/24 11:35 10/02/24 05:19 Levothyroxine Sodium 75 Mcg Tablet PO 75 mcg DAILY@0630 [facility] Administration Lisinopril 40 mg 10/01/24 11:15 10/02/24 09:25 Lisinopril 20 Mg Tablet BY MOUTH 40 mg QAM [facility] Administration Metoprolol Succinate 150 mg 10/01/24 21:00 10/01/24 20:42 Metoprolol Succinate Ext Rel 50 Mg Tabcr PO 150 mg HS [facility] Administration Pantoprazole Sodium 40 mg 10/01/24 11:40 10/02/24 09:26 Pantoprazole 40 Mg Tablet PO 40 mg Q12HR MARIELLA Administration Perflutren Lipid Microsphere 0 ml 10/01/24 11:17 Perflutren Lipid Microspheres 1.5 Ml Vial Diluted To 10 Ml Total Volume IV PUSH 10/04/24 11:17 ONCE PRN adequate visualization Protocol Rosuvastatin Calcium 5 mg 10/01/24 21:00 10/01/24 20:41 Rosuvastatin 5 Mg Tablet PO 5 mg HS [facility] Administration Spironolactone 12.5 mg 10/01/24 11:35 10/02/24 09:26 Spironolactone 12.5 Mg Tablet PO 12.5 mg BID MARIELLA Administration Vitamin D 2,000 mcg 10/01/24 09:00 10/01/24 13:23 Cholecalciferol (Vitamin D3) 25 Mcg (1,000 Units) Tablet PO 2,000 mcg DAILY MARIELLA Administration Radiology Results: ITS Impressions Chest X-Ray 09/30/24 23:29 IMPRESSION: Mild pulmonary vascular congestion with small bilateral pleural effusions. Venous Doppler Study 10/01/24 18:08 IMPRESSION: Patent bilateral lower extremity veins. No evidence of deep venous thrombosis. Labs Labs: Laboratory Results - last 24 hr 10/01/24 10/01/24 10/01/24 11:27 16:18 20:31 WBC RBC Hgb Hct MCV MCH MCHC RDW Plt Count MPV Immature Gran % (Auto) Neut % (Auto) Lymph % (Auto) [place] % (Auto) Eos % (Auto) Baso % (Auto) Lymph # (Auto) [place] # (Auto) Eos # (Auto) Baso # (Auto) Abs Immat Gran (auto) Absolute Neuts (auto) Absolute Nucleated RBC Nucleated RBC % Sodium Potassium Chloride Carbon Dioxide Anion Gap BUN Creatinine Estim Creat Clear Calc Estimated GFR Glucose POC Capillary Glucose 105 102 120 H Calcium Magnesium Total Bilirubin AST ALT Alkaline Phosphatase Total Protein Albumin TSH (Reflex) Free T4 Total T3 10/02/24 10/02/24 05:46 07:58 WBC 7.5 RBC 3.58 L Hgb 11.1 L Hct 35.4 L MCV 98.9 MCH 31.0 MCHC 31.4 L RDW 13.9 Plt Count 217 MPV 9.7 Immature Gran % (Auto) 0.3 Neut % (Auto) 50.9 Lymph % (Auto) 31.4 [place] % (Auto) 14.5 H Eos % (Auto) 2.4 Baso % (Auto) 0.5 Lymph # (Auto) 2.36 [place] # (Auto) 1.1 H Eos # (Auto) 0.2 Baso # (Auto) 0.0 Abs Immat Gran (auto) 0.02 Absolute Neuts (auto) 3.8 Absolute Nucleated RBC 0.000 Nucleated RBC % 0.0 Sodium 133 L Potassium 4.5 Chloride 96 L Carbon Dioxide 32 H Anion Gap 5 BUN 53 H Creatinine 1.55 H Estim Creat Clear Calc 31 Estimated GFR 32 L Glucose 71 POC Capillary Glucose 102 Calcium 9.4 Magnesium 1.7 Total Bilirubin 0.7 AST 27 ALT 11 Alkaline Phosphatase 70 Total Protein 6.8 Albumin 3.4 L TSH (Reflex) 9.230 H Free T4 1.71 Total T3 0.72 L
[2024-10-02 17:22] LABS: Potassium 4.2 mmol/L (3.4-5.0)
[2024-10-02] MEDS: MAGNESIUM SULF 1 GM/D5W 100 ML 1 GM/100 ML BAG IVPB (17:26)
[2024-10-02] MEDS: METOPROLOL SUCCINATE EXT REL 50 MG TABCR 150 MG PO (21:02)
[2024-10-02] MEDS: ROSUVASTATIN 5 MG TABLET PO (21:02)
[2024-10-03] VITALS (12 sets, daily range): BP systolic 116–144; BP diastolic 62–76; PULSE 60–90; RESP 16–20; TEMP 35.6–36.2; O2SAT 97–100
[2024-10-03] MEDS: LEVOTHYROXINE SODIUM 75 MCG TABLET PO (05:31)
[2024-10-03] MEDS: LEVOTHYROXINE SODIUM 100 MCG TABLET PO (05:31)
[2024-10-03 06:20] LABS: Hematocrit 36.1 % (37.0-47.0); Hemoglobin 11.5 g/dL (12.0-15.0); Immature Granulocyte Percent A 0.4 % (0-0.5); Lymphocytes Absolute Auto 1.94 K/mm3 (0.9-3.2); Mean Corpuscular HGB Conc 31.9 g/dl (32-36); Mean Corpuscular Hemoglobin 30.9 pg (26-34); Mean Corpuscular Volume 97.0 fl (80-100); Nucleated Red Blood Cells Absolute Auto 0.000 K/mm3 (0.0-0.012); Nucleated Red Blood Cells Perc 0.0 % (0.0-0.2); Platelet Count Result 209 k/mm3 (150-375); Red Blood Count 3.72 M/mm3 (4.2-5.4); White Blood Count 9.1 K/mm3 (4.5-10.0)
[2024-10-03 06:40] LABS: Alanine Aminotransferase 10 U/L (6-35); Albumin Level 3.5 g/dL (3.5-5.1); Alkaline Phosphatase 74 U/L (38-126); Anion Gap 7 mmol/L (4-12); Aspartate Amino Transferase 27 U/L (14-36); Bilirubin,Total 0.6 mg/dL (0.2-1.3); Blood Urea Nitrogen 45 mg/dL (7-17); Calcium 9.2 mg/dL (8.4-10.2); Carbon Dioxide 32 mmol/L (22-30); Chloride 95 mmol/L (98-107); Estimated CRCL calculation 31 ml/min; Estimated Glomerular Filt Rate 33; Glucose 74 mg/dL (65-110); Magnesium 1.8 mg/dL (1.6-2.3); Potassium 4.3 mmol/L (3.4-5.0); Sodium 134 mmol/L (137-145); Total Protein 7.0 g/dL (6.3-8.2)
--- NOTE | 2024-10-03 07:55 | P.PNIM_ITS ---
Progress Note: A&P Assessment and Plan (1) Diastolic congestive heart failure: Qualifiers: Heart failure chronicity: acute on chronic Qualified Code(s): I50.33 - Acute on chronic diastolic (congestive) heart failure Code(s): I50.30 - Unspecified diastolic (congestive) heart failure Status: Acute (2) Venous stasis dermatitis: Code(s): I87.2 - Venous insufficiency (chronic) (peripheral) Status: Acute (3) Diabetes mellitus with chronic kidney disease: Qualifiers: Chronic kidney disease stage: stage 4 (severe) Diabetes mellitus assisted insulin use: with director 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 use Diabetes mellitus type: type 2 Qualified Code(s): E11.22 - Type 2 diabetes mellitus with diabetic chronic kidney disease; N18.4 - Chronic kidney disease, stage 4 (severe); Z79.4 - group home (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 insulin Code(s): E11.22 - Type 2 diabetes mellitus with diabetic chronic kidney disease Status: Chronic (4) Morbid (severe) obesity due to excess calories: Code(s): E66.01 - Morbid (severe) obesity due to excess calories Status: Acute (5) Edema: Code(s): R60.9 - Edema, unspecified Status: Acute Assessment and Plan: Increased LE edema. Drinking more fluids and fast food. TTE 65-70 Plan 84-year-old female with history of chronic pain syndrome, spinal stenosis of lumbar region, hypothyroidism, hyperlipidemia, CKD, venous stasis, JAQUELINE noncompliant with CPAP, diastolic heart failure, paroxysmal atrial fibrillation on Eliquis, insulin-dependent diabetes mellitus, GERD, anxiety who presents to [facility] ER on 09/30/2024 with the complaint of swelling and weeping legs after discharge from rehab. In the ER she is slightly tachycardic, blood pressure 182/77, afebrile. Saturating well on room air. Chest x-ray with pulmonary vascular congestion and small bilateral pleural effusions. White count 8.7, sodium 134, BUN 65, serum creatinine 1.74, glucose 113, BNP 6800. Lower extremity edema Home Lasix 80mg daily. Self reduced to 40mg daily because unable to make it to the bathroom easily Legs were being wrapped at rehab but didn't have leg wraps after discharge. Can't put on compression wraps at home Repeat echo with normal EF moderate pulmonary hypertension. bnp 6830. Edema almost resolved, still has trace bilateral LE edema and erythema but not infectious appearing and is bilateral, improving. Erythema likely reactive from now resolving edema Change IV lasix 80mg IV BID to PO 40mg BID Compression wraps as able Limit salt has been drinking a lot of water because she was told to stay well hydrated. Limit to 1500ml per day Weakness Generalized weakness. Required nurses to assist her this morning Discharge to rehab vs home with home health and leg wraps Hx afib Rate controlled Continue apixaban Metoprolol 150mg hs Uncontrolled diabetes HgbA1c 6.6 Fasting blood sugar 95 this morning Home insulin Lantus 36 units daily --Dose reduce by 20%, 14 units daily & lispro 4 TID --Continue SSI, adjust as needed JAQUELINE non compliant with CPAP DVT proph: on eliquis code status: DNR Disposition: PT OT to see. Recently was discharged from rehab. Time Spent With Patient Time: 57 minutes Subjective Date/time seen: 10/03/24 07:55 Interval history: Needing a lot of assistance to get up. Leg swelling has improved. Still sore. No shortness of breath or chest pain. Discharge home with home health vs home Review of Systems Review of Systems: All systems reviewed & are unremarkable except as noted in HPI and below (HPI/subjective) Exam Narrative: General - Awake and alert. No acute distress Eyes - PERRLA, EOM intact ENT - No thrush, No erythema Neck - No noticeable or palpable swelling Lymph Nodes - No lymphadenopathy Cardiovascular - RRR no m/r/g, no JVD Lungs: rare crackles, no wheezing, no use of accessory muscles Skin - Skin warm and dry, no wounds or rashes Abdomen - Normal bowel sounds, abdomen soft and nontender Extremities - Trace edema, no cyanosis or clubbing. Mild erythema and a bruise to right lower leg Musculoskeletal - 5/5 strength, normal range of motion, no swollen or erythematous joints. Neurological ? Alert and oriented x 3, CN 2-12 grossly intact. Psych: Normal mood and affect Objective Data Vital Signs Vital Signs: Vital Signs - 24 hr 10/02/24 08:03 10/02/24 09:30 10/02/24 10:40 Temperature Pulse Rate 71 Respiratory Rate Blood Pressure Pulse Oximetry Oxygen Delivery Room Air Room Air 10/02/24 10:53 10/02/24 12:01 10/02/24 14:10 Temperature 97.7 F Pulse Rate 83 74 Respiratory Rate 16 Blood Pressure 115/49 L Pulse Oximetry 97 Oxygen Delivery Room Air 10/02/24 16:03 10/02/24 20:00 10/02/24 20:15 Temperature 97 F L Pulse Rate 75 79 81 Respiratory Rate 20 Blood Pressure 135/67 Pulse Oximetry 98 Oxygen Delivery 10/02/24 21:02 10/03/24 00:00 10/03/24 04:00 Temperature Pulse Rate 80 82 87 Respiratory Rate Blood Pressure Pulse Oximetry Oxygen Delivery 10/03/24 05:15 Temperature 96.1 F L Pulse Rate 76 Respiratory Rate 16 Blood Pressure 140/63 Pulse Oximetry 100 Oxygen Delivery Intake/Output Intake/Output: Intake & Output 09/30/24 10/01/24 10/02/24 10/03/24 23:59 23:59 23:59 23:59 Intake Total 585 1110 100 Output Total 3250 4050 5250 Balance -1603 -5370 -6270 Meds/Results Medications: Active Medications Generic Name Dose Route Start Last Admin Trade Name Freq PRN Reason Stop Dose Admin Acetaminophen 650 mg 10/01/24 11:15 Acetaminophen 325 Mg Tablet PO Q12H PRN pain 1-3 Hydrocodone Bitart/Acetaminophen 1 tab 10/01/24 11:15 10/02/24 21:01 Hydrocodone/Acetaminophen (*Crx) 10-325 Mg Tablet PO 1 tab Q6H PRN Administration pain 7-10 Apixaban 2.5 mg 10/01/24 09:00 10/02/24 21:02 Apixaban 2.5 Mg Tablet PO 2.5 mg Q12HR MARIELLA Administration Dextrose 12.5 gm 10/01/24 01:56 Dextrose 50% 25 Gm/50 Ml Syringe IV PUSH PRN PRN Hypoglycemia Protocol Furosemide 40 mg 10/01/24 17:00 10/02/24 17:26 Furosemide Inj 40 Mg/4 Ml Vial IV PUSH 40 mg BID MARIELLA Administration Glucose 15 gm 10/01/24 01:56 Glucose Oral Gel 15 Gm Of Glucse In 37.5 Gm Tube PO PRN PRN Hypoglycemia Protocol Dextrose 1,000 mls @ 100 mls/hr 10/01/24 01:56 Dextrose 5% 1,000 Ml IVPB PRN PRN Hypoglycemia Protocol Insulin Aspart 3 - 6 units 10/01/24 08:00 10/02/24 16:53 Insulin Aspart (*Bkc) 100 Units/Ml SUB-Q Not Given TIDWM [facility] Protocol Insulin Aspart 1 - 3 units 10/01/24 21:00 10/02/24 21:03 Insulin Aspart (*Bkc) 100 Units/Ml SUB-Q Not Given HS MARIELLA Protocol Insulin Glargine 36 units 10/01/24 11:35 10/02/24 09:27 Insulin Glargine (*Bkc) 100 Units/Ml SUB-Q 36 units QAM [facility] Administration Levothyroxine Sodium 100 mcg 10/01/24 11:35 10/03/24 05:31 Levothyroxine Sodium 100 Mcg Tablet PO 100 mcg DAILY@0630 MARIELLA Administration Levothyroxine Sodium 75 mcg 10/01/24 11:35 10/03/24 05:31 Levothyroxine Sodium 75 Mcg Tablet PO 75 mcg DAILY@0630 MARIELLA Administration Lisinopril 40 mg 10/01/24 11:15 10/02/24 09:25 Lisinopril 20 Mg Tablet BY MOUTH 40 mg QAM MARIELLA Administration Metoprolol Succinate 150 mg 10/01/24 21:00 10/02/24 21:02 Metoprolol Succinate Ext Rel 50 Mg Tabcr PO 150 mg HS MARIELLA Administration Pantoprazole Sodium 40 mg 10/01/24 11:40 10/02/24 21:02 Pantoprazole 40 Mg Tablet PO 40 mg Q12HR MARIELLA Administration Perflutren Lipid Microsphere 0 ml 10/01/24 11:17 Perflutren Lipid Microspheres 1.5 Ml Vial Diluted To 10 Ml Total Volume IV PUSH 10/04/24 11:17 ONCE PRN adequate visualization Protocol Rosuvastatin Calcium 5 mg 10/01/24 21:00 10/02/24 21:02 Rosuvastatin 5 Mg Tablet PO 5 mg HS MARIELLA Administration Spironolactone 12.5 mg 10/01/24 11:35 10/02/24 17:26 Spironolactone 12.5 Mg Tablet PO 12.5 mg BID MARIELLA Administration Vitamin D 2,000 mcg 10/01/24 09:00 10/02/24 09:30 Cholecalciferol (Vitamin D3) 25 Mcg (1,000 Units) Tablet PO Not Given DAILY [facility] Radiology Results: ITS Impressions Chest X-Ray 09/30/24 23:29 IMPRESSION: Mild pulmonary vascular congestion with small bilateral pleural effusions. Venous Doppler Study 10/01/24 18:08 IMPRESSION: Patent bilateral lower extremity veins. No evidence of deep venous thrombosis. Labs Labs: Laboratory Results - last 24 hr 10/02/24 10/02/24 10/02/24 05:46 07:58 11:31 WBC RBC Hgb Hct MCV MCH MCHC RDW Plt Count MPV Immature Gran % (Auto) Neut % (Auto) Lymph % (Auto) [place] % (Auto) Eos % (Auto) Baso % (Auto) Lymph # (Auto) [place] # (Auto) Eos # (Auto) Baso # (Auto) Abs Immat Gran (auto) Absolute Neuts (auto) Absolute Nucleated RBC Nucleated RBC % Sodium Potassium Chloride Carbon Dioxide Anion Gap BUN Creatinine Estim Creat Clear Calc Estimated GFR Glucose POC Capillary Glucose 102 115 H Calcium Magnesium Total Bilirubin AST ALT Alkaline Phosphatase Total Protein Albumin Free T4 1.71 Total T3 0.72 L 10/02/24 10/02/24 10/02/24 16:42 17:01 19:58 WBC RBC Hgb Hct MCV MCH MCHC RDW Plt Count MPV Immature Gran % (Auto) Neut % (Auto) Lymph % (Auto) [place] % (Auto) Eos % (Auto) Baso % (Auto) Lymph # (Auto) [place] # (Auto) Eos # (Auto) Baso # (Auto) Abs Immat Gran (auto) Absolute Neuts (auto) Absolute Nucleated RBC Nucleated RBC % Sodium Potassium 4.2 Chloride Carbon Dioxide Anion Gap BUN Creatinine Estim Creat Clear Calc Estimated GFR Glucose POC Capillary Glucose 102 137 H Calcium Magnesium Total Bilirubin AST ALT Alkaline Phosphatase Total Protein Albumin Free T4 Total T3 10/03/24 10/03/24 06:02 07:30 WBC 9.1 RBC 3.72 L Hgb 11.5 L Hct 36.1 L MCV 97.0 MCH 30.9 MCHC 31.9 L RDW 13.5 Plt Count 209 MPV 10.1 Immature Gran % (Auto) 0.4 Neut % (Auto) 59.5 Lymph % (Auto) 21.3 [place] % (Auto) 16.2 H Eos % (Auto) 2.3 Baso % (Auto) 0.3 Lymph # (Auto) 1.94 [place] # (Auto) 1.5 H Eos # (Auto) 0.2 Baso # (Auto) 0.0 Abs Immat Gran (auto) 0.04 H Absolute Neuts (auto) 5.4 Absolute Nucleated RBC 0.000 Nucleated RBC % 0.0 Sodium 134 L Potassium 4.3 Chloride 95 L Carbon Dioxide 32 H Anion Gap 7 BUN 45 H Creatinine 1.52 H Estim Creat Clear Calc 31 Estimated GFR 33 L Glucose 74 POC Capillary Glucose 95 Calcium 9.2 Magnesium 1.8 Total Bilirubin 0.6 AST 27 ALT 10 Alkaline Phosphatase 74 Total Protein 7.0 Albumin 3.5 Free T4 Total T3 Quality VTE Prophylaxis VTE prophylaxis: pharmacologic ordered Hospitalist MIPS Advance Care Plan I have confirmed that the patient's Advanced Care Plan is present, code status is documented, or surrogate decision maker is listed in patient medical record.: Yes Medication Reconciliation I have utilized all available resources to obtain, update and review the patients current medications (includes all prescriptions, OTC, herbals, cannabis, and nutritional supplements).: Yes
[2024-10-03] MEDS: FUROSEMIDE INJ 40 MG/4 ML VIAL IV PUSH (08:47)
[2024-10-03] MEDS: HYDROcodone/acetaminophen (*CRX) 10-325 MG TABLET 1 TAB PO ×3 (08:48→23:06)
[2024-10-03] MEDS: PANTOPRAZOLE 40 MG TABLET PO ×2 (08:49→21:54)
[2024-10-03] MEDS: APIXABAN 2.5 MG TABLET PO ×2 (08:49→21:54)
[2024-10-03] MEDS: INSULIN GLARGINE (*BKC) 100 UNITS/ML 14 UNITS SUB-Q (09:04)
[2024-10-03] MEDS: FUROSEMIDE 40 MG TABLET PO (17:10)
[2024-10-03] MEDS: INSULIN ASPART (*BKC) 100 UNITS/ML SUB-Q (17:13)
[2024-10-03] MEDS: METOPROLOL SUCCINATE EXT REL 50 MG TABCR 150 MG PO (21:54)
[2024-10-03] MEDS: ROSUVASTATIN 5 MG TABLET PO (21:54)
[2024-10-04] VITALS (10 sets, daily range): BP systolic 119–150; BP diastolic 57–62; PULSE 68–90; RESP 18; TEMP 36.1–36.2; O2SAT 97–99
[2024-10-04] MEDS: LEVOTHYROXINE SODIUM 100 MCG TABLET PO (05:22)
[2024-10-04] MEDS: LEVOTHYROXINE SODIUM 75 MCG TABLET PO (05:56)
[2024-10-04] MEDS: APIXABAN 2.5 MG TABLET PO ×2 (08:06→21:42)
[2024-10-04] MEDS: HYDROcodone/acetaminophen (*CRX) 10-325 MG TABLET 1 TAB PO ×2 (08:06→21:42)
[2024-10-04] MEDS: FUROSEMIDE 40 MG TABLET PO (08:06)
[2024-10-04] MEDS: PANTOPRAZOLE 40 MG TABLET PO ×2 (08:07→21:42)
[2024-10-04] MEDS: CHOLECALCIFEROL (VITAMIN D3) 25 MCG (1,000 UNITS) TABLET 50 MCG PO (08:07)
[2024-10-04] MEDS: INSULIN GLARGINE (*BKC) 100 UNITS/ML 14 UNITS SUB-Q (08:09)
--- NOTE | 2024-10-04 09:04 | P.PNIM_ITS ---
Progress Note: A&P Assessment and Plan (1) Diastolic congestive heart failure: Qualifiers: Heart failure chronicity: acute on chronic Qualified Code(s): I50.33 - Acute on chronic diastolic (congestive) heart failure Code(s): I50.30 - Unspecified diastolic (congestive) heart failure Status: Acute (2) Venous stasis dermatitis: Code(s): I87.2 - Venous insufficiency (chronic) (peripheral) Status: Acute (3) Diabetes mellitus with chronic kidney disease: Qualifiers: Chronic kidney disease stage: stage 4 (severe) Diabetes mellitus mcfp insulin use: with intermediate manager use Diabetes mellitus type: type 2 Qualified Code(s): E11.22 - Type 2 diabetes mellitus with diabetic chronic kidney disease; N18.4 - Chronic kidney disease, stage 4 (severe); Z79.4 - correction (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 insulin Code(s): E11.22 - Type 2 diabetes mellitus with diabetic chronic kidney disease Status: Chronic (4) Morbid (severe) obesity due to excess calories: Code(s): E66.01 - Morbid (severe) obesity due to excess calories Status: Acute (5) Edema: Code(s): R60.9 - Edema, unspecified Status: Acute Assessment and Plan: Increased LE edema. Drinking more fluids and fast food. TTE 65-70 Plan 84-year-old female with history of chronic pain syndrome, spinal stenosis of lumbar region, hypothyroidism, hyperlipidemia, CKD, venous stasis, JAQUELINE noncompliant with CPAP, diastolic heart failure, paroxysmal atrial fibrillation on Eliquis, insulin-dependent diabetes mellitus, GERD, anxiety who presents to [facility] ER on 09/30/2024 with the complaint of swelling and weeping legs after discharge from rehab. In the ER she is slightly tachycardic, blood pressure 182/77, afebrile. Saturating well on room air. Chest x-ray with pulmonary vascular congestion and small bilateral pleural effusions. White count 8.7, sodium 134, BUN 65, serum creatinine 1.74, glucose 113, BNP 6800. Lower extremity edema Home Lasix 80mg daily. Self reduced to 40mg daily because unable to make it to the bathroom easily Legs were being wrapped at rehab but didn't have leg wraps after discharge. Can't put on compression wraps at home Repeat echo with normal EF moderate pulmonary hypertension. bnp 6830. Edema almost resolved, still has trace bilateral LE edema and erythema but not infectious appearing and is bilateral, improving. Erythema likely reactive from now resolving edema Changed IV lasix 80mg IV BID to PO 40mg BID 10/04, increased to 60mg BID. Also on spironolactone 12.5 BID. Compression wraps as able Limiting salt. Heart healthy Has been drinking a lot of water because she was told to stay well hydrated. Limit to 1500ml per day Weakness Generalized weakness. Required nurses to assist her this morning Discharge to rehab vs home with home health and leg wraps Hx afib Rate controlled Continue apixaban Metoprolol 150mg hs Uncontrolled diabetes HgbA1c 6.6 Fasting blood sugar 95 this morning Home insulin Lantus 36 units daily --Dose reduce by 20%, 14 units daily & lispro 4>2 TID --Continue SSI, adjust as needed Buttocks Pain/coccyx Had a fall in June, reports pain to middle and across buttocks since then but has gradually been improving Had right sacroiliitis on x-ray 07/24 --Consider a steroid injection if not resolving JAQUELINE non compliant with CPAP DVT proph: on eliquis code status: DNR Disposition: PT OT to see. Recently was discharged from rehab. Time Spent With Patient Time: 57 minutes Subjective Date/time seen: 10/04/24 10:25 Interval history: Needing a lot of assistance to get up. Some LE edema, minimally increased Still sore. No shortness of breath or chest pain. Planning discharge to [facility], pending auth PT reevaluating. Review of Systems Review of Systems: All systems reviewed & are unremarkable except as noted in HPI and below (HPI/subjective) Exam Narrative: General - Awake and alert. No acute distress Eyes - PERRLA, EOM intact ENT - No thrush, No erythema Neck - No noticeable or palpable swelling Lymph Nodes - No lymphadenopathy Cardiovascular - RRR no m/r/g, no JVD Lungs: rare crackles, no wheezing, no use of accessory muscles Skin - Skin warm and dry, no wounds or rashes Abdomen - Normal bowel sounds, abdomen soft and nontender Extremities - Trace edema, no cyanosis or clubbing. Mild erythema and a bruise to right lower leg Musculoskeletal - 5/5 strength, normal range of motion, no swollen or erythematous joints. Neurological ? Alert and oriented x 3, CN 2-12 grossly intact. Psych: Normal mood and affect Objective Data Vital Signs Vital Signs: Vital Signs - 24 hr 10/03/24 12:00 10/03/24 14:00 10/03/24 15:07 Temperature 96.6 F L Pulse Rate 82 82 Respiratory Rate 18 Blood Pressure 144/76 H Pulse Oximetry 98 97 Oxygen Delivery Room Air Fraction of Inspired Oxygen 10/03/24 16:00 10/03/24 20:00 10/03/24 20:25 Temperature 97.1 F L Pulse Rate 78 60 85 Respiratory Rate 16 Blood Pressure 116/62 Pulse Oximetry 99 Oxygen Delivery Fraction of Inspired Oxygen 10/03/24 21:54 10/03/24 23:38 10/04/24 00:00 Temperature Pulse Rate 87 90 90 Respiratory Rate 20 Blood Pressure Pulse Oximetry 98 Oxygen Delivery Fraction of Inspired Oxygen 21 10/04/24 04:00 10/04/24 05:00 10/04/24 08:00 Temperature 97.1 F L Pulse Rate 68 71 72 Respiratory Rate 18 Blood Pressure 119/62 Pulse Oximetry 97 Oxygen Delivery Fraction of Inspired Oxygen Intake/Output Intake/Output: Intake & Output 10/01/24 10/02/24 10/03/24 10/04/24 23:59 23:59 23:59 23:59 Intake Total 585 1110 820 238 Output Total 3250 4050 2950 600 Balance -2665 -2940 -2130 -362 Meds/Results Medications: Active Medications Generic Name Dose Route Start Last Admin Trade Name Freq PRN Reason Stop Dose Admin Acetaminophen 650 mg 10/01/24 11:15 Acetaminophen 325 Mg Tablet PO Q12H PRN pain 1-3 Hydrocodone Bitart/Acetaminophen 1 tab 10/01/24 11:15 10/04/24 08:06 Hydrocodone/Acetaminophen (*Crx) 10-325 Mg Tablet PO 1 tab Q6H PRN Administration pain 7-10 Apixaban 2.5 mg 10/01/24 09:00 10/04/24 08:06 Apixaban 2.5 Mg Tablet PO 2.5 mg Q12HR MARIELLA Administration Dextrose 12.5 gm 10/01/24 01:56 Dextrose 50% 25 Gm/50 Ml Syringe IV PUSH PRN PRN Hypoglycemia Protocol Furosemide 40 mg 10/03/24 17:00 10/04/24 08:06 Furosemide 40 Mg Tablet PO 40 mg BID MARIELLA Administration Glucose 15 gm 10/01/24 01:56 Glucose Oral Gel 15 Gm Of Glucse In 37.5 Gm Tube PO PRN PRN Hypoglycemia Protocol Dextrose 1,000 mls @ 100 mls/hr 10/01/24 01:56 Dextrose 5% 1,000 Ml IVPB PRN PRN Hypoglycemia Protocol Insulin Aspart 3 - 6 units 10/01/24 08:00 10/03/24 17:12 Insulin Aspart (*Bkc) 100 Units/Ml SUB-Q Not Given TIDWM MARIELLA Protocol Insulin Aspart 1 - 3 units 10/01/24 21:00 10/03/24 21:50 Insulin Aspart (*Bkc) 100 Units/Ml SUB-Q Not Given HS MARIELLA Protocol Insulin Aspart 4 units 10/03/24 12:00 10/04/24 08:11 Insulin Aspart (*Bkc) 100 Units/Ml SUB-Q Not Given TIDWM MARIELLA Insulin Glargine 14 units 10/04/24 09:00 10/04/24 08:09 Insulin Glargine (*Bkc) 100 Units/Ml SUB-Q 14 units QAM MARIELLA Administration Levothyroxine Sodium 100 mcg 10/01/24 11:35 10/04/24 05:22 Levothyroxine Sodium 100 Mcg Tablet PO 100 mcg DAILY@0630 MARIELLA Administration Levothyroxine Sodium 75 mcg 10/01/24 11:35 10/04/24 05:56 Levothyroxine Sodium 75 Mcg Tablet PO 75 mcg DAILY@0630 MARIELLA Administration Lisinopril 40 mg 10/01/24 11:15 10/04/24 08:06 Lisinopril 20 Mg Tablet BY MOUTH 40 mg QAM MARIELLA Administration Metoprolol Succinate 150 mg 10/01/24 21:00 10/03/24 21:54 Metoprolol Succinate Ext Rel 50 Mg Tabcr PO 150 mg HS MARIELLA Administration Pantoprazole Sodium 40 mg 10/01/24 11:40 10/04/24 08:07 Pantoprazole 40 Mg Tablet PO 40 mg Q12HR MARIELLA Administration Perflutren Lipid Microsphere 0 ml 10/01/24 11:17 Perflutren Lipid Microspheres 1.5 Ml Vial Diluted To 10 Ml Total Volume IV PUSH 10/04/24 11:17 ONCE PRN adequate visualization Protocol Rosuvastatin Calcium 5 mg 10/01/24 21:00 10/03/24 21:54 Rosuvastatin 5 Mg Tablet PO 5 mg HS MARIELLA Administration Spironolactone 12.5 mg 10/01/24 11:35 10/04/24 08:06 Spironolactone 12.5 Mg Tablet PO 12.5 mg BID MARIELLA Administration Vitamin D 50 mcg 10/04/24 09:00 10/04/24 08:07 Cholecalciferol (Vitamin D3) 25 Mcg (1,000 Units) Tablet PO 50 mcg DAILY MARIELLA Administration Radiology Results: ITS Impressions Chest X-Ray 09/30/24 23:29 IMPRESSION: Mild pulmonary vascular congestion with small bilateral pleural effusions. Venous Doppler Study 10/01/24 18:08 IMPRESSION: Patent bilateral lower extremity veins. No evidence of deep venous thrombosis. Labs Labs: Laboratory Results - last 24 hr 10/03/24 10/03/24 10/03/24 11:29 16:39 20:25 POC Capillary Glucose 118 H 144 H 156 H 10/04/24 10/04/24 01:17 07:25 POC Capillary Glucose 116 H 108 H Quality VTE Prophylaxis VTE prophylaxis: pharmacologic ordered Hospitalist MIPS Advance Care Plan I have confirmed that the patient's Advanced Care Plan is present, code status is documented, or surrogate decision maker is listed in patient medical record.: Yes Medication Reconciliation I have utilized all available resources to obtain, update and review the patients current medications (includes all prescriptions, OTC, herbals, cannabis, and nutritional supplements).: Yes
[2024-10-04 09:50] LABS: Hematocrit 37.2 % (37.0-47.0); Hemoglobin 11.8 g/dL (12.0-15.0); Immature Granulocyte Percent A 0.3 % (0-0.5); Lymphocytes Absolute Auto 1.56 K/mm3 (0.9-3.2); Mean Corpuscular HGB Conc 31.7 g/dl (32-36); Mean Corpuscular Hemoglobin 30.7 pg (26-34); Mean Corpuscular Volume 96.9 fl (80-100); Nucleated Red Blood Cells Absolute Auto 0.000 K/mm3 (0.0-0.012); Nucleated Red Blood Cells Perc 0.0 % (0.0-0.2); Platelet Count Result 206 k/mm3 (150-375); Red Blood Count 3.84 M/mm3 (4.2-5.4); White Blood Count 8.8 K/mm3 (4.5-10.0)
[2024-10-04 10:20] LABS: Anion Gap 7 mmol/L (4-12); Blood Urea Nitrogen 45 mg/dL (7-17); Calcium 9.0 mg/dL (8.4-10.2); Carbon Dioxide 29 mmol/L (22-30); Chloride 95 mmol/L (98-107); Estimated CRCL calculation 32 ml/min; Estimated Glomerular Filt Rate 34; Glucose 184 mg/dL (65-110); Potassium 4.0 mmol/L (3.4-5.0); Sodium 131 mmol/L (137-145)
[2024-10-04] MEDS: INSULIN ASPART (*BKC) 100 UNITS/ML SUB-Q ×2 (13:31→16:46)
[2024-10-04] MEDS: FUROSEMIDE 20 MG TABLET 60 MG PO (16:45)
[2024-10-04] MEDS: ROSUVASTATIN 5 MG TABLET PO (21:41)
[2024-10-04] MEDS: METOPROLOL SUCCINATE EXT REL 50 MG TABCR 150 MG PO (21:41)
[2024-10-05 04:40] VITALS: BP 99/49; PULSE 62; RESP 18; TEMP 35.9; O2SAT 98
[2024-10-05] MEDS: LEVOTHYROXINE SODIUM 75 MCG TABLET PO (05:44)
[2024-10-05] MEDS: LEVOTHYROXINE SODIUM 100 MCG TABLET PO (05:44)
[2024-10-05 06:26] VITALS: PULSE 60
[2024-10-05 08:00] VITALS: PULSE 77
[2024-10-05] MEDS: INSULIN GLARGINE (*BKC) 100 UNITS/ML 14 UNITS SUB-Q (08:22)
[2024-10-05] MEDS: INSULIN ASPART (*BKC) 100 UNITS/ML SUB-Q ×3 (08:22→17:15)
[2024-10-05] MEDS: HYDROcodone/acetaminophen (*CRX) 10-325 MG TABLET 1 TAB PO ×2 (08:23→17:15)
[2024-10-05] MEDS: FUROSEMIDE 20 MG TABLET 60 MG PO ×2 (08:23→17:15)
[2024-10-05] MEDS: CHOLECALCIFEROL (VITAMIN D3) 25 MCG (1,000 UNITS) TABLET 50 MCG PO (08:23)
[2024-10-05] MEDS: PANTOPRAZOLE 40 MG TABLET PO (08:24)
[2024-10-05] MEDS: APIXABAN 2.5 MG TABLET PO (08:24)
[2024-10-05 12:00] VITALS: PULSE 91
--- NOTE | 2024-10-05 13:33 | PM.DS ---
DS: Admitting Diagnosis Discharge Date 10/05/24 Admitting Diagnosis - acute on chronic HFpEF - venous stasis dermatitis - diabetes DS: Discharge Diagnosis Discharge Diagnosis (1) Diastolic congestive heart failure: Qualifiers: Heart failure chronicity: acute on chronic Qualified Code(s): I50.33 - Acute on chronic diastolic (congestive) heart failure Code(s): I50.30 - Unspecified diastolic (congestive) heart failure Status: Acute (2) Venous stasis dermatitis: Code(s): I87.2 - Venous insufficiency (chronic) (peripheral) Status: Acute (3) Diabetes mellitus with chronic kidney disease: Qualifiers: Diabetes mellitus type: type 2 Diabetes mellitus half-way insulin use: with half-way use Chronic kidney disease stage: stage 4 (severe) Qualified Code(s): E11.22 - Type 2 diabetes mellitus with diabetic chronic kidney disease; N18.4 - Chronic kidney disease, stage 4 (severe); Z79.4 - MCC (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 insulin Code(s): E11.22 - Type 2 diabetes mellitus with diabetic chronic kidney disease Status: Chronic (4) Morbid (severe) obesity due to excess calories: Code(s): E66.01 - Morbid (severe) obesity due to excess calories Status: Acute (5) Edema: Code(s): R60.9 - Edema, unspecified Status: Acute DS: Summary Hospital Course Reason for hospitalization: - acute on chronic HFpEF - venous stasis dermatitis Hospital Course: 84-year-old female with history of chronic pain syndrome, spinal stenosis of lumbar region, hypothyroidism, hyperlipidemia, CKD, venous stasis, JAQUELINE noncompliant with CPAP, diastolic heart failure, paroxysmal atrial fibrillation on Eliquis, insulin-dependent diabetes mellitus, GERD, anxiety who presents to [facility] ER on 09/30/2024 with the complaint of swelling and weeping legs after discharge from rehab. In the ED she was slightly tachycardic, blood pressure 182/77, afebrile. Saturating well on room air. Chest x-ray with pulmonary vascular congestion and small bilateral pleural effusions. White count 8.7, sodium 134, BUN 65, serum creatinine 1.74, glucose 113, BNP 6800. Admitted for Acute on chronic diastolic CHF. Patient was started on IV Lasix 80 mg b.i.d. adequate diuresis. Bilateral lower extremity edema improved. BLE venous doppler negative for DVT. Patient remained on room air. Transitioned to p.o. Lasix 60 mg b.i.d. Instructed fdc to recheck BMP and mag in 3 days. Instructed to continue sodium/fluid restriction. Patient noted to have bilateral venous stasis dermatitis likely related to volume overload. No signs of cellulitis. Discharge instructions included instructions to wrap legs daily and monitor skin integrity. Patient also noted to labile blood sugars. Home Lantus was reduced to 14 units daily. Discharge with instructions for sliding scale and for SNF to monitor blood sugars closely. PT/OT evaluated and recommended SNF. Patient discharged to SNF in stable condition. Status at Discharge Functional status at discharge: uses cane/walker Time Spent with Patient Time attestation: Total time spent providing and/or coordinating discharge services: Time spent: Greater than 30 minutes Exam Narrative: General: NAD, obese Eyes: EOMI ENT: neck supple Cardiovascular: Regular rate and rhythm Respiratory: Clear to auscultation, respirations even and unlabored on RA Gastrointestinal: Soft, non tender Genitourinary: no suprapubic tenderness Musculoskeletal: 1+ bilateral lower extremity pitting edema Skin: warm, dry, bilateral venous stasis, no tenderness or warmth Neuro: Alert. Psych: Mood appropriate DS: Data Data Completed and Pending Labs on day of discharge: Labs from last 24 hours 10/05/24 10/05/24 10/04/24 11:55 07:48 20:13 POC Capillary Glucose 134 H 140 H 144 H 10/04/24 16:24 POC Capillary Glucose 149 H Discharge Plan Discharge Attending physician on discharge: Andrew Wilkerson Consulting providers: Sally Aguirre Discharging Clinician: Sally Aguirre Anticipated Discharge Date/Time: 10/05/24 13:22 Patient Disposition: SNF Activity: as tolerated Diet: diabetic, low sodium and other - see discharge instructions Wound Care Instructions: change dressing daily and other - see discharge instructions Discharge Instructions: Take all medications as prescribed. Lasix was changed to 60mg BID. Repeat BMP and mag in 3 days and weekly for 4 weeks. Lantus was reduced to 14u daily and aspart 2u with meals with a low dose sliding scale. Patient should following a 2000mg sodium restriction and 2000 ml fluid restriction. Wrap legs in compression wraps daily, remove at night and inspect skin integrity. Follow-up with your primary care provider in one week. Return to the emergency department if you develop chest pain, shortness of breath, persistent fever >100.4, confusion, loss of consciousness. Patient Instructions: Heart Failure (DC) Patient Language: [place] Stand Alone Forms: General Discharge Information Discharge Medications: New insulin aspart U-100 100 unit/mL solution 1 sliding scale dose subcut USEASDIRECTD Qty: 10 0RF hydrocodone-acetaminophen 5-325 mg tablet 1 tablet PO Q6H PRN (Reason: pain) Qty: 12 0RF Continued acetaminophen [Tylenol] 325 mg capsule 650 mg PO Q12H PRN (Reason: pain) levothyroxine [Synthroid] 175 mcg tablet 175 mcg PO DAILY Qty: 90 2RF cholecalciferol (vitamin D3) 10 mcg (400 unit) capsule 2,000 unit PO DAILY (DME) lancets [OneTouch Delica Lancets] 33 gauge misc See Rx Instructions .Route Qty: 100 0RF Rx Instructions: As directed (DME) pen needle, diabetic 32 gauge x 5/32 needle See Rx Instructions .ROUTE .MEDSUPPLY Qty: 1200 Rx Instructions: As directed Eliquis 5 mg Tablet 5 mg PO Q12HR 30 Days Qty: 60 1RF spironolactone [Aldactone] 25 mg tablet 12.5 mg PO BID (DME) pen needle, diabetic [BD Ultra-Fine Mini Pen Needle] 31 gauge x 3/16 needle See Rx Instructions .Route Qty: 100 2RF Rx Instructions: Use with Lantus (DME) Blood Glucose Test Strip See Rx Instructions .Route Qty: 50 4RF Rx Instructions: Use to check BS BID lisinopril 40 mg tablet See Rx Instructions .ROUTE .COMPLEX Qty: 90 1RF Dose Instruction: TAKE 1 TABLET DAILY Rx Instructions: TAKE 1 TABLET DAILY metoprolol succinate 100 mg tablet extended release 24 hr 150 mg PO HS Qty: 135 1RF Rx Instructions: TAKE ONE AND ONE-HALF TABLETS DAILY rosuvastatin 5 mg tablet 5 mg PO HS Qty: 90 1RF omeprazole 40 mg capsule,delayed release(DR/EC) 40 mg PO DAILY Qty: 90 1RF Changed furosemide 40 mg tablet 60 mg PO BID Qty: 180 1RF Rx Instructions: pt. is to take two tablets daily of the 40mg tablets (80mg daily ) insulin glargine [Lantus Solostar U-100 Insulin] 100 unit/mL (3 mL) insulin pen 14 unit subcut QAM Qty: 30 3RF Discontinued hydrocodone-acetaminophen 10-325 mg tablet 1 tablet PO Q6H PRN (Reason: pain) 10 Days Qty: 12 0RF Other Ambulatory Orders: Basic Metabolic Panel (Routine) Timeframe: 3 Days Location: Determined by Patient Ordered By: Sally Aguirre Magnesium (Routine) Timeframe: 3 Days Location: Determined by Patient Ordered By: Sally Aguirre Date of admission: 10/01/24 01:17 Primary Care Provider: Cornell Beal Admitting Provider: Qing Rodriguez Attending physician on admission: Qing Rodriguez Condition: Stable
[2024-10-05 13:55] VITALS: BP 154/69; PULSE 77; RESP 14; TEMP 36.5; O2SAT 100
== END 2024-10-05 18:10 | DRG 291 ==
LOC: ANHED 23:13 → ANH3MEDSUR 10-01 02:21
PROVIDERS: Internal Medicine; Nurse Practitioner Acute Care; Admitting Provider General Practice; Emergency Provider Emergency Medicine; PCP Family Medicine; Visit Provider Physician Assistant
DX: I13.0 Hypertensive heart and chronic kidney disease with heart failure and stage 1 through stage 4 chronic kidney disease, or unspecified chronic kidney disease (principal); I50.33 Acute on chronic diastolic (congestive) heart failure; Z68.41 Body mass index [BMI] 40.0-44.9, adult; N18.4 Chronic kidney disease, stage 4 (severe); I27.20 Pulmonary hypertension, unspecified; E66.01 Morbid (severe) obesity due to excess calories; E11.22 Type 2 diabetes mellitus with diabetic chronic kidney disease; I87.2 Venous insufficiency (chronic) (peripheral); D64.9 Anemia, unspecified; I48.0 Paroxysmal atrial fibrillation; K21.9 Gastro-esophageal reflux disease without esophagitis; F41.9 Anxiety disorder, unspecified; G47.33 Obstructive sleep apnea (adult) (pediatric); M48.061 Spinal stenosis, lumbar region without neurogenic claudication; E78.2 Mixed hyperlipidemia; E03.9 Hypothyroidism, unspecified; R53.1 Weakness; M53.3 Sacrococcygeal disorders, not elsewhere classified; M17.0 Bilateral primary osteoarthritis of knee; G89.4 Chronic pain syndrome; Z66 Do not resuscitate; Z79.01 Long term (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 anticoagulants; Z79.4 Long term (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 insulin; Z79.899 Other long term (current) drug therapy; Z87.891 Personal history of nicotine dependence; Z90.49 Acquired absence of other specified parts of digestive tract; Z90.710 Acquired absence of both cervix and uterus; Z91.199 Patient's noncompliance with other medical treatment and regimen due to unspecified reason; Z91.81 History of falling; Z96.82 Presence of neurostimulator
CPT/HCPCS: 36415; 71045; 80048; 80053; 82948; 83735; 83880; 84132; 84439; 84443; 84480; 85025; 93306; 93308; 93970; 96374; 97110; 97116; 97161; 97165; 97530; 97535; 99285; A9270; J1815; J1938; J3475

== ENCOUNTER 2024-11-04 10:39 | Inpatient (IN) | payer MEDICARE, SELFPAY ==
--- OUTSIDE RECORDS SUMMARY | 2009-04-25 19:00 | XMS_ITS | Continuity of Care Document ---
Author Organization [facility] [place] [place] Address [address] [place] [address] [place] [address] Phone Care Team Providers Care Metallurgical Technician Name Role Phone Daron Smith Unavailable Unavailable [...] Diagnoses Date Provider Providers Copied on Encounter [facility], [address], [place], [place], [address], tel:[phone] [place] [address] No Information 2 5-201 0 Krishnasmargo Daron. [address], [place], [facility], [place]. tel:[phone] Referring Provider: Daron Smith, [address], [place], [place], [facility]. tel:[phone] [facility], [address] [place] [address] [address], [place], [place], [address], [place] tel:[phone] [place] [address] No Information 6-201 0 Krishnasmargo Daron. [facility] [address], [place], [facility], [place]. tel:[phone] Referring Provider: Daron Smith, [facility] Corporate Center [facility] [address], [place], [facility]. tel:[phone] [facility], [address] [place] [address] [address], [place], [place], [address], [place] tel:[phone] [facility] No Information 1-200 9 Krishnasmargo Daron. [facility] Corporate Center [facility] [address], [place], [facility], [place]. tel:[phone] Referring Provider: Daron Smith, [facility] [address], [place], [facility]. tel:[phone] [facility], [address] [place] [address] [address], [place], [place], [address], [place] tel:[phone] [place] [address] No Information 0 4-200 9 Krishnasmargo Daron. [facility] [address], [place], [facility], [place]. tel:[phone] Referring Provider: Daron Smith, [address], [place], [facility]. tel:[phone] [facility], [address] [place] [address] [address], [place], [place], [address], [place] tel:[phone] [facility] No Information Apr-0 3-200 9 Krishnasamy Daron. [address], [address], [place]. tel:[phone] Referring Provider: Daron Smith, [address] [place] [address], [facility]. tel:[phone] [facility], [address] [place] [address] [address], [place], [place], [address], [place] tel:[phone] [facility] No Information 8-200 8 [facility]. [address] [facility], [address], [place], [place], [address], [place]. tel:[phone] Consulting Provider: Dee Shaffer, [address] [place], [place], [facility]. tel:[phone] [facility], [address] [place] [address] [address], [place], [place], [address], [place] tel:[phone] [facility] No Information 8-200 8 Krishnasamy Daron. [facility] [address], [address], [place]. tel:[phone] Office/outpa tient Visit, [facility], [address] [place] [address] [address], [place], [place], [address], [place] tel:[phone] [facility] No Information 2-200 8 Krishnasamy Daron. [facility] [address], [address], [place]. tel:[phone] [facility], [address] [place] [address] [address], [place], [place], [address], [place] tel:[phone] [facility] No Information Apr-2 7-200 8 Krishnasamy Daron. [address], [place], [address], [place]. tel:[phone] [facility], [address], [place], [place], [address], [place] tel:[phone] [facility] No Information Feb-2 7-200 8 [facility] [employer]. [address] [facility], [facility] 111, [place], [place], [address], [place]. tel:[phone] Consulting Provider: Dee Shaffer, [address] [place] [address], [address]. tel:[phone] [facility], [address] [place] [address], [place], [place], [address], [place] tel:[phone] [facility] No Information Jan-1 4-200 7 [facility] [employer]. [address] [facility], [address], [place], [place], [address], [place]. tel:[phone] Consulting Provider: Dee Shaffer, [address] [place] [address], [address]. tel:[phone] [facility], [address] [facility] [address], [place], [place], [address], [place] tel:[phone] [facility] No Information Adin-2 0-200 7 [facility] [employer]. [address] [facility], [address], [place], [place], [address], [place]. tel:[phone] Referring Provider: Genna Thomason, [address], [place], [address]. tel:[phone] g Provider: Dee Shaffer, [address] [place] [address], [address]. tel:[phone] [facility], [address] [facility] [address], [place], [place], [address], [place] tel:[phone] [facility] No Information 200 7 Arcelia Vail. [address] , [address], [place], [address], [place]. tel:[phone] Family History Family Member Type Diagnosis Age At Onset No Information Payers Payer name Insurance type Covered green party ID Authoriza tion(s) [place] [id number] [facility] Custom Care [id number] Social History Type Description Quantity Date Captured [...]
--- OUTSIDE RECORDS SUMMARY | 2009-04-25 19:00 | XMS_ITS | Continuity of Care Document ---
Author Organization [facility] Address [address] [place] [address] [place] [address] Phone Care Team Providers Care Art Gallery Internship Name Role Phone Daron Smith Unavailable Unavailable [...] Diagnoses Date Provider Providers [facility]ied on [facility]counter [facility], [address] [address], [place], [place], [address], tel:[phone] [place] [address] No Information 2 5-201 0 Krishnasmargo Daron. [address], [place], [facility], [place]. tel:[phone] Referring Provider: Daron Smith, [address], [place], [place], [facility]. tel:[phone] [facility], [address] [place] [address] [address], [place], [place], [address], [place] tel:[phone] [place] [address] No Information 6-201 0 Krishnasmargo Daron. [facility] [address], [place], [facility], [place]. tel:[phone] Referring Provider: Daron Smith, [facility] Corporate Center [facility] [address], [place], [facility]. tel:[phone] [facility], [address] [place] [address] [address], [place], [place], [address], [place] tel:[phone] [facility] No Information 1-200 9 Krishnasmargo Daron. [facility] Corporate Center [facility] [address], [place], [facility], [place]. tel:[phone] Referring Provider: Daron Smith, [facility] [address], [place], [facility]. tel:[phone] [facility], [address] [place] [address] [address], [place], [place], [address], [place] tel:[phone] [place] [address] No Information 0 4-200 9 Krishnasmargo Daron. [facility] [address] Center [facility] [address], [place], [facility], [place]. tel:[phone] Referring Provider: Daron Smith, [address], [place], [facility]. tel:[phone] [facility], [address] [place] [address] [address], [place], [place], [address], [place] tel:[phone] [facility] No Information Apr-0 3-200 9 Krishnasamy Daron. [address], [address], [place]. tel:[phone] Referring Provider: Daron Smith, [address] [place] [address], [facility]. tel:[phone] [facility], [address] [place] [address] [address], [place], [place], [address], [place] tel:[phone] [facility] No Information 8-200 8 [facility]. [address] [facility], [address], [place], [place], [address], [place]. tel:[phone] Consulting Provider: Dee Shaffer, [address] [place], [place], [facility]. tel:[phone] [facility], [address] [place] [address] [address], [place], [place], [address], [place] tel:[phone] [facility] No Information 8-200 8 Krishnasamy Daron. [facility] [address], [address], [place]. tel:[phone] Office/outpa tient Visit, [facility] [address] [place] [address] [address], [place], [place], [address], [place] tel:[phone] [facility] No Information 2-200 8 Krishnasamy Daron. [facility] [address], [address], [place]. tel:[phone] [facility], [address] [place] [address] [address], [place], [place], [address], [place] tel:[phone] [facility] No Information Apr-2 7-200 8 Krishnasamy Daron. [address], [place], [address], [place]. tel:[phone] [facility], [address], [place], [place], [address], [place] tel:[phone] [facility] No Information Feb-2 7-200 8 [employer]. [address] [facility], [facility] 111, [place], [place], [address], [place]. tel:[phone] Consulting Provider: Dee Shaffer, [address] [place] [address], [address]. tel:[phone] [facility], [address], [place], [place], [address], [place] tel:[phone] [facility] No Information Jan-1 4-200 7 [employer]. [address] [facility], [address], [place], [place], [address], [place]. tel:[phone] Consulting Provider: Dee Shaffer, [address] [place] [address], [address]. tel:[phone] [facility], [address] [facility] [address], [place], [place], [address], [place] tel:[phone] [facility] No Information Adin-2 0-200 7 [employer]. [address] [facility], [address], [place], [place], [address], [place]. tel:[phone] Referring Provider: Genna Thomason, [address], [place], [address]. tel:[phone] g Provider: Dee Shaffer, [address] [place] [address], [address]. tel:[phone] [facility], [address] [facility] [address], [place], [place], [address], [place] tel:[phone] [facility] No Information 200 7 Arcelia [place]. [address] , [address], [place], [address], [place]. tel:[phone] Family History Family Member Type Diagnosis Age At Onset No Information Payers Payer name Insurance type Covered green party ID Authoriza tion(s) [place] [id number] [facility] [place] Custom Care [id number] Social History Type Description Quantity Date Captured [...]
--- OUTSIDE RECORDS SUMMARY | 2024-11-03 03:45 | XMS_ITS ---
Author Organization [facility] Address [address] [place] [id number] Care Team Providers Care Instructor [employer] Name Role Phone PAUL ALSTON Primary Care Provider Mellissa Marieberly Unavailable [phone] REASON FOR VISIT LV, dc eval Medications Medication SIG (Take, Route, Frequency, Duration) Notes Start Date End Date Status Omeprazole 20 MG Capsule Delayed Release 2 tablets Orally Once a day Active Metoprolol Succinate ER 100 MG Tablet Extended Release 24 Hour 1 tablet Orally Once a day to be given with 50 mg. total 150 daily Active Lisinopril 40 MG Tablet 1 tablet Orally Once a day Active Levothyroxine Sodium 175 MCG Tablet 1 tablet in the morning on an empty stomach Orally Once a day Active Lantus 100 UNIT/ML Solution 36 units Sub cutaneous daily Active Eliquis 5 MG Tablet 1 tablet Orally twic e a day Active Acetaminophen 325 MG Tablet 2 tablet as needed Orally every 12 hours Active Vitamin D3 125 MCG (5000 UT) Capsule 1 capsule Orally Once a day Active Rosuvastatin Calcium 5 MG Tablet 1 tablet Orally Once a day Active Furosemide 20 MG Tablet 3 tablets Orally twice a day Active Bumetanide 1 MG Tablet 1 tablet Orally t wice a day Active Voltaren Arthritis Pain 1 % Gel as directed Externally Activ e rOPINIRole HCl 0.25 MG Tablet 1 tablet 1 to 3 hours before bedtime Orally Once a day Active metOLazone 2.5 MG Tablet 1 tablet Orally daily Active Potassium Chloride 20 MEQ Tablet Extended Release 1 tablet with food Orally Once a day Active HYDROcodone-Acetaminophen 5-325 MG Tablet 1 tablet Orally 4 times a day As needed 10/25/2024 Active Potassium Chloride 20 MEQ Packet 1 packet with food Orally Once a day; Duration: 30 days 10/28/2024 Active Encounters Encounter Location Date Provider Diagnosis [facility] [address] [place] [id number] 11/03/2024 Rosalie Marie Plan Of Treatment No Information Progress Notes * Payton BURR[birth year]SDOB:[birth year] (84 yo F)Acc No.[id number]:11/03/2024 Patient: Estuardo estrada Payton Provider: SLOAN Willis :1940 A ge:84 Y S ex:Female Date:11/03/2024 Address:[address] [place] [address] Pcp:PAUL ALSTON Subjective: * Chief Complaints: * L V, dc eval * Medications: T akingmetOLazone 2.5 MG Tablet 1 tablet Orally daily Potassium Chloride 20 MEQ Tablet Extended Release 1 tablet with food Orally Once a day Bumetanide 1 MG Tablet 1 tablet Orally twice a day Voltaren Arthritis Pain 1 % Gel as directed Externally rOPINIRole HCl 0.25 MG Tablet 1 tablet 1 to 3 hours before bedtime Orally Once a day Furosemide 20 MG Tablet 3 tablets Orally twice a day Eliquis 5 MG Tablet 1 tablet Orally twice a day Acetaminophen 325 MG Tablet 2 tablet as needed Orally every 12 hours Vitamin D3 125 MCG (5000 UT) Capsule 1 capsule Orally Once a day Rosuvastatin Calcium 5 MG Tablet 1 tablet Orally Once a day Omeprazole 20 MG Capsule Delayed Release 2 tablets Orally Once a day Metoprolol Succinate ER 100 MG Tablet Extended Release 24 Hour 1 tablet Orally Once a day to be given with 50 mg. total 150 dailyLisinopril 40 MG Tablet 1 tablet Orally Once a day Levothyroxine Sodium 175 MCG Tablet 1 tablet in the morning on an empty stomach Orally Once a day Lantus 100 UNIT/ML Solution 36 units Subcutaneous daily HYDROcodone-Acetaminophen 5-325 MG Tablet 1 tablet Orally 4 times a day As neededPotassium Chloride 20 MEQ Packet 1 packet with food Orally Once a day Taking metOLazone 2.5 MG Tablet 1 tablet Orally daily Taking Potassium Chloride 20 MEQ Tablet Extended Release 1 tablet with food Orally Once a day Taking Bumetanide 1 MG Tablet 1 tablet Orally twice a day Taking Voltaren Arthritis Pain 1 % Gel as directed Externally Taking rOPINIRole HCl 0.25 MG Tablet 1 tablet 1 to 3 hours before bedtime Orally Once a day Taking Furosemide 20 MG Tablet 3 tablets Orally twice a day Taking Eliquis 5 MG Tablet 1 tablet Orally twice a day Taking Acetaminophen 325 MG Tablet 2 tablet as needed Orally every 12 hours Taking Vitamin D3 125 MCG (5000 UT) Capsule 1 capsule Orally Once a day Taking Rosuvastatin Calcium 5 MG Tablet 1 tablet Orally Once a day Taking Omeprazole 20 MG Capsule Delayed Release 2 tablets Orally Once a day Taking Metoprolol Succinate ER 100 MG Tablet Extended Release 24 Hour 1 tablet Orally Once a day to be given with 50 mg. total 150 dailyTaking Lisinopril 40 MG Tablet 1 tablet Orally Once a day Taking Levothyroxine Sodium 175 MCG Tablet 1 tablet in the morning on an empty stomach Orally Once a day Taking Lantus 100 UNIT/ML Solution 36 units Subcutaneous daily Taking HYDROcodone-Acetaminophen 5-325 MG Tablet 1 tablet Orally 4 times a day As neededTaking Potassium Chloride 20 MEQ Packet 1 packet with food Orally Once a day * Electronic signature of HOMERO Hernandes on 11/04/2024 at 10:52 AM CDT Sign off status: Pending * Provider: SLOAN Willis Date: 11/03/2024 Generated for Nichole gonzalez/Janett/Franklin on: 11/04/2024 10:52 AM CDT
--- OUTSIDE RECORDS SUMMARY | 2024-11-03 22:23 | XMS_ITS ---
Author Organization [facility] Address [address] [place] [id number] Care Team Providers Care Cannon Pinion Adjuster Name Role Phone PAUL ALSTON Primary Care Provider [phone] Allergies Allergen (clinical drug ingredient) Drug/Non Drug Allergy documented on EMR Reaction Allergy Type Onset Date Status duloxetine Cymbalta Unknown Drug Allergy Active bumetanide Bumetanide vomiting Drug Allergy Activ e celecoxib Celecoxib Unknown Drug Allergy Active duloxetine Duloxetine Unknown Drug Allergy Activ e sertraline Sertraline Unknown Drug Allergy Activ e terbinafine Terbinafine Unknown Drug Allergy Act salas REASON FOR VISIT CHART PREP Medications Medication SIG (Take, Route, Frequency, Duration) Notes Start Date End Date Status Acetaminophen 325 MG Tablet 2 tablet as needed Orally every 12 hours Active rOPINIRole HCl 0.25 MG Tablet 1 tablet 1 to 3 hours before bedtime Orally Once a day Active Voltaren Arthritis Pain 1 % Gel as directed Externally Activ e Eliquis 5 MG Tablet 1 tablet Orally twic e a day Active Furosemide 20 MG Tablet 3 tablets Orally twice a day Active metOLazone 2.5 MG Tablet 1 tablet Orally daily Active Potassium Chloride 20 MEQ Tablet Extended Release 1 tablet with food Orally Once a day Active HYDROcodone-Acetaminophen 5-325 MG Tablet 1 tablet Orally 4 times a day As needed 10/25/2024 Active Potassium Chloride 20 MEQ Packet 1 packet with food Orally Once a day; Duration: 30 days 10/28/2024 Active Metoprolol Succinate ER 100 MG Tablet Extended Release 24 Hour 1 tablet Orally Once a day to be given with 50 mg. total 150 daily Active Omeprazole 20 MG Capsule Delayed Release 2 tablets Orally Once a day Active Levothyroxine Sodium 175 MCG Tablet 1 tablet in the morning on an empty stomach Orally Once a day Active Lisinopril 40 MG Tablet 1 tablet Orally Once a day Active Lantus 100 UNIT/ML Solution 36 units Sub cutaneous daily Active Vitamin D3 125 MCG (5000 UT) Capsule 1 capsule Orally Once a day Active Rosuvastatin Calcium 5 MG Tablet 1 tablet Orally Once a day Active Social History Tobacco Use: Social History Observation Description Date Details (start date - stop date) Former Smoker NA - NA Social History Tobacco Use: Social Info Question Answer Notes Tobacco Control (Standard) Tobacco use: Former smoker Encounters Encounter Location Date Provider Diagnosis [facility] [address] [place] [address] 11/04/2024 PAUL ALSTON Plan Of Treatment No Information Progress Notes * Payton BURROUGHSDOB:[birth year] (84 yo F)Acc No.[id number]:11/04/2024 Patient: Payton NORMAN :1940 A ge:84 Y S ex:Female Address:[address] [place] [address] Subjective: * Chief Complaints: * C COLLINS PREP * Medical History: Acute on chronic diastolic (congestive) heart failure Unspecified atrial fibrillation Type 2 diabetes mellitus with diabetic chronic kidney disease Other abnormalities of gait and mobility Muscle weakness (generalized) Chronic kidney disease, stage 4 (severe) Cognitive communication deficit Cellulitis, unspecified Spinal stenosis, lumbosacral region Fluid overload, unspecified Unspecified diastolic (congestive) heart failure Encounter for prophylactic measures, unspecified Constipation, unspecified Flatulence Nausea with vomiting, unspecified Erythematous condition, unspecified Pain, unspecified Vitamin D deficiency, unspecified Pruritus, unspecified Anxiety disorder, unspecified Chronic kidney disease, stage 3 unspecified Gastro-esophageal reflux disease without esophagitis Mixed hyperlipidemia Sleep apnea, unspecified Essential (primary) hypertension Bilateral primary osteoarthritis of knee Acute on chronic diastolic (congestive) heart failure Hypothyroidism, unspecified Unspecified diastolic (congestive) heart failure Muscle weakness (generalized) Other lack of coordination Unspecified abnormalities of gait and mobility * Surgical History: hysterectomy tonsillectom bilateral cataract extraction appendectomy status post insertion of spinal cord stimulator thumb surgery hand surgery lipoma resection Surgical History verified. * Family History: F ather: diagnosed with Diabetes, Hypertension, Heart Disease. F amily History Verified..? * Social History: T obacco Use: T obacco Control (Standard) T obacco use: F ormer smoker. Social History Verified. * Medications: T akingmetOLazone 2.5 MG Tablet 1 tablet Orally daily Potassium Chloride 20 MEQ Tablet Extended Release 1 tablet with food Orally Once a day Voltaren Arthritis Pain 1 % [...] 100 UNIT/ML Solution 36 units Subcutaneous daily HYDROcodone- Acetaminophen 5-325 MG Tablet 1 tablet Orally 4 times a day As neededPotassium Chloride 20 MEQ Packet 1 packet with food Orally Once a day Taking metOLazone 2.5 MG Tablet 1 tablet Orally daily Taking Potassium Chloride 20 MEQ Tablet Extended Release 1 tablet with food Orally Once a day Taking Voltaren Arthritis Pain 1 [...] packet with food Orally Once a day DiscontinuedBumetanide 1 MG Tablet 1 tablet Orally twice a day Discontinued Bumetanide 1 MG Tablet 1 tablet Orally twice a day * Allergies: B umetanide: vomitingCelecoxibCymbaltaDuloxetineSertralineTerbinafineyesAllergies Verified. * true * Date: Generated for Nichole gonzalez/Janett/Franklin on: 0 11/04/2024 10:52 AM CDT
[2024-11-04] VITALS (14 sets, daily range): BP systolic 116–164; BP diastolic 55–89; PULSE 69–98; RESP 13–20; TEMP 36.1–36.6; O2SAT 95–100; BMI 42.5
--- NOTE | ~2024-11-04 | US_ITS ---
EXAMINATION: US renal BI DATE: 11/05/2024 08:39 INDICATION: Acute renal insufficiency TECHNIQUE: Multiple ultrasound grayscale images of the kidneys were obtained. COMPARISON: None. FINDINGS: The right kidney measures 9.5 x 5.7 x 5.0 cm. The left kidney measures 10.5 x 4.9 x 4.6 cm. The kidneys demonstrate normal echogenicity. There is no hydronephrosis in either kidney. No stones identified. The bladder is normal. IMPRESSION: 1. Normal kidneys without hydronephrosis. Reviewed, dictated and finalized at location A.
--- NOTE | ~2024-11-04 | XR_ITS ---
EXAM/PROCEDURE: XR chest 1V portable - 11/04/2024 11:35 CDT HISTORY: 84 years old Female with cough TECHNIQUE: Two view(s) of the chest. COMPARISON: None available. FINDINGS: LUNGS/ PLEURA: Mild vascular congestion with increased interstitial markings. Small bilateral pleural effusions. HEART/ MEDIASTINUM: Mild cardiomegaly. BONES: Degenerative changes. OTHER: Visualized upper abdomen is unremarkable. Partially visualized spinal stimulator leads. IMPRESSION: Mild CHF. Superimposed infection cannot be excluded. Clinical correlation is recommended. Reviewed, dictated and finalized at location N. IMPRESSION: Mild CHF. Superimposed infection cannot be excluded. Clinical correlation is re commended.
--- OUTSIDE RECORDS SUMMARY | 2024-11-04 10:52 | XMS_ITS | Clinical Summary ---
Author Organization [facility] Address [address] [facility] [place] [address] Care Team Providers Care [employer] Sprayer Name Role Phone Alivia Esposito MD Unavailable [phone] Kamaljit Stiles MD Primary Care Provider [phone] Allergies Active Allergy Reactions Criticality Noted Date Comments Duloxetine Palpitations,Nausea only Low 05/06/2018 Medications levothyroxine (SYNTHROID) 150 mcg tablet Take 175 mcg by mouth internet and e business project manager before breakfast Active metoprolol XL [...] by mouth every morning . Active lisinopril (PRINIVIL,ZESTR IL) 40 mg [...] a day 180 tablet 3 5 Active Active Problems Problem Noted Date Diagnosed [...] (11/30/2018): Added automatically from request for surgery [id number] Hip pain 05/06/2018 Assessment & Plan (05/06/2018 5:11 PM CABLE TOWER OPERATOR): Ms. Burroughs has bilateral hip issues left greater than right with weakness in her iliopsoas muscle and markedly positive SATINDER signs. I think that this is her primary problem. She will follow-up with Dr. Bronwing who she has seen before for her knee. She reports that she had a very good rapport with him. Lumbar stenosis 05/06/2018 Assessment & Plan (05/06/2018 5:12 PM CABLE TOWER OPERATOR): Ms. Burroughs also has lumbar stenosis at [...] Description 2024 11:00 AM CDT Office Visit [facility] [address] [place] [phone] Jovany Carney MD Atrial fibrillation with [...] on file Legal Sex Female 5:18 PM CABLE TOWER OPERATOR Gender Identity Not on file Sexual Orientation [...] 2025 2024 Medical Devices Implanted Type Area Air Tube Releaser Device Identifier Shelf Expiration Date Model / Serial / Lot [employer] 3186ans Octrode 60cm 8 Electrode Lead Percutaneous Kit Neurostimulator - [id number] - [id number] Implanted:Qty: 1 on 04/01/2019 by Alivia Esposito MD at [facility] N/A: Spine Thoracic [employer] 12/02/2020 [id number] / [id number] / [employer] 3186ans Octrode 60cm 8 Electrode Lead Percutaneous Kit Neurostimulator - [id number] - [id number] Implanted:Qty: 1 on 04/01/2019 by Alivia Esposito MD at [facility] N/A: Spine Thoracic [employer] 11/04/2020 [id number] / [id number] / [employer] [address] [place] [place] Lead - [id number] Implanted:Qty: 1 on 04/01/2019 by Alivia Esposito MD at [facility] N/A: Spine Thoracic [employer] 10/07/2020 1192 / / [id number] [employer] [address] [place] Lead - [id number] Implanted:Qty: 1 on 04/01/2019 by Alivia Esposito MD at [facility] N/A: Spine Thoracic [employer] 03/25/2020 1192 / / [id number] [employer] 3660 Contrlsys [employer] Elite 4.95cmx5.55cm 5 Implantable Pulse Tonic - [id number] - [id number] Implanted:Qty: 1 on 04/01/2019 by Alivia Esposito MD at [facility] N/A: Spine Thoracic [employer] 12/02/2020 3660 CONTRLSYS / [id number] / Procedures Procedure Name Priority Date/Time Associated [...] Final from Last 3 Months Insurance MEDICARE [place] MEDICARE SU[place]LEMENT Care Teams [employer] Sprayer Relationship Specialty Start Date End Date Kamaljit Stiles MD [address] [place] [id number] PCP - General Family Medicine 09/08/22 Alivia Esposito MD [address] [place] [address] Surgeon Anesthesiology 04/01/19
--- OUTSIDE RECORDS SUMMARY | 2024-11-04 10:52 | XMS_ITS | Patient Health Record ---
Author Organization [facility] Address [address] [place] [phone] Care Team Providers Care Shoe Cobbler Name Role Phone PAUL ALSTON Primary Care Provider [phone] Charity Ruth Unavailable [phone] FrankMellissaRosalie Unavailable [phone] RosangelaMeghann Unavailable [phone] Allergies Allergen (clinical drug ingredient) Drug/Non Drug Allergy documented on EMR Reaction Allergy Type Onset Date Status duloxetine Cymbalta Unknown Drug Allergy Active bumetanide Bumetanide vomiting Drug Allergy Activ e celecoxib Celecoxib Unknown Drug Allergy Active duloxetine Duloxetine Unknown Drug Allergy Activ e sertraline Sertraline Unknown Drug Allergy Activ e terbinafine Terbinafine Unknown Drug Allergy Act salas Results Component Value Reference Range Notes TSH+Free T4 Reviewed date:08/10/2024 11:03:31 AM Interpretation: Performing Lab: Notes/Report: Reason For Referral No Information Medications Medication SIG (Take, Route, Frequency, Duration) Notes Start Date End Date Status Rosuvastatin Calcium 5 MG Tablet 1 tablet Orally Once a day Active Vitamin D3 125 MCG (5000 UT) Capsule 1 capsule Orally Once a day Active Acetaminophen 325 MG Tablet 2 tablet as needed Orally every 12 hours Active HYDROcodone-Acetaminophen 5-325 MG Tablet 1 tablet Orally 4 times a day As needed 10/25/2024 Active metOLazone 2.5 MG Tablet 1 tablet Orally daily Active Metoprolol Succinate ER 100 MG Tablet Extended Release 24 Hour 1 tablet Orally Once a day to be given with 50 mg. total 150 daily Active Omeprazole 20 MG Capsule Delayed Release 2 tablets Orally Once a day Active Levothyroxine Sodium 175 MCG Tablet 1 tablet in the morning on an empty stomach Orally Once a day Active Potassium Chloride 20 MEQ Tablet Extended Release 1 tablet with food Orally Once a day Active Lisinopril 40 MG Tablet 1 tablet Orally Once a day Active rOPINIRole HCl 0.25 MG Tablet 1 tablet 1 to 3 hours before bedtime Orally Once a day Active Voltaren Arthritis Pain 1 % Gel as directed Externally Activ e Lantus 100 UNIT/ML Solution 36 units Sub cutaneous daily Active Eliquis 5 MG Tablet 1 tablet Orally twic e a day Active Furosemide 20 MG Tablet 3 tablets Orally twice a day Active Potassium Chloride 20 MEQ Packet 1 packet with food Orally Once a day; Duration: 30 days 10/28/2024 Active Social History Tobacco Use: Social History Observation Description Date Details (start date - stop date) Former Smoker NA - NA Social History Drug/Alcohol: Social Info Question Answer Notes Drugs Have you used drugs other than those for medical reasons in the past 12 months? No AUDIT-C (Standard) Did you have a drink containing alcohol in the past year? Yes How often did you have a drink containing alcohol in the past year? Declined to specify (0 point) How many drinks did you have on a typical day when you were drinking in the past year? Declined to specify (0 point) How often did you have six or more drinks on one occasion in the past year? Declined to specify (0 point) Points 0 Interpretation Negative Tobacco Use: Social Info Question Answer Notes Tobacco Control (Standard) Tobacco use: Former smoker Problems Problem Type SNOMED Code ICD Code Onset Dates Problem Status W/U Status Risk Notes Problem Hypothyroidism (05518468) Hypothyroidism, unspecified (E03.9) Active confirmed Problem Diabetic renal disease (001907959) Type 2 diabetes mellitus with diabetic chronic kidney disease (E11.22) Active confirmed Problem Vitamin D deficiency (27225685) Vitamin D deficiency, unspecified (E55.9) Active confirmed Problem Mixed hyperlipidemia (034030232) Mixed hyperlipidemia (E78.2) Active confirmed Problem Anxiety disorder (535657086) Anxiety disorder, unspecified (F41.9) Active confirmed Problem Sleep apnea (98632508) Sleep apnea, unspecified (G47.30) Active confirmed Problem Chronic pain (72137297) Other chronic pain (G89.29) Active confirmed Problem Essential hypertension (92193781) Essential (primary) hypertension (I10) Active confirmed Problem Atrial fibrillation (02702032) Unspecified atrial fibrillation (I48.91) Active confirmed Problem Diastolic heart failure (510408522) Unspecified diastolic (congestive) heart failure (I50.30) Active confirmed Problem Acute on chronic diastolic heart failure (783616522) Acute on chronic diastolic (congestive) heart failure (I50.33) Active confirmed Problem Gastro-esophageal reflux disease without esophagitis (402285241) Gastro-esophageal reflux disease without esophagitis (K21.9) Active confirmed Problem Constipation (09091550) Constipation, unspecified (K59.00) Active confirmed Problem Osteoarthritis of knee (608475009) Bilateral primary osteoarthritis of knee (M17.0) Active confirmed Problem Spinal stenosis of lumbar region (68657371) Spinal stenosis, lumbosacral region (M48.07) Active confirmed Problem Chronic kidney disease stage 4 (902420192) Chronic kidney disease, stage 4 (severe) (N18.4) Active confirmed Problem Abnormal gait (82209371) Other abnormalities of gait and mobility (R26.89) Active confirmed Problem Abnormal gait (62835232) Unspecified abnormalities of gait and mobility (R26.9) Active confirmed Problem Lack of coordination (292383247) Other lack of coordination (R27.8) Active confirmed Problem 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) Cognitive communication deficit (R41.841) Active confirmed Problem Chronic kidney disease stage 3 (disorder) (855320142) Chronic kidney disease, stage 3 unspecified (N18.30) Active confirmed Problem Chronic kidney disease stage 3B (disorder) (108373476) Chronic kidney disease, stage 3b (N18.32) Active confirmed Problem Vitamin D deficiency (16395149) Vitamin D deficiency (E55.9) Active confirmed Problem Lymphedema (43392295) Lymphedema (I89.0) Active confirmed Problem Atrial fibrillation (38503537) Atrial fibrillation, unspecified type (I48.91) Active confirmed Problem Sleep apnea (14410502) Sleep apnea in adult (G47.30) Active confirmed Problem Osteoarthritis of knee (971887778) Primary osteoarthritis of both knees (M17.0) Active confirmed Problem Spinal stenosis of lumbosacral region (972766418) Spinal stenosis of lumbosacral region (M48.07) Active confirmed Vital Signs Heart Rate 56 /min 11/01/2024 Temperature 97.8 degrees Fahrenheit 11/01/2024 Respiratory Rate 18 /min 11/01/2024 Oximetry 97 % 11/01/2024 Blood pressure diastolic 70 mm Hg 11/01/2024 Weight-kg 106.6 kg 10/14/2024 Blood pressure systolic 120 mm Hg 11/01/2024 Weight 235 lbs 10/14/2024 BMI 41.98 kg/m2 08/03/2024 Encounters Encounter Location Date Provider Diagnosis [address] [address] 11/03/2024 Rosalie Marie [address] [address] 07/29/2024 PAUL ALSTON [address] [address] 08/03/2024 Rosalie Marie Spinal stenosis of lumbosacral region M48.07 ; Physical deconditioning R53.81 ; Essential (primary) hypertension I10 and Unspecified diastolic (congestive) heart failure I50.[address] [address] 08/05/2024 Rosalie Marie Spinal stenosis of lumbosacral region M48.07 ; Physical deconditioning R53.81 ; Essential (primary) hypertension I10 ; Unspecified diastolic (congestive) heart failure I50.30 and Lymphedema I89.[address] [address] 08/10/2024 Rosalie Marie Spinal stenosis of lumbosacral region M48.07 ; Physical deconditioning R53.81 ; Essential (primary) hypertension I10 ; Unspecified diastolic (congestive) heart failure I50.30 and Lymphedema I89.[address] [address] 08/17/2024 Rosalie Marie Spinal stenosis of lumbosacral region M48.07 ; Physical deconditioning R53.81 ; Essential (primary) hypertension I10 ; Unspecified diastolic (congestive) heart failure I50.30 and Lymphedema I89.[address] [address] 08/19/2024 Rosalie Marie Spinal stenosis of lumbosacral region M48.07 ; Physical deconditioning R53.81 ; Essential (primary) hypertension I10 ; Unspecified diastolic (congestive) heart failure I50.30 and Lymphedema I89.[address] [address] 08/23/2024 Rosalie Marie Spinal stenosis of lumbosacral region M48.07 ; Physical deconditioning R53.81 ; Essential (primary) hypertension I10 ; Unspecified diastolic (congestive) heart failure I50.30 and Lymphedema I89.[address] [address] 08/25/2024 Rosalie Marie Spinal stenosis of lumbosacral region M48.07 ; Physical deconditioning R53.81 ; Essential (primary) hypertension I10 ; Unspecified diastolic (congestive) heart failure I50.30 and Lymphedema I89.[address] [address] 08/30/2024 Rosalie Marie Spinal stenosis of lumbosacral region M48.07 ; Physical deconditioning R53.81 ; Essential (primary) hypertension I10 ; Unspecified diastolic (congestive) heart failure I50.30 and Lymphedema I89.[address] [address] 09/01/2024 Rosalie Marie Spinal stenosis of lumbosacral region M48.07 ; Physical deconditioning R53.81 ; Essential (primary) hypertension I10 ; Unspecified diastolic (congestive) heart failure I50.30 and Lymphedema I89.[address] [address] 09/07/2024 Rosalie Marie Spinal stenosis of lumbosacral region M48.07 ; Physical deconditioning R53.81 ; Essential (primary) hypertension I10 ; Unspecified diastolic (congestive) heart failure I50.30 and Lymphedema I89.[address] [address] 09/09/2024 Rosalie Marie Spinal stenosis of lumbosacral region M48.07 ; Physical deconditioning R53.81 ; Essential (primary) hypertension I10 ; Unspecified diastolic (congestive) heart failure I50.30 and Lymphedema I89.[address] [address] 09/13/2024 Rosalie Marie Spinal stenosis of lumbosacral region M48.07 ; Physical deconditioning R53.81 ; Essential (primary) hypertension I10 ; Unspecified diastolic (congestive) heart failure I50.30 and Lymphedema I89.[address] [address] 09/16/2024 PAUL ALSTON [address] [address] 09/20/2024 Rosalie Marie Spinal stenosis of lumbosacral region M48.07 ; Physical deconditioning R53.81 ; Essential (primary) hypertension I10 ; Unspecified diastolic (congestive) heart failure I50.30 and Lymphedema I89.[address] [address] 09/22/2024 Rosalie Marie Spinal stenosis of lumbosacral region M48.07 ; Physical deconditioning R53.81 ; Essential (primary) hypertension I10 ; Unspecified diastolic (congestive) heart failure I50.30 and Lymphedema I89.[address] [address] 10/14/2024 PAUL ALSTON [address] [address] 10/19/2024 Rosalie Marie Physical deconditioning R53.81 ; Essential (primary) hypertension I10 ; Unspecified diastolic (congestive) heart failure I50.30 ; Lymphedema I89.0 and Other chronic pain G89.[address] [address] 10/26/2024 Rosalie Marie Physical deconditioning R53.81 ; Essential (primary) hypertension I10 ; Unspecified diastolic (congestive) heart failure I50.30 ; Lymphedema I89.0 ; Other chronic pain G89.29 and Chronic kidney disease, stage 3b N18.[address] [address] 10/28/2024 Rosalie Marie Physical deconditioning R53.81 ; Essential (primary) hypertension I10 ; Unspecified diastolic (congestive) heart failure I50.30 ; Lymphedema I89.0 ; Other chronic pain G89.29 and Chronic kidney disease, stage 3b N18.[address] [place] [address] 11/01/2024 Rosalie Marie Physical deconditioning R53.81 ; Essential (primary) hypertension I10 ; Unspecified diastolic (congestive) heart failure I50.30 ; Lymphedema I89.0 ; Other chronic pain G89.29 and Chronic kidney disease, stage 3b N18.32 [facility] [address] [place] [id number] 11/04/2024 [place] [address] [place] [id number] 07/28/2024 [place] [address] [place] [id number] 07/28/2024 [place] [address] [place] [address] 07/29/2024 [place] [address] [place] [address] 07/29/2024 [place] [address] [place] [address] 07/31/2024 PAUL [place] [address] [place] [address] 08/01/2024 [place] [address] [place] [id number] 08/03/2024 [place] [address] [place] [address] 08/05/2024 [place] [address] [place] [address] 08/06/2024 Charity [place] [address] [place] [address] 08/07/2024 Charity [place] [address] [place] [id number] 08/09/2024 [place] [address] [place] [address] 08/10/2024 [place] [address] [place] [address] 08/11/2024 [place] [address] [place] [address] 08/12/2024 Meghann Adames [place] [address] [place] [address] 08/15/2024 [facility] [address] [place] [address] 08/17/2024 Rosalie Davis [facility] [address] [place] [address] 08/18/2024 Rosalie Marie [facility] [address] [place] [address] 08/19/2024 Rosalie Frank [facility] [address] [place] [id number] 08/26/2024 Rosalie Marie [facility] [address] [place] [address] 08/29/2024 Rosalie Marie [place] [address] [place] [address] 08/29/2024 Rosalie Marie [place] [address] [place] [address] 09/06/2024 Rosalie Marie [place] [address] [place] [address] 09/10/2024 PAUL [facility] [address] [place] [id number] 09/12/2024 Rosalie Marie [place] [address] [place] [address] 09/12/2024 [place] [address] [place] [address] 09/15/2024 [place] [address] [place] [address] 09/20/2024 PAUL ALSTON [place] [address] [place] [address] 09/20/2024 Rosalie Davis [place] [address] [place] [address] 09/21/2024 PAUL ALSTON [place] [address] [place] [address] 09/29/2024 PAUL ALSTON [place] [address] [place] [address] 10/07/2024 PAUL ALSTON [place] [address] [place] [address] 10/10/2024 [place] [address] [place] [address] 10/12/2024 [place] Marie [place] [address] [place] [address] 10/13/2024 PAUL FLICK [address] [address] 10/14/2024 PAUL ALSTON [address] [address] 10/18/2024 PAUL ALSTON [address] [address] 10/20/2024 PAUL ALSTON [address] [address] 10/24/2024 Rosalie Marie [facility] [address] [id number] 10/24/2024 Rosalie Marie [address] [address] 10/26/2024 PAUL ALSTON [facility] [address] [id number] 10/26/2024 PAUL ALSTON [address] [address] 10/28/2024 PAUL ALSTON [address] [address] 10/30/2024 PAUL ALSTON [address] [address] 11/01/2024 Rosalie Marie [address] [address] 11/02/2024 PAUL ALSTON [address] [address] 11/04/2024 PAUL ALSTON Assessments Encounter Date Diagnosis (ICD Code) Assessment Notes Treatment Notes Treatment Clinical Notes Section Notes 08/03/2024 Physical deconditioning (ICD-10 - R53.81) The patient is working with PT&OT for strengthening andmobility. She reports that therapy isgoing okay. Utilizes a wheelchair for ambulation. 08/03/2024 Spinal stenosis of lumbosacral region (ICD-10 - M48.07) The patient has pain stimulator implanted in back for pain management. She reports that when she fell at home, she did hit that area of her back, which caused an increase in pain. She does report that she is still having pain, and she does know always get her pain medication when requested in a timely manner. Order given to change her hydrocodone to q 6 hours scheduled. 08/05/2024 Physical deconditioning (ICD-10 - R53.81) The patient is working with PT&OT for strengthening and mobility. She reports that therapy is going okay. Utilizes a wheelchair for ambulation. 08/05/2024 Spinal stenosis of lumbosacral region (ICD-10 - M48.07) The patient has pain stimulator implanted in back for pain management. She reports that when she fell at home, she did hit that area of her back, which caused an increase in pain. Reports the pain is better since having the pain medications being scheduled. 08/10/2024 Spinal stenosis of lumbosacral region (ICD-10 - M48.07) The patient has pain stimulator implanted in back for pain management. She reports that when shefell at home, she did hit that area of her back, which caused an increase in pain. 08/17/2024 Spinal stenosis of lumbosacral region (ICD-10 - M48.07) The patient has pain stimulator implanted in back for pain management. She reports that when shefell at home, she did hit that area of her back, which caused an increase in pain. 08/19/2024 Spinal stenosis of lumbosacral region (ICD-10 - M48.07) The patient has pain stimulator implanted in back for pain management. She reports that when shefell at home, she did hit that area of her back, which caused an increase in pain. 08/23/2024 Spinal stenosis of lumbosacral region (ICD-10 - M48.07) The patient has pain stimulator implanted in back for pain management. She reports that when shefell at home, she did hit that area of her back, which caused an increase in pain. 08/25/2024 Spinal stenosis of lumbosacral region (ICD-10 - M48.07) The patient has pain stimulator implanted in back for pain management. She reports that when shefell at home, she did hit that area of her back, which caused an increase in pain. 08/30/2024 Spinal stenosis of lumbosacral region (ICD-10 - M48.07) The patient has pain stimulator implanted in back for pain management. She reports that when shefell at home, she did hit that area of her back, which caused an increase in pain. 09/01/2024 Spinal stenosis of lumbosacral region (ICD-10 - M48.07) The patient has pain stimulator implanted in back for pain management. She reports that when she fell at home, she did hit that area of her back, which caused an increase in pain. 09/07/2024 Spinal stenosis of lumbosacral region (ICD-10 - M48.07) The patient has pain stimulator implanted in back for pain management. She reports that when she fell at home, she did hit that area of her back, which caused an increase in pain. 09/09/2024 Spinal stenosis of lumbosacral region (ICD-10 - M48.07) The patient has pain stimulator implanted in back for pain management. She reports that when she fell at home, she did hit that area of her back, which caused an increase in pain. 09/13/2024 Spinal stenosis of lumbosacral region (ICD-10 - M48.07) The patient has pain stimulator implanted in back for pain management. She reports that when she fell at home, she did hit that area of her back, which caused an increase in pain. Patient will need a hospital bed to help with pain and independence getting in and out of bed. The beneficiary requires positioning of the body in ways not feasible with an ordinary bed in order to alleviate pain and requires traction equipment, which can only be attached to a hospital bed. 09/20/2024 Spinal stenosis of lumbosacral region (ICD-10 - M48.07) The patient has pain stimulator implanted in back for pain management. She reports that when she fell at home, she did hit that area of her back, which caused an increase in pain. Patient will need a hospital bed to help with pain and independence getting in and out of bed. The beneficiary requires positioning of the body in ways not feasible with an ordinary bed in order to alleviate pain and requires traction equipment, which can only be attached to a hospital bed. 09/22/2024 Spinal stenosis of lumbosacral region (ICD-10 - M48.07) The patient has pain stimulator implanted in back for pain management. She reports that when she fell at home, she did hit that area of her back, which caused an increase in pain. Patient will need a hospital bed to help with pain and independence getting in and out of bed. The beneficiary requires positioning of the body in ways not feasible with an ordinary bed in order to alleviate pain and requires traction equipment, which can only be attached to a hospital bed. 10/19/2024 Essential (primary) hypertension (ICD-10 - I10) Blood pressure is stable. Managed well on current medication regimen. Continue current treatment plan and monitoring. 10/19/2024 Physical deconditioning (ICD-10 - R53.81) The patient is working with PT&OT for strengthening andmobility. She reports that therapy is going okay. Utilizes wheelchair for long distances and walker for short distances. 10/26/2024 Essential (primary) hypertension (ICD-10 - I10) Blood pressure is stable. Managed well on current medication regimen. Continue current treatment plan and monitoring. 10/26/2024 Physical deconditioning (ICD-10 - R53.81) The patient is working with PT&OT for strengthening andmobility. She reports that therapy is going okay. Utilizes wheelchair for long distances and walker for short distances. 10/28/2024 Physical deconditioning (ICD-10 - R53.81) The patient is working with PT&OT for strengthening andmobility. She reports that therapy is going okay. Utilizes wheelchair for long distances and walker for short distances. 11/01/2024 Physical deconditioning (ICD-10 - R53.81) The patient is working with PT&OT for strengthening andmobility. She reports that therapy is going okay. Utilizes wheelchair for long distances and walker for short distances. 11/01/2024 Essential (primary) hypertension (ICD-10 - I10) Blood pressure is stable. Managed well on current medication regimen. Continue current treatment plan and monitoring. 10/26/2024 Unspecified diastolic (congestive) heart failure (ICD-10 - I50.30) Denies any signs and symptoms of fluid overload. Patient does have non-pitting edema due to lymphedema. BRUNA wraps are in place. Continue on current treatment plan and monitoring. 10/28/2024 Essential (primary) hypertension (ICD-10 - I10) Blood pressure is stable. Managed well on current medication regimen. Continue current treatment plan and monitoring. 10/19/2024 Unspecified diastolic (congestive) heart failure (ICD-10 - I50.30) Denies any signs and symptoms of fluid overload. Patient does have non-pitting edema due to lymphedema. BRUNA wraps are in place. Continue on current treatment plan and monitoring. 09/20/2024 Physical deconditioning (ICD-10 - R53.81) The patient is working with PT&OT for strengthening andmobility. She reports that therapy is going okay. Utilizes wheelchair for long distances and walker for short distances. 09/22/2024 Physical deconditioning (ICD-10 - R53.81) The patient is working with PT&OT for strengthening andmobility. She reports that therapy is going okay. Utilizes wheelchair for long distances and walker for short distances. Her last cover day is 09/23/2024 and she will discharge home on 09/24/2024 with orders for outpatient PT and OT. 09/01/2024 Physical deconditioning (ICD-10 - R53.81) The patient is working with PT&OT for strengthening andmobility. She reports that therapy isgoing okay. Utilizes wheelchair for long distances and walker for shortdistances. 09/07/2024 Physical deconditioning (ICD-10 - R53.81) The patient is working with PT&OT for strengthening andmobility. She reports that therapy is going okay. Utilizes wheelchair for long distances and walker for short distances. The patient is going for a home visit tomorrow on 09/08/2024. 09/09/2024 Physical deconditioning (ICD-10 - R53.81) The patient is working with PT&OT for strengthening andmobility. She reports that therapy is going okay. Utilizes wheelchair for long distances and walker for short distances. 09/13/2024 Physical deconditioning (ICD-10 - R53.81) The patient is working with PT&OT for strengthening andmobility. She reports that therapy is going okay. Utilizes wheelchair for long distances and walker for short distances. 08/19/2024 Physical deconditioning (ICD-10 - R53.81) The patient is working with PT&OT for strengthening andmobility. She reports that therapy isgoing okay. Utilizes wheelchair for long distances and walker for shortdistances. 08/23/2024 Physical deconditioning (ICD-10 - R53.81) The patient is working with PT&OT for strengthening andmobility. She reports that therapy isgoing okay. Utilizes wheelchair for long distances and walker for shortdistances. 08/25/2024 Physical deconditioning (ICD-10 - R53.81) The patient is working with PT&OT for strengthening andmobility. She reports that therapy isgoing okay. Utilizes wheelchair for long distances and walker for shortdistances. 08/30/2024 Physical deconditioning (ICD-10 - R53.81) The patient is working with PT&OT for strengthening andmobility. She reports that therapy isgoing okay. Utilizes wheelchair for long distances and walker for shortdistances. 08/03/2024 Essential (primary) hypertension (ICD-10 - I10) BP slightly elevated today. Continue to monitor and update provider if continues to be elevated. 08/10/2024 Physical deconditioning (ICD-10 - R53.81) The patient is working with PT&OT for strengthening andmobility. She reports that therapy isgoing okay. Utilizes a wheelchair for ambulation. 08/17/2024 Physical deconditioning (ICD-10 - R53.81) The patient is working with PT&OT for strengthening andmobility. She reports that therapy isgoing okay. Utilizes a wheelchair for ambulation. 08/05/2024 Essential (primary) hypertension (ICD-10 - I10) BP stable. Well managed on current medication regimen. Continue with current treatment plan and monitoring. 08/05/2024 Unspecified diastolic (congestive) heart failure (ICD-10 - I50.30) No signs and symptoms of fluid overload. Managed well on current medications. Continue current treatment plan andmonitoring. 08/10/2024 Essential (primary) hypertension (ICD-10 - I10) BP slightly elevated today. Continue to monitor and update provider if continues to be elevated. 08/03/2024 Unspecified diastolic (congestive) heart failure (ICD-10 - I50.30) No signs and symptoms of fluid overload. Managed well on current medications. Continue current treatment plan andmonitoring. 08/17/2024 Essential (primary) hypertension (ICD-10 - I10) Blood pressure is stable. Managed well on current medication regimen. Continue current treatment plan andmonitoring. 08/30/2024 Essential (primary) hypertension (ICD-10 - I10) Blood pressure is stable. Managed well on current medication regimen. Continue current treatment plan andmonitoring. 08/25/2024 Essential (primary) hypertension (ICD-10 - I10) Blood pressure is stable. Managed well on current medication regimen. Continue current treatment plan andmonitoring. 08/23/2024 Essential (primary) hypertension (ICD-10 - I10) Blood pressure is stable. Managed well on current medication regimen. Continue current treatment plan andmonitoring. 08/19/2024 Essential (primary) hypertension (ICD-10 - I10) Blood pressure is stable. Managed well on current medication regimen. Continue current treatment plan andmonitoring. 09/01/2024 Essential (primary) hypertension (ICD-10 - I10) Blood pressure is stable. Managed well on current medication regimen. Continue current treatment plan andmonitoring. 09/09/2024 Essential (primary) hypertension (ICD-10 - I10) Blood pressure is stable. Managed well on current medication regimen. Continue current treatment plan and monitoring. 09/07/2024 Essential (primary) hypertension (ICD-10 - I10) Blood pressure is stable. Managed well on current medication regimen. Continue current treatment plan andmonitoring. 09/13/2024 Essential (primary) hypertension (ICD-10 - I10) Blood pressure is stable. Managed well on current medication regimen. Continue current treatment plan and monitoring. 09/22/2024 Essential (primary) hypertension (ICD-10 - I10) Blood pressure is stable. Managed well on current medication regimen. Continue current treatment plan and monitoring. 09/20/2024 Essential (primary) hypertension (ICD-10 - I10) Blood pressure is stable. Managed well on current medication regimen. Continue current treatment plan and monitoring. 10/19/2024 Lymphedema (ICD-10 - I89.0) The patient has non-pitting edema noted to bilateral lower extremities. BRUNA wraps are in place. Patient does have her lymphedema pumps and has been using them at night. She does report that it does cause some left knee pain. 10/28/2024 Unspecified diastolic (congestive) heart failure (ICD-10 - I50.30) Denies any signs and symptoms of fluid overload. Patient does have non-pitting edema due to lymphedema. BRUNA wraps are in place. Continue on current treatment plan and monitoring. 10/26/2024 Lymphedema (ICD-10 - I89.0) The patient has non-pitting edema noted to bilateral lower extremities. BRUNA wraps are in place. Patient does have her lymphedema pumps and has been using them at night. She does report that it does cause some left knee pain. Patient would like to try holding doing the lymphedema pumps to see if that helps with the pain and see if her swelling, does not get any worse. Order given to make the lymphedema leg pumps p.r.n. in case the patient decides she wants to try them again. Order also given today to stop spironolactone and start Bumex 1 mg b.i.d. along with potassium chloride 20 mEq daily. Draw BMP on Thursday. 11/01/2024 Unspecified diastolic (congestive) heart failure (ICD-10 - I50.30) Denies any signs and symptoms of fluid overload. Patient does have non-pitting edema due to lymphedema. BRUNA wraps are in place. Continue on current treatment plan and monitoring. 11/01/2024 Lymphedema (ICD-10 - I89.0) Patient has non-pitting edema to the bilateral lower extremities, whichis a chronic condition. BRUNA wraps in place. She had an increase in her weightover the weekend and the mining consultant provider started her on metolazone 2.5 mg x3 three days and patient has been having a very good response to this medication.New order given today to DC the Bumex and continue the metolazone 2.5 mg daily. 10/28/2024 Lymphedema (ICD-10 - I89.0) Patient has non-pitting edema to the bilateral lower extremities, which is a chronic condition. BRUNA wraps are in place. She does have lymphedema. She has not been using her lymphedema pumps due to the pain in her knees. She reports that she has been urinating more since starting the Bumex. We will continue to monitor for any signs and symptoms of issues. A BMP was ordered already for Thursday. 10/26/2024 Other chronic pain (ICD-10 - G89.29) Patient complaints of left knee pain, which is chronic due to her arthritis. Her lymphedema pumps are aggravating the pain. Lymphedema pumps are going to be held for now. Patient continues using diclofenac gel as needed. 10/19/2024 Other chronic pain (ICD-10 - G89.29) Patient complains of left knee pain, which is chronic due to arthritis. She reports that the lymphedema pumps aggravated. She does not want to take a lot of pain medications and order was given to apply diclofenac gel 1% q.i.d. p.r.n. 09/20/2024 Unspecified diastolic (congestive) heart failure (ICD-10 - I50.30) Denies any signs and symptoms of fluid overload. Continues to have non-pitting edema in the bilateral lower extremities, BRUNA wraps are in place. The patient feels like her legs are bigger than normal, she does have lymphedema machine at home that she utilizes, but she has not been able to utilize while she was here. Increase Lasix to 100 mg x3 days and then back to the 80 mg daily. _update with any concerns. 09/22/2024 Unspecified diastolic (congestive) heart failure (ICD-10 - I50.30) Denies any signs and symptoms of fluid overload. Continues to have non-pitting edema in the bilateral lower extremities, BRUNA wraps are in place. The patient feels like her legs are bigger than normal. The patient feels like her legs are bigger than normal, she did have her family bring the lymphedema machine back and the nurse last night tried to put it on her but they were unable to zip it up because her legs were way to bigger than they were before. The Lasix does not seem to be helping, patient reports that she is not voiding like she usually does when she is on high doses of Lasix. Order given to get a STAT BMP today to check her kidney function and start spironolactone 12.5 mg bid. 09/13/2024 Unspecified diastolic (congestive) heart failure (ICD-10 - I50.30) Denies any signs and symptoms of fluid overload. Continues to have non-pitting edema in the bilateral lower extremities, BRUNA wraps are in place. She does feel like she has less water weight on today than she did when last seen. 09/07/2024 Unspecified diastolic (congestive) heart failure (ICD-10 - I50.30) Weekly weights are still not being done but a new weight wasput in and she has had a 15 lbs weight gain since admission, I asked them tostart doing weights twice a week. Anorder given to draw BMP and a BNP on the next lab day. 09/09/2024 Unspecified diastolic (congestive) heart failure (ICD-10 - I50.30) The patient reports that she does feel like she may have some more fluid on. Order given to increase Lasix to 100 mg for three days and then decrease back to current 80 mg daily. BRUNA wraps are in place. 09/01/2024 Unspecified diastolic (congestive) heart failure (ICD-10 - I50.30) No signs and symptoms of fluid overload. Managed well on current medications. Continue current treatment plan and monitoring. Weekly weights were ordered last week but none have been put in the computer at this time. Staff have not updated her weight at this time. I continue to ask staff to get weekly weight. 08/19/2024 Unspecified diastolic (congestive) heart failure (ICD-10 - I50.30) No signs and symptoms of fluid overload. Managed well on current medications. Continue current treatment plan and monitoring. 08/23/2024 Unspecified diastolic (congestive) heart failure (ICD-10 - I50.30) No signs and symptoms of fluid overload. Managed well on current medications. Continue current treatment plan and monitoring. 08/25/2024 Unspecified diastolic (congestive) heart failure (ICD-10 - I50.30) No signs and symptoms of fluid overload. Managed well on current medications. Continue current treatment plan and monitoring. The patient is worried about gaining fluid, please do weekly weights and update if there is an increase in weight. 08/30/2024 Unspecified diastolic (congestive) heart failure (ICD-10 - I50.30) No signs and symptoms of fluid overload. Managed well on current medications. Continue current treatment plan and monitoring. Weekly weights were ordered last week but none have been put in the computer at this time. Will ask staff to update their system with the new weight today. 08/17/2024 Unspecified diastolic (congestive) heart failure (ICD-10 - I50.30) No signs and symptoms of fluid overload. Managed well on current medications. Continue current treatment plan and monitoring. 08/10/2024 Unspecified diastolic (congestive) heart failure (ICD-10 - I50.30) No signs and symptoms of fluid overload. Managed well on current medications. Continue current treatment plan and monitoring. 08/05/2024 Lymphedema (ICD-10 - I89.0) The patient has non-pitting edema noted to bilateral lower extremities. She did have her family bring in her machine used on her legs. Unsure if she is going to use at this time. 08/10/2024 Lymphedema (ICD-10 - I89.0) The patient has non-pitting edema noted to bilateral lower extremities. 08/17/2024 Lymphedema (ICD-10 - I89.0) The patient has non-pitting edema noted to bilateral lower extremities. 08/30/2024 Lymphedema (ICD-10 - I89.0) The patient has non-pitting edema noted to bilateral lower extremities. BRUNA wraps are in place. 08/25/2024 Lymphedema (ICD-10 - I89.0) The patient has non-pitting edema noted to bilateral lower extremities. 08/23/2024 Lymphedema (ICD-10 - I89.0) The patient has non-pitting edema noted to bilateral lower extremities. 08/19/2024 Lymphedema (ICD-10 - I89.0) The patient has non-pitting edema noted to bilateral lower extremities. 09/01/2024 Lymphedema (ICD-10 - I89.0) The patient has non-pitting edema noted to bilateral lower extremities. BRUNA wraps are in place. 09/09/2024 Lymphedema (ICD-10 - I89.0) The patient has non-pitting edema noted to bilateral lower extremities. BRUNA wraps are in place. 09/07/2024 Lymphedema (ICD-10 - I89.0) The patient has non-pitting edema noted to bilateral lower extremities. No BRUNA wraps are in place. 09/13/2024 Lymphedema (ICD-10 - I89.0) The patient has non-pitting edema noted to bilateral lower extremities. BRUNA wraps are in place. 09/22/2024 Lymphedema (ICD-10 - I89.0) The patient has non-pitting edema noted to bilateral lower extremities. BRUNA wraps are in place. 09/20/2024 Lymphedema (ICD-10 - I89.0) The patient has non-pitting edema noted to bilateral lower extremities. BRUNA wraps are in place. 10/26/2024 Chronic kidney disease, stage 3b (ICD-10 - N18.32) On 10/24/2024, GFR was 37. Avoid nephrotoxic drugs when possible. Patient does have an appointment with her drag out worker on 11/08/2024. 10/28/2024 Other chronic pain (ICD-10 - G89.29) Patient complaints of left knee pain, which is chronic due to her arthritis. Her lymphedema pumps are aggravating the pain. Lymphedema pumps are going to be held for now. Patient continues using diclofenac gel as needed. 11/01/2024 Other chronic pain (ICD-10 - G89.29) Patient complaints of left knee pain, which is chronic due to her arthritis. Her lymphedema pumps are aggravating the pain. Lymphedema pumps are going to be held for now. Patient continues using diclofenac gel as needed. 11/01/2024 Chronic kidney disease, stage 3b (ICD-10 - N18.32) On 10/24/2024, GFR was 37. Avoid nephrotoxic drugs when possible. Patient does have an appointment with her drag out worker on 11/08/2024. 10/28/2024 Chronic kidney disease, stage 3b (ICD-10 - N18.32) On 10/24/2024, GFR was 37. Avoid nephrotoxic drugs when possible. Patient does have an appointment with her drag out worker on 11/08/2024. 08/03/2024 Other Continue current treatment plan. Staff to continue to monitor and report any changes. Patient education provided and questions/concerns addressed. Follow up in 1 week unless necessary sooner. Reviewed HIPAA Right to Privacy Practices with patient/family/car egiver. 08/05/2024 Other Continue current treatment plan. Staff to continue to monitor and report any changes. Patient education provided and questions/concerns addressed. Follow up in 1 week unless necessary sooner. Reviewed HIPAA Right to Privacy Practices with patient/family/car egiver. 08/10/2024 Other Continue current treatment plan. Staff to continue to monitor and report any changes. Patient education provided and questions/concerns addressed. Follow up in 1 week unless necessary sooner. Reviewed HIPAA Right to Privacy Practices with patient/family/car egiver. 08/17/2024 Other Continue current treatment plan. Staff to continue to monitor and report any changes. Patient education provided and questions/concerns addressed. Follow up in 1 week unless necessary sooner. Reviewed HIPAA Right to Privacy Practices with patient/family/car egiver. 08/19/2024 Other Continue current treatment plan. Staff to continue to monitor and report any changes. Patient education provided and questions/concerns addressed. Follow up in 1 week unless necessary sooner. Reviewed HIPAA Right to Privacy Practices with patient/family/car egiver. 08/23/2024 Other Continue current treatment plan. Staff to continue to monitor and report any changes. Patient education provided and questions/concerns addressed. Follow up in 1 week unless necessary sooner. Reviewed HIPAA Right to Privacy Practices with patient/family/car egiver. 08/25/2024 Other Continue current treatment plan. Staff to continue to monitor and report any changes. Patient education provided and questions/concerns addressed. Follow up in 1 week unless necessary sooner. Reviewed HIPAA Right to Privacy Practices with patient/family/car egiver. 08/30/2024 Other Continue current treatment plan. Staff to continue to monitor and report any changes. Patient education provided and questions/concerns addressed. Follow up in 1 week unless necessary sooner. Reviewed HIPAA Right to Privacy Practices with patient/family/car egiver. 09/01/2024 Other Continue current treatment plan. Staff to continue to monitor and report any changes. Patient education provided and questions/concerns addressed. Follow up in 1 week unless necessary sooner. Reviewed HIPAA Right to Privacy Practices with patient/family/car egiver. 09/07/2024 Other Continue current treatment plan. Staff to continue to monitor and report any changes. Patient education provided and questions/concerns addressed. Follow up in 1 week unless necessary sooner. Reviewed HIPAA Right to Privacy Practices with patient/family/car egiver. 09/09/2024 Other Continue current treatment plan. Staff to continue to monitor and report any changes. Patient education provided and questions/concerns addressed. Follow up in 1 week unless necessary sooner. Reviewed HIPAA Right to Privacy Practices with patient/family/car egiver. 09/13/2024 Other Continue current treatment plan. Staff to continue to monitor and report any changes. Patient education provided and questions/concerns addressed. Follow up in 1 week unless necessary sooner. Reviewed HIPAA Right to Privacy Practices with patient/family/car egiver. 09/20/2024 Other Continue current treatment plan. Staff to continue to monitor and report any changes. Patient education provided and questions/concerns addressed. Follow up in 1 week unless necessary sooner. 09/22/2024 Other Ok to discharge patient with current in house treatment plan and medications. Patient education provided and all questions/concerns addressed. Outpatient PT/OT to see. Follow up with PCP in one week. Reconciled home medications list sent home with patient. 10/19/2024 Other Continue current treatment plan. Staff to continue to monitor and report any changes. Patient education provided and questions/concerns addressed. Follow up in 1 week unless necessary sooner. 10/26/2024 Other Continue current treatment plan. Staff to continue to monitor and report any changes. Patient education provided and questions/concerns addressed. Follow up in 1 week unless necessary sooner. 10/28/2024 Other Continue current treatment plan. Staff to continue to monitor and report any changes. Patient education provided and questions/concerns addressed. Follow up in 1 week unless necessary sooner. 11/01/2024 Other Continue current treatment plan. Staff to continue to monitor and report any changes. Patient education provided and questions/concerns addressed. Follow up in 1 week unless necessary sooner. Plan Of Treatment Future Test Test Name Order Date B-Type Natriuretic Peptide 09/08/2024 Basic Metabolic Panel (8) 09/08/2024 Basic Metabolic Panel (8) 09/23/2024 Basic Metabolic Panel (8) 10/28/2024 Insurance Providers Payer Name Payer Address Payer Phone Subscriber Number Group Number Insured Name Patient Relationship to Insured Coverage Start Date Coverage End Date [employer] of [place] [address] [facility] [place] [id number] Payton Burroughs Self - patient is the insured [address] [id number] Payton Burroughs Self - patient is the insured Medical (General) History Medical History History ICD Code Acute on chronic diastolic (congestive) heart failure I50.33 Unspecified atrial fibrillation I48.91 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 07 Fluid overload, unspecified E87.70 Unspecified diastolic (congestive) heart failure I50.30 Encounter for prophylactic measures, uns pecified Z29.9 Constipation, unspecified K59.00 Flatulence R14.3 Nausea with vomiting, unspecified R11.2 Erythematous condition, unspecified L53. 9 Pain, unspecified R52 Vitamin D deficiency, unspecified E55.9 Pruritus, unspecified L29.9 Anxiety disorder, unspecified F41.9 Chronic kidney disease, stage 3 unspecif ied N18.30 Gastro-esophageal reflux disease without esophagitis K21.9 Mixed hyperlipidemia E78.2 Sleep apnea, unspecified G47.30 Essential (primary) hypertension I10 Bilateral primary osteoarthritis of knee M17.0 Acute on chronic diastolic (congestive) heart failure I50.33 Hypothyroidism, unspecified E03.9 Unspecified diastolic (congestive) heart failure I50.30 Muscle weakness (generalized) M62.81 Other lack of coordination R27.8 Unspecified abnormalities of gait and mo bility R26.9 Surgical History Surgery Date(Month/Year) hysterectomy tonsillectom bilateral cataract extraction appendectomy status post insertion of spinal cord sti mulator thumb surgery hand surgery lipoma resection
--- OUTSIDE RECORDS SUMMARY | 2024-11-04 10:53 | XMS_ITS | Clinical Summary ---
Author Organization [facility] Address [address] [place] [address] Care Team Providers Care Pattern Illustrator Name Role Phone Unavailable Primary Care Provider Unavailabl e Source Comments [facility],non-owned Affiliates and Associated Physician Practices is amultiple site organization consisting of ambulatory clinics and hospital sitesin [place], [place], [place] and [place]. This disclosure is being madepursuant to the Care Everywhere program and may not contain all information available regarding this patient. Last updated 17.[facility] Encounters Date Type Department Care Team Description 11/03/2024 Lab Requisition [facility] [address] [place] [address] Nico Monet DO from Last 3 Months Social History Tobacco Use Types Packs/Day Years Used Date Smoking Tobacco: Never Assessed Comments Unknown Sex and Gender Information Value Date Recorded Sex Assigned at Not on file Legal Sex Female 9:13 AM CDT Gender Identity Not on file Sexual Orientation Not on file Plan of Treatment Health Maintenance Due Date Last Done Comments BONE DENSITY TESTING 1940 MEDICARE AWV 12 MONTHS 1940 DTAP/TDAP/TD VACCINES (1 - Tdap) 1960 PNEUMOCOCCAL VACCINE 50+ (1 of 1 - PCV) 10/01/1991 ZOSTER VACCINE (1 of 2) 10/01/1991 Respiratory Syncytial Virus (RSV) Vaccine Pt: or over 60 yrs (1 - 1-dose 75+ series) 2016 COVID-19 VACCINE ( - 2023-2 5 season) 2023 DEPRESSION SCREENING 03/02/2024 INFLUENZA VACCINE (#1) 2024 HEPATITIS B VACCINE Aged Out No longe r eligible based on patient's age to complete this topic HIB VACCINE Aged Out No longer eligi ble based on patient's age to complete this topic HPV VACCINE Aged Out No longer eligi ble based on patient's age to complete this topic MENINGOCOCCAL (Group B) VACC INE SHARED DECISION-MAKING Aged Out No longer eligibl e based on patient's age to complete this topic MENINGOCOCCAL GROUPS A/C/Y/W VACCINE Aged Out No longer eligible b ased on patient's age to complete this topic Procedures Procedure Name Priority Date/Time Associated Diagnosis Comments BASIC METABOLIC PANEL (CALCIUM TOTAL) STAT 11/03/2024 5:00 PM CDT from Last 3 Months Results * (ABNORMAL) BASIC METABOLIC PANEL (CALCIUM TOTAL) (11/03/2024 5:00 PM CDT) Glucose 94 70 - 99 mg/dL 11/03/2024 7:04 PM CDT [facility] Sodium 138 136 - 145 mmol/L 11/03/2024 7:04 PM CDT [facility] Potassium 4.9 3.5 - 5.1 mmol/L 11/03/2024 7:04 PM CDT [facility] Chloride 98 98 - 107 mmol/L 11/03/2024 7:04 PM CDT [facility] CO2 29 22 - 29 mmol/L 11/03/2024 7:04 PM CDT [facility] Calcium 8.9 8.4 - 10.4 mg/dL 11/03/2024 7:04 PM CDT [facility] Anion Gap 11 6 - 16 mmol/L 11/03/2024 7:04 PM CDT [facility] BUN 76(H) 7 - 26 mg/dL 11/03/2024 7:04 PM CDT [facility] Creatinine 2.58(H) 0.57 - 1.11 mg/dL 11/03/2024 7:04 PM T [facility] eGFR by CKD-EPI 18(L) >=90 mL/min/1.7 3 m2 11/03/2024 7:04 PM T [facility] Comment:Estimated Glomerular Filtration Rate (eGFR) calculated using the CKD-EPI Creatinine Equation (2020), per the National Kidney Foundation and [place] Society of Nephrology recommendations. Blood BLOOD SPECIMEN / Unknown Venipuncture / Unknown 11/03/2024 5:00 PM CDT 11/03/2024 6:24 PM CDT us Nico Monet DO LAB - CHEMISTRY ORDERABLES Final Result [facility] [address] [place] [address] from Last 3 Months Insurance MEDICARE
--- OUTSIDE RECORDS SUMMARY | 2024-11-04 10:53 | XMS_ITS | Encounter Summary ---
Author Organization [facility] Address [address] [place] [address] Care Team Providers Care Regional Owner Operator Truck Driver Name Role Phone Unavailable Primary Care Provider Unavailabl e Encounter Details Date Type Department Care Team (Late st Contact Info) Description 11/03/2024 Lab Requisition [facility] [address] [place] [address] Nico Monet DO [address] [place], [place] [id number] Social History Tobacco Use Types Packs/Day Years Used Date Smoking Tobacco: Never Assessed Comments Unknown Sex and Gender Information Value Date Recorded Sex Assigned at Not on file Legal Sex Female 9:13 AM CDT Gender Identity Not on file Sexual Orientation Not on file documented as of this encounter Plan of Treatment Not on file documented as of this encounter Procedures Procedure Name Priority Date/Time Associated Diagnosis Comments BASIC METABOLIC PANEL (CALCIUM TOTAL) STAT 11/03/2024 5:00 PM CDT documented in this encounter Results * (ABNORMAL) BASIC METABOLIC PANEL (CALCIUM TOTAL) (11/03/2024 5:00 PM CDT) Glucose 94 70 - 99 mg/dL 11/03/2024 7:04 PM CDT [facility] Sodium 138 136 - 145 mmol/L 11/03/2024 7:04 PM CDT [facility] Potassium 4.9 3.5 - 5.1 mmol/L 11/03/2024 7:04 PM CDT [facility] Chloride 98 98 - 107 mmol/L 11/03/2024 7:04 PM CDT [facility] CO2 29 22 - 29 mmol/L 11/03/2024 7:04 PM CDT [facility] Calcium 8.9 8.4 - 10.4 mg/dL 11/03/2024 7:04 PM CDT [facility] Anion Gap 11 6 - 16 mmol/L 11/03/2024 7:04 PM CDT [facility] BUN 76(H) 7 - 26 mg/dL 11/03/2024 7:04 PM CDT [facility] Creatinine 2.58(H) 0.57 - 1.11 mg/dL 11/03/2024 7:04 PM T [facility] eGFR by CKD-EPI 18(L) >=90 mL/min/1.7 3 m2 11/03/2024 7:04 PM T [facility] Comment:Estimated Glomerular Filtration Rate (eGFR) calculated using the CKD-EPI Creatinine Equation (2020), per the National Kidney Foundation and [place] Society of Nephrology recommendations. Blood BLOOD SPECIMEN / Unknown Venipuncture / Unknown 11/03/2024 5:00 PM CDT 11/03/2024 6:24 PM CDT Nico Monet DO LAB - CHEMISTRY ORDERABLES Final Result [facility] [address] [place] [address] documented in this encounter Visit Diagnoses Not on filedocumented in this encounter
--- NOTE | 2024-11-04 10:59 | ECG_ITS ---
Test Date: 2024-11-04 11:13:51 Measurements Intervals [place] Rate: 96 P: 0 UT: 0 QRS: -4 QRSD: 85 T: 31 QT: 337 QTc: 427 Interpretive Statements ATRIAL FIBRILLATION POSSIBLE RIGHT VENTRICULAR CONDUCTION DELAY [RSR (QR) IN V1/V2] SEPTAL MYOCARDIAL INFARCTION , PROBABLY OLD [40+ ms Q WAVE IN V1/V2] Compared to ECG 07/21/2024 10:24:12 No significant changes Electronically Signed On 11-04-2024 12:43:42 CDT by Niko Schmidt M.D.
[2024-11-04 11:16] LABS: Hematocrit 37.4 % (37.0-47.0); Hemoglobin 11.8 g/dL (12.0-15.0); Immature Granulocyte Percent A 0.4 % (0-0.5); Lymphocytes Absolute Auto 2.18 K/mm3 (0.9-3.2); Mean Corpuscular HGB Conc 31.6 g/dl (32-36); Mean Corpuscular Hemoglobin 30.4 pg (26-34); Mean Corpuscular Volume 96.4 fl (80-100); Nucleated Red Blood Cells Absolute Auto 0.000 K/mm3 (0.0-0.012); Nucleated Red Blood Cells Perc 0.0 % (0.0-0.2); Platelet Count Result 191 k/mm3 (150-375); Red Blood Count 3.88 M/mm3 (4.2-5.4); White Blood Count 7.9 K/mm3 (4.5-10.0)
--- OUTSIDE RECORDS SUMMARY | 2024-11-04 11:35 | XMS_ITS | Clinical Summary ---
Author Organization [facility] Address [address] [place] [address] Care Team Providers Care Natural Gas Technician Name Role Phone Alivia Esposito MD Unavailable [phone] Kamaljit Stiles MD Primary Care Provider [phone] Allergies Active Allergy Reactions Criticality Noted Date Comments Duloxetine Palpitations,Nausea only Low 05/06/2018 Medications levothyroxine (SYNTHROID) 150 mcg tablet Take 175 mcg by mouth wellness guide before breakfast Active metoprolol XL (TOPROL-XL) 100 [...] (11/30/2018): Added automatically from request for surgery [id number] Hip pain 05/06/2018 Assessment & Plan (05/06/2018 5:11 PM ED PHYSICIANS): Ms. Burroughs has bilateral hip issues left greater than right with weakness in her iliopsoas muscle and markedly positive SATINDER signs. I think that this is her primary problem. She will follow-up with Dr. Browning who she has seen before for her knee. She reports that she had a very good rapport with him. Lumbar stenosis 05/06/2018 Assessment & Plan (05/06/2018 5:12 PM ED PHYSICIANS): Ms. Burroughs also has lumbar stenosis at [...] Description 2024 11:00 AM CDT Office Visit [facility] Cardiology [address] [place] [phone] Jovany Carney MD Atrial fibrillation with [...] on file Legal Sex Female 5:18 PM ED PHYSIC[facility] Gender Identity Not on file Sexual Orientation [...] 2025 2024 Medical Devices Implanted Type Area Continuous Miner Operator Helper Device Identifier Shelf Expiration Date Model / Serial / Lot [employer] [id number] Octrode 60cm 8 Electrode Lead Percutaneous Kit Neurostimulator - [id number] - [id number] Implanted:Qty: 1 on 04/01/2019 by Alivia Esposito MD at [facility] N/A: Spine Thoracic [employer] 12/02/2020 [id number] / [id number] / [employer] 3186ans Octrode 60cm 8 Electrode Lead Percutaneous Kit Neurostimulator - [id number] - [id number] Implanted:Qty: 1 on 04/01/2019 by Alivia Esposito MD at [facility] N/A: Spine Thoracic [employer] 11/04/2020 [id number] / [id number] / [employer] [address] [place] [place] Lead - [id number] Implanted:Qty: 1 on 04/01/2019 by Alivia Esposito MD at [facility] N/A: Spine Thoracic [employer] 10/07/2020 1192 / / [id number] [employer] 1192 [place] Peterson Lead - [id number] Implanted:Qty: 1 on 04/01/2019 by Alivia Esposito MD at [facility] N/A: Spine Thoracic [employer] 03/25/2020 1192 / / [id number] [employer] 3660 Contrlsys Proclaim Elite 4.95cmx5.55cm 5 Implantable Pulse Tonic - [id number] - [id number] Implanted:Qty: 1 on 04/01/2019 by Alivia Esposito MD at [facility] N/A: Spine Thoracic [employer] 12/02/2020 3660 CONTRLSYS / [id number] / Procedures Procedure Name Priority Date/Time Associated [...] Final from Last 3 Months Insurance MEDICARE [facility] MEDICARE SUPPLEMENT Care Teams Natural Gas Technician Relationship Specialty Start Date End Date Kamaljit Stiles MD [address] [place] [address] PCP - General Family Medicine 09/08/22 Alivia Esposito MD [address] [place] [address] Surgeon Anesthesiology 04/01/19
--- OUTSIDE RECORDS SUMMARY | 2024-11-04 11:35 | XMS_ITS | Clinical Summary ---
Author Organization [facility] Address [address] [place] [address] Care Team Providers Care Exhibitions And Collections Manager Name Role Phone Unavailable Primary Care Provider Unavailabl e Source Comments [facility],non-owned Affiliates and Associated Physician Practices is amultiple site organization consisting of ambulatory clinics and hospital sitesin [place], [place], [place] and [place]. This disclosure is being madepursuant to the Care Everywhere program and may not contain all information available regarding this patient. Last updated 17.[facility] Encounters Date Type Department Care Team Description 11/03/2024 Lab Requisition [facility] [address] [place] [address] Nico Monet DO from Last 3 Months [...] - 99 mg/dL 11/03/2024 7:04 PM CDT [facility] Sodium 138 136 - 145 mmol/L 11/03/2024 7:04 PM CDT [facility] Potassium 4.9 3.5 - 5.1 mmol/L 11/03/2024 7:04 PM CDT [facility] Chloride 98 98 - 107 mmol/L 11/03/2024 7:04 PM CDT [facility] CO2 29 22 - 29 mmol/L 11/03/2024 7:04 PM CDT [facility] Calcium 8.9 8.4 - 10.4 mg/dL 11/03/2024 7:04 PM CDT [facility] Anion Gap 11 6 - 16 mmol/L 11/03/2024 7:04 PM CDT [facility] BUN 76(H) 7 - 26 mg/dL 11/03/2024 7:04 PM CDT [facility] Creatinine 2.58(H) 0.57 - 1.11 mg/dL 11/03/2024 7:04 PM T [facility] eGFR by CKD-EPI 18(L) >=90 mL/min/1.7 3 m2 11/03/2024 7:04 PM T [facility] Comment:Estimated Glomerular Filtration Rate (eGFR) calculated using the CKD-EPI Creatinine Equation (2020), per the National Kidney Foundation and [place] Society of Nephrology recommendations. Blood BLOOD SPECIMEN / Unknown Venipuncture / Unknown 11/03/2024 5:00 PM CDT 11/03/2024 6:24 PM CDT us Nico Monet DO LAB - CHEMISTRY ORDERABLES Final Result [facility] [address] [place] [address] from Last 3 Months Insurance MEDICARE
--- OUTSIDE RECORDS SUMMARY | 2024-11-04 11:35 | XMS_ITS | Encounter Summary ---
Author Organization [facility] Address [address] [place] [address] Care Team Providers Care Head Packager Name Role Phone Unavailable Primary Care Provider Unavailabl e Encounter Details Date Type Department Care Team (Late st Contact Info) Description 11/03/2024 Lab Requisition [facility] [address] [place] [address] Nico Monet DO [address] [place], [place] [address] Social History Tobacco Use Types Packs/Day Years [...] - 16 mmol/L 11/03/2024 7:04 PM CDT [facility] BUN 76(H) 7 - 26 mg/dL 11/03/2024 7:04 PM CDT [facility] Creatinine 2.58(H) 0.57 - 1.11 mg/dL 11/03/2024 7:04 PM T [facility] eGFR by CKD-EPI 18(L) >=90 mL/min/1.7 3 m2 11/03/2024 7:04 PM T [facility] Comment:Estimated Glomerular Filtration Rate (eGFR) calculated using the CKD-EPI Creatinine Equation (2020), per the National Kidney Foundation and [place] Society of Nephrology recommendations. Blood BLOOD SPECIMEN / Unknown Venipuncture / Unknown 11/03/2024 5:00 PM CDT 11/03/2024 6:24 PM CDT Nico Monet DO LAB - CHEMISTRY ORDERABLES Final Result [facility] [address] [place] [address] documented in this encounter Visit Diagnoses Not on filedocumented in this encounter
[2024-11-04 11:41] LABS: Alanine Aminotransferase 13 U/L (6-35); Albumin Level 3.8 g/dL (3.5-5.1); Alkaline Phosphatase 84 U/L (38-126); Anion Gap 12 mmol/L (4-12); Aspartate Amino Transferase 28 U/L (14-36); Bilirubin,Total 0.7 mg/dL (0.2-1.3); Blood Urea Nitrogen 80 mg/dL (7-17); Calcium 8.9 mg/dL (8.4-10.2); Carbon Dioxide 23 mmol/L (22-30); Chloride 97 mmol/L (98-107); Estimated CRCL calculation 19 ml/min; Estimated Glomerular Filt Rate 18; Glucose 152 mg/dL (65-110); Magnesium 1.3 mg/dL (1.6-2.3); Potassium 5.3 mmol/L (3.4-5.0); Sodium 132 mmol/L (137-145); Total Protein 7.4 g/dL (6.3-8.2)
[2024-11-04 11:47] LABS: Add Urine Microscopic? YES; Appearance Urine Clear (Clear); Glucose Urine UA Negative (Negative); Leukocyte Esterase Ur Trace LEU/UL (Negative); Nitrate Urine Negative (Negative); Non Pathogenic Casts 0-2; Specific Grav Ur 1.008 (1.001-1.035)
[2024-11-04 11:48] LABS: NT Pro B Type Natriuretic Pept 3670 pg/mL (19.9-100); Troponin I 0.015 ng/mL (0.000-0.034)
[2024-11-04] MEDS: MAGNESIUM SULF 2 GM/WATER 50ML 2 GM/50 ML BAG IVPB (12:22)
--- NOTE | 2024-11-04 12:22 | ED.GENADULT ---
HPI - General Adult General Chief complaint: Recheck/Abnormal Lab/Rx Stated complaint: states my kidneys are failing Time Seen by Provider: 11/04/24 10:57 History of Present Illness HPI narrative: Patient 84-year-old female who presents emergency department chief complaint of abnormal labs. The patient has history of congestive heart failure has been diuresed and reports she has baseline renal insufficiency the patient had labs checked today that showed that her creatinine at significantly increased and was sent to the emergency department. The patient currently has no complaints of shortness of breath chest pain or any other complaint Related Data Home Medications ?Medication ?Instructions ?Recorded ?Confirmed ?Last Taken ?Type cholecalciferol (vitamin D3) 10 2,000 unit PO DAILY 09/14/19 11/04/24 02/07/21 History mcg (400 unit) capsule acetaminophen 325 mg capsule 650 mg PO Q12H PRN pain 03/23/24 11/04/24 Unknown History (Tylenol) pen needle, diabetic 32 gauge x #1,200 ea 07/01/24 11/04/24 Unknown History spironolactone 25 mg tablet 12.5 mg PO BID 10/01/24 11/04/24 Unknown History (Aldactone) furosemide 40 mg tablet 80 mg PO DAILY@0800 11/04/24 11/04/24 Unknown History insulin glargine 100 unit/mL (3 36 unit subcut QAM 11/04/24 11/04/24 Unknown History mL) subcutaneous pen (Lantus Solostar U-100 Insulin) Allergies Allergy/AdvReac Type Severity Reaction Status Date / Time bumetanide (From Bumex) Allergy Vomiting Verified 11/04/24 10:57 terbinafine Allergy skin Verified 11/04/24 10:57 blistering duloxetine (From Cymbalta) AdvReac Severe seratonin Verified 11/04/24 10:57 syndrome 2-19 sertraline AdvReac Severe Dizziness Verified 11/04/24 10:57 celecoxib AdvReac Unknown Dizziness Verified 11/04/24 10:57 cimbalta Allergy Unknown Dizziness Uncoded 11/04/24 10:57 Review of Systems Review of Systems: A 10 system review of systems was completed on the patient and is negative except for what is stated in the HPI. Nursing and ancillary documentation was reviewed. [facility] Past Medical History Medical History Diastolic congestive heart failure Heart murmur Anxiety Diabetes mellitus with chronic kidney disease Essential (primary) hypertension Obstructive sleep apnea Not on CPAP Venous stasis dermatitis Primary localized osteoarthritis of both knees Chronic kidney disease, stage 3 (moderate) Chronic pain syndrome Gastro-esophageal reflux disease without esophagitis Hypothyroidism (acquired) Mixed hyperlipidemia Spinal stenosis of lumbar region at multiple levels Surgical History Surgical History History of hysterectomy History of tonsillectomy History of bilateral cataract extraction History of appendectomy Status post insertion of spinal cord stimulator History of thumb surgery (10/2019) Family History Family History Father Diabetes mellitus Family history of glaucoma Hypertension Family history of cardiovascular disease Mother Family history of lupus erythematosus Other Family history of arthritis Family history of congenital heart disease Social History Social History Social History: Surrogate decision maker: Mónica Cain (niece). Code status: Full code. Caffeine- coffee Smoking packs per day: 1 Smoking cigarettes per day: 20.0 Years smoked: 15 Smoking pack-years: 15.00 Smoking status: Former smoker Second hand tobacco smoke exposure: No Additional smoking assessment comments: quit 50 years ago Alcohol intake: current Substance use: former Substance use type: does not use Do You Feel Safe in your Home?: Yes Lack of Transportation: No Lack of Food: Never True Current Housing: I Have Housing Concerned About Future Housing: No Difficulty Paying Gas/Electric Bills: No Difficulty Paying for Meds: No Currently Unemployed: No Education: High School Diploma/GED Difficulty w/ Childcare or Family Care: No Living arrangements: with family Additional living arrangements comments: The patient lives in [place]. Additional occupation/education comments: Retired. Gender identity (if verbalized by the patient): Female Spiritual care concerns: No Exam Narrative: GENERAL: Well-appearing, well-nourished, and in no acute distress. HEAD: Normocephalic, atraumatic. EYES: PERRLA and EOMI. ENT: Nares clear, no rhinorrhea or epistaxis. Mucous membranes moist. NECK: Supple. CHEST: Clear to auscultation. No respiratory distress. HEART: Regular rate and rhythm. No murmur heard. Normal peripheral pulses. ABDOMEN: Soft, nontender, nondistended, normal active bowel sounds. EXTREMITIES: Normal range of motion. No edema. SKIN: Warm, dry, no rash. NEURO: No focal deficits. Alert and oriented x3. PSYCH: Normal mood and affect. Course Vital Signs Vital signs: Vital Signs Temperature 36.6 C 11/04/24 10:53 Pulse Rate 93 11/04/24 10:53 Respiratory Rate 16 11/04/24 10:53 Blood Pressure 164/65 H 11/04/24 10:53 Pulse Oximetry 95 11/04/24 10:53 Oxygen Delivery Room Air 11/04/24 10:53 Temperature 36.4 C 11/04/24 14:20 Pulse Rate 83 11/04/24 14:20 Respiratory Rate 13 11/04/24 14:20 Blood Pressure 149/89 H 11/04/24 14:20 Pulse Oximetry 100 11/04/24 14:20 Oxygen Delivery Room Air 11/04/24 10:57 Medical Decision Making Vital Signs Vital Signs: Vital Signs Temperature 36.6 C 11/04/24 10:53 Pulse Rate 93 11/04/24 10:53 Respiratory Rate 16 11/04/24 10:53 Blood Pressure 164/65 H 11/04/24 10:53 Pulse Oximetry 95 11/04/24 10:53 Oxygen Delivery Room Air 11/04/24 10:53 Temperature 36.4 C 11/04/24 14:20 Pulse Rate 83 11/04/24 14:20 Respiratory Rate 13 11/04/24 14:20 Blood Pressure 149/89 H 11/04/24 14:20 Pulse Oximetry 100 11/04/24 14:20 Oxygen Delivery Room Air 11/04/24 10:57 Lab Data 11/04/24 11:08 11/04/24 11:08 Labs: Lab Results 11/04/24 11/04/24 11/04/24 Range/Units 11:08 11:08 11:08 WBC 7.9 (4.5-10.0) K/mm3 RBC 3.88 L (4.2-5.4) M/mm3 Hgb 11.8 L (12.0-15.0) g/dL Hct 37.4 (37.0-47.0) % MCV 96.4 (80-100) fl MCH 30.4 (26-34) pg MCHC 31.6 L (32-36) g/dl RDW 13.2 (11.5-14.5) % Plt Count 191 (150-375) k/mm3 MPV 10.4 (7.4-10.4) fl Immature Gran % (Auto) 0.4 (0-0.5) % Neut % (Auto) 58.0 (45.5-73.1) % Lymph % (Auto) 27.5 (18.3-44.2) % Park % (Auto) 12.9 H (2.6-8.5) % Eos % (Auto) 0.9 (0-4.4) % Baso % (Auto) 0.3 (0.2-1.2) % Lymph # (Auto) 2.18 (0.9-3.2) K/mm3 [place] # (Auto) 1.0 H (0.1-0.6) K/mm3 Eos # (Auto) 0.1 (0-0.3) K/mm3 Baso # (Auto) 0.0 (0.0-0.1) K/mm3 Abs Immat Gran (auto) 0.03 (0.00-0.031) K/mm3 Absolute Neuts (auto) 4.6 (1.3-6.7) K/mm3 Absolute Nucleated RBC 0.000 (0.0-0.012) K/mm3 Nucleated RBC % 0.0 (0.0-0.2) % Sodium Cancelled 132 L Potassium Cancelled 5.3 H Chloride Cancelled Carbon Dioxide Anion Gap BUN Creatinine Estim Creat Clear Calc Estimated GFR Glucose Calcium Magnesium Total Bilirubin AST ALT Alkaline Phosphatase Troponin I (0.000-0.034) ng/mL NT-Pro-B Natriuret Pep (19.9-100) pg/mL Total Protein Albumin Urine Color (Yellow) Urine Appearance (Clear) Urine pH (5.0-9.0) Ur Specific [place] (1.001-1.035) Urine Protein (Negative) mg/dL Urine Glucose (UA) (Negative) mg/dL Urine Ketones (Negative) mg/dL Ur Blood (Man) (Negative) Urine Nitrate (Negative) Urine Bilirubin (Negative) Urine Urobilinogen (<2.0) mg/dL Leukocyte Esterase Rfl (Negative) JALEN/UL Urine RBC (0-2) /hpf Urine WBC (0-3) /hpf Ur Squamous Epith Cells (Few) /hpf Urine Bacteria /hpf Urine Casts 11/04/24 11/04/24 11/04/24 Range/Units 11:08 11:08 11:08 WBC (4.5-10.0) K/mm3 RBC (4.2-5.4) M/mm3 Hgb (12.0-15.0) g/dL Hct (37.0-47.0) % MCV (80-100) fl MCH (26-34) pg MCHC (32-36) g/dl RDW (11.5-14.5) % Plt Count (150-375) k/mm3 MPV (7.4-10.4) fl Immature Gran % (Auto) (0-0.5) % Neut % (Auto) (45.5-73.1) % Lymph % (Auto) (18.3-44.2) % [place] % (Auto) (2.6-8.5) % Eos % (Auto) (0-4.4) % Baso % (Auto) (0.2-1.2) % Lymph # (Auto) (0.9-3.2) K/mm3 [place] # (Auto) (0.1-0.6) K/mm3 Eos # (Auto) (0-0.3) K/mm3 Baso # (Auto) (0.0-0.1) K/mm3 Abs Immat Gran (auto) (0.00-0.031) K/mm3 Absolute Neuts (auto) (1.3-6.7) K/mm3 Absolute Nucleated RBC (0.0-0.012) K/mm3 Nucleated RBC % (0.0-0.2) % Sodium Potassium Chloride 97 L Carbon Dioxide Cancelled 23 Anion Gap Cancelled 12 BUN Cancelled Creatinine Estim Creat Clear Calc Estimated GFR Glucose Calcium Magnesium Total Bilirubin AST ALT Alkaline Phosphatase Troponin I (0.000-0.034) ng/mL NT-Pro-B Natriuret Pep (19.9-100) pg/mL Total Protein Albumin Urine Color (Yellow) Urine Appearance (Clear) Urine pH (5.0-9.0) Ur Specific [place] (1.001-1.035) Urine Protein (Negative) mg/dL Urine Glucose (UA) (Negative) mg/dL Urine Ketones (Negative) mg/dL Ur Blood (Man) (Negative) Urine Nitrate (Negative) Urine Bilirubin (Negative) Urine Urobilinogen (<2.0) mg/dL Leukocyte Esterase Rfl (Negative) JALEN/UL Urine RBC (0-2) /hpf Urine WBC (0-3) /hpf Ur Squamous Epith Cells (Few) /hpf Urine Bacteria /hpf Urine Casts 11/04/24 11/04/24 11/04/24 Range/Units 11:08 11:08 11:08 WBC (4.5-10.0) K/mm3 RBC (4.2-5.4) M/mm3 Hgb (12.0-15.0) g/dL Hct (37.0-47.0) % MCV (80-100) fl MCH (26-34) pg MCHC (32-36) g/dl RDW (11.5-14.5) % Plt Count (150-375) k/mm3 MPV (7.4-10.4) fl Immature Gran % (Auto) (0-0.5) % Neut % (Auto) (45.5-73.1) % Lymph % (Auto) (18.3-44.2) % [place] % (Auto) (2.6-8.5) % Eos % (Auto) (0-4.4) % Baso % (Auto) (0.2-1.2) % Lymph # (Auto) (0.9-3.2) K/mm3 [place] # (Auto) (0.1-0.6) K/mm3 Eos # (Auto) (0-0.3) K/mm3 Baso # (Auto) (0.0-0.1) K/mm3 Abs Immat Gran (auto) (0.00-0.031) K/mm3 Absolute Neuts (auto) (1.3-6.7) K/mm3 Absolute Nucleated RBC (0.0-0.012) K/mm3 Nucleated RBC % (0.0-0.2) % Sodium Potassium Chloride Carbon Dioxide Anion Gap BUN 80 H D Creatinine Cancelled 2.50 H Estim Creat Clear Calc Cancelled 19 Estimated GFR Cancelled Glucose Calcium Magnesium Total Bilirubin AST ALT Alkaline Phosphatase Troponin I (0.000-0.034) ng/mL NT-Pro-B Natriuret Pep (19.9-100) pg/mL Total Protein Albumin Urine Color (Yellow) Urine Appearance (Clear) Urine pH (5.0-9.0) Ur Specific [place] (1.001-1.035) Urine Protein (Negative) mg/dL Urine Glucose (UA) (Negative) mg/dL Urine Ketones (Negative) mg/dL Ur Blood (Man) (Negative) Urine Nitrate (Negative) Urine Bilirubin (Negative) Urine Urobilinogen (<2.0) mg/dL Leukocyte Esterase Rfl (Negative) JALEN/UL Urine RBC (0-2) /hpf Urine WBC (0-3) /hpf Ur Squamous Epith Cells (Few) /hpf Urine Bacteria /hpf Urine Casts 11/04/24 11/04/24 11/04/24 Range/Units 11:08 11:08 11:08 WBC (4.5-10.0) K/mm3 RBC (4.2-5.4) M/mm3 Hgb (12.0-15.0) g/dL Hct (37.0-47.0) % MCV (80-100) fl MCH (26-34) pg MCHC (32-36) g/dl RDW (11.5-14.5) % Plt Count (150-375) k/mm3 MPV (7.4-10.4) fl Immature Gran % (Auto) (0-0.5) % Neut % (Auto) (45.5-73.1) % Lymph % (Auto) (18.3-44.2) % [place] % (Auto) (2.6-8.5) % Eos % (Auto) (0-4.4) % Baso % (Auto) (0.2-1.2) % Lymph # (Auto) (0.9-3.2) K/mm3 [place] # (Auto) (0.1-0.6) K/mm3 Eos # (Auto) (0-0.3) K/mm3 Baso # (Auto) (0.0-0.1) K/mm3 Abs Immat Gran (auto) (0.00-0.031) K/mm3 Absolute Neuts (auto) (1.3-6.7) K/mm3 Absolute Nucleated RBC (0.0-0.012) K/mm3 Nucleated RBC % (0.0-0.2) % Sodium Potassium Chloride Carbon Dioxide Anion Gap BUN Creatinine Estim Creat Clear Calc Estimated GFR 18 L Glucose Cancelled 152 H Calcium Cancelled 8.9 Magnesium Cancelled Total Bilirubin AST ALT Alkaline Phosphatase Troponin I (0.000-0.034) ng/mL NT-Pro-B Natriuret Pep (19.9-100) pg/mL Total Protein Albumin Urine Color (Yellow) Urine Appearance (Clear) Urine pH (5.0-9.0) Ur Specific [place] (1.001-1.035) Urine Protein (Negative) mg/dL Urine Glucose (UA) (Negative) mg/dL Urine Ketones (Negative) mg/dL Ur Blood (Man) (Negative) Urine Nitrate (Negative) Urine Bilirubin (Negative) Urine Urobilinogen (<2.0) mg/dL Leukocyte Esterase Rfl (Negative) JALEN/UL Urine RBC (0-2) /hpf Urine WBC (0-3) /hpf Ur Squamous Epith Cells (Few) /hpf Urine Bacteria /hpf Urine Casts 11/04/24 11/04/24 11/04/24 Range/Units 11:08 11:08 11:08 WBC (4.5-10.0) K/mm3 RBC (4.2-5.4) M/mm3 Hgb (12.0-15.0) g/dL Hct (37.0-47.0) % MCV (80-100) fl MCH (26-34) pg MCHC (32-36) g/dl RDW (11.5-14.5) % Plt Count (150-375) k/mm3 MPV (7.4-10.4) fl Immature Gran % (Auto) (0-0.5) % Neut % (Auto) (45.5-73.1) % Lymph % (Auto) (18.3-44.2) % [place] % (Auto) (2.6-8.5) % Eos % (Auto) (0-4.4) % Baso % (Auto) (0.2-1.2) % Lymph # (Auto) (0.9-3.2) K/mm3 [place] # (Auto) (0.1-0.6) K/mm3 Eos # (Auto) (0-0.3) K/mm3 Baso # (Auto) (0.0-0.1) K/mm3 Abs Immat Gran (auto) (0.00-0.031) K/mm3 Absolute Neuts (auto) (1.3-6.7) K/mm3 Absolute Nucleated RBC (0.0-0.012) K/mm3 Nucleated RBC % (0.0-0.2) % Sodium Potassium Chloride Carbon Dioxide Anion Gap BUN Creatinine Estim Creat Clear Calc Estimated GFR Glucose Calcium Magnesium 1.3 L Total Bilirubin Cancelled 0.7 AST Cancelled 28 ALT Cancelled Alkaline Phosphatase Troponin I (0.000-0.034) ng/mL NT-Pro-B Natriuret Pep (19.9-100) pg/mL Total Protein Albumin Urine Color (Yellow) Urine Appearance (Clear) Urine pH (5.0-9.0) Ur Specific [place] (1.001-1.035) Urine Protein (Negative) mg/dL Urine Glucose (UA) (Negative) mg/dL Urine Ketones (Negative) mg/dL Ur Blood (Man) (Negative) Urine Nitrate (Negative) Urine Bilirubin (Negative) Urine Urobilinogen (<2.0) mg/dL Leukocyte Esterase Rfl (Negative) JALEN/UL Urine RBC (0-2) /hpf Urine WBC (0-3) /hpf Ur Squamous Epith Cells (Few) /hpf Urine Bacteria /hpf Urine Casts 11/04/24 11/04/24 11/04/24 Range/Units 11:08 11:08 11:08 WBC (4.5-10.0) K/mm3 RBC (4.2-5.4) M/mm3 Hgb (12.0-15.0) g/dL Hct (37.0-47.0) % MCV (80-100) fl MCH (26-34) pg MCHC (32-36) g/dl RDW (11.5-14.5) % Plt Count (150-375) k/mm3 MPV (7.4-10.4) fl Immature Gran % (Auto) (0-0.5) % Neut % (Auto) (45.5-73.1) % Lymph % (Auto) (18.3-44.2) % [place] % (Auto) (2.6-8.5) % Eos % (Auto) (0-4.4) % Baso % (Auto) (0.2-1.2) % Lymph # (Auto) (0.9-3.2) K/mm3 [place] # (Auto) (0.1-0.6) K/mm3 Eos # (Auto) (0-0.3) K/mm3 Baso # (Auto) (0.0-0.1) K/mm3 Abs Immat Gran (auto) (0.00-0.031) K/mm3 Absolute Neuts (auto) (1.3-6.7) K/mm3 Absolute Nucleated RBC (0.0-0.012) K/mm3 Nucleated RBC % (0.0-0.2) % Sodium Potassium Chloride Carbon Dioxide Anion Gap BUN Creatinine Estim Creat Clear Calc Estimated GFR Glucose Calcium Magnesium Total Bilirubin AST ALT 13 Alkaline Phosphatase Cancelled 84 Troponin I 0.015 (0.000-0.034) ng/mL NT-Pro-B Natriuret Pep 3670 H (19.9-100) pg/mL Total Protein Cancelled 7.4 Albumin Cancelled Urine Color (Yellow) Urine Appearance (Clear) Urine pH (5.0-9.0) Ur Specific [place] (1.001-1.035) Urine Protein (Negative) mg/dL Urine Glucose (UA) (Negative) mg/dL Urine Ketones (Negative) mg/dL Ur Blood (Man) (Negative) Urine Nitrate (Negative) Urine Bilirubin (Negative) Urine Urobilinogen (<2.0) mg/dL Leukocyte Esterase Rfl (Negative) JALEN/UL Urine RBC (0-2) /hpf Urine WBC (0-3) /hpf Ur Squamous Epith Cells (Few) /hpf Urine Bacteria /hpf Urine Casts 11/04/24 11/04/24 Range/Units 11:08 11:34 WBC (4.5-10.0) K/mm3 RBC (4.2-5.4) M/mm3 Hgb (12.0-15.0) g/dL Hct (37.0-47.0) % MCV (80-100) fl MCH (26-34) pg MCHC (32-36) g/dl RDW (11.5-14.5) % Plt Count (150-375) k/mm3 MPV (7.4-10.4) fl Immature Gran % (Auto) (0-0.5) % Neut % (Auto) (45.5-73.1) % Lymph % (Auto) (18.3-44.2) % [place] % (Auto) (2.6-8.5) % Eos % (Auto) (0-4.4) % Baso % (Auto) (0.2-1.2) % Lymph # (Auto) (0.9-3.2) K/mm3 [place] # (Auto) (0.1-0.6) K/mm3 Eos # (Auto) (0-0.3) K/mm3 Baso # (Auto) (0.0-0.1) K/mm3 Abs Immat Gran (auto) (0.00-0.031) K/mm3 Absolute Neuts (auto) (1.3-6.7) K/mm3 Absolute Nucleated RBC (0.0-0.012) K/mm3 Nucleated RBC % (0.0-0.2) % Sodium Potassium Chloride Carbon Dioxide Anion Gap BUN Creatinine Estim Creat Clear Calc Estimated GFR Glucose Calcium Magnesium Total Bilirubin AST ALT Alkaline Phosphatase Troponin I (0.000-0.034) ng/mL NT-Pro-B Natriuret Pep (19.9-100) pg/mL Total Protein Albumin 3.8 Urine Color Yellow (Yellow) Urine Appearance Clear (Clear) Urine pH 7.0 (5.0-9.0) Ur Specific [place] 1.008 (1.001-1.035) Urine Protein Negative (Negative) mg/dL Urine Glucose (UA) Negative (Negative) mg/dL Urine Ketones Negative (Negative) mg/dL Ur Blood (Man) Trace (Negative) Urine Nitrate Negative (Negative) Urine Bilirubin Negative (Negative) Urine Urobilinogen 1.0 (<2.0) mg/dL Leukocyte Esterase Rfl Trace H (Negative) JALEN/UL Urine RBC 0-2 (0-2) /hpf Urine WBC 0-5 (0-3) /hpf Ur Squamous Epith Cells None seen (Few) /hpf Urine Bacteria None seen /hpf Urine Casts 0-2 Discharge Plan Discharge Clinical Impression: Acute kidney injury, Hypomagnesemia Patient Disposition: Still a Patient Condition: Stable
[2024-11-04] MEDS: SODIUM CHLORIDE 0.9% IV 500 ML 999 ML IV CONT (12:23)
--- NOTE | 2024-11-04 13:07 | PM.IMHP ---
H&P: HPI History of Present Illness Date/Time: 11/04/24 13:07 Chief Complaint: Abnormal Labs Narrative: 84 y/o F with PMH of chronic pain syndrome, spinal stenosis of lumbar region, hypothyroidism, hyperlipidemia, CKD, venous stasis, JAQUELINE noncompliant with CPAP, diastolic heart failure, paroxysmal atrial fibrillation on Eliquis, insulin-dependent diabetes mellitus, GERD, and anxiety presents here with worsening kidney function. The patient presents here via EMS from [facility] on 11/04 for further evaluation of abnormal outpatient lab work. The patient reports her kidneys are failing and her outpatient lab work showed worsening renal function. Review of chart showed that the patient was admitted from 10/01 - 10/05 for a CHF exacerbation and bilateral venous stasis dermatitis secondary to volume overload. She was adequately diuresed with Lasix 80 mg b.i.d. and she was transition to Lasix 60 mg b.i.d.. She was then discharged to [facility] for SNF placement/rehab due to the volume overload. She reports she has been feeling well since she was discharged and has been participating in rehab. She reports she has continued the diuretic while at . She also notes that they have been tracking her weight which has steadily increased. However, she is not on any special diet when she is there and has been eating more regularly there than she may at home. She is additionally reporting some tightness in her LEs that has developed in the last 1-2 days. She denies shortness of breath or chest pain. Initial VS at presentation: 98? F, HR 93, R 16, 164/65, and 95% on RA. ED workup showed: No leukocytosis, hemoglobin 11.8, sodium 132, potassium 5.3, creatinine 2.5 and GFR 18 (1.45 and GFR 34 on 10/04/2024), glucose 152, magnesium 1.3, BNP 3670, initial troponin 0.015, and UA showed trace leuk esterase. CXR showed mild CHF, superimposed infection cannot be excluded. Review of Systems Review of Systems: All systems reviewed & are unremarkable except as noted in HPI and below [facility] Past Medical History Medical History Diastolic congestive heart failure Heart murmur Anxiety Diabetes mellitus with chronic kidney disease Essential (primary) hypertension Obstructive sleep apnea Not on CPAP Venous stasis dermatitis Primary localized osteoarthritis of both knees Chronic kidney disease, stage 3 (moderate) Chronic pain syndrome Gastro-esophageal reflux disease without esophagitis Hypothyroidism (acquired) Mixed hyperlipidemia Spinal stenosis of lumbar region at multiple levels Surgical History Surgical History History of hysterectomy History of tonsillectomy History of bilateral cataract extraction History of appendectomy Status post insertion of spinal cord stimulator History of thumb surgery (10/2019) Family History Family History Father Diabetes mellitus Family history of glaucoma Hypertension Family history of cardiovascular disease Mother Family history of lupus erythematosus Other Family history of arthritis Family history of congenital heart disease Social History Social History Social History: Surrogate decision maker: Mónica Cain (niece). Code status: Full code. Caffeine- coffee Smoking packs per day: 1 Smoking cigarettes per day: 20.0 Years smoked: 15 Smoking pack-years: 15.00 Smoking status: Former smoker Second hand tobacco smoke exposure: No Additional smoking assessment comments: quit 50 years ago Alcohol intake: current Substance use: former Substance use type: does not use Do You Feel Safe in your Home?: Yes Lack of Transportation: No Lack of Food: Never True Current Housing: I Have Housing Concerned About Future Housing: No Difficulty Paying Gas/Electric Bills: No Difficulty Paying for Meds: No Currently Unemployed: No Education: High School Diploma/GED Difficulty w/ Childcare or Family Care: No Living arrangements: with family Additional living arrangements comments: The patient lives in [place]. Additional occupation/education comments: Retired. Gender identity (if verbalized by the patient): Female Spiritual care concerns: No Meds Home Medications and Allergies Home Medications ?Medication ?Instructions ?Recorded ?Confirmed ?Type cholecalciferol (vitamin D3) 10 2,000 unit PO DAILY 09/14/19 11/04/24 History mcg (400 unit) capsule lancets 33 gauge (OneTouch Delica #100 ea 07/14/22 11/04/24 Rx Lancets) pen needle, diabetic 31 gauge x #100 ea 07/31/23 11/04/24 Rx 3/16 (BD Ultra-Fine Mini Pen Needle) acetaminophen 325 mg capsule 650 mg PO Q12H PRN pain 03/23/24 11/04/24 History (Tylenol) blood sugar diagnostic (Blood #50 ea 04/04/24 11/04/24 Rx Glucose Test strips) lisinopril 40 mg tablet See Rx Instructions .Route 04/22/24 11/04/24 Rx .COMPLEX #90 tabs metoprolol succinate 100 mg 150 mg (1.5 x 100 mg) PO HS #135 04/22/24 11/04/24 Rx tablet,extended release 24 hr tabs omeprazole 40 mg capsule,delayed 40 mg PO DAILY #90 caps 04/22/24 11/04/24 Rx release rosuvastatin 5 mg tablet 5 mg PO HS #90 tabs 04/22/24 11/04/24 Rx pen needle, diabetic 32 gauge x #1,200 ea 07/01/24 11/04/24 History apixaban 5 mg tablet (Eliquis) 5 mg PO Q12HR 30 days #60 tabs 07/27/24 11/04/24 Rx levothyroxine 175 mcg tablet 175 mcg PO DAILY #90 tabs 09/26/24 11/04/24 Rx (Synthroid) spironolactone 25 mg tablet 12.5 mg PO BID 10/01/24 11/04/24 History (Aldactone) hydrocodone 5 mg-acetaminophen 325 1 tablet PO Q6H PRN pain #12 tabs 10/05/24 11/04/24 Rx mg tablet insulin aspart U-100 100 unit/mL 1 sliding scale dose subcut 10/05/24 11/04/24 Rx subcutaneous solution USEASDIRECTD #10 mL furosemide 40 mg tablet 80 mg PO DAILY@0800 11/04/24 11/04/24 History insulin glargine 100 unit/mL (3 36 unit subcut QAM 11/04/24 11/04/24 History mL) subcutaneous pen (Lantus Solostar U-100 Insulin) Allergies Allergy/AdvReac Type Severity Reaction Status Date / Time bumetanide (From Bumex) Allergy Vomiting Verified 11/04/24 10:57 terbinafine Allergy skin Verified 11/04/24 10:57 blistering duloxetine (From Cymbalta) AdvReac Severe seratonin Verified 11/04/24 10:57 syndrome 2-19 sertraline AdvReac Severe Dizziness Verified 11/04/24 10:57 celecoxib AdvReac Unknown Dizziness Verified 11/04/24 10:57 cimbalta Allergy Unknown Dizziness Uncoded 11/04/24 10:57 Vital Signs Vital Signs - 24 hr 11/04/24 10:53 11/04/24 10:57 11/04/24 11:00 Temperature 98 F Pulse Rate 93 98 Respiratory Rate 16 19 19 Blood Pressure 164/65 H 164/65 H Pulse Oximetry 95 97 98 Oxygen Delivery Room Air Room Air 11/04/24 11:28 11/04/24 12:28 Temperature Pulse Rate 92 91 Respiratory Rate 19 17 Blood Pressure 116/63 142/65 H Pulse Oximetry 98 98 Oxygen Delivery Exam Const: General: comfortable and no acute distress Other: , female, elderly, nontoxic appearance HENMT: Face/Nose/Sinus: Normal nares present Mouth: Yes dry mucous membranes Eyes: General: appearance normal, both eyes and all related structures Sclera: sclerae normal Pupils: Equal, round and reactive pupils present EOM: EOMs intact bilaterally Resp: Effort & Inspection: normal respiratory effort Auscultation: clear to auscultation bilaterally Cardio: Rate: regular rate Rhythm: regular rhythm Other: S1-S2 present without murmur, rub, ectopy GI: Other: Abdomen soft, nondistended, nontender. Normoactive bowel sounds in all quadrants. Skin: General skin exam: normal color and no rashes or lesions noted Wounds: no wounds Neuro: Speech: normal speech Motor exam (neuro): 5/5 motor strength present throughout Sensory Exam: normal sensation Other: A&O x4 Extrem: Other: Indentations noted to bilateral lower extremities secondary to Onofre wraps, very mild edema noted but difficult to assess due to the wraps. No appreciable pitting edema or edema to her knees or thighs. Psych: Mental Status: mental status grossly normal Affect: normal affect Other: Good insight and judgment, pleasant H&P: Results Labs Labs: Short CBC 11/04/24 Range/Units 11:08 WBC 7.9 (4.5-10.0) K/mm3 Hgb 11.8 L (12.0-15.0) g/dL Hct 37.4 (37.0-47.0) % Plt Count 191 (150-375) k/mm3 BMP 11/04/24 11/04/24 11/04/24 11:08 11:08 11:08 Sodium Cancelled 132 L Potassium Cancelled 5.3 H Chloride Cancelled Carbon Dioxide BUN Creatinine Glucose Calcium 11/04/24 11/04/24 11/04/24 11:08 11:08 11:08 Sodium Potassium Chloride 97 L Carbon Dioxide Cancelled 23 BUN Cancelled 80 H D Creatinine Cancelled Glucose Calcium 11/04/24 11/04/24 11/04/24 11:08 11:08 11:08 Sodium Potassium Chloride Carbon Dioxide BUN Creatinine 2.50 H Glucose Cancelled 152 H Calcium Cancelled 8.9 Cardiac Enzymes 11/04/24 Range/Units 11:08 Troponin I 0.015 (0.000-0.034) ng/mL Liver Function 11/04/24 11/04/24 11/04/24 Range/Units 11:08 11:08 11:08 Total Bilirubin Cancelled 0.7 AST Cancelled 28 ALT Cancelled Alkaline Phosphatase Albumin 11/04/24 11/04/24 11/04/24 Range/Units 11:08 11:08 11:08 Total Bilirubin AST ALT 13 Alkaline Phosphatase Cancelled 84 Albumin Cancelled 3.8 Urine 11/04/24 Range/Units 11:34 Urine Color Yellow (Yellow) Urine Appearance Clear (Clear) Urine pH 7.0 (5.0-9.0) Ur Specific [place] 1.008 (1.001-1.035) Urine Protein Negative (Negative) mg/dL Urine Glucose (UA) Negative (Negative) mg/dL Assessment and Plan Assessment and plan (1) Diastolic congestive heart failure: Qualifiers: Heart failure chronicity: acute on chronic Qualified Code(s): I50.33 - Acute on chronic diastolic (congestive) heart failure Code(s): I50.30 - Unspecified diastolic (congestive) heart failure Status: Acute Assessment and Plan: - BNP 3670 - most recent echo (10/01/2024): LV systolic function normal, estimated EF 65-70%. Moderate pulmonary hypertension. Valvular disease noted. - monitor I&Os and daily weights - trend renal function Patient has both signs of over-diuresis (TRU, dry mucous membranes) and under diuresis (pulmonary edema on CXR, subjective leg tightness for the past 1-2 days). Given 500 mL bolus in ED. Will continue diuretics as prescribed at home (Lasix 80 mg daily and spironolactone 12.5 mg b.i.d.). Discussed plan with rn gyn, in agreeance. Monitor renal function closely. (2) Acute kidney injury: Code(s): N17.9 - Acute kidney failure, unspecified Status: Acute Assessment and Plan: - creatinine 2.5, BUN 80, GFR 18 - baseline creatinine: 1.5-1.7 - nephrology consulted - trend renal function - trend electrolytes, correct as needed see plan above, unclear if patient has been over diuresed her under diuresed. (3) Diabetes mellitus with chronic kidney disease: Qualifiers: Chronic kidney disease stage: stage 4 (severe) Diabetes mellitus chcf insulin use: with chcf use Diabetes mellitus type: type 2 Qualified Code(s): E11.22 - Type 2 diabetes mellitus with diabetic chronic kidney disease; N18.4 - Chronic kidney disease, stage 4 (severe); Z79.4 - residential (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 insulin Code(s): E11.22 - Type 2 diabetes mellitus with diabetic chronic kidney disease Status: Chronic Assessment and Plan: - hypoglycemia protocol - POC blood glucose ACHS - home medication: Continue Lantus 36 units q.a.m., hold hold sliding scale - correct regimen ordered - high dose TIDWM based off BMI - A1C 6.6% on 06/24/2024 (4) Essential (primary) hypertension: Code(s): I10 - Essential (primary) hypertension Status: Chronic Assessment and Plan: - chronic, currently 142/65 - continue home medications: Lisinopril, metoprolol, spironolactone - monitor (5) Hypothyroidism (acquired): Code(s): E03.9 - Hypothyroidism, unspecified Status: Acute Assessment and Plan: - reviewed previous lab work, TSH 9.23 on 10/02/2024 - continue Synthroid Plan Diet: Heart healthy GI Prophylaxis: N/a DVT Prophylaxis: Eliquis IV fluids: 500 mL bolus Lines/Tubes: Peripheral IV Code Status: DNR Quality VTE Prophylaxis VTE prophylaxis: pharmacologic ordered Hospitalist [facility] Advance Care Plan I have confirmed that the patient's Advanced Care Plan is present, code status is documented, or surrogate decision maker is listed in patient medical record.: Yes Medication Reconciliation I have utilized all available resources to obtain, update and review the patients current medications (includes all prescriptions, OTC, herbals, cannabis, and nutritional supplements).: Yes
--- NOTE | 2024-11-04 14:18 | PC.NURSE ---
RN called [facility] spoke with staff and informed them that pt is to be admitted to this hospital
--- NOTE | 2024-11-04 15:00 | ADMGEN ---
This patient, Payton Burroughs, was admitted to Medical Room 348-01. Patient/family oriented to hospital policies and general routines including ID bracelet, bed and alarms, visiting hours, pain management, procedures, bathroom and other care routines, personal items, smoking policy, room service/diet, and visiting hours. Information on how to activate the Rapid Response Team has been discussed. Patient/Family are encouraged to report perceived risks to care and to ask questions if they do not understand what they are told or what they should do.
--- NOTE | 2024-11-04 15:10 | P.CONNP_ITS ---
Assessment and Plan Assessment and plan (1) Acute kidney injury: Code(s): N17.9 - Acute kidney failure, unspecified Status: Acute Assessment and Plan: * as noted by admission labs (as well as labs at rehab) * creatinine at baseline on discharge from [facility] in early September 2024 * interestingly, her renal function/creatinine remains stable if not improve with IV diuretic therapy during that hospital stay arguing a component/degree of possible renal venous hypertension being present... * complicated situation: * signs of overdiuresis/hypovolemia - dry mucus membranes/dry mouth with noted history of increased use of lasix, bumex, spironolactone, and metalozone while in rehab per patient as well * but also with appearance of mild overload - CXR findings, swelling/edema in LEs, mild weight gain * suspect she might be intravascularly volume depleted despite outward signs of fluid retention... * this maybe a situation where we have to accept some degree of edema/swelling in an effort to maintain her kidney function... * check urine studies, renal ultrasound, and CPK * hold diuretics for now * s/p IVFs given in ER * follow repeat labs and UOP (2) Stage 3b chronic kidney disease: Code(s): N18.32 - Chronic kidney disease, stage 3b Status: Acute Assessment and Plan: * creatinine was running ~ 1.6 - 2.3mg/dl when I last saw her in the office 2 years ago (November 2022). * however, more recently, seems to have averaged around 1.4 - 1.8mg/d/L (this year) * this causes her to fluctuate between CKD stage 3b and stage 4) * previous outpatient evaluation noted: * normal renal ultrasound * no significant proteinuria * negative serological profile * did have a positive CHINMAY (but normal complements and dsDNA-ab) * baseline CKD due to diabetes, hypertension, JAQUELINE, CHF, vascular disease, and age-related change and need for chronic diuretic therapy (3) Diastolic congestive heart failure: Qualifiers: Heart failure chronicity: acute on chronic Qualified Code(s): I50.33 - Acute on chronic diastolic (congestive) heart failure Code(s): I50.30 - Unspecified diastolic (congestive) heart failure Status: Acute Assessment and Plan: * known history * recent Echo (10/01/24) noted: * left ventricular systolic function is normal, estimated at 65 - 70% * right ventricular systolic function is normal * moderate pulmonary hypertension, estimated pulmonary arterial systolic pressure is 52 mmHg * mild mitral valve regurgitation * admission BNP of 3670 (better than last admission/hospitalization) * follow daily weights * monitor I&Os * holding diuretic for now (but will eventually need to restart) (4) Essential (primary) hypertension: Code(s): I10 - Essential (primary) hypertension Status: Chronic Assessment and Plan: * slightly elevated at this time * holding BRUNA-I given #1 * follow trend of hemodynamics (5) Anemia: Code(s): D64.9 - Anemia, unspecified Status: Chronic Assessment and Plan: * probably partly related to CKD * check iron studies if worsens * no need for MARTELL at this time * follow trend of H/H (6) Diabetes: Code(s): E11.9 - Type 2 diabetes mellitus without complications Status: Chronic Assessment and Plan: * follow accu-cheks * glycemic control per hospitalist I will continue to follow the patient with you while she remains hospitalized and make further recommendations as deemed necessary. Thank you for allowing me to participate in the care of this patient. L History of Present Illness Reason for Consult Consult date: 11/04/24 Reason for consult: acute renal failure (on chronic kidney disease) Chief Complaint Chief complaint: acute kidney injury History of Present Illness Narrative: The patient is an 84-year-old female with a past medical history as outlined below presented to [facility] Emergency Room from her pre have facility due to abnormal blood work which demonstrated worsening renal function. The patient was admitted here at [facility] in early September for a CHF exacerbation and associated volume overload. During that hospital stay, she responded to IV diuretics with relative stability if not improvement in her renal function. She was subsequently transition to oral diuretic therapy and discharged to [facility] for rehab due to her deconditioned state during that acute hospital stay. She has been doing fairly well with regard to her rehab and she was continued on outpatient diuretic therapy during her stay there. However, the patient does reports though that due to fluctuating issues with her lower extremity swelling / edema, her diuretic therapy had been adjusted several times during her stay in rehab which included transitioning Lasix to Bumex, the addition of metolazone, and continuation of her spironolactone with frequent dose adjustments and changes in frequency. In spite of all these changes, her lower extremity swelling seemed to persist although clinically, she felt reasonably well with no acute complaints of shortness of breath or dyspnea on exertion although she has noted some mild fluctuations in her weight and some increased tightness in her lower extremities for the past 24-48 hours. She was apparently due to be discharged from rehab today but due to her ongoing worsening renal function with the context of swelling/ edema, she was transferred to the emergency room for further assessment. Workup and evaluation emergency room demonstrated the patient be hemodynamically stable and in no acute distress. Repeat labs done in the ER demonstrated a normal white blood cell count, hemoglobin 11.8, normal platelet count, sodium 132, potassium 5.3, creatinine 2.5, glucose 152, magnesium 1.3, BNP of 3670, and a UA which was only significant for trace leukocyte esterase. Her chest x-ray showed mild CHF is with superimposed infection not being ruled out and her EKG and initial troponin were not significant to suggest acute ischemic changes. Given the concerns for possible over diuresis, the patient received IV fluids in the emergency room and was subsequently admitted to the hospital for further evaluation and therapy. Renal consultation was requested due to her acute kidney injury/ acute renal failure on top of her baseline chronic kidney disease. The patient is somewhat familiar to me as I used to see her in the office for management of her chronic kidney disease. The last time I saw her in the office was about 2 years ago in November of 2022 and at that time, her creatinine seems to be fluctuating anywhere from 1.6-2.3 mg/dL. It was felt that her chronic kidney disease was secondary tod iabetes, hypertension, CHF, JAQUELINE, vascular disease, and age-related change in addition to chronic diuretic therapy to maintain her volume status. Since I last saw her in the office, her renal function seems to improve if not stabilized closer to 1.4 - 1.7 mg/dL at least the last year. Currently, in spite of her laboratory abnormalities with regard to her renal dysfunction, she feels reasonably well and in no acute distress. Review of Systems 2 Review of Systems: As per HPI. [facility] Past Medical History Medical History Diastolic congestive heart failure Heart murmur Anxiety Diabetes mellitus with chronic kidney disease Essential (primary) hypertension Obstructive sleep apnea Not on CPAP Venous stasis dermatitis Primary localized osteoarthritis of both knees Chronic kidney disease, stage 3 (moderate) Chronic pain syndrome Gastro-esophageal reflux disease without esophagitis Hypothyroidism (acquired) Mixed hyperlipidemia Spinal stenosis of lumbar region at multiple levels Surgical History Surgical History History of hysterectomy History of tonsillectomy History of bilateral cataract extraction History of appendectomy Status post insertion of spinal cord stimulator History of thumb surgery (10/2019) Family History Family History Father Diabetes mellitus Family history of glaucoma Hypertension Family history of cardiovascular disease Mother Family history of lupus erythematosus Other Family history of arthritis Family history of congenital heart disease Social History Social History Social History: Surrogate decision maker: Mónicagladys Cain (niece). Code status: Full code. Caffeine- coffee Smoking packs per day: 1 Smoking cigarettes per day: 20.0 Years smoked: 15 Smoking pack-years: 15.00 Smoking status: Former smoker Second hand tobacco smoke exposure: No Additional smoking assessment comments: quit 50 years ago Alcohol intake: current Substance use: former Substance use type: does not use Do You Feel Safe in your Home?: Yes Lack of Transportation: No Lack of Food: Never True Current Housing: I Have Housing Concerned About Future Housing: No Difficulty Paying Gas/Electric Bills: No Difficulty Paying for Meds: No Currently Unemployed: No Education: High School Diploma/GED Difficulty w/ Childcare or Family Care: No Living arrangements: with family Additional living arrangements comments: The patient lives in [place]. Additional occupation/education comments: Retired. Gender identity (if verbalized by the patient): Female Spiritual care concerns: No Meds Home Medications and Allergies Home Medications ?Medication ?Instructions ?Recorded ?Confirmed ?Type cholecalciferol (vitamin D3) 10 2,000 unit PO DAILY 11/04/24 History mcg (400 unit) capsule lancets 33 gauge (OneTouch Delica #100 ea 07/14/2207/24 Rx Lancets) pen needle, diabetic 31 gauge x #100 ea 07/31/2311/04 Rx 3/16 (BD Ultra-Fine Mini Pen Needle) acetaminophen 325 mg capsule 650 mg PO Q12H PRN pain 0 03/23/24 11/04/24 History (Tylenol) blood sugar diagnostic (Blood #50 ea 04/04/24 11/04/24 Rx Glucose Test strips) lisinopril 40 mg tablet See Rx Instructions .Route 0 04/22/24 11/04/24 Rx .COMPLEX #90 tabs metoprolol succinate 100 mg 150 mg (1.5 x 100 mg) PO H S #135 04/22/24 11/04/24 Rx tablet,extended release 24 hr tabs omeprazole 40 mg capsule,delayed 40 mg PO DAILY #90 ca ps 04/22/24 11/04/24 Rx release rosuvastatin 5 mg tablet 5 mg PO HS #90 tabs 04/22/24 11/04/24 Rx pen needle, diabetic 32 gauge x #1,200 ea 07/01/2407/24 History apixaban 5 mg tablet (Eliquis) 5 mg PO Q12HR 30 days # 60 tabs 07/27/24 11/04/24 Rx levothyroxine 175 mcg tablet 175 mcg PO DAILY #90 tabs 09/26/24 11/04/24 Rx (Synthroid) spironolactone 25 mg tablet 12.5 mg PO BID 10/01/24 History (Aldactone) hydrocodone 5 mg-acetaminophen 325 1 tablet PO Q6H PRN pain #12 tabs 10/05/24 11/04/24 Rx mg tablet insulin aspart U-100 100 unit/mL 1 sliding scale dose subcut 10/05/24 11/04/24 Rx subcutaneous solution USEASDIRECTD #10 mL furosemide 40 mg tablet 80 mg PO DAILY@0800 11/04/24 11/04/24 History insulin glargine 100 unit/mL (3 36 unit subcut QAM 07/2411/04/24 History mL) subcutaneous pen (Lantus Solostar U-100 Insulin) Allergies Allergy/AdvReac Type Severity Reaction Status Date / Time bumetanide (From Bumex) Allergy Vomiting Verified 11/04/24 10:57 terbinafine Allergy skin Verified 11/04/24 10:57 blistering duloxetine (From Cymbalta) AdvReac Severe seratonin Verified 11/04/24 10:57 syndrome 2-19 sertraline AdvReac Severe Dizziness Verified 11/04/24 10:57 celecoxib AdvReac Unknown Dizziness Verified 11/04/24 10:57 cimbalta Allergy Unknown Dizziness Uncoded 11/04/24 10:57 Vital Signs Vital Signs Temp Pulse Resp BP Pulse Ox O2 Del Method 11/04/24 15:00 100 Room Air 11/04/24 14:20 97.6 F 83 13 149/89 H 100 11/04/24 14:01 79 18 149/89 H 100 11/04/24 13:01 84 16 143/79 H 100 11/04/24 12:28 81 13 142/65 H 11/04/24 12:28 91 17 142/65 H 98 11/04/24 11:28 92 19 116/63 98 11/04/24 11:22 90 20 116/63 11/04/24 11:00 19 98 11/04/24 10:57 98 19 164/65 H 97 Room Air 11/04/24 10:53 98 F 93 16 164/65 H 95 Room Air Exam 2 Narrative: GENERAL APPEARANCE: [id number] but well developed well nourished female in no acute distress HEENT: normocephalic, atraumatic, normal conjunctiva and sclera, nares patient NECK: no lymphadenopathy, thyromegaly, or JVD MOUTH: normal lips, teeth, and gums CARDIOVASCULAR: RRR, normal S1 and S2, no rub RESPIRATORY: clear anteriorly ABDOMEN: soft, nontender, nondistended, positive bowel sounds present EXTREMITIES: no evidence of cyanosis, clubbing, trace - 1+ edema NEUROLOGICAL: alert and oriented x 3; CN II - XII intact bilaterally; no focal deficits noted Results Lab Results 11/05/24 05:49 11/05/24 05:49 Lab results: Most recent lab results Calcium 9.3 mg/dL (8.4-10.2) 11/04/24 16:31 Magnesium 1.8 mg/dL (1.6-2.3) 11/04/24 16:31
[2024-11-04] MEDS: HYDROcodone/acetaminophen (*CRX) 5-325 MG TABLET 1 TAB PO (16:53)
[2024-11-04 17:02] LABS: Anion Gap 10 mmol/L (4-12); Blood Urea Nitrogen 77 mg/dL (7-17); Calcium 9.3 mg/dL (8.4-10.2); Carbon Dioxide 28 mmol/L (22-30); Chloride 98 mmol/L (98-107); Estimated CRCL calculation 20 ml/min; Estimated Glomerular Filt Rate 20; Glucose 76 mg/dL (65-110); Magnesium 1.8 mg/dL (1.6-2.3); Potassium 5.1 mmol/L (3.4-5.0); Sodium 136 mmol/L (137-145)
[2024-11-04] MEDS: METOPROLOL SUCCINATE EXT REL 50 MG TABCR 150 MG PO (20:45)
[2024-11-04] MEDS: APIXABAN 5 MG TABLET PO (20:45)
[2024-11-04] MEDS: ROSUVASTATIN 5 MG TABLET PO (20:46)
[2024-11-05] VITALS (9 sets, daily range): BP systolic 114–123; BP diastolic 40–63; PULSE 61–90; RESP 18–20; TEMP 36.2–36.5; O2SAT 98–100
[2024-11-05 00:22] LABS: Total Protein Urine Random 12 mg/dL; Ur Ttl Prot Creatinine Ratio 0.38 mg/mg (0-0.20)
[2024-11-05 00:23] LABS: Total Protein Urine Random 12 mg/dL; Urea Random Urine 281 MG/DL
[2024-11-05 01:00] LABS: Urine Eos QC 2nd Tech Confirmed
[2024-11-05 05:59] LABS: Hematocrit 36.3 % (37.0-47.0); Hemoglobin 11.4 g/dL (12.0-15.0); Immature Granulocyte Percent A 0.4 % (0-0.5); Lymphocytes Absolute Auto 1.77 K/mm3 (0.9-3.2); Mean Corpuscular HGB Conc 31.4 g/dl (32-36); Mean Corpuscular Hemoglobin 30.2 pg (26-34); Mean Corpuscular Volume 96.0 fl (80-100); Nucleated Red Blood Cells Absolute Auto 0.000 K/mm3 (0.0-0.012); Nucleated Red Blood Cells Perc 0.0 % (0.0-0.2); Platelet Count Result 163 k/mm3 (150-375); Red Blood Count 3.78 M/mm3 (4.2-5.4); White Blood Count 7.2 K/mm3 (4.5-10.0)
[2024-11-05] MEDS: LEVOTHYROXINE SODIUM 100 MCG, LEVOTHYROXINE SODIUM 75 MCG 175 MCG PO (06:11)
[2024-11-05 06:26] LABS: Alanine Aminotransferase 8 U/L (6-35); Albumin Level 3.7 g/dL (3.5-5.1); Alkaline Phosphatase 86 U/L (38-126); Anion Gap 9 mmol/L (4-12); Aspartate Amino Transferase 22 U/L (14-36); Bilirubin,Total 0.5 mg/dL (0.2-1.3); Blood Urea Nitrogen 72 mg/dL (7-17); Calcium 9.4 mg/dL (8.4-10.2); Carbon Dioxide 26 mmol/L (22-30); Chloride 101 mmol/L (98-107); Creatine Kinase 82 U/L (30-135); Estimated CRCL calculation 23 ml/min; Estimated Glomerular Filt Rate 23; Glucose 84 mg/dL (65-110); Magnesium 1.8 mg/dL (1.6-2.3); Potassium 4.9 mmol/L (3.4-5.0); Sodium 136 mmol/L (137-145); Total Protein 7.1 g/dL (6.3-8.2)
--- NOTE | 2024-11-05 08:13 | P.PNIM_ITS ---
Progress Note: A&P Assessment and Plan (1) Acute kidney injury: Code(s): N17.9 - Acute kidney failure, unspecified Status: Acute Assessment and Plan: - creatinine 2.5, BUN 80, GFR 18 - baseline creatinine: 1.5-1.7 - received 500 cc bolus in ED - nephrology consulted - recommended to hold diuretics. Patient received fluids and Cr improved. Patient does not express symptoms of hypervolemia and actually feels better than previous hospitalization. Suspect overdiuresis as patient reports she was on Lasix, Bumex, spironolactone and metolazone at the facility. - trend renal function - trend electrolytes, correct as needed (2) Diastolic congestive heart failure: Qualifiers: Heart failure chronicity: acute on chronic Qualified Code(s): I50.33 - Acute on chronic diastolic (congestive) heart failure Code(s): I50.30 - Unspecified diastolic (congestive) heart failure Status: Acute Assessment and Plan: - volume status difficult to assess -BNP 3670 - most recent echo (10/01/2024): LV systolic function normal, estimated EF 65- 70%. Moderate pulmonary hypertension. Valvular disease noted. - monitor I&Os and daily weights - trend renal function - holding diuretics, appreciate nephrology recs (3) Diabetes mellitus with chronic kidney disease: Qualifiers: Chronic kidney disease stage: stage 4 (severe) Diabetes mellitus long winder tender insulin use: with longterm use Diabetes mellitus type: type 2 Qualified Code(s): E11.22 - Type 2 diabetes mellitus with diabetic chronic kidney disease; N18.4 - Chronic kidney disease, stage 4 (severe); Z79.4 - alf (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 insulin Code(s): E11.22 - Type 2 diabetes mellitus with diabetic chronic kidney disease Status: Chronic Assessment and Plan: - A1C 6.6% on 06/24/2024 - hypoglycemia protocol - POC blood glucose ACHS - home medication: Continue Lantus 36 units q.a.m., high dose sliding scale (4) Essential (primary) hypertension: Code(s): I10 - Essential (primary) hypertension Status: Chronic Assessment and Plan: - chronic, currently 114/62 - continue home medications: Lisinopril, metoprolol - monitor (5) Hypothyroidism (acquired): Code(s): E03.9 - Hypothyroidism, unspecified Status: Acute Assessment and Plan: - reviewed previous lab work, TSH 9.23 on 10/02/2024 - continue Synthroid Plan Diet: Heart healthy GI Prophylaxis: N/a DVT Prophylaxis: Eliquis IV fluids: 500 mL bolus Lines/Tubes: Peripheral IV Code Status: DNR Subjective Date/time seen: 11/05/24 08:13 Interval history: 84 y/o F with PMH of chronic pain syndrome, spinal stenosis of lumbar region, hypothyroidism, hyperlipidemia, CKD, venous stasis, JAQUELINE noncompliant with CPAP, diastolic heart failure, paroxysmal atrial fibrillation on Eliquis, insulin- dependent diabetes mellitus, GERD, and anxiety presents here with worsening kidney function. Patient seen and examined up in chair. Feeling good today, much improved from last hospitalization. Denies SOB, LE edema improved. Review of Systems Review of Systems: All systems reviewed & are unremarkable except as noted in HPI and below Exam Narrative: General: NAD Eyes: EOMI ENT: neck supple Cardiovascular: Regular rate and rhythm Respiratory: Clear to auscultation, respirations even and unlabored on RA Gastrointestinal: Soft, non tender Genitourinary: no suprapubic tenderness Musculoskeletal: mild BLE edema Skin: warm, dry. BLE chronic venous skin changes Neuro: Alert. Psych: Mood appropriate Objective Data Vital Signs Vital Signs: Vital Signs - 24 hr 11/04/24 10:53 11/04/24 10:57 11/04/24 11:00 Temperature 98 F Pulse Rate 93 98 Respiratory Rate 16 19 19 Blood Pressure 164/65 H 164/65 H Pulse Oximetry 95 97 98 Oxygen Delivery Room Air Room Air 11/04/24 11:22 11/04/24 11:28 11/04/24 12:28 Temperature Pulse Rate 90 92 91 Respiratory Rate 20 19 17 Blood Pressure 116/63 116/63 142/65 H Pulse Oximetry 98 98 Oxygen Delivery 11/04/24 12:28 11/04/24 13:01 11/04/24 14:01 Temperature Pulse Rate 81 84 79 Respiratory Rate 13 16 18 Blood Pressure 142/65 H 143/79 H 149/89 H Pulse Oximetry 100 100 Oxygen Delivery 11/04/24 14:20 11/04/24 15:00 11/04/24 16:00 Temperature 97.6 F Pulse Rate 83 81 Respiratory Rate 13 Blood Pressure 149/89 H Pulse Oximetry 100 100 Oxygen Delivery Room Air 11/04/24 20:00 11/04/24 20:00 11/04/24 20:45 Temperature Pulse Rate 69 78 Respiratory Rate Blood Pressure Pulse Oximetry Oxygen Delivery Room Air 11/04/24 21:39 11/05/24 00:00 11/05/24 04:00 Temperature 97.0 F L Pulse Rate 93 85 83 Respiratory Rate 18 Blood Pressure 135/55 L Pulse Oximetry 100 Oxygen Delivery 11/05/24 05:11 Temperature 97.1 F L Pulse Rate 78 Respiratory Rate 18 Blood Pressure 114/62 Pulse Oximetry 98 Oxygen Delivery Intake/Output Intake/Output: Intake & Output 11/02/24 11/03/24 11/04/24 11/05/24 23:59 23:59 23:59 23:59 Intake Total 790 500 Output Total 1330 2400 Balance -540 -1900 Meds/Results Medications: Active Medications Generic Name Dose Route Start Last Admin Trade Name Freq PRN Reason Stop Dose Admin Acetaminophen 650 mg 11/04/24 12:46 Acetaminophen 325 Mg Tablet PO Q4H PRN Mild Pain (1-3) or Fever Hydrocodone Bitart/Acetaminophen 1 tab 11/04/24 16:25 11/04/24 16:53 Hydrocodone/Acetaminophen (*Crx) 5-325 Mg Tablet PO 1 tab Q6H PRN Administration Pain Rated 4-6 Apixaban 5 mg 11/04/24 21:00 11/04/24 20:45 Apixaban 5 Mg Tablet PO 5 mg Q12HR MARIELLA Administration Dextrose 12.5 gm 11/04/24 16:26 Dextrose 50% 25 Gm/50 Ml Syringe IV PUSH PRN PRN Hypoglycemia Protocol Furosemide 80 mg 11/05/24 08:00 Furosemide 80 Mg Tablet PO On Hold: 11/05/24 08:00 DAILY@0800 [facility] Glucagon 1 mg 11/04/24 16:26 Glucagon For Inj 1 Mg Vial IM PRN PRN Hypoglycemia Protocol Glucose 15 gm 11/04/24 16:26 Glucose Oral Gel 15 Gm Of Glucse In 37.5 Gm Tube PO PRN PRN Hypoglycemia Protocol Dextrose 1,000 mls @ 100 mls/hr 11/04/24 16:26 Dextrose 5% 1,000 Ml IVPB PRN PRN Hypoglycemia Protocol Insulin Aspart 4 - 8 units 11/04/24 17:00 11/04/24 17:12 Insulin Aspart (*Bkc) 100 Units/Ml SUB-Q Not Given TIDWM [facility] Protocol Insulin Glargine 36 units 11/05/24 09:00 Insulin Glargine (*Bkc) 100 Units/Ml SUB-Q QAM [facility] Levothyroxine Sodium 100 mcg/ 175 mcg 11/05/24 06:30 11/05/24 06:11 Levothyroxine Sodium 75 mcg PO 175 mcg DAILY@0630 [facility] Administration Lisinopril 40 mg 11/05/24 09:00 Lisinopril 20 Mg Tablet PO DAILY [facility] Metoprolol Succinate 150 mg 11/04/24 21:00 11/04/24 20:45 Metoprolol Succinate Ext Rel 50 Mg Tabcr PO 150 mg HS MARIELLA Administration Ondansetron HCl 4 mg 11/04/24 12:46 Ondansetron Inj 4 Mg/2 Ml Vial IV PUSH Q4H PRN Nausea Pantoprazole Sodium 40 mg 11/05/24 09:00 Pantoprazole 40 Mg Tablet PO Q12HR [facility] Rosuvastatin Calcium 5 mg 11/04/24 21:00 11/04/24 20:46 Rosuvastatin 5 Mg Tablet PO 5 mg HS MARIELLA Administration Spironolactone 12.5 mg 11/04/24 17:00 11/04/24 16:54 Spironolactone 12.5 Mg Tablet PO 12.5 mg On Hold: 11/04/24 19:13 BID MARIELLA Administration Vitamin D 50 mcg 11/05/24 09:00 Cholecalciferol (Vitamin D3) 25 Mcg (1,000 Units) Tablet PO DAILY [facility] Radiology Results: ITS Impressions Chest X-Ray 11/04/24 12:53 IMPRESSION: Mild CHF. Superimposed infection cannot be excluded. Clinical correlation is recommended. Labs Labs: Laboratory Results - last 24 hr 11/04/24 11/04/24 11/04/24 11:08 11:08 11:08 WBC 7.9 RBC 3.88 L Hgb 11.8 L Hct 37.4 MCV 96.4 MCH 30.4 MCHC 31.6 L RDW 13.2 Plt Count 191 MPV 10.4 Immature Gran % (Auto) 0.4 Neut % (Auto) 58.0 Lymph % (Auto) 27.5 [place] % (Auto) 12.9 H Eos % (Auto) 0.9 Baso % (Auto) 0.3 Lymph # (Auto) 2.18 [place] # (Auto) 1.0 H Eos # (Auto) 0.1 Baso # (Auto) 0.0 Abs Immat Gran (auto) 0.03 Absolute Neuts (auto) 4.6 Absolute Nucleated RBC 0.000 Nucleated RBC % 0.0 Sodium Cancelled 132 L Potassium Cancelled 5.3 H Chloride Cancelled Carbon Dioxide Anion Gap BUN Creatinine Estim Creat Clear Calc Estimated GFR Glucose POC Capillary Glucose Calcium Phosphorus Magnesium Total Bilirubin AST ALT Alkaline Phosphatase Total Creatine Kinase Troponin I NT-Pro-B Natriuret Pep Total Protein Albumin Urine Color Urine Appearance Urine pH Ur Specific Thompson Urine Protein Urine Glucose (UA) Urine Ketones Ur Blood (Man) Urine Nitrate Urine Bilirubin Urine Urobilinogen Leukocyte Esterase Rfl Urine RBC Urine WBC Ur Squamous Epith Cells Urine Bacteria Urine Casts Urine Eosinophils U Random Total Protein Ur Random Sodium Ur Random Urea Urine Creatinine Protein/Creat Ratio 2 11/04/24 11/04/24 11/04/24 11:08 11:08 11:08 WBC RBC Hgb Hct MCV MCH MCHC RDW Plt Count MPV Immature Gran % (Auto) Neut % (Auto) Lymph % (Auto) [place] % (Auto) Eos % (Auto) Baso % (Auto) Lymph # (Auto) [place] # (Auto) Eos # (Auto) Baso # (Auto) Abs Immat Gran (auto) Absolute Neuts (auto) Absolute Nucleated RBC Nucleated RBC % Sodium Potassium Chloride 97 L Carbon Dioxide Cancelled 23 Anion Gap Cancelled 12 BUN Cancelled Creatinine Estim Creat Clear Calc Estimated GFR Glucose POC Capillary Glucose Calcium Phosphorus Magnesium Total Bilirubin AST ALT Alkaline Phosphatase Total Creatine Kinase Troponin I NT-Pro-B Natriuret Pep Total Protein Albumin Urine Color Urine Appearance Urine pH Ur Specific Thompson Urine Protein Urine Glucose (UA) Urine Ketones Ur Blood (Man) Urine Nitrate Urine Bilirubin Urine Urobilinogen Leukocyte Esterase Rfl Urine RBC Urine WBC Ur Squamous Epith Cells Urine Bacteria Urine Casts Urine Eosinophils U Random Total Protein Ur Random Sodium Ur Random Urea Urine Creatinine Protein/Creat Ratio 2 11/04/24 11/04/24 11/04/24 11:08 11:08 11:08 WBC RBC Hgb Hct MCV MCH MCHC RDW Plt Count MPV Immature Gran % (Auto) Neut % (Auto) Lymph % (Auto) [place] % (Auto) Eos % (Auto) Baso % (Auto) Lymph # (Auto) [place] # (Auto) Eos # (Auto) Baso # (Auto) Abs Immat Gran (auto) Absolute Neuts (auto) Absolute Nucleated RBC Nucleated RBC % Sodium Potassium Chloride Carbon Dioxide Anion Gap BUN 80 H D Creatinine Cancelled 2.50 H Estim Creat Clear Calc Cancelled 19 Estimated GFR Cancelled Glucose POC Capillary Glucose Calcium Phosphorus Magnesium Total Bilirubin AST ALT Alkaline Phosphatase Total Creatine Kinase Troponin I NT-Pro-B Natriuret Pep Total Protein Albumin Urine Color Urine Appearance Urine pH Ur Specific Thompson Urine Protein Urine Glucose (UA) Urine Ketones Ur Blood (Man) Urine Nitrate Urine Bilirubin Urine Urobilinogen Leukocyte Esterase Rfl Urine RBC Urine WBC Ur Squamous Epith Cells Urine Bacteria Urine Casts Urine Eosinophils U Random Total Protein Ur Random Sodium Ur Random Urea Urine Creatinine Protein/Creat Ratio 2 11/04/24 11/04/24 11/04/24 11:08 11:08 11:08 WBC RBC Hgb Hct MCV MCH MCHC RDW Plt Count MPV Immature Gran % (Auto) Neut % (Auto) Lymph % (Auto) [place] % (Auto) Eos % (Auto) Baso % (Auto) Lymph # (Auto) [place] # (Auto) Eos # (Auto) Baso # (Auto) Abs Immat Gran (auto) Absolute Neuts (auto) Absolute Nucleated RBC Nucleated RBC % Sodium Potassium Chloride Carbon Dioxide Anion Gap BUN Creatinine Estim Creat Clear Calc Estimated GFR 18 L Glucose Cancelled 152 H POC Capillary Glucose Calcium Cancelled 8.9 Phosphorus Magnesium Cancelled Total Bilirubin AST ALT Alkaline Phosphatase Total Creatine Kinase Troponin I NT-Pro-B Natriuret Pep Total Protein Albumin Urine Color Urine Appearance Urine pH Ur Specific Thompson Urine Protein Urine Glucose (UA) Urine Ketones Ur Blood (Man) Urine Nitrate Urine Bilirubin Urine Urobilinogen Leukocyte Esterase Rfl Urine RBC Urine WBC Ur Squamous Epith Cells Urine Bacteria Urine Casts Urine Eosinophils U Random Total Protein Ur Random Sodium Ur Random Urea Urine Creatinine Protein/Creat Ratio 2 11/04/24 11/04/24 11/04/24 11:08 11:08 11:08 WBC RBC Hgb Hct MCV MCH MCHC RDW Plt Count MPV Immature Gran % (Auto) Neut % (Auto) Lymph % (Auto) [place] % (Auto) Eos % (Auto) Baso % (Auto) Lymph # (Auto) [place] # (Auto) Eos # (Auto) Baso # (Auto) Abs Immat Gran (auto) Absolute Neuts (auto) Absolute Nucleated RBC Nucleated RBC % Sodium Potassium Chloride Carbon Dioxide Anion Gap BUN Creatinine Estim Creat Clear Calc Estimated GFR Glucose POC Capillary Glucose Calcium Phosphorus Magnesium 1.3 L Total Bilirubin Cancelled 0.7 AST Cancelled 28 ALT Cancelled Alkaline Phosphatase Total Creatine Kinase Troponin I NT-Pro-B Natriuret Pep Total Protein Albumin Urine Color Urine Appearance Urine pH Ur Specific Thompson Urine Protein Urine Glucose (UA) Urine Ketones Ur Blood (Man) Urine Nitrate Urine Bilirubin Urine Urobilinogen Leukocyte Esterase Rfl Urine RBC Urine WBC Ur Squamous Epith Cells Urine Bacteria Urine Casts Urine Eosinophils U Random Total Protein Ur Random Sodium Ur Random Urea Urine Creatinine Protein/Creat Ratio 2 11/04/24 11/04/24 11/04/24 11:08 11:08 11:08 WBC RBC Hgb Hct MCV MCH MCHC RDW Plt Count MPV Immature Gran % (Auto) Neut % (Auto) Lymph % (Auto) [place] % (Auto) Eos % (Auto) Baso % (Auto) Lymph # (Auto) [place] # (Auto) Eos # (Auto) Baso # (Auto) Abs Immat Gran (auto) Absolute Neuts (auto) Absolute Nucleated RBC Nucleated RBC % Sodium Potassium Chloride Carbon Dioxide Anion Gap BUN Creatinine Estim Creat Clear Calc Estimated GFR Glucose POC Capillary Glucose Calcium Phosphorus Magnesium Total Bilirubin AST ALT 13 Alkaline Phosphatase Cancelled 84 Total Creatine Kinase Troponin I 0.015 NT-Pro-B Natriuret Pep 3670 H Total Protein Cancelled 7.4 Albumin Cancelled Urine Color Urine Appearance Urine pH Ur Specific Thompson Urine Protein Urine Glucose (UA) Urine Ketones Ur Blood (Man) Urine Nitrate Urine Bilirubin Urine Urobilinogen Leukocyte Esterase Rfl Urine RBC Urine WBC Ur Squamous Epith Cells Urine Bacteria Urine Casts Urine Eosinophils U Random Total Protein Ur Random Sodium Ur Random Urea Urine Creatinine Protein/Creat Ratio 2 11/04/24 11/04/24 11/04/24 11:08 11:34 16:31 WBC RBC Hgb Hct MCV MCH MCHC RDW Plt Count MPV Immature Gran % (Auto) Neut % (Auto) Lymph % (Auto) [place] % (Auto) Eos % (Auto) Baso % (Auto) Lymph # (Auto) [place] # (Auto) Eos # (Auto) Baso # (Auto) Abs Immat Gran (auto) Absolute Neuts (auto) Absolute Nucleated RBC Nucleated RBC % Sodium 136 L Potassium 5.1 H Chloride 98 Carbon Dioxide 28 Anion Gap 10 BUN 77 H Creatinine 2.36 H Estim Creat Clear Calc 20 Estimated GFR 20 L Glucose 76 POC Capillary Glucose Calcium 9.3 Phosphorus Magnesium 1.8 Total Bilirubin AST ALT Alkaline Phosphatase Total Creatine Kinase Troponin I NT-Pro-B Natriuret Pep Total Protein Albumin 3.8 Urine Color Yellow Urine Appearance Clear Urine pH 7.0 Ur Specific Thompson 1.008 Urine Protein Negative Urine Glucose (UA) Negative Urine Ketones Negative Ur Blood (Man) Trace Urine Nitrate Negative Urine Bilirubin Negative Urine Urobilinogen 1.0 Leukocyte Esterase Rfl Trace H Urine RBC 0-2 Urine WBC 0-5 Ur Squamous Epith Cells None seen Urine Bacteria None seen Urine Casts 0-2 Urine Eosinophils U Random Total Protein Ur Random Sodium Ur Random Urea Urine Creatinine Protein/Creat Ratio 2 11/04/24 11/04/24 11/04/24 16:58 20:25 23:55 WBC RBC Hgb Hct MCV MCH MCHC RDW Plt Count MPV Immature Gran % (Auto) Neut % (Auto) Lymph % (Auto) [place] % (Auto) Eos % (Auto) Baso % (Auto) Lymph # (Auto) [place] # (Auto) Eos # (Auto) Baso # (Auto) Abs Immat Gran (auto) Absolute Neuts (auto) Absolute Nucleated RBC Nucleated RBC % Sodium Potassium Chloride Carbon Dioxide Anion Gap BUN Creatinine Estim Creat Clear Calc Estimated GFR Glucose POC Capillary Glucose 65 Calcium Phosphorus Magnesium Total Bilirubin AST ALT Alkaline Phosphatase Total Creatine Kinase Troponin I NT-Pro-B Natriuret Pep Total Protein Albumin Urine Color Urine Appearance Urine pH Ur Specific [place] Urine Protein Urine Glucose (UA) Urine Ketones Ur Blood (Man) Urine Nitrate Urine Bilirubin Urine Urobilinogen Leukocyte Esterase Rfl Urine RBC Urine WBC Ur Squamous Epith Cells Urine Bacteria Urine Casts Urine Eosinophils None seen U Random Total Protein 12 Ur Random Sodium Ur Random Urea Urine Creatinine Protein/Creat Ratio 2 11/04/24 11/04/24 11/05/24 23:55 23:55 05:49 WBC 7.2 RBC 3.78 L Hgb 11.4 L Hct 36.3 L MCV 96.0 MCH 30.2 MCHC 31.4 L RDW 13.2 Plt Count 163 MPV 10.7 H Immature Gran % (Auto) 0.4 Neut % (Auto) 58.6 Lymph % (Auto) 24.4 [place] % (Auto) 14.8 H Eos % (Auto) 1.4 Baso % (Auto) 0.4 Lymph # (Auto) 1.77 [place] # (Auto) 1.1 H Eos # (Auto) 0.1 Baso # (Auto) 0.0 Abs Immat Gran (auto) 0.03 Absolute Neuts (auto) 4.2 Absolute Nucleated RBC 0.000 Nucleated RBC % 0.0 Sodium 136 L Potassium 4.9 Chloride 101 Carbon Dioxide 26 Anion Gap 9 BUN 72 H Creatinine 2.08 H Estim Creat Clear Calc 23 Estimated GFR 23 L Glucose 84 POC Capillary Glucose Calcium 9.4 Phosphorus 4.6 H Magnesium 1.8 Total Bilirubin 0.5 AST 22 ALT 8 Alkaline Phosphatase 86 Total Creatine Kinase 82 Troponin I NT-Pro-B Natriuret Pep Total Protein 7.1 Albumin 3.7 Urine Color Urine Appearance Urine pH Ur Specific Thompson Urine Protein Urine Glucose (UA) Urine Ketones Ur Blood (Man) Urine Nitrate Urine Bilirubin Urine Urobilinogen Leukocyte Esterase Rfl Urine RBC Urine WBC Ur Squamous Epith Cells Urine Bacteria Urine Casts Urine Eosinophils U Random Total Protein 12 Ur Random Sodium 84 Ur Random Urea 281 Urine Creatinine 31.4 31.2 Protein/Creat Ratio 2 0.38 H 11/05/24 08:00 WBC RBC Hgb Hct MCV MCH MCHC RDW Plt Count MPV Immature Gran % (Auto) Neut % (Auto) Lymph % (Auto) [place] % (Auto) Eos % (Auto) Baso % (Auto) Lymph # (Auto) [place] # (Auto) Eos # (Auto) Baso # (Auto) Abs Immat Gran (auto) Absolute Neuts (auto) Absolute Nucleated RBC Nucleated RBC % Sodium Potassium Chloride Carbon Dioxide Anion Gap BUN Creatinine Estim Creat Clear Calc Estimated GFR Glucose POC Capillary Glucose 90 Calcium Phosphorus Magnesium Total Bilirubin AST ALT Alkaline Phosphatase Total Creatine Kinase Troponin I NT-Pro-B Natriuret Pep Total Protein Albumin Urine Color Urine Appearance Urine pH Ur Specific [place] Urine Protein Urine Glucose (UA) Urine Ketones Ur Blood (Man) Urine Nitrate Urine Bilirubin Urine Urobilinogen Leukocyte Esterase Rfl Urine RBC Urine WBC Ur Squamous Epith Cells Urine Bacteria Urine Casts Urine Eosinophils U Random Total Protein Ur Random Sodium Ur Random Urea Urine Creatinine Protein/Creat Ratio 2 Quality VTE Prophylaxis VTE prophylaxis: pharmacologic ordered
[2024-11-05] MEDS: PANTOPRAZOLE 40 MG TABLET PO ×2 (09:31→20:45)
[2024-11-05] MEDS: CHOLECALCIFEROL (VITAMIN D3) 25 MCG (1,000 UNITS) TABLET 50 MCG PO (09:31)
[2024-11-05] MEDS: APIXABAN 5 MG TABLET PO ×2 (09:32→20:45)
[2024-11-05] MEDS: INSULIN GLARGINE (*BKC) 100 UNITS/ML 36 UNITS SUB-Q (09:33)
--- NOTE | 2024-11-05 11:26 | P.PNNP_ITS ---
Progress Note: A&P Assessment and Plan (1) Acute kidney injury: Code(s): N17.9 - Acute kidney failure, unspecified Status: Acute Assessment and Plan: * as noted by admission labs (as well as labs at rehab) * urine urea nitrogen shows pre renal factors * echo showed diastolic dysfunction which is mild * * the patient has sleep apnea which can cause pulmonary hypertension and edema. She does have moderate pulmonary edema. * Venous Dopplers are negative. * Not much protein in the urine. * Chest x-ray showed fluid. * It sounds like this is total body fluid overload which 1 might get with heart failure or renal failure. * creatinine at baseline on discharge from [facility] in early September 2024 * interestingly, her renal function/creatinine remains stable if not improve with IV diuretic therapy during that hospital stay arguing a component/degree of possible renal venous hypertension being present... * complicated situation: * signs of overdiuresis/hypovolemia - dry mucus membranes/dry mouth with noted history of increased use of lasix, bumex, spironolactone, and metalozone while in rehab per patient as well * but also with appearance of mild overload - CXR findings, swelling/edema in LEs, mild weight gain * suspect she might be intravascularly volume depleted despite outward signs of fluid retention... * this maybe a situation where we have to accept some degree of edema/swelling in an effort to maintain her kidney function... * she will probably need some diuretics over the next day or 2, possibly when the creatinine gets below 2. * perhaps treating her sleep apnea would help. will check apnea link to see how bad it is (2) Stage 3b chronic kidney disease: Code(s): N18.32 - Chronic kidney disease, stage 3b Status: Acute Assessment and Plan: * creatinine was running ~ 1.6 - 2.3mg/dl when I last saw her in the office 2 years ago (November 2022). * however, more recently, seems to have averaged around 1.4 - 1.8mg/d/L (this year) * this causes her to fluctuate between CKD stage 3b and stage 4) * previous outpatient evaluation noted: * normal renal ultrasound * no significant proteinuria * negative serological profile * did have a positive CHINMAY (but normal complements and dsDNA-ab) * baseline CKD due to diabetes, hypertension, JAQUELINE, CHF, vascular disease, and age-related change and need for chronic diuretic therapy (3) Diastolic congestive heart failure: Qualifiers: Heart failure chronicity: acute on chronic Qualified Code(s): I50.33 - Acute on chronic diastolic (congestive) heart failure Code(s): I50.30 - Unspecified diastolic (congestive) heart failure Status: Acute Assessment and Plan: * known history * recent Echo (10/01/24) noted: * left ventricular systolic function is normal, estimated at 65 - 70% * right ventricular systolic function is normal * moderate pulmonary hypertension, estimated pulmonary arterial systolic pressure is 52 mmHg * mild mitral valve regurgitation * admission BNP of 3670 (better than last admission/hospitalization) * follow daily weights * monitor I&Os * holding diuretic for now (but will eventually need to restart) (4) Essential (primary) hypertension: Code(s): I10 - Essential (primary) hypertension Status: Chronic Assessment and Plan: * Systolic running between 110 and 150. * holding BRUNA-I given #1 . Consider restarting this down the line (5) Anemia: Code(s): D64.9 - Anemia, unspecified Status: Chronic Assessment and Plan: * probably partly related to CKD * check iron studies if worsens * no need for MARTELL at this time * Hemoglobin stable in the 11 (6) Diabetes: Code(s): E11.9 - Type 2 diabetes mellitus without complications Status: Chronic Assessment and Plan: * follow accu-cheks * glycemic control per hospitalist Subjective Date/time seen: 11/05/24 11:26 Interval history: patient feels better today. No chest pain or shortness of breath still has plenty of fluid in her legs Review of Systems Cardiovascular: Cardiovascular: Reports no additional cardiovascular complaints Respiratory: Respiratory: Reports no additional respiratory complaints Gastrointestinal: Gastrointestinal: Reports no additional gastrointestinal complaints Genitourinary: Genitourinary: Reports no additional female genitourinary complaints Exam Narrative: WDWN in NAD skin no rash head ncat lungs clear cor reg no rub abd BS+ nontender and soft ext 2+ bilateral lower extremity and presacral edema. Objective Data Vital Signs Vital Signs: Vital Signs - 24 hr 11/04/24 11:28 11/04/24 12:28 11/04/24 12:28 Temperature Pulse Rate 92 91 81 Respiratory Rate 19 17 13 Blood Pressure 116/63 142/65 H 142/65 H Pulse Oximetry 98 98 Oxygen Delivery 11/04/24 13:01 11/04/24 14:01 11/04/24 14:20 Temperature 97.6 F Pulse Rate 84 79 83 Respiratory Rate 16 18 13 Blood Pressure 143/79 H 149/89 H 149/89 H Pulse Oximetry 100 100 100 Oxygen Delivery 11/04/24 15:00 11/04/24 16:00 11/04/24 20:00 Temperature Pulse Rate 81 Respiratory Rate Blood Pressure Pulse Oximetry 100 Oxygen Delivery Room Air Room Air 11/04/24 20:00 11/04/24 20:45 11/04/24 21:39 Temperature 97.0 F L Pulse Rate 69 78 93 Respiratory Rate 18 Blood Pressure 135/55 L Pulse Oximetry 100 Oxygen Delivery 11/05/24 00:00 11/05/24 04:00 11/05/24 05:11 Temperature 97.1 F L Pulse Rate 85 83 78 Respiratory Rate 18 Blood Pressure 114/62 Pulse Oximetry 98 Oxygen Delivery Intake/Output Intake/Output: Intake & Output 11/02/24 11/03/24 11/04/24 11/05/24 23:59 23:59 23:59 23:59 Intake Total 790 740 Output Total 1330 2400 Balance -540 -1660 Meds/Results Medications: Active Medications Generic Name Dose Route Start Last Admin Trade Name Freq PRN Reason Stop Dose Admin Acetaminophen 650 mg 11/04/24 12:46 Acetaminophen 325 Mg Tablet PO Q4H PRN Mild Pain (1-3) or Fever Hydrocodone Bitart/Acetaminophen 1 tab 11/04/24 16:25 11/04/24 16:53 Hydrocodone/Acetaminophen (*Crx) 5-325 Mg Tablet PO 1 tab Q6H PRN Administration Pain Rated 4-6 Apixaban 5 mg 11/04/24 21:00 11/05/24 09:32 Apixaban 5 Mg Tablet PO 5 mg Q12HR MARIELLA Administration Dextrose 12.5 gm 11/04/24 16:26 Dextrose 50% 25 Gm/50 Ml Syringe IV PUSH PRN PRN Hypoglycemia Protocol Furosemide 80 mg 11/05/24 08:00 Furosemide 80 Mg Tablet PO On Hold: 11/05/24 08:00 DAILY@0800 MARIELLA Glucagon 1 mg 11/04/24 16:26 Glucagon For Inj 1 Mg Vial IM PRN PRN Hypoglycemia Protocol Glucose 15 gm 11/04/24 16:26 Glucose Oral Gel 15 Gm Of Glucse In 37.5 Gm Tube PO PRN PRN Hypoglycemia Protocol Dextrose 1,000 mls @ 100 mls/hr 11/04/24 16:26 Dextrose 5% 1,000 Ml IVPB PRN PRN Hypoglycemia Protocol Insulin Aspart 4 - 8 units 11/04/24 17:00 11/05/24 09:30 Insulin Aspart (*Bkc) 100 Units/Ml SUB-Q Not Given TIDWM [facility] Protocol Insulin Glargine 36 units 11/05/24 09:00 11/05/24 09:33 Insulin Glargine (*Bkc) 100 Units/Ml SUB-Q 36 units QAM MARIELLA Administration Levothyroxine Sodium 100 mcg/ 175 mcg 11/05/24 06:30 11/05/24 06:11 Levothyroxine Sodium 75 mcg PO 175 mcg DAILY@0630 MARIELLA Administration Lisinopril 40 mg 11/05/24 09:00 Lisinopril 20 Mg Tablet PO On Hold: 11/05/24 09:00 DAILY [facility] Metoprolol Succinate 150 mg 11/04/24 21:00 11/04/24 20:45 Metoprolol Succinate Ext Rel 50 Mg Tabcr PO 150 mg HS MARIELLA Administration Ondansetron HCl 4 mg 11/04/24 12:46 Ondansetron Inj 4 Mg/2 Ml Vial IV PUSH Q4H PRN Nausea Pantoprazole Sodium 40 mg 11/05/24 09:00 11/05/24 09:31 Pantoprazole 40 Mg Tablet PO 40 mg Q12HR MARIELLA Administration Rosuvastatin Calcium 5 mg 11/04/24 21:00 11/04/24 20:46 Rosuvastatin 5 Mg Tablet PO 5 mg HS MARIELLA Administration Spironolactone 12.5 mg 11/04/24 17:00 11/04/24 16:54 Spironolactone 12.5 Mg Tablet PO 12.5 mg On Hold: 11/04/24 19:13 BID MARIELLA Administration Vitamin D 50 mcg 11/05/24 09:00 11/05/24 09:31 Cholecalciferol (Vitamin D3) 25 Mcg (1,000 Units) Tablet PO 50 mcg DAILY MARIELLA Administration Radiology Results: ITS Impressions Chest X-Ray 11/04/24 12:53 IMPRESSION: Mild CHF. Superimposed infection cannot be excluded. Clinical correlation is recommended. Renal Ultrasound 11/05/24 08:52 IMPRESSION: 1. Normal kidneys without hydronephrosis. Labs Labs: Laboratory Results - last 24 hr 11/04/24 11/04/24 11/04/24 11:08 11:08 11:08 WBC RBC Hgb Hct MCV MCH MCHC RDW Plt Count MPV Immature Gran % (Auto) Neut % (Auto) Lymph % (Auto) [place] % (Auto) Eos % (Auto) Baso % (Auto) Lymph # (Auto) [place] # (Auto) Eos # (Auto) Baso # (Auto) Abs Immat Gran (auto) Absolute Neuts (auto) Absolute Nucleated RBC Nucleated RBC % Sodium Cancelled 132 L Potassium Cancelled 5.3 H Chloride Cancelled Carbon Dioxide Anion Gap BUN Creatinine Estim Creat Clear Calc Estimated GFR Glucose POC Capillary Glucose Calcium Phosphorus Magnesium Total Bilirubin AST ALT Alkaline Phosphatase Total Creatine Kinase Troponin I NT-Pro-B Natriuret Pep Total Protein Albumin Urine Color Urine Appearance Urine pH Ur Specific [place] Urine Protein Urine Glucose (UA) Urine Ketones Ur Blood (Man) Urine Nitrate Urine Bilirubin Urine Urobilinogen Leukocyte Esterase Rfl Urine RBC Urine WBC Ur Squamous Epith Cells Urine Bacteria Urine Casts Urine Eosinophils U Random Total Protein Ur Random Sodium Ur Random Urea Urine Creatinine Protein/Creat Ratio 2 11/04/24 11/04/24 11/04/24 11:08 11:08 11:08 WBC RBC Hgb Hct MCV MCH MCHC RDW Plt Count MPV Immature Gran % (Auto) Neut % (Auto) Lymph % (Auto) [place] % (Auto) Eos % (Auto) Baso % (Auto) Lymph # (Auto) [place] # (Auto) Eos # (Auto) Baso # (Auto) Abs Immat Gran (auto) Absolute Neuts (auto) Absolute Nucleated RBC Nucleated RBC % Sodium Potassium Chloride 97 L Carbon Dioxide Cancelled 23 Anion Gap Cancelled 12 BUN Cancelled Creatinine Estim Creat Clear Calc Estimated GFR Glucose POC Capillary Glucose Calcium Phosphorus Magnesium Total Bilirubin AST ALT Alkaline Phosphatase Total Creatine Kinase Troponin I NT-Pro-B Natriuret Pep Total Protein Albumin Urine Color Urine Appearance Urine pH Ur Specific [place] Urine Protein Urine Glucose (UA) Urine Ketones Ur Blood (Man) Urine Nitrate Urine Bilirubin Urine Urobilinogen Leukocyte Esterase Rfl Urine RBC Urine WBC Ur Squamous Epith Cells Urine Bacteria Urine Casts Urine Eosinophils U Random Total Protein Ur Random Sodium Ur Random Urea Urine Creatinine Protein/Creat Ratio 2 11/04/24 11/04/24 11/04/24 11:08 11:08 11:08 WBC RBC Hgb Hct MCV MCH MCHC RDW Plt Count MPV Immature Gran % (Auto) Neut % (Auto) Lymph % (Auto) [place] % (Auto) Eos % (Auto) Baso % (Auto) Lymph # (Auto) [place] # (Auto) Eos # (Auto) Baso # (Auto) Abs Immat Gran (auto) Absolute Neuts (auto) Absolute Nucleated RBC Nucleated RBC % Sodium Potassium Chloride Carbon Dioxide Anion Gap BUN 80 H D Creatinine Cancelled 2.50 H Estim Creat Clear Calc Cancelled 19 Estimated GFR Cancelled Glucose POC Capillary Glucose Calcium Phosphorus Magnesium Total Bilirubin AST ALT Alkaline Phosphatase Total Creatine Kinase Troponin I NT-Pro-B Natriuret Pep Total Protein Albumin Urine Color Urine Appearance Urine pH Ur Specific [place] Urine Protein Urine Glucose (UA) Urine Ketones Ur Blood (Man) Urine Nitrate Urine Bilirubin Urine Urobilinogen Leukocyte Esterase Rfl Urine RBC Urine WBC Ur Squamous Epith Cells Urine Bacteria Urine Casts Urine Eosinophils U Random Total Protein Ur Random Sodium Ur Random Urea Urine Creatinine Protein/Creat Ratio 2 11/04/24 11/04/24 11/04/24 11:08 11:08 11:08 WBC RBC Hgb Hct MCV MCH MCHC RDW Plt Count MPV Immature Gran % (Auto) Neut % (Auto) Lymph % (Auto) [place] % (Auto) Eos % (Auto) Baso % (Auto) Lymph # (Auto) [place] # (Auto) Eos # (Auto) Baso # (Auto) Abs Immat Gran (auto) Absolute Neuts (auto) Absolute Nucleated RBC Nucleated RBC % Sodium Potassium Chloride Carbon Dioxide Anion Gap BUN Creatinine Estim Creat Clear Calc Estimated GFR 18 L Glucose Cancelled 152 H POC Capillary Glucose Calcium Cancelled 8.9 Phosphorus Magnesium Cancelled Total Bilirubin AST ALT Alkaline Phosphatase Total Creatine Kinase Troponin I NT-Pro-B Natriuret Pep Total Protein Albumin Urine Color Urine Appearance Urine pH Ur Specific [place] Urine Protein Urine Glucose (UA) Urine Ketones Ur Blood (Man) Urine Nitrate Urine Bilirubin Urine Urobilinogen Leukocyte Esterase Rfl Urine RBC Urine WBC Ur Squamous Epith Cells Urine Bacteria Urine Casts Urine Eosinophils U Random Total Protein Ur Random Sodium Ur Random Urea Urine Creatinine Protein/Creat Ratio 2 11/04/24 11/04/24 11/04/24 11:08 11:08 11:08 WBC RBC Hgb Hct MCV MCH MCHC RDW Plt Count MPV Immature Gran % (Auto) Neut % (Auto) Lymph % (Auto) [place] % (Auto) Eos % (Auto) Baso % (Auto) Lymph # (Auto) [place] # (Auto) Eos # (Auto) Baso # (Auto) Abs Immat Gran (auto) Absolute Neuts (auto) Absolute Nucleated RBC Nucleated RBC % Sodium Potassium Chloride Carbon Dioxide Anion Gap BUN Creatinine Estim Creat Clear Calc Estimated GFR Glucose POC Capillary Glucose Calcium Phosphorus Magnesium 1.3 L Total Bilirubin Cancelled 0.7 AST Cancelled 28 ALT Cancelled Alkaline Phosphatase Total Creatine Kinase Troponin I NT-Pro-B Natriuret Pep Total Protein Albumin Urine Color Urine Appearance Urine pH Ur Specific [place] Urine Protein Urine Glucose (UA) Urine Ketones Ur Blood (Man) Urine Nitrate Urine Bilirubin Urine Urobilinogen Leukocyte Esterase Rfl Urine RBC Urine WBC Ur Squamous Epith Cells Urine Bacteria Urine Casts Urine Eosinophils U Random Total Protein Ur Random Sodium Ur Random Urea Urine Creatinine Protein/Creat Ratio 2 11/04/24 11/04/24 11/04/24 11:08 11:08 11:08 WBC RBC Hgb Hct MCV MCH MCHC RDW Plt Count MPV Immature Gran % (Auto) Neut % (Auto) Lymph % (Auto) [place] % (Auto) Eos % (Auto) Baso % (Auto) Lymph # (Auto) [place] # (Auto) Eos # (Auto) Baso # (Auto) Abs Immat Gran (auto) Absolute Neuts (auto) Absolute Nucleated RBC Nucleated RBC % Sodium Potassium Chloride Carbon Dioxide Anion Gap BUN Creatinine Estim Creat Clear Calc Estimated GFR Glucose POC Capillary Glucose Calcium Phosphorus Magnesium Total Bilirubin AST ALT 13 Alkaline Phosphatase Cancelled 84 Total Creatine Kinase Troponin I 0.015 NT-Pro-B Natriuret Pep 3670 H Total Protein Cancelled 7.4 Albumin Cancelled Urine Color Urine Appearance Urine pH Ur Specific [place] Urine Protein Urine Glucose (UA) Urine Ketones Ur Blood (Man) Urine Nitrate Urine Bilirubin Urine Urobilinogen Leukocyte Esterase Rfl Urine RBC Urine WBC Ur Squamous Epith Cells Urine Bacteria Urine Casts Urine Eosinophils U Random Total Protein Ur Random Sodium Ur Random Urea Urine Creatinine Protein/Creat Ratio 2 11/04/24 11/04/24 11/04/24 11:08 11:34 16:31 WBC RBC Hgb Hct MCV MCH MCHC RDW Plt Count MPV Immature Gran % (Auto) Neut % (Auto) Lymph % (Auto) [place] % (Auto) Eos % (Auto) Baso % (Auto) Lymph # (Auto) [place] # (Auto) Eos # (Auto) Baso # (Auto) Abs Immat Gran (auto) Absolute Neuts (auto) Absolute Nucleated RBC Nucleated RBC % Sodium 136 L Potassium 5.1 H Chloride 98 Carbon Dioxide 28 Anion Gap 10 BUN 77 H Creatinine 2.36 H Estim Creat Clear Calc 20 Estimated GFR 20 L Glucose 76 POC Capillary Glucose Calcium 9.3 Phosphorus Magnesium 1.8 Total Bilirubin AST ALT Alkaline Phosphatase Total Creatine Kinase Troponin I NT-Pro-B Natriuret Pep Total Protein Albumin 3.8 Urine Color Yellow Urine Appearance Clear Urine pH 7.0 Ur Specific [place] 1.008 Urine Protein Negative Urine Glucose (UA) Negative Urine Ketones Negative Ur Blood (Man) Trace Urine Nitrate Negative Urine Bilirubin Negative Urine Urobilinogen 1.0 Leukocyte Esterase Rfl Trace H Urine RBC 0-2 Urine WBC 0-5 Ur Squamous Epith Cells None seen Urine Bacteria None seen Urine Casts 0-2 Urine Eosinophils U Random Total Protein Ur Random Sodium Ur Random Urea Urine Creatinine Protein/Creat Ratio 2 11/04/24 11/04/24 11/04/24 16:58 20:25 20:46 WBC RBC Hgb Hct MCV MCH MCHC RDW Plt Count MPV Immature Gran % (Auto) Neut % (Auto) Lymph % (Auto) [place] % (Auto) Eos % (Auto) Baso % (Auto) Lymph # (Auto) [place] # (Auto) Eos # (Auto) Baso # (Auto) Abs Immat Gran (auto) Absolute Neuts (auto) Absolute Nucleated RBC Nucleated RBC % Sodium Potassium Chloride Carbon Dioxide Anion Gap BUN Creatinine Estim Creat Clear Calc Estimated GFR Glucose POC Capillary Glucose 65 150 H Calcium Phosphorus Magnesium Total Bilirubin AST ALT Alkaline Phosphatase Total Creatine Kinase Troponin I NT-Pro-B Natriuret Pep Total Protein Albumin Urine Color Urine Appearance Urine pH Ur Specific [place] Urine Protein Urine Glucose (UA) Urine Ketones Ur Blood (Man) Urine Nitrate Urine Bilirubin Urine Urobilinogen Leukocyte Esterase Rfl Urine RBC Urine WBC Ur Squamous Epith Cells Urine Bacteria Urine Casts Urine Eosinophils None seen U Random Total Protein Ur Random Sodium Ur Random Urea Urine Creatinine Protein/Creat Ratio 2 11/04/24 11/04/24 11/04/24 23:55 23:55 23:55 WBC RBC Hgb Hct MCV MCH MCHC RDW Plt Count MPV Immature Gran % (Auto) Neut % (Auto) Lymph % (Auto) [place] % (Auto) Eos % (Auto) Baso % (Auto) Lymph # (Auto) [place] # (Auto) Eos # (Auto) Baso # (Auto) Abs Immat Gran (auto) Absolute Neuts (auto) Absolute Nucleated RBC Nucleated RBC % Sodium Potassium Chloride Carbon Dioxide Anion Gap BUN Creatinine Estim Creat Clear Calc Estimated GFR Glucose POC Capillary Glucose Calcium Phosphorus Magnesium Total Bilirubin AST ALT Alkaline Phosphatase Total Creatine Kinase Troponin I NT-Pro-B Natriuret Pep Total Protein Albumin Urine Color Urine Appearance Urine pH Ur Specific [place] Urine Protein Urine Glucose (UA) Urine Ketones Ur Blood (Man) Urine Nitrate Urine Bilirubin Urine Urobilinogen Leukocyte Esterase Rfl Urine RBC Urine WBC Ur Squamous Epith Cells Urine Bacteria Urine Casts Urine Eosinophils U Random Total Protein 12 12 Ur Random Sodium 84 Ur Random Urea 281 Urine Creatinine 31.4 31.2 Protein/Creat Ratio 2 0.38 H 11/05/24 11/05/24 05:49 08:00 WBC 7.2 RBC 3.78 L Hgb 11.4 L Hct 36.3 L MCV 96.0 MCH 30.2 MCHC 31.4 L RDW 13.2 Plt Count 163 MPV 10.7 H Immature Gran % (Auto) 0.4 Neut % (Auto) 58.6 Lymph % (Auto) 24.4 [place] % (Auto) 14.8 H Eos % (Auto) 1.4 Baso % (Auto) 0.4 Lymph # (Auto) 1.77 [place] # (Auto) 1.1 H Eos # (Auto) 0.1 Baso # (Auto) 0.0 Abs Immat Gran (auto) 0.03 Absolute Neuts (auto) 4.2 Absolute Nucleated RBC 0.000 Nucleated RBC % 0.0 Sodium 136 L Potassium 4.9 Chloride 101 Carbon Dioxide 26 Anion Gap 9 BUN 72 H Creatinine 2.08 H Estim Creat Clear Calc 23 Estimated GFR 23 L Glucose 84 POC Capillary Glucose 90 Calcium 9.4 Phosphorus 4.6 H Magnesium 1.8 Total Bilirubin 0.5 AST 22 ALT 8 Alkaline Phosphatase 86 Total Creatine Kinase 82 Troponin I NT-Pro-B Natriuret Pep Total Protein 7.1 Albumin 3.7 Urine Color Urine Appearance Urine pH Ur Specific [place] Urine Protein Urine Glucose (UA) Urine Ketones Ur Blood (Man) Urine Nitrate Urine Bilirubin Urine Urobilinogen Leukocyte Esterase Rfl Urine RBC Urine WBC Ur Squamous Epith Cells Urine Bacteria Urine Casts Urine Eosinophils U Random Total Protein Ur Random Sodium Ur Random Urea Urine Creatinine Protein/Creat Ratio 2
[2024-11-05] MEDS: BUMETANIDE 1 MG TABLET PO (17:12)
[2024-11-05] MEDS: METOPROLOL SUCCINATE EXT REL 50 MG TABCR 150 MG PO (20:45)
[2024-11-05] MEDS: ROSUVASTATIN 5 MG TABLET PO (20:45)
[2024-11-05] MEDS: HYDROcodone/acetaminophen (*CRX) 5-325 MG TABLET 1 TAB PO (20:45)
[2024-11-06] VITALS: PULSE 78
[2024-11-06 00:19] VITALS: PULSE 87
[2024-11-06 04:00] VITALS: PULSE 69
[2024-11-06 05:33] VITALS: BP 119/53; PULSE 68; RESP 18; TEMP 36.1; O2SAT 98
[2024-11-06] MEDS: LEVOTHYROXINE SODIUM 100 MCG, LEVOTHYROXINE SODIUM 75 MCG 175 MCG PO (05:37)
[2024-11-06 05:54] LABS: Hematocrit 37.0 % (37.0-47.0); Hemoglobin 11.6 g/dL (12.0-15.0); Mean Corpuscular HGB Conc 31.4 g/dl (32-36); Mean Corpuscular Hemoglobin 30.9 pg (26-34); Mean Corpuscular Volume 98.4 fl (80-100); Platelet Count Result 169 k/mm3 (150-375); Red Blood Count 3.76 M/mm3 (4.2-5.4); White Blood Count 9.1 K/mm3 (4.5-10.0)
[2024-11-06 06:05] LABS: Albumin Level 3.5 g/dL (3.5-5.1); Anion Gap 8 mmol/L (4-12); Blood Urea Nitrogen 66 mg/dL (7-17); Calcium 9.4 mg/dL (8.4-10.2); Carbon Dioxide 28 mmol/L (22-30); Chloride 101 mmol/L (98-107); Estimated CRCL calculation 27 ml/min; Estimated Glomerular Filt Rate 28; Glucose 86 mg/dL (65-110); Potassium 4.4 mmol/L (3.4-5.0); Sodium 137 mmol/L (137-145)
[2024-11-06] MEDS: BUMETANIDE 1 MG TABLET PO (09:20)
[2024-11-06] MEDS: PANTOPRAZOLE 40 MG TABLET PO (09:20)
[2024-11-06] MEDS: CHOLECALCIFEROL (VITAMIN D3) 25 MCG (1,000 UNITS) TABLET 50 MCG PO (09:20)
[2024-11-06] MEDS: APIXABAN 5 MG TABLET PO (09:20)
[2024-11-06] MEDS: INSULIN GLARGINE (*BKC) 100 UNITS/ML 36 UNITS SUB-Q (09:21)
--- NOTE | 2024-11-06 09:24 | P.PNNP_ITS ---
Progress Note: A&P Assessment and Plan (1) Acute kidney injury: Code(s): N17.9 - Acute kidney failure, unspecified Status: Acute Assessment and Plan: * as noted by admission labs (as well as labs at rehab) * urine urea nitrogen shows pre renal factors * echo showed diastolic dysfunction which is mild * the patient has sleep apnea which can cause pulmonary hypertension and edema. She does have moderate pulmonary edema. * Venous Dopplers are negative. * Not much protein in the urine. * Chest x-ray showed fluid. * It sounds like this is total body fluid overload which 1 might get with heart failure or renal failure. * creatinine at baseline on discharge from [facility] in early September 2024 * interestingly, her renal function/creatinine remains stable if not improve with IV diuretic therapy during that hospital stay arguing a component/degree of possible renal venous hypertension being present... * complicated situation: * signs of overdiuresis/hypovolemia - dry mucus membranes/dry mouth with noted history of increased use of lasix, bumex, spironolactone, and metalozone while in rehab per patient as well * but also with appearance of mild overload - CXR findings, swelling/edema in LEs, mild weight gain * suspect she might be intravascularly volume depleted despite outward signs of fluid retention... * apnea link shows an AHI of 11. Would probably benefit from outpatient sleep study to see if things are bad enough for her to get on a CPAP machine. * she is on Bumex 1mg po twice a day plus spironolactone for potassium-sparing effect, and urine output is good. * Okay for discharge from the kidney standpoint (2) Stage 3b chronic kidney disease: Code(s): N18.32 - Chronic kidney disease, stage 3b Status: Acute Assessment and Plan: * creatinine was running ~ 1.6 - 2.3mg/dl when I last saw her in the office 2 years ago (November 2022). * however, more recently, seems to have averaged around 1.4 - 1.8mg/d/L (this year) * this causes her to fluctuate between CKD stage 3b and stage 4) * previous outpatient evaluation noted: * normal renal ultrasound * no significant proteinuria * negative serological profile * did have a positive CHINMAY (but normal complements and dsDNA-ab) * baseline CKD due to diabetes, hypertension, JAQUELINE, CHF, vascular disease, and age-related change and need for chronic diuretic therapy (3) Diastolic congestive heart failure: Qualifiers: Heart failure chronicity: acute on chronic Qualified Code(s): I50.33 - Acute on chronic diastolic (congestive) heart failure Code(s): I50.30 - Unspecified diastolic (congestive) heart failure Status: Acute Assessment and Plan: * known history * recent Echo (10/01/24) noted: * left ventricular systolic function is normal, estimated at 65 - 70% * right ventricular systolic function is normal * moderate pulmonary hypertension, estimated pulmonary arterial systolic pressure is 52 mmHg * mild mitral valve regurgitation * admission BNP of 3670 (better than last admission/hospitalization) * follow daily weights * monitor I&Os * on Bumex plus spironolactone (4) Essential (primary) hypertension: Code(s): I10 - Essential (primary) hypertension Status: Chronic Assessment and Plan: * Systolic running between 110 and 150. * holding BRUNA-I given #1 . Consider restarting this down the line, probably from the office. He sees Dr. Barclay on Thursday (5) Anemia: Code(s): D64.9 - Anemia, unspecified Status: Chronic Assessment and Plan: * probably partly related to CKD * check iron studies if worsens * no need for MARTELL at this time * Hemoglobin stable in the (6) Diabetes: Code(s): E11.9 - Type 2 diabetes mellitus without complications Status: Chronic Assessment and Plan: * follow accu-cheks * glycemic control per hospitalist Subjective Date/time seen: 11/06/24 09:24 Interval history: Payton is feeling better today. Hoping to go home today Exam Narrative: WDWN in NAD skin no rash head ncat lungs clear bilaterally cor reg no rub abd BS+ nontender and soft ext 2+ bilateral lower extremity and presacral edema. Objective Data Vital Signs Vital Signs: Vital Signs - 24 hr 11/05/24 11:19 11/05/24 12:00 11/05/24 14:00 Temperature 97.6 F Pulse Rate 90 80 Respiratory Rate 18 Blood Pressure 123/63 Pulse Oximetry 100 Oxygen Delivery Room Air Fraction of Inspired Oxygen 11/05/24 16:57 11/05/24 20:00 11/05/24 21:14 Temperature Pulse Rate 61 88 Respiratory Rate 20 Blood Pressure Pulse Oximetry 98 Oxygen Delivery Room Air Room Air Fraction of Inspired Oxygen 21 11/05/24 22:00 11/06/24 00:00 11/06/24 00:19 Temperature 97.7 F Pulse Rate 78 78 87 Respiratory Rate 18 Blood Pressure 121/40 L Pulse Oximetry 98 Oxygen Delivery Fraction of Inspired Oxygen 11/06/24 04:00 11/06/24 05:33 Temperature 97.0 F L Pulse Rate 69 68 Respiratory Rate 18 Blood Pressure 119/53 L Pulse Oximetry 98 Oxygen Delivery Fraction of Inspired Oxygen Intake/Output Intake/Output: Intake & Output 11/03/24 11/04/24 11/05/24 11/06/24 23:59 23:59 23:59 23:59 Intake Total 790 1220 500 Output Total 1330 3450 2300 Balance -234 -5444 -8882 Meds/Results Medications: Active Medications Generic Name Dose Route Start Last Admin Trade Name Freq PRN Reason Stop Dose Admin Acetaminophen 650 mg 11/04/24 12:46 Acetaminophen 325 Mg Tablet PO Q4H PRN Mild Pain (1-3) or Fever Hydrocodone Bitart/Acetaminophen 1 tab 11/04/24 16:25 11/05/24 20:45 Hydrocodone/Acetaminophen (*Crx) 5-325 Mg Tablet PO 1 tab Q6H PRN Administration Pain Rated 4-6 Apixaban 5 mg 11/04/24 21:00 11/06/24 09:20 Apixaban 5 Mg Tablet PO 5 mg Q12HR MARIELLA Administration Bumetanide 1 mg 11/05/24 17:00 11/06/24 09:20 Bumetanide 1 Mg Tablet PO 1 mg BID MARIELLA Administration Dextrose 12.5 gm 11/04/24 16:26 Dextrose 50% 25 Gm/50 Ml Syringe IV PUSH PRN PRN Hypoglycemia Protocol Glucagon 1 mg 11/04/24 16:26 Glucagon For Inj 1 Mg Vial IM PRN PRN Hypoglycemia Protocol Glucose 15 gm 11/04/24 16:26 Glucose Oral Gel 15 Gm Of Glucse In 37.5 Gm Tube PO PRN PRN Hypoglycemia Protocol Dextrose 1,000 mls @ 100 mls/hr 11/04/24 16:26 Dextrose 5% 1,000 Ml IVPB PRN PRN Hypoglycemia Protocol Insulin Aspart 4 - 8 units 11/04/24 17:00 11/06/24 09:18 Insulin Aspart (*Bkc) 100 Units/Ml SUB-Q Not Given TIDWM [facility] Protocol Insulin Glargine 36 units 11/05/24 09:00 11/05/24 09:33 Insulin Glargine (*Bkc) 100 Units/Ml SUB-Q 36 units QAM MARIELLA Administration Levothyroxine Sodium 100 mcg/ 175 mcg 11/05/24 06:30 11/06/24 05:37 Levothyroxine Sodium 75 mcg PO 175 mcg DAILY@0630 MARIELLA Administration Lisinopril 40 mg 11/05/24 09:00 Lisinopril 20 Mg Tablet PO On Hold: 11/05/24 09:00 DAILY MARIELLA Metoprolol Succinate 150 mg 11/04/24 21:00 11/05/24 20:45 Metoprolol Succinate Ext Rel 50 Mg Tabcr PO 150 mg HS MARIELLA Administration Ondansetron HCl 4 mg 11/04/24 12:46 Ondansetron Inj 4 Mg/2 Ml Vial IV PUSH Q4H PRN Nausea Pantoprazole Sodium 40 mg 11/05/24 09:00 11/06/24 09:20 Pantoprazole 40 Mg Tablet PO 40 mg Q12HR MARIELLA Administration Rosuvastatin Calcium 5 mg 11/04/24 21:00 11/05/24 20:45 Rosuvastatin 5 Mg Tablet PO 5 mg HS MARIELLA Administration Spironolactone 12.5 mg 11/04/24 17:00 11/04/24 16:54 Spironolactone 12.5 Mg Tablet PO 12.5 mg On Hold: 11/04/24 19:13 BID MARIELLA Administration Vitamin D 50 mcg 11/05/24 09:00 11/06/24 09:20 Cholecalciferol (Vitamin D3) 25 Mcg (1,000 Units) Tablet PO 50 mcg DAILY MARIELLA Administration Radiology Results: ITS Impressions Chest X-Ray 11/04/24 12:53 IMPRESSION: Mild CHF. Superimposed infection cannot be excluded. Clinical correlation is recommended. Renal Ultrasound 11/05/24 08:52 IMPRESSION: 1. Normal kidneys without hydronephrosis. Labs Labs: Laboratory Results - last 24 hr 11/05/24 11/05/24 11/05/24 12:04 16:55 19:43 WBC RBC Hgb Hct MCV MCH MCHC RDW Plt Count MPV Sodium Potassium Chloride Carbon Dioxide Anion Gap BUN Creatinine Estim Creat Clear Calc Estimated GFR Glucose POC Capillary Glucose 150 H 159 H 182 H Calcium Phosphorus Albumin 11/06/24 11/06/24 05:47 08:14 WBC 9.1 RBC 3.76 L Hgb 11.6 L Hct 37.0 MCV 98.4 MCH 30.9 MCHC 31.4 L RDW 13.2 Plt Count 169 MPV 10.4 Sodium 137 Potassium 4.4 Chloride 101 Carbon Dioxide 28 Anion Gap 8 BUN 66 H Creatinine 1.73 H Estim Creat Clear Calc 27 Estimated GFR 28 L Glucose 86 POC Capillary Glucose 82 Calcium 9.4 Phosphorus 4.4 Albumin 3.5
--- NOTE | 2024-11-06 10:58 | P.DS_ITS ---
DS: Admitting Diagnosis Discharge Date 11/06/24 Admitting Diagnosis - TRU DS: Discharge Diagnosis Discharge Diagnosis (1) Acute kidney injury: Code(s): N17.9 - Acute kidney failure, unspecified Status: Acute (2) Diastolic congestive heart failure: Qualifiers: Heart failure chronicity: acute on chronic Qualified Code(s): I50.33 - Acute on chronic diastolic (congestive) heart failure Code(s): I50.30 - Unspecified diastolic (congestive) heart failure Status: Acute (3) Diabetes mellitus with chronic kidney disease: Qualifiers: Diabetes mellitus type: type 2 Diabetes mellitus medical terminologist insulin use: with residential use Chronic kidney disease stage: stage 4 (severe) Qualified Code(s): E11.22 - Type 2 diabetes mellitus with diabetic chronic kidney disease; N18.4 - Chronic kidney disease, stage 4 (severe); Z79.4 - 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 (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 insulin Code(s): E11.22 - Type 2 diabetes mellitus with diabetic chronic kidney disease Status: Chronic (4) Essential (primary) hypertension: Code(s): I10 - Essential (primary) hypertension Status: Chronic (5) Hypothyroidism (acquired): Code(s): E03.9 - Hypothyroidism, unspecified Status: Acute DS: Summary Hospital Course Reason for hospitalization: -TRU Hospital Course: 84 y/o F with PMH of chronic pain syndrome, spinal stenosis of lumbar region, hypothyroidism, hyperlipidemia, CKD, venous stasis, JAQUELINE noncompliant with CPAP, diastolic heart failure, paroxysmal atrial fibrillation on Eliquis, insulin- dependent diabetes mellitus, GERD, and anxiety presented with worsening kidney function. Per patient, her diuretics were continually being uptitrated at the snf and for 3 days she was in lasix, bumex, spironolactone and metolazone. Initial VS at presentation: 98? F, HR 93, R 16, 164/65, and 95% on RA. ED workup showed: No leukocytosis, hemoglobin 11.8, sodium 132, potassium 5.3, creatinine 2.5 and GFR 18 (1.45 and GFR 34 on 10/04/2024), glucose 152, magnesium 1.3, BNP 3670, initial troponin 0.015, and UA showed trace leuk esterase. CXR showed mild CHF, superimposed infection cannot be excluded. Patient was given 500cc bolus in ED. Admitted for further work-up. On admission, patient's diuretics were held. On day 2 of hospitalization, patient's creatinine trended down. Renal US obtained and unremarkable. Patient did not express symptoms of hypervolemia and actually feels better than previous hospitalization. Suspect overdiuresis was the cause of patient's TRU. On day of discharge, Cr 1.7 which is close to patient's baseline. Nephrology followed, agreed with restarting Bumex and Aldactone. Also recommended to continue holding lisinopril until outpatient follow-up. Patient has follow-up appointments with Dr. Barclay on Thursday and her PCP on Thursday. Patient was instructed to weigh herself daily and to contact her tennis director with >2-3lbs weight gain, worsening edema, abdominal distention or shortness on breath for possible further titration of diuretics. Nephrology also recommended outpatient sleep study. PT/OT evaluated and recommended discharge home with home health care. Home health care arranged discharge. Patient discharged home in stable condition. Status at Discharge Functional status at discharge: independent ambulation Time Spent with Patient Time attestation: Total time spent providing and/or coordinating discharge services: Time spent: Greater than 30 minutes Exam Narrative: General: NAD Eyes: EOMI ENT: neck supple Cardiovascular: Regular rate and rhythm Respiratory: Clear to auscultation, respirations even and unlabored on RA Gastrointestinal: Soft, non tender Genitourinary: no suprapubic tenderness Musculoskeletal: mild BLE edema Skin: warm, dry. BLE chronic venous skin changes Neuro: Alert. Psych: Mood appropriate DS: Data Data Completed and Pending Completed studies during hospitalization: ITS Impressions Chest X-Ray 11/04/24 12:53 IMPRESSION: Mild CHF. Superimposed infection cannot be excluded. Clinical correlation is recommended. Renal Ultrasound 11/05/24 08:52 IMPRESSION: 1. Normal kidneys without hydronephrosis. Labs on day of discharge: Labs from last 24 hours 11/06/24 11/06/24 11/05/24 08:14 05:47 19:43 WBC 9.1 RBC 3.76 L Hgb 11.6 L Hct 37.0 MCV 98.4 MCH 30.9 MCHC 31.4 L RDW 13.2 Plt Count 169 MPV 10.4 Sodium 137 Potassium 4.4 Chloride 101 Carbon Dioxide 28 Anion Gap 8 BUN 66 H Creatinine 1.73 H Estim Creat Clear Calc 27 Estimated GFR 28 L Glucose 86 POC Capillary Glucose 82 182 H Calcium 9.4 Phosphorus 4.4 Albumin 3.5 11/05/24 11/05/24 16:55 12:04 WBC RBC Hgb Hct MCV MCH MCHC RDW Plt Count MPV Sodium Potassium Chloride Carbon Dioxide Anion Gap BUN Creatinine Estim Creat Clear Calc Estimated GFR Glucose POC Capillary Glucose 159 H 150 H Calcium Phosphorus Albumin Discharge Plan Discharge Attending physician on discharge: Andrew Wilkerson Consulting providers: Shira Barclay; Sally Aguirre Discharging Clinician: Sally Aguirre Anticipated Discharge Date/Time: 11/06/24 10:51 Patient Disposition: Home with Home Health Service Activity: as tolerated Diet: as tolerated Discharge Instructions: Care Coordination: Patient to have [facility] for PT/OT eval and treat, and long term. Their phone number is [phone], if you have any questions. They will contact you to schedule their visits. Take all medications as prescribed. Weigh yourself daily and keep a log of your weights. If you gain more than 2-3 lbs in 1-2 days or notice signs of fluid retention such as lower extremity swelling, shortness of breath or abdominal distention, call Dr. Barclay's office to consider changing your diuretic dosing. Talk to Dr. Barclay about repeating your lab work at his follow-up visit. Also hold your lisinopril until you follow-up as this can effect your kidney function. Follow-up with your primary care provider in one week. Discuss repeating thyroid tests. Return to the emergency department if you develop chest pain, shortness of breath, persistent fever >100.4, confusion, loss of consciousness. Patient Instructions: Antibiotic Form Patient Language: Cuban Stand Alone Forms: General Discharge Information Follow-up/Referrals: Shira Barclay MD [Physician, Nephrology] - Keep Reg. Scheduled Appt. Referral Note: follow-up on Thursday as scheduled Cornell Beal MD [Primary Care Provider, Family Practice] Referral Note: follow-up on Thursday as scheduled Discharge Medications: New bumetanide 1 mg tablet 1.5 mg PO BID Qty: 90 0RF Continued acetaminophen [Tylenol] 325 mg capsule 650 mg PO Q12H PRN (Reason: pain) levothyroxine [Synthroid] 175 mcg tablet 175 mcg PO DAILY Qty: 90 2RF cholecalciferol (vitamin D3) 10 mcg (400 unit) capsule 2,000 unit PO DAILY (DME) lancets [OneTouch Delica Lancets] 33 gauge misc See Rx Instructions .Route Qty: 100 0RF Rx Instructions: As directed (DME) pen needle, diabetic 32 gauge x 5/32 needle See Rx Instructions .ROUTE .MEDSUPPLY Qty: 1200 Rx Instructions: As directed Eliquis 5 mg Tablet 5 mg PO Q12HR 30 Days Qty: 60 1RF insulin aspart U-100 100 unit/mL solution 1 sliding scale dose subcut USEASDIRECTD Qty: 10 0RF hydrocodone-acetaminophen 5-325 mg tablet 1 tablet PO Q6H PRN (Reason: pain) Qty: 12 0RF insulin glargine [Lantus Solostar U-100 Insulin] 100 unit/mL (3 mL) insulin pen 36 unit subcut QAM spironolactone [Aldactone] 25 mg tablet 12.5 mg PO BID Qty: 60 0RF (DME) pen needle, diabetic [BD Ultra-Fine Mini Pen Needle] 31 gauge x 3/16 needle See Rx Instructions .Route Qty: 100 2RF Rx Instructions: Use with Lantus (DME) Blood Glucose Test Strip See Rx Instructions .Route Qty: 50 4RF Rx Instructions: Use to check BS BID metoprolol succinate 100 mg tablet extended release 24 hr 150 mg PO HS Qty: 135 1RF Rx Instructions: TAKE ONE AND ONE-HALF TABLETS DAILY rosuvastatin 5 mg tablet 5 mg PO HS Qty: 90 1RF omeprazole 40 mg capsule,delayed release(DR/EC) 40 mg PO DAILY Qty: 90 1RF Held lisinopril 40 mg tablet See Rx Instructions .ROUTE .COMPLEX Qty: 90 1RF Hold Instructions: Resume on 11/09/24. HOLD until you follow-up with Dr. Barclay and have repeat lab work Dose Instruction: TAKE 1 TABLET DAILY Rx Instructions: TAKE 1 TABLET DAILY Discontinued furosemide 40 mg tablet 80 mg PO DAILY@0800 Rx Instructions: pt. is to take two tablets daily of the 40mg tablets (80mg daily ) Date of admission: 11/05/24 10:51 Primary Care Provider: Cornell Beal Admitting Provider: Andrew Wilkerson Attending physician on admission: Andrew Wilkersno Condition: Stable
[2024-11-06] MEDS: INSULIN ASPART (*BKC) 100 UNITS/ML SUB-Q (12:50)
== END 2024-11-06 12:57 | disposition home health service (06) | DRG 683 ==
LOC: ANHED 12:34 → ANH3MED 13:41
PROVIDERS: Internal Medicine Nephrology; Student in an Organized Health Care Education/Training Program; Admitting Provider Internal Medicine; Emergency Provider Emergency Medicine; PCP Family Medicine; Visit Provider Physician Assistant
DX: N17.9 Acute kidney failure, unspecified (principal); I13.0 Hypertensive heart and chronic kidney disease with heart failure and stage 1 through stage 4 chronic kidney disease, or unspecified chronic kidney disease; I50.32 Chronic diastolic (congestive) heart failure; E83.42 Hypomagnesemia; E11.22 Type 2 diabetes mellitus with diabetic chronic kidney disease; K21.9 Gastro-esophageal reflux disease without esophagitis; E78.2 Mixed hyperlipidemia; N18.32 Chronic kidney disease, stage 3b; I48.0 Paroxysmal atrial fibrillation; E03.9 Hypothyroidism, unspecified; M17.0 Bilateral primary osteoarthritis of knee; G47.33 Obstructive sleep apnea (adult) (pediatric); I87.2 Venous insufficiency (chronic) (peripheral); F41.9 Anxiety disorder, unspecified; D63.1 Anemia in chronic kidney disease; G89.4 Chronic pain syndrome; M48.061 Spinal stenosis, lumbar region without neurogenic claudication; Z66 Do not resuscitate; Z87.891 Personal history of nicotine dependence; Z90.49 Acquired absence of other specified parts of digestive tract; Z98.42 Cataract extraction status, left eye; Z98.41 Cataract extraction status, right eye; Z79.01 Long term (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 anticoagulants; Z79.4 Long term (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 insulin
CPT/HCPCS: 36415; 71045; 76770; 80048; 80053; 80069; 81001; 81050; 82550; 82570; 82948; 83735; 83880; 84100; 84156; 84300; 84484; 84540; 85025; 85027; 85999; 93005; 94762; 96365; 96366; 96375; 97161; 97165; 97535; 99285; A9270; G0378; J1815; J3475; J7040

== ENCOUNTER 2025-01-02 09:16 | Outpatient (CLI) | payer MEDICARE, SELFPAY ==
--- OUTSIDE RECORDS SUMMARY | 2009-04-25 18:00 | XMS_ITS | Continuity of Care Document ---
Author Organization [facility] Address [address] [place] [address] [place] [address] Phone Care Team Providers Care Design Verification Engineer Name Role Phone Daron Smith Unavailable Unavailable Procedures Procedure Date Visual Field Examination-Professional Fe Visual Field Examination(s) Eye Exam & Treatment Dilated Retinal Exam W Interpretation De No Script Refraction Corneal Pachymetry Visual Field Examination-Professional Fe Visual Field Examination-Technical Apr- Vision Svcs Frames Purchases Tax - Medical Eye Exam & Treatment Dilated Retinal Exam W Interpretation Ju Refraction Office/outpatient Visit, Est Eye Exam Established Pt Progressive Lens, Polycarb Progressive Lens, Polycarb Vision Svcs Frames Purchases Progressive Lens, Polycarb Anti-reflective Coating Tax - Medical Refraction Eye Exam & Treatment Advance Directives Directive Yes / No Effective Date File Name No Information Encounters Encounter Description Practice Location Reason(s) For Visit Diagnoses Date Provider Providers Copied on Encounter [facility] [address] [place] [address] [address], [place], [place], [address], tel:[phone] [place] [address] No Information 2 5-201 0 Krishnasmargo Daron. [address], [place], Formerly named [facility], [place]. tel:[phone] Referring Provider: Daron Smith, [address], [place], [place], Formerly named [facility]. tel:[phone] [facility], [address] [place] [address] [address], [place], [place], [address], [place] tel:[phone] [place] [address] No Information 6-201 0 Krishnasmargo Daron. [facility] [address], [place], Formerly named [facility], [place]. tel:[phone] Referring Provider: Daron Smith, [facility] Corporate Center [facility] [address], [place], Formerly named [facility]. tel:[phone] [facility], [address] [place] [address] [address], [place], [place], [address], [place] tel:[phone] [facility] No Information 1-200 9 Krishnasmargo Daron. Pending sale to [facility] Corporate Center [facility] [address], [place], Formerly named [facility], [place]. tel:[phone] Referring Provider: Daron Smith, [facility] [address], [place], Formerly named [facility]. tel:[phone] [facility], [address] [place] [address] [address], [place], [place], [address], [place] tel:[phone] [place] [address] No Information 0 4-200 9 Krishnasmargo Daron. Pending sale to [facility] Center [facility] [address], [place], Formerly named [facility], [place]. tel:[phone] Referring Provider: Daron Smith, [address], [place], Formerly named [facility]. tel:[phone] [facility], [address] [place] [address] [address], [place], [place], [address], [place] tel:[phone] [facility] No Information Apr-0 3-200 9 Krishnasamy Daron. [address], [address], [place]. tel:[phone] Referring Provider: Daron Smith, [address] [place] [address], Formerly named [facility]. tel:[phone] [facility], [address] [place] [address] [address], [place], [place], [address], [place] tel:[phone] [facility] No Information 8-200 8 [facility]. [address] [facility], [address], [place], [place], [address], [place]. tel:[phone] Consulting Provider: Dee Shaffer, [address] [place], [place], [facility]. tel:[phone] [facility], [address] [place] [address] [address], [place], [place], [address], [place] tel:[phone] [facility] No Information 8-200 8 Krishnasamy Daron. [facility] to [facility] [address], [address], [place]. tel:[phone] Office/outpa tient Visit, [facility], [address] [place] [address] [address], [place], [place], [address], [place] tel:[phone] [facility] No Information 2-200 8 Krishnasamy Daron. [facility] to [facility] [address], [address], [place]. tel:[phone] [facility], [address] [place] [address] [address], [place], [place], [address], [place] tel:[phone] [facility] No Information Apr-2 7-200 8 Krishnasamy Daron. [address], [place], [address], [place]. tel:[phone] [facility], [address] [place], [place], [place], [address], [place] tel:[phone] [facility] No Information Feb-2 7-200 8 [employer]. [address] [facility], [facility] [address], [place], [place], [address], [place]. tel:[phone] Consulting Provider: Dee Shaffer, [address] [place] [address], [address]. tel:[phone] [facility], [address] [place] [address], [place], [place], [address], [place] tel:[phone] [facility] No Information Jan-1 4-200 7 [employer]. [address] [facility], [address], [place], [place], [address], [place]. tel:[phone] Consulting Provider: Dee Shaffer, [address] [place] [address], [address]. tel:[phone] [facility], [address] [facility] [place], [facility] [address], [place], [place], [address], [place] tel:[phone] [facility] No Information Adin-2 0-200 7 [employer]. [address] [facility], [address], [place], [place], [address], [place]. tel:[phone] Referring Provider: Genna Thomason, [address], [place], [address]. tel:[phone] g Provider: Dee Shaffer, [address] [place] [address], [address]. tel:[phone] [facility], [address] [facility] [place], [facility] [address], [place], [place], [address], [place] tel:[phone] [facility] No Information 200 7 Arcelia Vail. [address] , [address], [place], [address], [place]. tel:[phone] Family History Family Member Type Diagnosis Age At Onset No Information Payers Payer name Insurance type Covered democrat ID Authoriza tion(s) [place] [id number] Custom Care [id number] Social History Type Description Quantity Date Captured Comments Sex Female Smoking Status No Information Chief Complaint And Reason For Visit No Information Reason For Referral Reason For Referral No Information History Of Present Illness Encounter Date Complaint History Of Prese nt Illness No Information Functional Status Date Functional Assessmen t No Information Instructions Date Instruction Additional Infor mation No Information Assessments Type Assessment Date No Information Patient Care Teams Name Effective Dates (start - stop) Status Members No Information
--- OUTSIDE RECORDS SUMMARY | 2025-01-02 09:52 | XMS_ITS | Clinical Summary ---
Author Organization [facility] C Address [address] [place] [address] Care Team Providers Care Postal Support Employee Name Role Phone Alivia Esposito MD Unavailable [phone] Kamaljit Stiles MD Primary Care Provider [phone] Allergies Active Allergy Reactions Criticality Noted Date Comments Duloxetine Palpitations,Nausea only Low 05/06/2018 Medications levothyroxine (SYNTHROID) 150 mcg tablet Take 175 mcg by mouth oven drier tender before breakfast Active metoprolol XL (TOPROL-XL) 100 [...] (11/30/2018): Added automatically from request for surgery [id number] Hip pain 05/06/2018 Assessment & Plan (05/06/2018 5:11 PM FINISHING AREA SUPERVISOR): Ms. Burroughs has bilateral hip issues left greater than right with weakness in her iliopsoas muscle and markedly positive SATINDER signs. I think that this is her primary problem. She will follow-up with Dr. Browning who she has seen before for her knee. She reports that she had a very good rapport with him. Lumbar stenosis 05/06/2018 Assessment & Plan (05/06/2018 5:12 PM FINISHING AREA SUPERVISOR): Ms. Burroughs also has lumbar stenosis at [...] Medical History Medical History Date Comments Diabetes Hypothyroidism High cholesterol Hypertension Arthritis Acid reflux [...] on file Legal Sex Female 5:18 PM FINISHING AREA SUPERVISOR Gender Identity Not on file Sexual Orientation [...] 2025 2024 Medical Devices Implanted Type Area Mold Forms Builder Device Identifier Shelf Expiration Date Model / Serial / Lot [employer] 3186ans Octrode 60cm 8 Electrode Lead Percutaneous Kit Neurostimulator - [id number] - [id number] Implanted:Qty: 1 on 04/01/2019 by Alivia Esposito MD at [facility] N/A: Spine Thoracic [employer] 12/02/2020 [id number] / [id number] / [employer] 3186ans Octrode 60cm 8 Electrode Lead Percutaneous Kit Neurostimulator - [id number] - [id number] Implanted:Qty: 1 on 04/01/2019 by Alivia Esposito MD at [facility] N/A: Spine Thoracic [employer] 11/04/2020 [id number] / [id number] / [employer] [address] [place] Bonnie Lead - [id number] Implanted:Qty: 1 on 04/01/2019 by Alivia Esposito MD at [facility] N/A: Spine Thoracic [employer] 10/07/2020 1192 / / [id number] [employer] [address] [place] Bonnie Lead - [id number] Implanted:Qty: 1 on 04/01/2019 by Alivia Esposito MD at [facility] N/A: Spine Thoracic [employer] 03/25/2020 1192 / / [id number] [employer] 3660 Contrlsys Proclaim Elite 4.95cmx5.55cm 5 Implantable Pulse Tonic - [id number] - [id number] Implanted:Qty: 1 on 04/01/2019 by Alivia Esposito MD at [facility] N/A: Spine Thoracic [employer] 12/02/2020 3660 CONTRLSYS / [id number] / Procedures Procedure Name Priority Date/Time Associated Diagnosis Comments POCT LIPID PANEL Routine 2024 10:5 8 AM CDT Morbid obesity (HCC) from Last 3 Months or Most Recently Relevant to Health Maintenance Results * (ABNORMAL) POCT lipid panel (2024 [...] TEST ORDERABLES Ed ited Result - Final from Last 3 Months or Most Recently Relevant to Health Maintenance Insurance MEDICARE [facility] [place] [address] Care Teams Postal Support Employee Relationship Specialty Start Date End Date Kamaljit Stiles MD [address] [place] [address] PCP - General Family Medicine 09/08/22 Alivia Esposito MD [address] [place] [address] Surgeon Anesthesiology 04/01/19
[2025-01-02 13:20] LABS: Albumin Level 4.1 g/dL (3.5-5.1); Anion Gap 10 mmol/L (4-12); Blood Urea Nitrogen 77 mg/dL (7-17); Calcium 9.7 mg/dL (8.4-10.2); Carbon Dioxide 28 mmol/L (22-30); Chloride 100 mmol/L (98-107); Estimated Glomerular Filt Rate 33; Glucose 96 mg/dL (65-110); Potassium 4.8 mmol/L (3.4-5.0); Sodium 138 mmol/L (137-145)
[2025-01-02 13:31] LABS: Parathyroid Intact 59.3 pg/mL (14.5-75.2)
[2025-01-02 13:44] LABS: Thyroid Stimulating Hormone 0.023 uIU/mL (0.465-4.680)
[2025-01-02 13:46] LABS: Total Protein Urine Random 12 mg/dL; Ur Ttl Prot Creatinine Ratio 0.24 mg/mg (0-0.20)
== END 2025-01-02 09:17 | disposition home or self-care (01) ==
LOC: ANHGOSHLAB 09:18
PROVIDERS: PCP Family Medicine; Visit Provider Internal Medicine Nephrology
DX: E03.9 Hypothyroidism, unspecified (principal); E11.22 Type 2 diabetes mellitus with diabetic chronic kidney disease; I12.9 Hypertensive chronic kidney disease with stage 1 through stage 4 chronic kidney disease, or unspecified chronic kidney disease; N18.4 Chronic kidney disease, stage 4 (severe); E55.9 Vitamin D deficiency, unspecified; N25.81 Secondary hyperparathyroidism of renal origin; Z79.4 Long term (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 insulin
CPT/HCPCS: 36415; 80069; 82306; 82570; 83970; 84156; 84443